=== PATIENT | male | born 1950 | race Caucasian/White ===

== ENCOUNTER 2019-01-09 18:26 | Inpatient (IN) | payer MEDICARE ==
[2019-01-09] MEDS ORDERED: VANCOMYCIN IV PER PHARMACY 1 EACH MISC MISCELLANE PRN (19:39)
--- NOTE | 2019-01-09 19:39 | ED ---
Extremity Problem HPI - General Chief complaint: Extremity Problem,Nontraumatic Stated complaint: bilat feet swelling Time Seen by Provider: 01/09/19 18:31 Source: patient, EMS, RN notes reviewed, old records reviewed Mode of arrival: EMS Limitations: no limitations - History of Present Illness Initial comments: This is a 68-year-old male is accepted in transfer for evaluation of lower extremity issues, bilateral lower Shorty pain infection versus cellulitis and ulcers. Patient also has significant secondary changes of scan set patient sent here for evaluation of wound care. Patient himself is having mild pain lower extremity is but no significant pain he states symptoms increasing for the last 5 years pain is episodic symptoms worsened he walks sometimes worse when he is just sitting still. MD Complaint: extremity pain, extremity swelling, other (Bilateral lower extremity) -: year(s) Location: bilateral lower extremity History of Same: Yes Radiation: none Severity scale (1-10): 7 Quality: stabbing Consistency: intermittent Improves with: nothing Worsens with: weight bearing, walking Associated Symptoms: denies other symptoms - Related Data Allergies Allergy/AdvReac Type Severity Reaction Status Date / Time No Known Allergies Allergy Verified 01/09/19 19:04 Review of Systems ROS Statement: Those systems with pertinent positive or pertinent negative responses have been documented in the HPI. ROS Other: All systems not noted in ROS Statement are negative. Past Medical History Past Medical History: Atrial Fibrillation, Heart Failure, Hypertension Additional Past Medical History / Comment(s): pulmonary edmea History of Any Multi-Drug Resistant Organisms: None Reported Past Surgical History: No Surgical Hx Reported Past Psychological History: No Psychological Hx Reported Smoking Status: Former smoker Past Alcohol Use History: None Reported Past Drug Use History: None Reported General Exam - General Exam Comments Initial Comments: Patient does have positive capillary refill lower extremity less than 2 seconds Limitations: no limitations General appearance: alert, in no apparent distress Head exam: Present: atraumatic, normocephalic, normal inspection Eye exam: Present: normal appearance, PERRL, EOMI. Absent: scleral icterus, conjunctival injection, periorbital swelling ENT exam: Present: normal exam, mucous membranes moist Neck exam: Present: normal inspection. Absent: tenderness, meningismus, lymphadenopathy Respiratory exam: Present: normal lung sounds bilaterally. Absent: respiratory distress, wheezes, rales, rhonchi, stridor Cardiovascular Exam: Present: regular rate, normal rhythm, normal heart sounds. Absent: systolic murmur, diastolic murmur, rubs, gallop, clicks GI/Abdominal exam: Present: soft, normal bowel sounds. Absent: distended, tenderness, guarding, rebound, rigid Extremities exam: Present: normal inspection, full ROM, normal capillary refill, other (Bilateral lower extremity edema significant with secondary changes of infection ulceration does have Doppler pulses no palpable pulse and swelling). Absent: tenderness, pedal edema, joint swelling, calf tenderness Back exam: Present: normal inspection Neurological exam: Present: alert, oriented X3, CN II-XII intact Psychiatric exam: Present: normal affect, normal mood Skin exam: Present: warm, dry, intact, normal color. Absent: rash Course Vital Signs 01/09/19 18:35 Temperature 97.7 F Pulse Rate 95 Respiratory 18 Rate Blood Pressure 125/90 O2 Sat by Pulse 98 Oximetry - Reevaluation(s) Reevaluation #1: 01/09/19 19:37 Medical record transfer paperwork are reviewed Reevaluation #2: 01/09/19 19:37 Patient is in no significant pain currently Medical Decision Making - Medical Decision Making 7 male the ER for evaluation patient resents today for evaluation regarding significant lower extremity edema slightly changes of venous insufficiency. Patient does have secondary changes of infection and ulcer. Patient will be admitted for IV antibiotics diuresis and wound care Disposition Clinical Impression: Bilateral lower leg cellulitis, Chronic venous insufficiency Disposition: ADMITTED IP TO THIS HOSP Condition: Fair Is patient prescribed a controlled substance at d/c from ED?: No Referrals: Nonstaff,Physician [Primary Care Provider] - 1-2 days
[2019-01-09] MEDS ORDERED: VANCOMYCIN 2,500 MG in SODIUM CHLORIDE 0.9% 500 ML 500 ML IVPB ONE (21:00)
[2019-01-09] MEDS ORDERED: ALBUTEROL NEBULIZED 2.5 MG/3 ML INHALATION PRN (22:01)
[2019-01-09] MEDS: FUROSEMIDE 10 MG/ML 4 ML VIAL IV SCH (22:41)
[2019-01-09] MEDS: APIXABAN 5 MG TAB PO SCH (22:42)
[2019-01-09] MEDS: METOPROLOL TARTRATE 50 MG TAB PO SCH (23:46)
[2019-01-09] MEDS: NICOTINE POLACRILEX 2 MG GUM BUCCAL PRN (23:47)
[2019-01-10] MEDS: APIXABAN 5 MG TAB PO SCH ×2 (05:28→16:25)
[2019-01-10] MEDS: VANCOMYCIN 2,250 MG in SODIUM CHLORIDE 0.9% 500 ML 500 ML IVPB SCH ×3 (05:28→22:10)
[2019-01-10] MEDS: IPRATROPIUM 0.5 MG/2.5 ML NEBU INHALATION SCH ×4 (07:45→19:48)
[2019-01-10] MEDS: CHOLECALCIFEROL 1,000 UNIT TAB PO SCH (07:54)
[2019-01-10] MEDS: PANTOPRAZOLE 40 MG TABLET PO SCH (07:54)
[2019-01-10] MEDS: MULTIVITAMINS, THERA 1 EACH TAB PO SCH (07:55)
[2019-01-10] MEDS: FUROSEMIDE 10 MG/ML 4 ML VIAL IV SCH (07:55)
[2019-01-10] MEDS: ATORVASTATIN 10 MG TAB PO SCH (07:55)
[2019-01-10 09:00] LABS: African American GFR (CKD) >90 (>60 ml/min/1.73 sqM)
[2019-01-10] MEDS ORDERED: ENOXAPARIN 40 MG/0.4 ML SYRINGE SQ SCH (09:00)
[2019-01-10] MEDS: METOPROLOL TARTRATE 50 MG TAB PO SCH ×2 (09:33→16:25)
[2019-01-10] MEDS: NICOTINE POLACRILEX 2 MG GUM BUCCAL PRN ×2 (10:35→16:31)
[2019-01-10] MEDS: FUROSEMIDE 20 MG TAB PO SCH (16:25)
--- NOTE | 2019-01-10 16:33 | P.HPIM ---
History of Present Illness 68-year-old male with the history of bilateral lower extremity venous stasis and lymphedema chronic came in with increased redness and increased swelling and some pain. Patient denied any fever chills patient doesn't have any leuko cytosis patient has some breast tenderness in the right foot does have chronic stasis dermatosis changes extremely swollen both legs. Patient will limit any local wound care patient was started on Rocephin and vancomycin which I'll continue for now there is an obvious no obvious draining ulcers from which I can get cultures. Review of Systems REVIEW OF SYSTEMS: CONSTITUTIONAL: No fever, no malaise, no fatigue. HEENT: No recent visual problems or hearing problems. Denied any sore throat. CARDIOVASCULAR: No chest pain, orthopnea, PND, no palpitations, no syncope. PULMONARY: No shortness of breath, no cough, no hemoptysis. GASTROINTESTINAL: No diarrhea, no nausea, no vomiting, no abdominal pain. NEUROLOGICAL: No headaches, no weakness, no numbness. HEMATOLOGICAL: Denies any bleeding or petechiae. GENITOURINARY: Denies any burning micturition, frequency, or urgency. MUSCULOSKELETAL/RHEUMATOLOGICAL: Denies any joint pain, swelling, or any muscle pain. ENDOCRINE: Denies any polyuria or polydipsia. The rest of the 14-point review of systems is negative. Past Medical History Past Medical History: Atrial Fibrillation, Heart Failure, Hypertension Additional Past Medical History / Comment(s): pulmonary edmea History of Any Multi-Drug Resistant Organisms: None Reported Past Surgical History: No Surgical Hx Reported Past Psychological History: No Psychological Hx Reported Smoking Status: Former smoker Past Alcohol Use History: None Reported Past Drug Use History: None Reported Additional Drug Use History / Comment(s): Past ETOH 18 years ago Medications and Allergies Home Medications Medication Instructions Recorded Confirmed Type Albuterol Inhaler [Ventolin Hfa 1 - 2 puff INHALATION RT-Q6H PRN 01/09/19 01/09/19 History Inhaler] Apixaban [Eliquis] 5 mg PO BID@0500,1700 01/09/19 01/09/19 History Cholecalciferol [Vitamin D3 (25 1,000 unit PO DAILY 01/09/19 01/09/19 History Mcg = 1000 Iu)] Lipitor Unkown Dose 0.5 tab PO DAILY 01/09/19 01/09/19 History Metoprolol Tartrate [Lopressor] 100 mg PO BID@0500,1700 01/09/19 01/09/19 His tory Multivitamins, Thera [Multivitamin 1 tab PO DAILY 01/09/19 01/09/19 History (formulary)] Omeprazole 80 mg PO DAILY 01/09/19 01/09/19 History Tiotropium 18 Mcg/Puff [Spiriva] 1 puff INHALATION RT-DAILY 01/09/19 01/09/19 History Allergies Allergy/AdvReac Type Severity Reaction Status Date / Time No Known Allergies Allergy Verified 01/09/19 19:04 Physical Exam Vitals: Vital Signs Temp Pulse Pulse Pulse Resp BP BP 01/10/19 16:24 99 01/10/19 16:19 80 01/10/19 16:06 78 01/10/19 12:19 97.3 F L 90 17 01/10/19 11:46 76 01/10/19 11:33 74 01/10/19 08:01 84 01/10/19 08:00 18 01/10/19 07:47 80 01/10/19 06:13 77 01/10/19 05:38 98.8 F 91 18 92/60 01/09/19 23:33 121/80 01/09/19 21:42 97.4 F L 105 H 18 126/79 01/09/19 20:09 97.9 F 100 20 102/86 01/09/19 18:35 97.7 F 95 18 125/90 BP Pulse Ox 01/10/19 16:24 128/61 01/10/19 16:19 01/10/19 16:06 01/10/19 12:19 110/57 96 01/10/19 11:46 01/10/19 11:33 01/10/19 08:01 01/10/19 08:00 01/10/19 07:47 01/10/19 06:13 108/59 01/10/19 05:38 94 L 01/09/19 23:33 01/09/19 21:42 95 01/09/19 20:09 96 01/09/19 18:35 98 Intake and Output 01/10/19 01/10/19 01/10/19 06:59 14:59 22:59 Intake Total 600 Output Total 1770 Balance -1770 600 Intake: Oral 600 Output: Urine 1770 Other: Voiding Method Urinal Urinal Urinal PHYSICAL EXAMINATION: GENERAL: The patient is alert and oriented x3, not in any acute distress. Well developed, well nourished. HEENT: Pupils are round and equally reacting to light. EOMI. No scleral icterus. No conjunctival pallor. Normocephalic, atraumatic. No pharyngeal erythema. No thyromegaly. CARDIOVASCULAR: S1 and S2 present. No murmurs, rubs, or gallops. PULMONARY: Chest is clear to auscultation, no wheezing or crackles. ABDOMEN: Soft, nontender, nondistended, normoactive bowel sounds. No palpable organomegaly. MUSCULOSKELETAL: No joint swelling or deformity. EXTREMITIES: No cyanosis, clubbing, venous stasis and edema NEUROLOGICAL: Gross neurological examination did not reveal any focal deficits. SKIN: bilateral lower extremity edema, venous stasis dermatosis with some skin breakdown scaling of both legs extending up to the midshin area circumferential some redness in the right foot Results CBC & Chem 7: 01/10/19 08:12 Thrombosis Risk Factor Assmnt - Choose All That Apply Any of the Below Risk Factors Present?: Yes Each Factor Represents 1 point: Obesity (BMI >25), Swollen legs (current) Other Risk Factors: Yes Each Risk Factor Represents 2 Points: Age 61-74 years Thrombosis Risk Factor Assessment Total Risk Factor Score: 4 Thrombosis Risk Factor Assessment Level: Moderate Risk Assessment and Plan Plan: -bilateral lower edema and venous stasis lymphedema and possible cellulitis the right leg: Patient will need local wound care will continue with Lasix was switched to oral Lasix. As patient is hypotensive at this time. We'll continue the antibiotics and the left patient is evaluated by infectious disease. Patient may benefit from Keflex and discontinue rest of the medications. But this shouldn't decision will be left infectious disease. -Atrial fibrillation presently rate controlled patient is on Eliquis which will be continued metoprolol will be continued -nicotine abuse until recently -Hypertension -Obesity Patient will not need any additional DVT prophylaxis as patient is is on Eliquis
[2019-01-11] MEDS ORDERED: VANCOMYCIN TROUGH DUE 1 EACH MISC MISCELLANE ONE (05:00)
[2019-01-11 06:09] LABS: HCT 33.5 % (39.0-53.0); HGB 10.7 gm/dL (13.0-17.5); Hypochromasia Slight; MCH 29.5 pg (25.0-35.0); MCV 92.2 fL (80.0-100.0); Mean Platelet Volume 6.9; Platelet Count 186 k/uL (150-450); RBC 3.63 m/uL (4.30-5.90); RDW 14.5 % (11.5-15.5); WBC 7.7 k/uL (3.8-10.6)
[2019-01-11] MEDS: APIXABAN 5 MG TAB PO SCH ×2 (06:11→16:04)
[2019-01-11] MEDS: METOPROLOL TARTRATE 50 MG TAB PO SCH ×2 (06:11→16:04)
[2019-01-11] MEDS: VANCOMYCIN 2,250 MG in SODIUM CHLORIDE 0.9% 500 ML 500 ML IVPB SCH (06:11)
[2019-01-11 06:17] LABS: African American GFR (CKD) >90 (>60 ml/min/1.73 sqM); Anion Gap 5 mmol/L; Blood Urea Nitrogen 16 mg/dL (9-20); Calcium 8.4 mg/dL (8.4-10.2); Carbon Dioxide 32 mmol/L (22-30); Chloride 103 mmol/L (98-107); Glucose 97 mg/dL (74-99); Potassium 3.5 mmol/L (3.5-5.1); Sodium 140 mmol/L (137-145)
[2019-01-11] MEDS: IPRATROPIUM 0.5 MG/2.5 ML NEBU INHALATION SCH ×4 (07:15→18:58)
[2019-01-11] MEDS: PANTOPRAZOLE 40 MG TABLET PO SCH (08:25)
[2019-01-11] MEDS: FUROSEMIDE 20 MG TAB PO SCH ×2 (08:25→16:04)
[2019-01-11] MEDS: MULTIVITAMINS, THERA 1 EACH TAB PO SCH (08:25)
[2019-01-11] MEDS: CHOLECALCIFEROL 1,000 UNIT TAB PO SCH (08:25)
[2019-01-11] MEDS: ATORVASTATIN 10 MG TAB PO SCH (08:25)
--- NOTE | 2019-01-11 10:19 | P.CONS ---
History of Present Illness - Reason for Consult Consult date: 01/10/19 Bilateral lower extremity cellulitis Requesting physician: Samina Lewis - Chief Complaint Bilateral leg pain swelling and redness x few days - History of Present Illness Patient is a 68-year-old male with a past medical history significant for bilateral lower extremity chronic swelling and dry scaly skin which has been going on for years patient presented to outside facility with more pain swelling and redness to the leg especially to the right foot patient denies any history of any trauma patient describing the pain to be more of a dull aching pain in tensity about 5 out of 10 and worse when he walks on them patient currently did not have any open wound or any sinus drainage patient was evaluated outside facility and subsequently has been transferred to [facility] for further management of his lower extremity cellulitis, the patient denies any fever or any chills and his white count has been normal currently being treated with a combination of Rocephin and vancomycin, patient denies any specific local care to his lower extremity for the last year or so Review of Systems Positive point has been mentioned in the HPI rest of the systems are negative Past Medical History Past Medical History: Atrial Fibrillation, Heart Failure, Hypertension Additional Past Medical History / Comment(s): pulmonary edmea History of Any Multi-Drug Resistant Organisms: None Reported Past Surgical History: No Surgical Hx Reported Past Psychological History: No Psychological Hx Reported Smoking Status: Former smoker Past Alcohol Use History: None Reported Past Drug Use History: None Reported Additional Drug Use History / Comment(s): Past ETOH 18 years ago Medications and Allergies Home Medications Medication Instructions Recorded Confirmed Type Albuterol Inhaler [Ventolin Hfa 1 - 2 puff INHALATION RT-Q6H PRN 01/09/19 01/09/19 History Inhaler] Apixaban [Eliquis] 5 mg PO BID@0500,1700 01/09/19 01/09/19 History Cholecalciferol [Vitamin D3 (25 1,000 unit PO DAILY 01/09/19 01/09/19 History Mcg = 1000 Iu)] Lipitor Unkown Dose 0.5 tab PO DAILY 01/09/19 01/09/19 History Metoprolol Tartrate [Lopressor] 100 mg PO BID@0500,1700 01/09/19 01/09/19 History Multivitamins, Thera [Multivitamin 1 tab PO DAILY 01/09/19 01/09/19 History (formulary)] Omeprazole 80 mg PO DAILY 01/09/19 01/09/19 History Tiotropium 18 Mcg/Puff [Spiriva] 1 puff INHALATION RT-DAILY 01/09/19 01/09/19 History Allergies Allergy/AdvReac Type Severity Reaction Status Date / Time No Known Allergies Allergy Verified 01/09/19 19:04 Physical Exam Vitals: Vital Signs Temp Pulse Pulse Pulse Resp BP BP 01/10/19 12:19 97.3 F L 90 17 01/10/19 11:46 76 01/10/19 11:33 74 01/10/19 08:01 84 01/10/19 08:00 18 01/10/19 07:47 80 01/10/19 06:13 77 01/10/19 05:38 98.8 F 91 18 92/60 01/09/19 23:33 121/80 01/09/19 21:42 97.4 F L 105 H 18 126/79 01/09/19 20:09 97.9 F 100 20 102/86 01/09/19 18:35 97.7 F 95 18 125/90 BP Pulse Ox 01/10/19 12:19 110/57 96 01/10/19 11:46 01/10/19 11:33 01/10/19 08:01 01/10/19 08:00 01/10/19 07:47 01/10/19 06:13 108/59 01/10/19 05:38 94 L 01/09/19 23:33 01/09/19 21:42 95 01/09/19 20:09 96 01/09/19 18:35 98 Intake and Output 01/10/19 01/10/19 01/10/19 06:59 14:59 22:59 Output Total 1770 Balance -1770 Output: Urine 1770 Other: Voiding Method Urinal Urinal GENERAL DESCRIPTION: An elderly male lying in bed, no distress. No tachypnea or accessory muscle of respiration use. HEENT: Shows Pallor , no scleral icterus. Oral mucous membrane is dry. No pharyngeal erythema or thrush NECK: Trachea central, no thyromegaly. LUNGS: Unlabored breathing. Clear to auscultation anteriorly. No wheeze or crackle. HEART: S1, S2, regular rate and rhythm. No loud murmur ABDOMEN: Soft, no tenderness , guarding or rigidity, no organomegaly EXTREMITIES: Bilateral lower extremity with significant swelling and dry scaly skin no open wound or any drainage minimal redness overall poor hygiene SKIN: No rash, no masses palpable. NEUROLOGICAL: The patient is awake, alert, oriented x3, mood and affect normal. Results CBC & Chem 7: 01/11/19 05:34 01/11/19 05:34 Assessment and Plan Assessment: 1-patient with bilateral lower extremity swelling and pain in this patient who did have a chronic dry scaly skin and possible underlying venous stasis however currently do not have any open ulcers with diffuse swelling redness in the component of cellulitis is not entirely excluded likely streptococcal disease in this patient currently with no fever or elevated white count (1) Bilateral lower leg cellulitis Current Visit: Yes Status: Acute Code(s): L03.116 - CELLULITIS OF LEFT LOWER LIMB; L03.115 - CELLULITIS OF RIGHT LOWER LIMB SNOMED Code(s): 634942376 Plan: 1-discontinue the vancomycin and Rocephin 2-cefazolin 2 g every 8 hours 3-moisturizing cream to the dry scaly skin lower extremity to be applied daily this was explained to the RN We will follow on clinical condition and cultures to further adjust medication if needed Thank you for this consultation will follow this patient with you Time with Patient: Greater than 30
[2019-01-11] MEDS ORDERED: KETOROLAC 30 MG/ML 1 ML VIAL IVP PRN (15:08)
[2019-01-11] MEDS: NICOTINE POLACRILEX 2 MG GUM BUCCAL PRN (15:49)
--- NOTE | 2019-01-11 15:53 | P.PN ---
Subjective 68-year-old male with the history of bilateral lower extremity venous stasis and lymphedema chronic came in with increased redness and increased swelling and some pain. Patient denied any fever chills patient doesn't have any leukocytosis patient has some breast tenderness in the right foot does have chronic stasis dermatosis changes extremely swollen both legs. Patient will limit any local wound care patient was started on Rocephin and vancomycin. 01/11/2019 Patient is presently on ceftezolin and vancomycin and Rocephin were discontinued Constitutional: Denied any fatigue denied any fever. Cardio vascular: denied any chest pain, palpitations Gastrointestinal denied any nausea vomiting Pulmonary: Denied any shortness of breath cough Neurologic denied any new focal deficits All inpatient medications were reviewed and appropriate changes in these medications as dictated in the interval history and assessment and plan. Objective - Vital Signs Vital signs: Vital Signs Temp 98.2 F 01/11/19 12:05 Pulse 78 01/11/19 15:41 Resp 18 01/11/19 12:05 BP 106/64 01/11/19 12:05 Pulse Ox 93 L 01/11/19 12:05 Intake & Output 01/10/19 01/11/19 01/11/19 18:59 06:59 18:59 Intake Total 600 790 Balance 600 790 Intake: Intake, IV Titration 500 Amount Vancomycin 2,250 mg In 500 Sodium Chloride 0.9% 500 ml 500 ml @ 167 mls/hr IVPB Q8H [facility] Rx#: [id number] Oral 600 290 Other: Voiding Method Urinal Urinal Urinal # Voids 2 # Bowel Movements 1 - Exam PHYSICAL EXAMINATION: GENERAL: The patient is alert and oriented x3, not in any acute distress. Well developed, well nourished. HEENT: Pupils are round and equally reacting to light. EOMI. No scleral icterus. No conjunctival pallor. Normocephalic, atraumatic. No pharyngeal erythema. No thyromegaly. CARDIOVASCULAR: S1 and S2 present. No murmurs, rubs, or gallops. PULMONARY: Chest is clear to auscultation, no wheezing or crackles. ABDOMEN: Soft, nontender, nondistended, normoactive bowel sounds. No palpable organomegaly. MUSCULOSKELETAL: No joint swelling or deformity. EXTREMITIES: No cyanosis, clubbing, venous stasis and edema NEUROLOGICAL: Gross neurological examination did not reveal any focal deficits. SKIN: bilateral lower extremity edema, venous stasis dermatosis with some skin breakdown scaling of both legs extending up to the midshin area circumferential some redness in the right foot - Labs CBC & Chem 7: 01/11/19 05:34 01/11/19 05:34 Labs: Abnormal Lab Results - Last 24 Hours (Table) 01/11/19 01/11/19 Range/Units 05:34 05:34 RBC 3.63 L (4.30-5.90) m/uL Hgb 10.7 L (13.0-17.5) gm/dL Hct 33.5 L (39.0-53.0) % Carbon Dioxide 32 H (22-30) mmol/L Assessment and Plan Plan: -bilateral lower edema and venous stasis lymphedema and possible cellulitis the right leg: Patient will need local wound care will continue with Lasix. Patient is on ceftezolin and and infectious disease following the patient -Atrial fibrillation presently rate controlled patient is on Eliquis which will be continued metoprolol will be continued -nicotine abuse until recently -Hypertension -Obesity Patient will not need any additional DVT prophylaxis as patient is is on Eliquis
--- NOTE | 2019-01-11 16:14 | PN ---
PROGRESS NOTE DATE OF SERVICE: 01/11/2019. REASON FOR FOLLOW UP: Bilateral extremity cellulitis, Athlete's foot. INTERVAL HISTORY: The patient is currently afebrile. Patient is breathing comfortably. Denies any chest pain. No cough. No nausea, vomiting. Overall pain and swelling to the leg has decreased. Currently no open wounds or any drainage. PHYSICAL EXAMINATION: Blood pressure 106/54 with a pulse of 87, temperature 98.2. He is 93% on room air. General description is an elderly male lying in bed in no distress. Respiratory system: Unlabored breathing. Clear to auscultation anteriorly. Heart S1, S2. Regular rate and rhythm. Abdomen soft, no tenderness. Bilateral leg did have some chronic swelling, minimal redness, dry scaly skin with evidence of athlete's foot. LABS: White count 7.7. DIAGNOSTIC IMPRESSION AND PLAN: 1. Patient with bilateral lower extremity venous stasis, but no evidence of any ulcers. Did have a component of cellulitis. The patient to continue Cefazolin with the plan is to finish therapy with oral Keflex. Local care with moisturizing cream and minimal compression dressing. 2. Athlete's foot, nystatin cream between the toes twice a day. MMODL / IJN: [id number] /
[2019-01-11] MEDS ORDERED: VANCOMYCIN 2,250 MG in SODIUM CHLORIDE 0.9% 500 ML 500 ML IVPB SCH (21:00)
[2019-01-11] MEDS: NYSTATIN 100,000UNIT/GM CREAM 30 GM TUBE TOPICAL SCH (21:55)
[2019-01-12] MEDS: APIXABAN 5 MG TAB PO SCH ×2 (05:40→16:05)
[2019-01-12] MEDS: METOPROLOL TARTRATE 50 MG TAB PO SCH ×2 (05:40→16:04)
[2019-01-12] MEDS: NICOTINE POLACRILEX 2 MG GUM BUCCAL PRN ×3 (05:42→19:41)
[2019-01-12] MEDS: IPRATROPIUM 0.5 MG/2.5 ML NEBU INHALATION SCH ×4 (07:20→20:02)
[2019-01-12 07:40] LABS: African American GFR (CKD) >90 (>60 ml/min/1.73 sqM)
[2019-01-12] MEDS: FUROSEMIDE 20 MG TAB PO SCH ×2 (08:08→16:04)
[2019-01-12] MEDS: PANTOPRAZOLE 40 MG TABLET PO SCH (08:08)
[2019-01-12] MEDS: MULTIVITAMINS, THERA 1 EACH TAB PO SCH (08:08)
[2019-01-12] MEDS: ATORVASTATIN 10 MG TAB PO SCH (08:08)
[2019-01-12] MEDS: CHOLECALCIFEROL 1,000 UNIT TAB PO SCH (08:08)
[2019-01-12] MEDS: NYSTATIN 100,000UNIT/GM CREAM 30 GM TUBE TOPICAL SCH ×2 (08:09→21:05)
--- NOTE | 2019-01-12 11:47 | CDI ---
Documentation Clarification Form Date: 01/12/2019 11:28:49 AM From: Denise Jacobs RN CCDS Admit Date: 01/11/2019 10:41:00 AM Patient Name: Nikko Russo Visit Number: [id number] Discharge Date: ATTENTION: The Clinical Documentation Specialists (CDI) and [facility] Coding Staff appreciate your assistance in clarifying documentation. Please respond to the clarification below the line at the bottom and electronically sign. The CDI & [facility] Coding staff will review the response and follow-up if needed. Please note: Queries are made part of the Legal Health Record. If you have any questions, please contact the author of this message via ITS. Dr. Samina Lewis Heart Failure is documented in H & P, Medical History 01/10/2019 History/Risk Factors: 68-year-old male presents to the ED Via EMS as a Transfer for bilateral feet swelling and cellulitis. Medical History Atrial Fibrillation; HTN; Heart Failure . Clinical Indicators: Per the H & P Chronic stasis dermatosis changes extremely swollen both legs VS/Pulse OX: 125/90 95 97.7 18 98% ra Treatment: Lopressor bid; Lasix bid; In your professional opinion, can you please clarify the acuity and type of CHF if known? * Chronic Systolic Heart Failure * Chronic Diastolic Heart Failure * Chronic Systolic & Diastolic Heart Failure * Heart Failure Ruled Out * Unable to Determine * Other, please specify (Last Revision: June 2017) No heart failure MTDD
--- NOTE | 2019-01-12 14:04 | PN ---
PROGRESS NOTE DATE OF SERVICE: 01/12/2019 REASON FOR FOLLOWUP: Bilateral extremity cellulitis, Althlete's foot. INTERVAL HISTORY: The patient is currently afebrile. Patient has been breathing comfortably. Denies having any chest pain, no cough. No nausea, no vomiting. No abdominal pain. No pain to the leg area. PHYSICAL EXAMINATION: Blood pressure 132/79 with a pulse of 80, temperature 97.4. He is 94% on room air. General description is elderly male, up in the chair in no distress. RESPIRATORY SYSTEM: Unlabored breathing, clear to auscultation anteriorly. HEART: S1, S2. Regular rate and rhythm. ABDOMEN: Soft, no tenderness. EXTREMITIES: Bilateral leg swelling has slightly decreased. LABS: Hemoglobin is 10.7, white count 7.7, creatinine 0.77. DIAGNOSTIC IMPRESSION AND PLAN: 1. Patient with bilateral extremity cellulitis. Patient is currently covered with cefazolin 2 g. Therapy to be switched over to Keflex 500 mg p.o. q.6 hours for another 10 days. 2. Athlete's foot, nystatin cream between the toes twice a day for about a week. Continue supportive care. MMODL / IJN: [id number] /
--- NOTE | 2019-01-12 16:15 | P.PN ---
Subjective Progress Note Date: 01/12/19 Principal diagnosis: 68-year-old male with the history of bilateral lower extremity venous stasis and lymphedema chronic came in with increased redness and increased swelling and so me pain. Patient denied any fever chills patient doesn't have any leukocytosis patient has some breast tenderness in the right foot does have chronic stasis dermatosis changes extremely swollen both legs. Patient will limit any local wound care patient was started on Rocephin and vancomycin. 01/11/2019 Patient is presently on ceftezolin and vancomycin and Rocephin were discontinued Constitutional: Denied any fatigue denied any fever. Cardio vascular: denied any chest pain, palpitations Gastrointestinal denied any nausea vomiting Pulmonary: Denied any shortness of breath cough Neurologic denied any new focal deficits All inpatient medications were reviewed and appropriate changes in these medications as dictated in the interval history and assessment and plan. 01/12/2019 Patient is sitting up in chair in no acute distress. No acute overnight issues. Bilateral legs are elevated and continue to have swelling with dry, scaling of the skin noted. Discussed with the patient at length about possible discharge plans and patient states that he would like to go home. After discussing with the nurse as well as case management patient may benefit from rehab for continued strength and mobility. Patient did work with PT/OT today and also recommending subacute rehab upon discharge. Currently patient denies any chest pain, shortness of breath, or palpitations at this time. Patient is afebrile. Patient denies any nausea or vomiting and is tolerating diet. Guarded prognosis. Objective - Vital Signs Vital signs: Vital Signs Temp 97.4 F L 01/12/19 11:26 Pulse 105 H 01/12/19 15:54 Resp 16 01/12/19 15:54 BP 132/79 01/12/19 11:26 Pulse Ox 94 L 01/12/19 11:26 Intake & Output 01/11/19 01/12/19 01/12/19 18:59 06:59 18:59 Intake Total 9695 582 1755 Output Total 300 800 Balance 1000 340 230 Intake: Intake, IV Titration 500 50 50 Amount Vancomycin 2,250 mg In 500 Sodium Chloride 0.9% 500 ml 500 ml @ 167 mls/hr IVPB Q12HR [facility] Rx#: [id number] ceFAZolin 2 gm In Sodium 50 50 Chloride 0.9% 50 ml @ 100 mls/hr IVPB Q8HR [facility] Rx# :[id number] Oral 500 590 980 Output: Urine 300 800 Other: Voiding Method Urinal Urinal Urinal # Voids 2 2 # Bowel Movements 1 - Exam GENERAL: The patient is alert and oriented x3, not in any acute distress. Well developed, well nourished. Vital signs are stable. HEENT: Pupils are round and equally reacting to light. EOMI. No scleral icterus. No conjunctival pallor. Normocephalic, atraumatic. No pharyngeal erythema. No thyromegaly. CARDIOVASCULAR: S1 and S2 present. No murmurs, rubs, or gallops. PULMONARY: Chest is clear to auscultation, no wheezing or crackles. ABDOMEN: Soft, nontender, nondistended, normoactive bowel sounds. No palpable organomegaly. MUSCULOSKELETAL: No joint swelling or deformity. EXTREMITIES: No cyanosis, clubbing, venous stasis and edema noted to bilateral lower extremity NEUROLOGICAL: Gross neurological examination did not reveal any focal deficits. SKIN: bilateral lower extremity edema, venous stasis dermatosis with some skin breakdown, scaling of both legs extending up to the midshin area circumferential with some redness in the right foot, redness has improved - Labs CBC & Chem 7: 01/11/19 05:34 01/12/19 06:49 Assessment and Plan Assessment: -bilateral lower edema and venous stasis lymphedema and possible cellulitis the right leg: Patient will need local wound care will continue with Lasix. Patient is on cefazolin and infectious disease is following the patient -Atrial fibrillation presently rate controlled patient is on Eliquis which will be continued metoprolol will be continued -nicotine abuse until recently -Hypertension -Obesity -Patient will not need any additional DVT prophylaxis as patient is is on Eliquis Recommendations and discussion: Recommend to continue current medications, management, and symptomatic treatment. Infectious disease is following. Case management and social work are following and working on possible placement to rehab for continued PT/OT therapy. After speaking with the nurse today she feels she is unable to care for himself properly and would benefit from an ECF facility. Patient lives in the [facility] area and are currently awaiting authorization for [facility]. Will continue to monitor closely. Further recommendations to follow. Guarded prognosis. Possible discharge in 48 hours after authorization has been obtained.
[2019-01-13] MEDS: METOPROLOL TARTRATE 50 MG TAB PO SCH ×2 (05:30→16:51)
[2019-01-13] MEDS: APIXABAN 5 MG TAB PO SCH ×2 (05:31→16:51)
[2019-01-13 07:59] LABS: African American GFR (CKD) >90 (>60 ml/min/1.73 sqM)
[2019-01-13] MEDS: IPRATROPIUM 0.5 MG/2.5 ML NEBU INHALATION SCH ×4 (08:34→20:31)
[2019-01-13 09:19] LABS: Basophils % (A) 1 %; Eosinophils # (A) 0.5 k/uL (0-0.7); Eosinophils % (A) 5 %; HCT 40.4 % (39.0-53.0); HGB 12.8 gm/dL (13.0-17.5); Hypochromasia Slight; Lymphocytes # (A) 1.8 k/uL (1.0-4.8); Lymphocytes % (A) 20 %; MCH 29.5 pg (25.0-35.0); MCHC 31.6 g/dL (31.0-37.0); MCV 93.3 fL (80.0-100.0); Mean Platelet Volume 7.7; Monocytes # (A) 0.6 k/uL (0-1.0); Monocytes % (A) 6 %; Neutrophils # (A) 5.8 k/uL (1.3-7.7); Neutrophils % (A) 66 %; Platelet Count 225 k/uL (150-450); RBC 4.33 m/uL (4.30-5.90); RDW 14.4 % (11.5-15.5); WBC 8.9 k/uL (3.8-10.6)
[2019-01-13 09:33] LABS: Anion Gap 8 mmol/L; Blood Urea Nitrogen 15 mg/dL (9-20); Calcium 8.9 mg/dL (8.4-10.2); Carbon Dioxide 31 mmol/L (22-30); Chloride 103 mmol/L (98-107); Glucose 97 mg/dL (74-99); Potassium 3.8 mmol/L (3.5-5.1); Sodium 142 mmol/L (137-145)
[2019-01-13] MEDS: MULTIVITAMINS, THERA 1 EACH TAB PO SCH (09:33)
[2019-01-13] MEDS: FUROSEMIDE 20 MG TAB PO SCH ×2 (09:33→15:17)
[2019-01-13] MEDS: CHOLECALCIFEROL 1,000 UNIT TAB PO SCH (09:33)
[2019-01-13] MEDS: PANTOPRAZOLE 40 MG TABLET PO SCH (09:33)
[2019-01-13] MEDS: ATORVASTATIN 10 MG TAB PO SCH (09:33)
[2019-01-13] MEDS: NYSTATIN 100,000UNIT/GM CREAM 30 GM TUBE TOPICAL SCH ×2 (09:34→20:15)
--- NOTE | 2019-01-13 14:13 | PN ---
PROGRESS NOTE DATE OF SERVICE: 01/13/2019 REASON FOR FOLLOWUP: 1. Bilateral lower extremity cellulitis. 2. Athlete's foot. INTERVAL HISTORY: The patient is currently afebrile. The patient is breathing comfortably. Denies having any chest pain or cough, leg swelling persists, the redness has improved. No nausea, vomiting. No abdominal pain. No diarrhea with antibiotic therapy. PHYSICAL EXAMINATION: Blood pressure is 97/65 with a pulse of 90, temperature is 97.3. General description is an elderly male up in the chair in no distress. RESPIRATORY SYSTEM: Unlabored breathing, clear to auscultation anteriorly. HEART: S1, S2. Regular rate and rhythm. ABDOMEN: Soft. LEGS. Swelling persists. Redness has improved. No open wound or any drainage. LABS: Hemoglobin is 12.8, white count 8.9, BUN of 15, creatinine 0.67. DIAGNOSTIC IMPRESSION AND PLAN: 1. Patient has bilateral lower extremity cellulitis. This patient did have evidence of fluid overload with diffuse cellulitis, likely streptococcal disease and is covered with cefazolin that will be switched to oral Keflex q.6 hours for another 7-10 days to finish a course of therapy. 2. Athlete's foot. Recommend nystatin cream between the toes twice a day for about a week. MMODL / IJN: [id number] /
[2019-01-13] MEDS: NICOTINE POLACRILEX 2 MG GUM BUCCAL PRN (15:17)
--- NOTE | 2019-01-13 15:48 | P.PN ---
Subjective Progress Note Date: 01/13/19 Principal diagnosis: 68-year-old male with the history of bilateral lower extremity venous stasis and lymphedema chronic came in with increased redness and increased swelling and so me pain. Patient denied any fever chills patient doesn't have any leukocytosis patient has some breast tenderness in the right foot does have chronic stasis dermatosis changes extremely swollen both legs. Patient will limit any local wound care patient was started on Rocephin and vancomycin. 01/11/2019 Patient is presently on ceftezolin and vancomycin and Rocephin were discontinued Constitutional: Denied any fatigue denied any fever. Cardio vascular: denied any chest pain, palpitations Gastrointestinal denied any nausea vomiting Pulmonary: Denied any shortness of breath cough Neurologic denied any new focal deficits All inpatient medications were reviewed and appropriate changes in these medications as dictated in the interval history and assessment and plan. 01/12/2019 Patient is sitting up in chair in no acute distress. No acute overnight issues. Bilateral legs are elevated and continue to have swelling with dry, scaling of the skin noted. Discussed with the patient at length about possible discharge plans and patient states that he would like to go home. After discussing with the nurse as well as case management patient may benefit from rehab for continued strength and mobility. Patient did work with PT/OT today and also recommending subacute rehab upon discharge. Currently patient denies any chest pain, shortness of breath, or palpitations at this time. Patient is afebrile. Patient denies any nausea or vomiting and is tolerating diet. Guarded prognosis. 01/13/2019 Patient is sitting up in the chair in no acute distress with no acute overnight issues. Some of the swelling has gone down to the bilateral lower extremities and some of the erythema of the left leg has improved. Infectious disease is following. Patient is requesting a podiatry consult for a bone spur that he has. Patient will follow-up in the outpatient setting at the [facility] with podiatry as social work confirmed that podiatry does visit the F facility that he may be going to in [facility]. Patient is awaiting a 3 day stay for ECF placement. The plan is to go to [facility] for continued PT/OT therapy for strength and mobility. Patient denies any chest pain, shortness of breath, or palpitations at this time. Patient is afebrile. Patient denies any nausea or vomiting and is tolerating diet. Will continue to monitor closely. Objective - Vital Signs Vital signs: Vital Signs Temp 97.3 F L 01/13/19 11:59 Pulse 92 01/13/19 12:25 Resp 12 01/13/19 11:59 BP 97/65 01/13/19 11:59 Pulse Ox 96 01/13/19 04:46 Intake & Output 01/12/19 01/13/19 01/13/19 18:59 06:59 18:59 Intake Total 1030 590 650 Output Total 800 1200 Balance 230 -610 650 Intake: Intake, IV Titration 50 50 Amount ceFAZolin 2 gm In Sodium 50 50 Chloride 0.9% 50 ml @ 100 mls/hr IVPB Q8HR [facility] Rx# :[id number] Oral 980 590 600 Output: Urine 800 1200 Other: Voiding Method Urinal Urinal Urinal # Voids 2 2 # Bowel Movements 1 - Exam GENERAL: The patient is alert and oriented x3, not in any acute distress. Well developed, well nourished. Vital signs are stable. HEENT: Pupils are round and equally reacting to light. EOMI. No scleral icterus. No conjunctival pallor. Normocephalic, atraumatic. No pharyngeal erythema. No thyromegaly. CARDIOVASCULAR: S1 and S2 present. No murmurs, rubs, or gallops. PULMONARY: Chest is clear to auscultation, no wheezing or crackles. ABDOMEN: Soft, nontender, nondistended, normoactive bowel sounds. No palpable organomegaly. MUSCULOSKELETAL: No joint swelling or deformity. EXTREMITIES: No cyanosis, clubbing, venous stasis and edema noted to bilateral lower extremity NEUROLOGICAL: Gross neurological examination did not reveal any focal deficits. SKIN: bilateral lower extremity edema, venous stasis dermatosis with some skin breakdown, scaling of both legs extending up to the midshin area circumferential with some redness in the right foot, redness has improved - Labs CBC & Chem 7: 01/13/19 07:30 01/13/19 07:30 Labs: Abnormal Lab Results - Last 24 Hours (Table) 01/13/19 01/13/19 Range/Units 07:30 07:30 Hgb 12.8 L (13.0-17.5) gm/dL Carbon Dioxide 31 H (22-30) mmol/L Assessment and Plan Assessment: -bilateral lower edema and venous stasis lymphedema and possible cellulitis the right leg: Patient will need local wound care will continue with Lasix. Patient is on cefazolin and infectious disease is following the patient -Atrial fibrillation presently rate controlled patient is on Eliquis which will be continued metoprolol will be continued -nicotine abuse until recently -Hypertension -Obesity -Patient will not need any additional DVT prophylaxis as patient is is on Eliquis Recommendations and discussion: Recommend to continue current medications, management, and symptomatic treatment. Infectious disease is following. Case management and social work are following and working on possible placement to rehab for continued PT/OT therapy. Patient lives in the [facility] area and are currently awaiting authorization for [facility]. Patient will follow-up with podiatry at the [facility]. Will continue to monitor closely. Further recommendations to follow. Guarded prognosis. Possible discharge in 24 hours after authorization has been obtained.
[2019-01-13 19:44] VITALS: RESP 16
[2019-01-14] MEDS: APIXABAN 5 MG TAB PO SCH (04:47)
[2019-01-14] MEDS: METOPROLOL TARTRATE 50 MG TAB PO SCH (04:47)
[2019-01-14 05:05] VITALS: BP 115/72; TEMP 97.9
[2019-01-14] MEDS: CHOLECALCIFEROL 1,000 UNIT TAB PO SCH (08:27)
[2019-01-14] MEDS: MULTIVITAMINS, THERA 1 EACH TAB PO SCH (08:27)
[2019-01-14] MEDS: PANTOPRAZOLE 40 MG TABLET PO SCH (08:27)
[2019-01-14] MEDS: FUROSEMIDE 20 MG TAB PO SCH (08:27)
[2019-01-14] MEDS: ATORVASTATIN 10 MG TAB PO SCH (08:27)
[2019-01-14] MEDS: NYSTATIN 100,000UNIT/GM CREAM 30 GM TUBE TOPICAL SCH (08:31)
[2019-01-14] MEDS: NICOTINE POLACRILEX 2 MG GUM BUCCAL PRN (09:03)
[2019-01-14] MEDS: IPRATROPIUM 0.5 MG/2.5 ML NEBU INHALATION SCH ×2 (09:28→12:50)
--- NOTE | 2019-01-14 11:48 | PN ---
PROGRESS NOTE DATE OF SERVICE: 01/14/2019 REASON FOR FOLLOWUP: 1. Bilateral lower extremity cellulitis. 2. Athlete's foot. INTERVAL HISTORY: The patient is currently afebrile. The patient is a breathing comfortably, denies any chest pain or cough. Leg swelling persists, redness has improved. Denies pain to the leg area. No nausea, no vomiting. No diarrhea. PHYSICAL EXAMINATION: Blood pressure is 115/72 with a pulse of 89, temperature 97.9, he is 99% on room air. General description is an elderly male, up in the chair in no distress. RESPIRATORY SYSTEM: Unlabored breathing, clear to auscultation anteriorly. HEART: S1, S2. Regular rate and rhythm. ABDOMEN: Soft, no tenderness. LEGS: Swelling persists. Redness has improved. LABS: White count of 8.9 with a creatinine 0.67. DIAGNOSTIC IMPRESSION AND PLAN: 1. Patient with bilateral extremity cellulitis. The patient did have diffuse swelling and redness, likely streptococcal disease from clinical improvement on cefazolin. Plan to finish therapy with oral Keflex 500 mg 4 times a day for 7 to 10 days. 2. Athlete's foot. Nystatin cream between the toes twice a day. MMODL / IJN: [id number] /
--- NOTE | 2019-01-14 12:45 | P.DS ---
Providers Date of admission: 01/11/19 10:41 Expected date of discharge: 01/14/19 Attending physician: Cady Stephens Consults: 01/10/19 15:13 Consult Physician Routine Consulting Provider: Geraldine Meehan Consult Reason/Comments: bilateral lower leg cellulitis Do you want consulting provider notified?: Yes Primary care physician: Physician Nonstaff Hospital Course: Final diagnosis -bilateral lower edema and venous stasis with lymphedema and possible cellulitis the right leg -Atrial fibrillation -nicotine abuse until recently -Hypertension -Obesity Discharge disposition Patient is being discharged in a stable condition with guarded prognosis to [facility] for continued PT/OT therapy. Per infectious disease recommendations patient will continue with nystatin twice daily applied between the toes for the next 7-10 days along with oral Keflex 4 times daily for 10 days. Patient will follow-up with primary care provider and wound care upon discharge. Total time taken is 35 minutes. History of present illness This is a 68-year-old male was recently admitted with some tenderness of the right foot along with swelling and redness and some chronic stasis dermatosis changes to bilateral lower extremities and was being closely monitored. Infectious disease was consulted and patient was on IV antibiotics during hospitalization. Patient will continue on oral antibiotics in the form of Keflex 4 times daily for the next 10 days. Patient also has some athlete's foot bilateral feet and will continue with nystatin cream twice daily in between the toes for the next 7-10 days. Patient was requesting a podiatry at the facility for chronic bone spur and is also an extreme need for foot care as he is unable to do this himself. Patient will be going to [facility] for continued PT/OT therapy as he currently only used a cane at home but due to the swelling of his bilateral lower extremities patient is requiring more assistance and the use a walker. Currently patient denies any chest pain, shortness of breath, or palpitations at this time. Patient is afebrile. Patient denies any nausea or vomiting and is tolerating diet. Currently patient's condition is stable with improvement and is ready for discharge today. Guarded prognosis. On exam vital signs are stable. Temp is 97.9F, pulse is 89, respirations are 16, blood pressure is 115/72, oxygen saturation is 99% on room air. Cardio S1 and S2 are present. Respiratory system shows diminished breath sounds at the bases otherwise clear to auscultation. Abdomen is soft, obese, nontender. Nervous system shows no focal deficits with mild diffuse weakness. Please refer to medication reconciliation sheet for a list of medications. Patient Condition at Discharge: Fair Plan - Discharge Summary Discharge Rx Participant: Yes New Discharge Prescriptions: New Cephalexin [Keflex] 500 mg PO Q6HR 10 Days #40 cap Furosemide [Lasix] 20 mg PO BID@0900,1600 tab Atorvastatin [Lipitor] 10 mg PO DAILY tab Nystatin 100,000Unit/gm Cream [Mycostatin Cream] 1 applic TOPICAL BID applic Nicotine Polacrilex [Nicorette] 2 mg BUCCAL Q4HR PRN gum PRN Reason: Nicotine Cravings Pantoprazole [Protonix] 40 mg PO DAILY@0730 tablet.dr Corbett Multivitamins, Thera [Multivitamin (formulary)] 1 tab PO DAILY Cholecalciferol [Vitamin D3 (25 Mcg = 1000 Iu)] 1,000 unit PO DAILY Tiotropium 18 Mcg/Puff [Spiriva] 1 puff INHALATION RT-DAILY Metoprolol Tartrate [Lopressor] 100 mg PO BID@0500,1700 Albuterol Inhaler [Ventolin Hfa Inhaler] 2 puff INHALATION RT-Q6H PRN PRN Reason: Shortness Of Breath Apixaban [Eliquis] 5 mg PO BID@0500,1700 Atorvastatin [Lipitor] 10 mg PO DAILY Discontinued Omeprazole 40 mg PO BID Discharge Medication List Albuterol Inhaler [Ventolin Hfa Inhaler] 2 puff INHALATION RT-Q6H PRN 01/09/19 [History] Apixaban [Eliquis] 5 mg PO BID@0500,1700 01/09/19 [History] Cholecalciferol [Vitamin D3 (25 Mcg = 1000 Iu)] 1,000 unit PO DAILY 01/09/19 [History] Metoprolol Tartrate [Lopressor] 100 mg PO BID@0500,1700 01/09/19 [History] Multivitamins, Thera [Multivitamin (formulary)] 1 tab PO DAILY 01/09/19 [History] Tiotropium 18 Mcg/Puff [Spiriva] 1 puff INHALATION RT-DAILY 01/09/19 [History] Atorvastatin [Lipitor] 10 mg PO DAILY 01/12/19 [History] Atorvastatin [Lipitor] 10 mg PO DAILY tab 01/14/19 [Rx] Cephalexin [Keflex] 500 mg PO Q6HR 10 Days #40 cap 01/14/19 [Rx] Furosemide [Lasix] 20 mg PO BID@0900,1600 tab 01/14/19 [Rx] Nicotine Polacrilex [Nicorette] 2 mg BUCCAL Q4HR PRN gum 01/14/19 [Rx] Nystatin 100,000Unit/gm Cream [Mycostatin Cream] 1 applic TOPICAL BID applic 01/14/19 [Rx] Pantoprazole [Protonix] 40 mg PO DAILY@0730 tablet. 01/14/19 [Rx] Follow up Appointment(s)/Referral(s): Geraldine Meehan MD [STAFF PHYSICIAN] - 2 Weeks [facility] Visiting Nurse, [NON-STAFF] - 1 Week Activity/Diet/Wound Care/Special Instructions: Activity as tolerated Continue working with PT/OT Complete a full course of antibiotics until finished 10 days Follow-up with primary care provider upon discharge Consult for podiatry at [facility] Continue with nystatin cream twice daily in between toes for the next week Continue current diet Discharge Disposition: TRANSFER TO SNF/ECF
[2019-01-14 13:01] VITALS: PULSE 88
--- NOTE | 2019-01-22 07:13 | CDI ---
Documentation Clarification Form Date: 01/22/19 From: Lu Yanez Phone: If you have a question about this query, please contact Dalila Lee Leasing Coordinator at [phone] between 8am and 5pm. Admit Date: 01/11/19 Discharge Date:01/14/19 Patient Name: Nikko Russo Visit Number: [id number] ATTENTION: The Clinical Documentation Specialists (CDI) and [facility] Coding Staff appreciate your assistance in clarifying documentation. Please respond to the clarification below the line at the bottom and electronically sign. The CDI & [facility] Coding staff will review the response and follow-up if needed. Please note: Queries are made part of the Legal Health Record. If you have any questions, please contact the author of this message via ITS. Dear Dr. Samina Lewis Atrial Fibrillation is documented throughout the chart. History/Risk Factors: Hypertension Clinical Indicators: Presently rate controlled. EKG/telemetry: Not done Treatment: Patient is on Eliquis 5 mg In your professional opinion, can you please clarify the type of Atrial Fibrillation, if known? Chronic Chronic Persistent Paroxysmal Persistent Other, please specify Unable to determine Unable to determine MTDD
== END 2019-01-14 14:30 | DRG 603 ==
LOC: EC 18:26 → 3NMEDONC 19:40 → OBSVTOIN 01-11 10:41
PROVIDERS: ADMIT Hospitalist; ATTEND Hospitalist
DX: L03.115 Cellulitis of right lower limb (principal); L03.116 Cellulitis of left lower limb; I95.9 Hypotension, unspecified; I48.91 Unspecified atrial fibrillation; B35.3 Tinea pedis; E66.9 Obesity, unspecified; I10 Essential (primary) hypertension; I87.8 Other specified disorders of veins; L98.8 Other specified disorders of the skin and subcutaneous tissue; I89.0 Lymphedema, not elsewhere classified; M77.9 Enthesopathy, unspecified; Z79.899 Other long term (current) drug therapy; Z79.01 Long term (current) use of anticoagulants; Z87.891 Personal history of nicotine dependence
CPT/HCPCS: 80048; 80202; 82565; 85025; 85027; 94640; 99284

== ENCOUNTER 2019-10-24 06:27 | Inpatient (IN) | payer OTHER, MEDICARE ==
--- NOTE | 2019-10-24 07:06 | ED ---
Chest Pain HPI - General Source: patient, EMS, RN notes reviewed Mode of arrival: EMS Limitations: no limitations <Jake Vazquez - Last Filed: 10/24/19 07:40> <Fritz Modi - Last Filed: 10/24/19 08:30> - General Chief Complaint: Chest Pain Stated Complaint: Chest Pain Time Seen by Provider: 10/24/19 06:31 - History of Present Illness Initial Comments: This a 69-year-old male presents emergency Department with chief complaint of chest pain. Patient states that it started a few hours ago. Patient states he was substernal chest pain, severe pain. Patient states that the pain has subsided he was brought in by EMS and was given aspirin. Patient states that he has had a cardiac cath several years ago. He does have a history of hypertension hyperlipidemia and A. fib on Eliquis. Patient has ongoing shortness breath this time. No headache no dizziness. Patient also noted to have extremely edematous legs with crusting. He states he has not worn shoes or cleaned his legs and a long period of time. Patient states he has no known fever. He states he has extensive drainage from his extremities he does not have home health care nursing at this time. (Jake Vazquez) - Related Data Home Medications Medication Instructions Recorded Confirmed Albuterol Inhaler (Mhu) [Ventolin 2 puff INHALATION RT-Q6H PRN 01/09/19 04/29/19 Hfa Inhaler (Mhu)] Apixaban [Eliquis] 5 mg PO BID@0600,1800 01/09/19 04/29/19 Cholecalciferol [Vitamin D3 (25 1,000 unit PO DAILY@0601/09/19 04/29/19 Mcg = 1000 Iu)] Metoprolol Tartrate [Lopressor] 100 mg PO BID@0600,1800 01/09/19 04/29/19 Tiotropium 18 Mcg/Puff [Spiriva] 1 puff INHALATION RT-DAILY@0601/09/19 04/29/19 Acetaminophen Tab [Tylenol] 650 mg PO Q4H PRN 04/29/19 04/29/19 Atorvastatin [Lipitor] 10 mg PO DAILY@222904/29/19 04/29/19 Pantoprazole [Protonix] 40 mg PO DAILY@222904/29/19 04/29/19 Previous Rx's Medication Instructions Recorded Nicotine Polacrilex [Nicorette] 2 mg BUCCAL Q4HR PRN gum 01/14/19 Cephalexin [Keflex] 500 mg PO Q8HR #21 cap 05/04/19 Furosemide [Lasix] 40 mg PO DAILY #90 tab 05/04/19 Allergies Allergy/AdvReac Type Severity Reaction Status Date / Time No Known Allergies Allergy Verified 04/29/19 17:03 Review of Systems ROS Other: All systems not noted in ROS Statement are negative. <Jake Vazquez - Last Filed: 10/24/19 07:40> ROS Other: All systems not noted in ROS Statement are negative. <Fritz Modi - Last Filed: 10/24/19 08:30> ROS Statement: Those systems with pertinent positive or pertinent negative responses have been documented in the HPI. EKG Findings - EKG Comments: EKG Findings:: EKG performed at 6:43 A. fib rate of 87 QRS 92 QT / QTC 394/474 <Jake Vazquez - Last Filed: 10/24/19 07:40> Past Medical History Past Medical History: Atrial Fibrillation, COPD, Hypertension Additional Past Medical History / Comment(s): pulmonary edmea, lymph edema , obstructive sleep apnea without home CPAP use History of Any Multi-Drug Resistant Organisms: None Reported Past Surgical History: No Surgical Hx Reported Past Psychological History: No Psychological Hx Reported Smoking Status: Former smoker Past Alcohol Use History: None Reported Past Drug Use History: None Reported - Past Family History Father Family Medical History: CVA/TIA Additional Family Medical History / Comment(s): Father from CVA Mother Additional Family Medical History / Comment(s): Mother from a "broken heart" shortly after father <Jake Vazquez - Last Filed: 10/24/19 07:40> General Exam Limitations: no limitations General appearance: alert, in no apparent distress, obese, other (Patient is upkept) Head exam: Present: atraumatic, normocephalic, normal inspection Eye exam: Present: normal appearance, PERRL, EOMI. Absent: scleral icterus, conjunctival injection, periorbital swelling ENT exam: Present: normal exam, normal oropharynx, mucous membranes moist Neck exam: Present: normal inspection, full ROM. Absent: tenderness, meningismus, lymphadenopathy Respiratory exam: Present: normal lung sounds bilaterally. Absent: respiratory distress, wheezes, rales, rhonchi, stridor Cardiovascular Exam: Present: irregular rhythm, normal heart sounds. Absent: regular rate, normal rhythm, systolic murmur, diastolic murmur, rubs, gallop, clicks GI/Abdominal exam: Present: soft, normal bowel sounds. Absent: distended, tenderness, guarding, rebound, rigid Extremities exam: Present: pedal edema (Extensive swelling, erythema, drainage and crusting noted of the lower extremities) Neurological exam: Present: alert, oriented X3 <Jake Vazquez - Last Filed: 10/24/19 07:40> Course <Fritz Modi - Last Filed: 10/24/19 08:30> Vital Signs 10/24/19 10/24/19 06:32 08:28 Temperature 97.5 F L 97.5 F L Pulse Rate 77 86 Respiratory 17 18 Rate Blood Pressure 121/86 107/75 O2 Sat by Pulse 96 100 Oximetry - Reevaluation(s) Reevaluation #1: 10/24/19 08:06 Patient reevaluated and reexamined by myself, Dr. Modi. I agree with. Findings. This includes diagnostic interpretation treatment plan. Patient is symptom-free at this time. Patient updated on results including chest x-ray results. Patient also has chronic leg edema and drainage. Patient states he has previously seen Dr. Rose for this. 10/24/19 08:30 Case was discussed with practitioner Ashleigh, who will admit covering for Dr. Stephens, who will [facility]. (Fritz Modi) Chest Pain MDM <Jake Vazquez - Last Filed: 10/24/19 07:40> - MDM 6-year-old presents for chest pain. Patient's troponin is 0.034. Patient has known history of A. fib anticoagulated. On Eliquis. Chest x-ray reviewed shows evidence of right lung mass concerning for lung cancer. Patient will be admitted for cardiology evaluation, pulmonology evaluation (Jake Vazquez) Disposition Time of Disposition: 07:42 <Jake Vazquez - Last Filed: 10/24/19 07:40> <Fritz Modi - Last Filed: 10/24/19 08:30> Clinical Impression: Lymphedema of both lower extremities, Chronic venous insufficiency, Lung mass, Chest pain Disposition: ADMITTED IP TO THIS HOSP Condition: Serious
[2019-10-24 07:10] LABS: Basophils % (A) 0 %; Eosinophils # (A) 0.3 k/uL (0-0.7); Eosinophils % (A) 3 %; HCT 35.4 % (39.0-53.0); Hypochromasia Moderate; Lymphocytes # (A) 1.5 k/uL (1.0-4.8); Lymphocytes % (A) 15 %; MCH 27.4 pg (25.0-35.0); MCHC 30.9 g/dL (31.0-37.0); MCV 88.7 fL (80.0-100.0); Mean Platelet Volume 7.8; Monocytes # (A) 0.6 k/uL (0-1.0); Monocytes % (A) 5 %; Neutrophils # (A) 7.6 k/uL (1.3-7.7); Neutrophils % (A) 75 %; Platelet Count 253 k/uL (150-450); RBC 3.99 m/uL (4.30-5.90); RDW 15.3 % (11.5-15.5); WBC 10.2 k/uL (3.8-10.6)
[2019-10-24 07:19] LABS: INR 1.1 (<1.2); Partial Thromboplastin Time 29.5 sec (22.0-30.0)
--- NOTE | 2019-10-24 07:23 | XR ---
EXAMINATION TYPE: XR chest 2V DATE OF EXAM: 10/24/2019 COMPARISON: NONE TECHNIQUE: PA and lateral views submitted. HISTORY: Chest pain FINDINGS: There is a large mass in the right upper lobe measuring 2.7 cm. Heart is enlarged. Hypertrophic and d egenerative change of the spine. No overt failure. No pneumothorax. No sizable pleural effusion. Tech nique limits assessment left lung base but no obvious area of infiltrate suspected. IMPRESSION: 1. Large 2.7 cm right upper lobe lung mass suspicious for malignancy. 2. Cardiomegaly.
[2019-10-24 07:24] LABS: ALT 14 U/L (4-49); AST 27 U/L (17-59); African American GFR (CKD) >90 (>60 ml/min/1.73 sqM); Albumin 3.4 g/dL (3.5-5.0); Alkaline Phosphatase 110 U/L (38-126); Anion Gap 7 mmol/L; Blood Urea Nitrogen 22 mg/dL (9-20); Calcium 8.8 mg/dL (8.4-10.2); Carbon Dioxide 29 mmol/L (22-30); Chloride 103 mmol/L (98-107); Glucose 170 mg/dL (74-99); Magnesium 1.8 mg/dL (1.6-2.3); Non-African American GFR(CKD) >90 (>60 ml/min/1.73 sqM); Potassium 4.1 mmol/L (3.5-5.1); Sodium 139 mmol/L (137-145); Total Protein 7.7 g/dL (6.3-8.2)
[2019-10-24] MEDS ORDERED: NALOXONE 0.4 MG/ML 1 ML VIAL IV PRN (07:42)
[2019-10-24] MEDS ORDERED: HYDROcodone/APAP 5-325MG 1 EACH TAB PO PRN (07:42)
[2019-10-24] MEDS ORDERED: ONDANSETRON 4 MG/2 ML VIAL IVP PRN (07:42)
[2019-10-24] MEDS ORDERED: RX INFO: IV CONTRAST WAS GIVEN 1 EACH MISC MISCELLANE PRN (10:42)
--- NOTE | 2019-10-24 11:27 | P.CRDCN ---
History of Present Illness Consult date: 10/24/19 Chief complaint: Chest pain History of present illness: This is a pleasant 69-year-old female patient with a past medical history significant for obesity, long-standing persistent atrial fibrillation, as well as hypertension and dyslipidemia and chronic lower extremities edema presented to the emergency room complaining of chest discomfort. He was in his usual state of focal early this morning when he woke up from sleep and started eating his breakfast and started experiencing discomfort in the chest. He described the discomfort as a tightness in the mid of the chest without any radiation to the arms or neck or shoulders and without any associated symptoms of shortness of breath, sweating, dizziness, heart racing, or syncope. The EKG showed atrial fibrillation with nonspecific ST and T wave abnormalities. The first set of enzymes came in to be unremarkable did a chest x-ray showed no acute abnormalities. The rest of his blood work came in to be unremarkable. He stated that he underwent a heart catheterization about 5 years ago in [place] and that showed normal coronaries according to him. On examination he does have severe bilateral lower extremities edema and chronic skin changes. He stated that in the past he is to follow at the wound clinic. Past Medical History Past Medical History: Atrial Fibrillation, COPD, Hypertension Additional Past Medical History / Comment(s): obesity, chronic Le wounds chronic lymphedema of the lower extremity , obstructive sleep apnea, does not use CPAP at home History of Any Multi-Drug Resistant Organisms: None Reported Past Surgical History: No Surgical Hx Reported Past Anesthesia/Blood Transfusion Reactions: No Reported Reaction Past Psychological History: No Psychological Hx Reported Smoking Status: Former smoker (quit smoking 11/2018 and he has >40py smoking) Past Alcohol Use History: None Reported Past Drug Use History: None Reported Additional Drug Use History / Comment(s): Past ETOH 18 years ago - Past Family History Father Family Medical History: CVA/TIA Additional Family Medical History / Comment(s): Father from CVA Mother Additional Family Medical History / Comment(s): Mother from a "broken heart" shortly after father Medications and Allergies Home Medications Medication Instructions Recorded Confirmed Type Apixaban [Eliquis] 5 mg PO Q12H 01/09/19 10/24/19 History Cholecalciferol [Vitamin D3 (25 1,000 unit PO DAILY 01/09/19 10/24/19 History Mcg = 1000 Iu)] Metoprolol Tartrate [Lopressor] 100 mg PO BID 01/09/19 10/24/19 History Tiotropium 18 Mcg/Puff [Spiriva] 1 puff INHALATION RT-DAILY 01/09/19 10/24/19 History Pantoprazole [Protonix] 40 mg PO DAILY 04/29/19 10/24/19 History Albuterol Inhaler [Ventolin Hfa 2 puff INHALATION RT-QID PRN 10/24/19 10/24/19 History Inhaler] Atorvastatin [Lipitor] 10 mg PO DAILY 10/24/19 10/24/19 History Furosemide [Lasix] 20 mg PO BID 10/24/19 10/24/19 History Multivit-Min/FA/Lycopen/Lutein 1 tab PO DAILY 10/24/19 10/24/19 History [Centrum Silver Tablet] Allergies Allergy/AdvReac Type Severity Reaction Status Date / Time No Known Allergies Allergy Verified 10/24/19 08:40 Physical Exam Vitals: Vital Signs Temp Pulse Pulse Resp BP BP Pulse Ox 10/24/19 09:00 98 F 89 22 96/51 100 10/24/19 08:28 97.5 F L 86 18 107/75 100 10/24/19 06:32 97.5 F L 77 17 121/86 96 Intake and Output 10/23/19 10/24/19 10/24/19 22:59 06:59 14:59 Other: Weight 138.346 kg 155.5 kg - Constitutional General appearance: no acute distress - Respiratory Respiratory: bilateral: diminished - Cardiovascular Rhythm: irregularly irregular Heart sounds: normal: S1, S2 Results 10/24/19 07:02 10/24/19 07:02 Cardiac Enzymes 10/24/19 10/24/19 Range/Units 07:02 07:02 AST 27 (17-59) U/L Troponin I 0.034 (0.000-0.034) ng/mL Coagulation 10/24/19 Range/Units 07:02 PT 11.0 (9.0-12.0) sec APTT 29.5 (22.0-30.0) sec CBC 10/24/19 Range/Units 07:02 WBC 10.2 (3.8-10.6) k/uL RBC 3.99 L (4.30-5.90) m/uL Hgb 11.0 L (13.0-17.5) gm/dL Hct 35.4 L (39.0-53.0) % Plt Count 253 (150-450) k/uL Comprehensive Metabolic Panel 10/24/19 Range/Units 07:02 Sodium 139 (137-145) mmol/L Potassium 4.1 (3.5-5.1) mmol/L Chloride 103 (98-107) mmol/L Carbon Dioxide 29 (22-30) mmol/L BUN 22 H (9-20) mg/dL Creatinine 0.71 (0.66-1.25) mg/dL Glucose 170 H (74-99) mg/dL Calcium 8.8 (8.4-10.2) mg/dL AST 27 (17-59) U/L ALT 14 (4-49) U/L Alkaline Phosphatase 110 (38-126) U/L Total Protein 7.7 (6.3-8.2) g/dL Albumin 3.4 L (3.5-5.0) g/dL Current Medications Generic Name Dose Route Start Last Admin Trade Name Freq PRN Reason Stop Dose Admin Acetaminophen 650 mg 10/24/19 07:42 Tylenol Tab PO Q6HR PRN Mild Pain or Fever > 100.5 Hydrocodone Bitart/Acetaminophen 1 each 10/24/19 07:42 [place] 5-325 PO Q4HR PRN Moderate Pain Miscellaneous Information 1 each 10/24/19 10:42 Rx Info: Iv Contrast Was Given MISCELLANE 10/26/19 10:42 DAILY PRN Per Protocol Naloxone HCl 0.2 mg 10/24/19 07:42 Narcan IV Q2M PRN Opioid Reversal Ondansetron HCl 4 mg 10/24/19 07:42 Zofran IVP Q8HR PRN Nausea And Vomiting Intake and Output 10/23/19 10/24/19 10/24/19 22:59 06:59 14:59 Other: Weight 138.346 kg 155.5 kg Patient Weight 10/25/19 06:59 Weight 155.5 kg 10/24/19 07:02 10/24/19 07:02 Assessment and Plan Assessment: Assessment #1 atypical chest discomfort #2 history of smoking #3 chronic bilateral lower extremities edema #4 possible cellulitis of the lower extremities #5 long-standing persistent atrial fibrillation Plan #1 acute coronary event to be ruled out #2 obtain an echocardiogram was Doppler #3 follow-up with the patient
[2019-10-24] MEDS ORDERED: VANCOMYCIN IV PER PHARMACY 1 EACH MISC MISCELLANE PRN (12:32)
[2019-10-24] MEDS ORDERED: IPRATROPIUM-ALBUTEROL 3 ML NEB INHALATION PRN (12:33)
[2019-10-24] MEDS ORDERED: METOPROLOL TARTRATE 50 MG TAB PO SCH (12:45)
[2019-10-24] MEDS ORDERED: APIXABAN 5 MG TAB PO SCH (12:45)
[2019-10-24] MEDS ORDERED: VANCOMYCIN 2,250 MG in SODIUM CHLORIDE 0.9% 500 ML 500 ML IVPB ONE (13:00)
--- NOTE | 2019-10-24 13:32 | P.GSCN ---
History of Present Illness Consult date: 10/24/19 Reason for Consult: Lower extremity cellulitis Requesting physician: Fritz Modi History of present illness: This is a 69-year-old inactive, obese gentleman who follows on an outpatient basis at the [place] clinic in [facility]. He is appears medical history of chronic atrial fibrillation on Eliquis for anticoagulation, hypertension, neuropathy, obstructive sleep apnea without home CPAP use, previous tobacco dependence with smoking cessation November 2018, and family history of stroke. He was seen here to [facility] in December 2017 for bilateral lower extremity lymphedema and cellulitis and was discharged to [facility] with continued antibiotics. He reported seeing a wound care nurse at that time. He he was discharged to home after about 5 weeks with home care set up. He did not stay compliant with his home care treatments. He presented back to [facility] in April of this year, again with increasing lower extremity edema and discomfort in his lower extremities. Again he received appropriate treatment for his lower extremities including silver dressings with Corby wraps from his toes to his knees, and continued encouragement to keep legs elevated at all times. He was discharged at that point in time to [facility] in [place]. He was therefore a short amount time and then was discharged home. He did have home care for approximate 3 weeks. He states he was told to wear compression stockings, however they did not fit. He has had no one come into his home to be able to wrap his legs and he has not followed in the wound care center as recommended. He presented this morning to [facility] emergency room again, this time with complaints of chest pain which resolved without any treatment. EKG demonstrated atrial fibrillation with no acute ischemic changes. White blood cell count 10.2, hemoglobin 11, creatinine 0.71, BNP 188, troponin negative. He remains afebrile with stable vital signs. He was admitted for evaluation and treatment with consultation placed to cardiology. Due to continued lower extremity venous stasis ulcers and possibility of cellulitis consultation was placed to Dr. Rose as well as Dr. Meehan from infectious disease. Review of Systems Review of systems was completed and was negative except as noted - Constitutional Reports fatigue - Cardiovascular Reports as per HPI, Reports chest pain, Reports leg edema - Musculoskeletal Reports muscle weakness - Integumentary Reports dryness, Reports foot/leg ulcers, Reports wounds - Neurological Neurologic Comment(s): Neuropathy to lower extremities Past Medical History Past Medical History: Atrial Fibrillation, COPD, Hypertension Additional Past Medical History / Comment(s): obesity, chronic Le wounds chronic lymphedema of the lower extremity , obstructive sleep apnea, does not use CPAP at home History of Any Multi-Drug Resistant Organisms: None Reported Past Surgical History: No Surgical Hx Reported Past Anesthesia/Blood Transfusion Reactions: No Reported Reaction Past Psychological History: No Psychological Hx Reported Smoking Status: Former smoker (quit smoking 11/2018 and he has >40py smoking) Past Alcohol Use History: None Reported Past Drug Use History: None Reported Additional Drug Use History / Comment(s): Past ETOH 18 years ago - Past Family History Father Family Medical History: CVA/TIA Additional Family Medical History / Comment(s): Father from CVA Mother Additional Family Medical History / Comment(s): Mother from a "broken heart" shortly after father Medications and Allergies Home Medications Medication Instructions Recorded Confirmed Type Apixaban [Eliquis] 5 mg PO Q12H 01/09/19 10/24/19 History Cholecalciferol [Vitamin D3 (25 1,000 unit PO DAILY 01/09/19 10/24/19 History Mcg = 1000 Iu)] Metoprolol Tartrate [Lopressor] 100 mg PO BID 01/09/19 10/24/19 History Tiotropium 18 Mcg/Puff [Spiriva] 1 puff INHALATION RT-DAILY 01/09/19 10/24/19 History Pantoprazole [Protonix] 40 mg PO DAILY 04/29/19 10/24/19 History Albuterol Inhaler [Ventolin Hfa 2 puff INHALATION RT-QID PRN 10/24/19 10/24/19 History Inhaler] Atorvastatin [Lipitor] 10 mg PO DAILY 10/24/19 10/24/19 History Furosemide [Lasix] 20 mg PO BID 10/24/19 10/24/19 History Multivit-Min/FA/Lycopen/Lutein 1 tab PO DAILY 10/24/19 10/24/19 History [Centrum Silver Tablet] Allergies Allergy/AdvReac Type Severity Reaction Status Date / Time No Known Allergies Allergy Verified 10/24/19 08:40 Surgical - Exam Vital Signs Temp Pulse Resp BP Pulse Ox 97.5 F L 77 17 121/86 96 10/24/19 06:32 10/24/19 06:32 10/24/19 06:32 10/24/19 06:32 10/24/19 06:32 - General well nourished, no distress, no pain, chronically ill, obese - Eyes PERRL, normal ocular movement - ENT no hearing loss - Neck no masses, no bruits, trachea midline - Respiratory Lungs sounds diminished bilaterally. Respirations even, nonlabored. Currently on 2 L nasal cannula with oxygen saturation 96%. No chest wall deformities. No clubbing or cyanosis present. - Cardiovascular S1, S2 present. Irregular rate and rhythm, atrial fibrillation on telemetry. Significant bilateral lower extremity lymphedema present - Abdomen Abdomen: soft, non tender, bowel sounds - Genitourinary Deferred - Rectum Deferred - Integumentary Skin is warm and dry. Bilateral lower extremities with areas of dry flaky skin combined with reddened areas, circumferential to the left lower extremity, mostly posterior on the right lower extremity. Patient reports significant drainage at home, however wounds currently appear clean and mostly dry. - Neurologic normal coordination - Musculoskeletal normal posture - Psychiatric oriented to time, oriented to person, oriented to place, speech is normal Results - Labs 10/24/19 07:02 10/24/19 07:02 Abnormal Lab Results - Last 24 Hours (Table) 10/24/19 10/24/19 Range/Units 07:02 07:02 RBC 3.99 L (4.30-5.90) m/uL Hgb 11.0 L (13.0-17.5) gm/dL Hct 35.4 L (39.0-53.0) % MCHC 30.9 L (31.0-37.0) g/dL BUN 22 H (9-20) mg/dL Glucose 170 H (74-99) mg/dL Albumin 3.4 L (3.5-5.0) g/dL Diabetes panel 10/24/19 Range/Units 07:02 Sodium 139 (137-145) mmol/L Potassium 4.1 (3.5-5.1) mmol/L Chloride 103 (98-107) mmol/L Carbon Dioxide 29 (22-30) mmol/L BUN 22 H (9-20) mg/dL Creatinine 0.71 (0.66-1.25) mg/dL Glucose 170 H (74-99) mg/dL Calcium 8.8 (8.4-10.2) mg/dL AST 27 (17-59) U/L ALT 14 (4-49) U/L Alkaline Phosphatase 110 (38-126) U/L Total Protein 7.7 (6.3-8.2) g/dL Albumin 3.4 L (3.5-5.0) g/dL Calcium panel 10/24/19 Range/Units 07:02 Calcium 8.8 (8.4-10.2) mg/dL Albumin 3.4 L (3.5-5.0) g/dL Pituitary panel 10/24/19 Range/Units 07:02 Sodium 139 (137-145) mmol/L Potassium 4.1 (3.5-5.1) mmol/L Chloride 103 (98-107) mmol/L Carbon Dioxide 29 (22-30) mmol/L BUN 22 H (9-20) mg/dL Creatinine 0.71 (0.66-1.25) mg/dL Glucose 170 H (74-99) mg/dL Calcium 8.8 (8.4-10.2) mg/dL Adrenal panel 10/24/19 Range/Units 07:02 Sodium 139 (137-145) mmol/L Potassium 4.1 (3.5-5.1) mmol/L Chloride 103 (98-107) mmol/L Carbon Dioxide 29 (22-30) mmol/L BUN 22 H (9-20) mg/dL Creatinine 0.71 (0.66-1.25) mg/dL Glucose 170 H (74-99) mg/dL Calcium 8.8 (8.4-10.2) mg/dL Total Bilirubin 1.0 (0.2-1.3) mg/dL AST 27 (17-59) U/L ALT 14 (4-49) U/L Alkaline Phosphatase 110 (38-126) U/L Total Protein 7.7 (6.3-8.2) g/dL Albumin 3.4 L (3.5-5.0) g/dL - Imaging Chest x-ray: report reviewed, image reviewed EKG: image reviewed Assessment and Plan Assessment: 1. Bilateral lower extremity venous stasis ulcers, chronic 2. Chronic atrial fibrillation on Eliquis for anticoagulation 3. History of hypertension 4. History of neuropathy 5. History of obstructive sleep apnea without home CPAP use 6. Previous tobacco dependence 7. Physical debility 8. Obesity 9. Medical noncompliance Plan: The patient was seen and examined at the bedside. Chart/diagnostics were reviewed. Will discuss with Dr. Rose. Our recommendation is for absorptive silver to his lower extremity wounds, gentle Corby wraps from the toes to the knees. Dressings can be changed daily. The patient should have his lower extremities elevated above the level of his heart at all times except when ambulating to the bathroom or eating. We would recommend dietary consult for weight loss. At discharge the patient can continue with absorptive silver along with 2 layer wraps to be changed weekly, may be seen in the wound care center weekly. The patient continues to present as unable to properly care for himself, may need extended-care facility at discharge if he truly wants to improve. This was discussed in detail with the patient. Thank you for this consult. Please call us with any further questions Time with Patient: Greater than 30
--- NOTE | 2019-10-24 13:47 | P.HPIM ---
History of Present Illness 69-year-old pleasant male but noncompliant came in with complaints of chest pain which started early this morning woke up from sleep started while he was eating breakfast chest pain was tightness in the midsternal area radiating to the neck and shoulders denied any diaphoresis lightheadedness palpitations, chest pain is nonpleuritic. Patient denied any fever chills. Patient does have history of atrial fibrillation for which patient is on anticoagulation patient had a cardiac catheterization 5 years ago in [place] which did not show any significant atherosclerotic occlusive disease. Patient has bilateral venous stasis and chronic and chronic venous stasis dermatosis. Patient follows up with the wound clinic but doesn't follow. The recommendations patient doesn't elevate his legs of not wearing any compression socks is issues with the fitting of his compression socks. Patient uses 20 g twice a day of Lasix patient will be switched to IV patient blood pressure is borderline because of which we are using low-dose of Lasix at this time. Review of Systems REVIEW OF SYSTEMS: CONSTITUTIONAL: No fever, no malaise, no fatigue. HEENT: No recent visual problems or hearing problems. Denied any sore throat. CARDIOVASCULAR: No orthopnea, PND, no palpitations, no syncope. PULMONARY: No shortness of breath, no cough, no hemoptysis. GASTROINTESTINAL: No diarrhea, no nausea, no vomiting, no abdominal pain. NEUROLOGICAL: No headaches, no weakness, no numbness. HEMATOLOGICAL: Denies any bleeding or petechiae. GENITOURINARY: Denies any burning micturition, frequency, or urgency. MUSCULOSKELETAL/RHEUMATOLOGICAL: Denies any joint pain, swelling, or any muscle pain. ENDOCRINE: Denies any polyuria or polydipsia. The rest of the 14-point review of systems is negative. Past Medical History Past Medical History: Atrial Fibrillation, COPD, Hypertension Additional Past Medical History / Comment(s): obesity, chronic Le wounds chronic lymphedema of the lower extremity , obstructive sleep apnea, does not use CPAP at home History of Any Multi-Drug Resistant Organisms: None Reported Past Surgical History: No Surgical Hx Reported Past Anesthesia/Blood Transfusion Reactions: No Reported Reaction Past Psychological History: No Psychological Hx Reported Smoking Status: Former smoker (quit smoking 11/2018 and he has >40py smoking) Past Alcohol Use History: None Reported Past Drug Use History: None Reported Additional Drug Use History / Comment(s): Past ETOH 18 years ago - Past Family History Father Family Medical History: CVA/TIA Additional Family Medical History / Comment(s): Father from CVA Mother Additional Family Medical History / Comment(s): Mother from a "broken heart" shortly after father Medications and Allergies Home Medications Medication Instructions Recorded Confirmed Type Apixaban [Eliquis] 5 mg PO Q12H 01/09/19 10/24/19 History Cholecalciferol [Vitamin D3 (25 1,000 unit PO DAILY 01/09/19 10/24/19 History Mcg = 1000 Iu)] Metoprolol Tartrate [Lopressor] 100 mg PO BID 01/09/19 10/24/19 History Tiotropium 18 Mcg/Puff [Spiriva] 1 puff INHALATION RT-DAILY 01/09/19 10/24/19 History Pantoprazole [Protonix] 40 mg PO DAILY 04/29/19 10/24/19 History Albuterol Inhaler [Ventolin Hfa 2 puff INHALATION RT-QID PRN 10/24/19 10/24/19 History Inhaler] Atorvastatin [Lipitor] 10 mg PO DAILY 10/24/19 10/24/19 History Furosemide [Lasix] 20 mg PO BID 10/24/19 10/24/19 History Multivit-Min/FA/Lycopen/Lutein 1 tab PO DAILY 10/24/19 10/24/19 History [Centrum Silver Tablet] Allergies Allergy/AdvReac Type Severity Reaction Status Date / Time No Known Allergies Allergy Verified 10/24/19 08:40 Physical Exam Vitals: Vital Signs Temp Pulse Pulse Resp BP BP Pulse Ox 10/24/19 11:39 98.4 F 98 20 104/57 96 10/24/19 09:00 98 F 89 22 96/51 100 10/24/19 08:28 97.5 F L 86 18 107/75 100 10/24/19 06:32 97.5 F L 77 17 121/86 96 Intake and Output 10/23/19 10/24/19 10/24/19 22:59 06:59 14:59 Other: Weight 138.346 kg 155.5 kg PHYSICAL EXAMINATION: GENERAL: The patient is alert and oriented x3, not in any acute distress. Obese HEENT: Pupils are round and equally reacting to light. EOMI. No scleral icterus. No conjunctival pallor. Normocephalic, atraumatic. No pharyngeal erythema. No thyromegaly. CARDIOVASCULAR: S1 and S2 present. No murmurs, rubs, or gallops. PULMONARY: Chest is clear to auscultation, no wheezing or crackles. ABDOMEN: Soft, nontender, nondistended, normoactive bowel sounds. No palpable organomegaly. MUSCULOSKELETAL: No joint swelling or deformity. EXTREMITIES: No cyanosis, clubbing, 4+ pedal edema extending to both knees left leg has significant redness with skin breakdown and weeping. Patient does have local is of and temperature in the left leg circumferential redness. NEUROLOGICAL: Gross neurological examination did not reveal any focal deficits. SKIN: No rashes. Results CBC & Chem 7: 10/24/19 07:02 10/24/19 07:02 Labs: Abnormal Lab Results - Last 24 Hours (Table) 10/24/19 10/24/19 Range/Units 07:02 07:02 RBC 3.99 L (4.30-5.90) m/uL Hgb 11.0 L (13.0-17.5) gm/dL Hct 35.4 L (39.0-53.0) % MCHC 30.9 L (31.0-37.0) g/dL BUN 22 H (9-20) mg/dL Glucose 170 H (74-99) mg/dL Albumin 3.4 L (3.5-5.0) g/dL Thrombosis Risk Factor Assmnt - Choose All That Apply Each Factor Represents 1 point: Swollen legs (current) Each Risk Factor Represents 2 Points: Age 61-74 years Thrombosis Risk Factor Assessment Total Risk Factor Score: 3 Thrombosis Risk Factor Assessment Level: Moderate Risk Assessment and Plan Plan: -Atypical chest pain: Ruled out acute coronary syndromes echocardiac is being obtained etiology evaluated the patient. Possibility of peptic ulcer disease for which patient was started on Protonix -Bilateral extensive venous stasis dermatosis and possible colitis of the left leg along with an ulcer continue with wound care and infectious disease will be consulted patient was started on vancomycin -Chronic A. fib presently rate controlled on Eliquis which will be continued -Hypertension -Bilateral chronic venous stasis there is no evidence of CHF echocardiogram be is being obtained Lasix for symptomatic treatment as patient blood pressure is low normal, only giving him 20 IV twice a day of Lasix patient may need more Lasix -Generalized deconditioning -COPD patient quit smoking patient has some wheezing on exam patient will be started on inhalational treatments -Peripheral neuropathy.
--- NOTE | 2019-10-24 13:55 | P.CNPUL ---
History of Present Illness Consult date: 10/24/19 Reason for consult: lung mass History of present illness: Debilitated 69-year-old male patient who lives in [place], noncompliant, comes in to the hospital because of chest pain and upon further investigation was found to have a right upper lobe mass. The patient is currently free of any chest pain. No fever or chills. He apparently does not have any history of coronary artery disease. He has [place] cardiac [place] 5 [place] ago and he was not found to have significant atherosclerotic heart disease. He has chronic venous stasis, chronic ulceration lower extremities bilaterally without any active infection. He has chronic atrial fibrillation. He is obese with a BMI of 41.7. The patient is an ex- smoker. He is known to have COPD. His maternal Spiriva on outpatient basis. He has also hyperlipidemia as comorbid conditions. He has had difficulties mobility and gait and he seems to be more so of a bedbound person, relatively inactive and he walks around only with the help of a walker. His white cell count is at 10.2 with hemoglobin of 11.0. Rest of the blood work and electrolytes are all within normal limits. 2 sets of troponins are 0.03 and 0.021 respectively and the patient has a nonelevated proBNP level at 188 EKG showing a controlled rate atrial fibrillation with a nonspecific ST segment abnormalities The chest x-ray shows a 2.7 cm right upper lobe mass suspicious for malignancy along with some cardiomegaly. Review of Systems Constitutional: Reports daytime sleepiness, Reports fatigue, Reports weakness, Reports weight gain Eyes: denies as per HPI, denies blurred vision, denies bulging eye, denies decreased vision, denies diplopia, denies discharge, denies dry eye, denies irritation, denies itching, denies pain, denies photophobia, denies loss of peripheral vision, denies loss of vision, denies tunnel vision/blind spots Ears: deny: decreased hearing, ear discharge, earache, tinnitus Ears, nose, mouth and throat: Denies headache, Denies sore throat Cardiovascular: Reports decreased exercise tolerance Respiratory: Reports as per HPI Gastrointestinal: Reports as per HPI Genitourinary: Reports as per HPI Musculoskeletal: Reports as per HPI, Reports gait dysfunction, Reports muscle weakness Musculoskeletal: bilateral: ankle pain, ankle stiffness, ankle swelling Integumentary: Reports as per HPI, Reports wounds Neurological: Reports as per HPI, Reports weakness Psychiatric: Reports as per HPI Endocrine: Reports as per HPI, Reports fatigue Hematologic/Lymphatic: Reports as per HPI Allergic/Immunologic: Reports as per HPI Past Medical History Past Medical History: Atrial Fibrillation, COPD, Hypertension Additional Past Medical History / Comment(s): obesity, chronic Le wounds chronic lymphedema of the lower extremity , obstructive sleep apnea, does not use CPAP at home History of Any Multi-Drug Resistant Organisms: None Reported Past Surgical History: No Surgical Hx Reported Past Anesthesia/Blood Transfusion Reactions: No Reported Reaction Past Psychological History: No Psychological Hx Reported Smoking Status: Former smoker (quit smoking 11/2018 and he has >40py smoking) Past Alcohol Use History: None Reported Past Drug Use History: None Reported Additional Drug Use History / Comment(s): Past ETOH 18 years ago - Past Family History Father Family Medical History: CVA/TIA Additional Family Medical History / Comment(s): Father from CVA Mother Additional Family Medical History / Comment(s): Mother from a "broken heart" shortly after father Medications and Allergies Home Medications Medication Instructions Recorded Confirmed Type Apixaban [Eliquis] 5 mg PO Q12H 01/09/19 10/24/19 History Cholecalciferol [Vitamin D3 (25 1,000 unit PO DAILY 01/09/19 10/24/19 History Mcg = 1000 Iu)] Metoprolol Tartrate [Lopressor] 100 mg PO BID 01/09/19 10/24/19 History Tiotropium 18 Mcg/Puff [Spiriva] 1 puff INHALATION RT-DAILY 01/09/19 10/24/19 History Pantoprazole [Protonix] 40 mg PO DAILY 04/29/19 10/24/19 History Albuterol Inhaler [Ventolin Hfa 2 puff INHALATION RT-QID PRN 10/24/19 10/24/19 History Inhaler] Atorvastatin [Lipitor] 10 mg PO DAILY 10/24/19 10/24/19 History Furosemide [Lasix] 20 mg PO BID 10/24/19 10/24/19 History Multivit-Min/FA/Lycopen/Lutein 1 tab PO DAILY 10/24/19 10/24/19 History [Centrum Silver Tablet] Allergies Allergy/AdvReac Type Severity Reaction Status Date / Time No Known Allergies Allergy Verified 10/24/19 08:40 Physical Exam Vitals: Vital Signs Temp Pulse Pulse Resp BP BP Pulse Ox 10/24/19 11:39 98.4 F 98 20 104/57 96 10/24/19 09:00 98 F 89 22 96/51 100 10/24/19 08:28 97.5 F L 86 18 107/75 100 10/24/19 06:32 97.5 F L 77 17 121/86 96 Intake and Output 10/23/19 10/24/19 10/24/19 22:59 06:59 14:59 Other: Weight 138.346 kg 155.5 kg GENERAL: The patient is alert and oriented x3, not in any acute distress. Obese, nonacute distress Head exam was generally normal. There was no scleral icterus or corneal arcus. Mucous membranes were moist. HEENT: Pupils are round and equally reacting to light. EOMI. No scleral icterus. No conjunctival pallor. Normocephalic, atraumatic. No pharyngeal erythema. No thyromegaly. CARDIOVASCULAR: S1 and S2 present. No murmurs, rubs, or gallops. PULMONARY: Chest is clear to auscultation, no wheezing or crackles. ABDOMEN: Soft, nontender, nondistended, normoactive bowel sounds. No palpable organomegaly. MUSCULOSKELETAL: No joint swelling or deformity. EXTREMITIES: No cyanosis, clubbing, 4+ pedal edema extending to both knees left leg has significant redness with skin breakdown and weeping. Patient does have local is of and temperature in the left leg circumferential redness. NEUROLOGICAL: Gross neurological examination did not reveal any focal deficits. SKIN: No rashes. Open wounds lower extremity is bilaterally. There is also significant erythema. Results - Laboratory Findings CBC and BMP: 10/24/19 07:02 10/24/19 07:02 PT/INR, D-dimer PT 11.0 sec (9.0-12.0) 10/24/19 07:02 INR 1.1 (<1.2) 10/24/19 07:02 Abnormal lab findings: Abnormal Labs 10/24/19 10/24/19 07:02 07:02 RBC 3.99 L Hgb 11.0 L Hct 35.4 L MCHC 30.9 L BUN 22 H Glucose 170 H Albumin 3.4 L - Diagnostic Findings Chest x-ray: image reviewed Assessment and Plan Plan: 1 atypical chest pain 2 right upper lobe mass measuring 2.7 cm in size, suspicious for malignancy 3 COPD, inactive in stable maternal Spiriva on outpatient basis 4 chronic atrial fibrillation 5 morbid obesity with a BMI of 41.7 6 obstructive sleep apnea 7 chronic venous stasis along with chronic lymphedema and ulceration of lower extremity is bilaterally 8 hyperlipidemia 9 extreme debility with difficulty with mobility and gait and poor performance and functional status Plan Discussed the findings the patient Proceed with a CAT scan of the chest with contrast Echocardiogram Wound care to the lower extremities bilaterally and the patient will be started on diuretics continue long-term and to coagulation with Eliquis We'll continue to follow.
[2019-10-24] MEDS: FUROSEMIDE 10 MG/ML 2 ML VIAL IV SCH ×2 (14:57→20:46)
[2019-10-24] MEDS ORDERED: APIXABAN 5 MG PO SCH (15:00)
[2019-10-24] MEDS ORDERED: PANTOPRAZOLE 40 MG PO SCH (15:00)
[2019-10-24] MEDS ORDERED: ATORVASTATIN 10 MG PO SCH (15:00)
[2019-10-24] MEDS ORDERED: METOPROLOL 100 MG PO SCH (15:00)
[2019-10-24] MEDS ORDERED: ATORVASTATIN 20 MG TABLET PO SCH (15:00)
[2019-10-24] MEDS: METOPROLOL 100 MG PO SCH (17:48)
[2019-10-24] MEDS: APIXABAN 5 MG PO SCH (17:48)
[2019-10-24] MEDS: ATORVASTATIN 20 MG TABLET PO SCH (20:16)
[2019-10-24] MEDS: PANTOPRAZOLE 40 MG PO SCH (20:16)
[2019-10-24] MEDS: VANCOMYCIN 2,250 MG in SODIUM CHLORIDE 0.9% 500 ML 500 ML IVPB SCH (22:57)
[2019-10-25] MEDS: APIXABAN 5 MG PO SCH ×2 (05:28→16:25)
[2019-10-25] MEDS ORDERED: PANTOPRAZOLE 40 MG TABLET PO SCH (07:30)
--- NOTE | 2019-10-25 08:22 | P.PN ---
Subjective Progress Note Date: 10/25/19 Principal diagnosis: Long-standing persistent atrial fibrillation This is a pleasant 69-year-old female patient with a past medical history significant for obesity, long-standing persistent atrial fibrillation, as well as hypertension and dyslipidemia and chronic lower extremities edema presented to the emergency room complaining of chest discomfort. He was in his usual state of focal early this morning when he woke up from sleep and started eating his breakfast and started experiencing discomfort in the chest. He described the discomfort as a tightness in the mid of the chest without any radiation to the arms or neck or shoulders and without any associated symptoms of shortness of breath, sweating, dizziness, heart racing, or syncope. The EKG showed atrial fibrillation with nonspecific ST and T wave abnormalities. The troponin came in to be unremarkable. The chest x-ray showed large left upper lobe mass. Subsequently the patient was seen by the pulmonary service and a CTA of the chest was ordered. Also an echocardiogram was ordered. The patient was seen today October [id number]. He denies any symptoms of chest pain or chest discomfort at this point. He continues to have bilateral lower extremities edema and chronic skin changes which seems to be related to venous stasis. He does follow at the wound the clinic on regular basis. The echocardiogram still pending. I would not pursue any further cardiac workup like a stress test at this point to wean oh with the prognosis from the lung masses standpoint of view. The lung mass seems to be suspicious for malignancy according to the pulmonary team. We'll follow-up after the CTA. Objective - Vital Signs Vital signs: Vital Signs Temp 98.6 F 10/25/19 03:59 Pulse 93 10/25/19 04:00 Resp 22 10/25/19 04:00 BP 84/56 10/25/19 03:59 Pulse Ox 97 10/25/19 03:59 Intake & Output 10/24/19 10/25/19 10/25/19 18:59 06:59 18:59 Output Total 550 350 Balance -550 -350 Weight 155.5 kg 161.5 kg Output: Urine 550 350 Other: Voiding Method Urinal # Voids 1 - Constitutional General appearance: Present: no acute distress - Respiratory Respiratory: bilateral: CTA - Cardiovascular Rhythm: regular Heart sounds: normal: S1, S2 - Labs CBC & Chem 7: 10/24/19 07:02 10/24/19 07:02 Labs: Microbiology - Last 24 Hours (Table) 10/24/19 19:00 Wound Culture - Preliminary Leg - Right 10/24/19 19:00 Anaerobic Culture - Preliminary Leg - Right Assessment and Plan Assessment: Assessment #1 atypical chest discomfort #2 history of smoking #3 chronic bilateral lower extremities edema #4 bilateral lower extremities venous stasis/cellulitis #5 possible cancer involving the left upper lobe of the lung #6 morbid obesity Plan #1 acute coronary event was ruled out #2 we'll follow-up on the echocardiogram #3 hold on any workup into her stress test to wean the prognosis from the lung standpoint of view #4 follow-up after the CTA of the chest as well as echocardiogram
[2019-10-25] MEDS: FUROSEMIDE 10 MG/ML 2 ML VIAL IV SCH ×2 (08:30→20:11)
[2019-10-25] MEDS: METOPROLOL 100 MG PO SCH (08:52)
[2019-10-25] MEDS: METOPROLOL TARTRATE 25 MG TAB PO SCH ×2 (08:52→16:24)
[2019-10-25] MEDS ORDERED: ATORVASTATIN 10 MG TAB PO SCH (09:00)
[2019-10-25] MEDS ORDERED: LORazepam 2 MG/ML INJ IV STA (10:50)
[2019-10-25] MEDS ORDERED: RX INFO: IV CONTRAST WAS GIVEN 1 EACH MISC MISCELLANE PRN (10:52)
[2019-10-25] MEDS: VANCOMYCIN 2,250 MG in SODIUM CHLORIDE 0.9% 500 ML 500 ML IVPB SCH (11:43)
--- NOTE | 2019-10-25 12:28 | P.PN ---
Subjective 69-year-old male came in with chest tightness cardio will evaluate the patient, patient just pain is a atypical noncardiac had a recent cardiac catheterization. Patient is also being treated for bilateral lower limb ulcers patient has a mass in the right lung for which patient will undergo CAT scan pulmonology evaluate the patient as well. Patient is on vancomycin but won't cultures are showing gram-positive as well as gram-negative bacilli patient may need a gram- negative coverage all I will leave the addition to infectious disease. Constitutional: Denied any fatigue denied any fever. Cardio vascular: denied any chest pain, palpitations Gastrointestinal denied any nausea vomiting Pulmonary: Denied any shortness of breath cough Neurologic denied any new focal deficits All inpatient medications were reviewed and appropriate changes in these medications as dictated in the interval history and assessment and plan. Objective - Vital Signs Vital signs: Vital Signs Temp 98.8 F 10/25/19 11:16 Pulse 107 H 10/25/19 11:16 Resp 20 10/25/19 11:16 BP 108/56 10/25/19 11:16 Pulse Ox 99 10/25/19 11:16 Intake & Output 10/24/19 10/25/19 10/25/19 18:59 06:59 18:59 Intake Total 960 Output Total 550 350 350 Balance -550 -350 610 Weight 155.5 kg 161.5 kg Intake: Oral 960 Output: Urine 550 350 350 Other: Voiding Method Urinal Urinal # Voids 1 - Exam PHYSICAL EXAMINATION: GENERAL: The patient is alert and oriented x3, not in any acute distress. Obese HEENT: Pupils are round and equally reacting to light. EOMI. No scleral icterus. No conjunctival pallor. Normocephalic, atraumatic. No pharyngeal erythema. No thyromegaly. CARDIOVASCULAR: S1 and S2 present. No murmurs, rubs, or gallops. PULMONARY: Chest is clear to auscultation, no wheezing or crackles. ABDOMEN: Soft, nontender, nondistended, normoactive bowel sounds. No palpable organomegaly. MUSCULOSKELETAL: No joint swelling or deformity. EXTREMITIES: No cyanosis, clubbing, 4+ pedal edema extending to both knees left leg has significant redness with skin breakdown and weeping. Patient does have local is of and temperature in the left leg circumferential redness. NEUROLOGICAL: Gross neurological examination did not reveal any focal deficits. SKIN: No rashes. - Labs CBC & Chem 7: 10/24/19 07:02 10/24/19 07:02 Labs: Microbiology - Last 24 Hours (Table) 10/24/19 19:00 Gram Stain - Preliminary Leg - Right Wound Culture - Preliminary 10/24/19 19:00 Anaerobic Culture - Preliminary Leg - Right Assessment and Plan Plan: -Atypical chest pain: Ruled out acute coronary syndromes echocardiac is being obtained etiology evaluated the patient. Possibility of peptic ulcer disease for which patient is on Protonix -Bilateral extensive venous stasis dermatosis and possible cellulitis of the left leg along with an ulcer continue with wound care and infectious disease will be consulted patient was started on vancomycin will need will be given Tamiflu coverage as well as wound cultures showing gram-positive cocci as well as gram-negative bacilli -Chest x-ray showing well right upper lobe 2. 7 cm mass for which patient is getting a CAT scan, pulmonology evaluated the patient -Chronic A. fib presently on Eliquis which will be continued, patient's metoprolol dose was decreased and patient was bit tachycardic because of that patient metoprolol dose was decreased because of hypotension -Hypertension -Bilateral chronic venous stasis there is no evidence of CHF echocardiogram be is being obtained Lasix for symptomatic treatment as patient blood pressure is low normal, patient will need compression socks patient is not able to tolerate IV Lasix at this time. -Generalized deconditioning -COPD patient quit smoking patient has some wheezing on exam patient will be s tarted on inhalational treatments -Peripheral neuropathy.
--- NOTE | 2019-10-25 12:29 | P.PN ---
Subjective Progress Note Date: 10/25/19 Principal diagnosis: Atypical chest pain Debilitated 69-year-old male patient who lives in [place], noncompliant, comes in to the hospital because of chest pain and upon further investigation was found to have a right upper lobe mass. The patient is currently free of any chest pain. No fever or chills. He apparently does not have any history of coronary artery disease. He [place] cardiac [place] 5 [place] and he was not found to have significant atherosclerotic heart disease. He has chronic venous stasis, chronic ulceration lower extremities bilaterally without any active infection. He has chronic atrial fibrillation. He is obese with a BMI of 41.7. The patient is an ex- smoker. He is known to have COPD. His maternal Spiriva on outpatient basis. He has also hyperlipidemia as comorbid conditions. He has had difficulties mobility and gait and he seems to be more so of a bedbound person, relatively inactive and he walks around only with the help of a walker. The patient is seen today 11/04/2019 in follow-up on the selective care unit. He is currently resting comfortably in bed. Awake and alert in no acute distress. No worsening chest pain. No worsening shortness of breath cough or congestion. He was unable to do the computed tomography scan of the chest yesterday due to claustrophobia. Wound cultures of the right leg are pending. He is currently on vancomycin. He remains on IV diuretics, bronchodilators. Objective - Vital Signs Vital signs: Vital Signs Temp 98.8 F 10/25/19 11:16 Pulse 107 H 10/25/19 11:16 Resp 20 10/25/19 11:16 BP 108/56 10/25/19 11:16 Pulse Ox 99 10/25/19 11:16 Intake & Output 10/24/19 10/25/19 10/25/19 18:59 06:59 18:59 Intake Total 960 Output Total 550 350 350 Balance -550 -350 610 Weight 155.5 kg 161.5 kg Intake: Oral 960 Output: Urine 550 350 350 Other: Voiding Method Urinal Urinal # Voids 1 - Exam GENERAL: The patient is a 69-year-old male patient, obese, alert and oriented x3, not in any acute distress. O2 saturation 99% on 2 L/m per nasal cannula Head exam was generally normal. There was no scleral icterus or corneal arcus. Mucous membranes were moist. HEENT: Pupils are round and equally reacting to light. EOMI. No scleral icterus. No conjunctival pallor. Normocephalic, atraumatic. No pharyngeal erythema. No thyromegaly. CARDIOVASCULAR: S1 and S2 present. No murmurs, rubs, or gallops. PULMONARY: Chest is clear to auscultation, no wheezing or crackles. ABDOMEN: Soft, nontender, nondistended, normoactive bowel sounds. No palpable organomegaly. MUSCULOSKELETAL: No joint swelling or deformity. EXTREMITIES: No cyanosis, clubbing, 4+ pedal edema extending to both knees left leg has significant redness with skin breakdown and weeping. Patient does have local is of and temperature in the left leg circumferential redness. NEUROLOGICAL: Gross neurological examination did not reveal any focal deficits. SKIN: No rashes. Open wounds lower extremity is bilaterally. There is also significant erythema. - Labs CBC & Chem 7: 10/24/19 07:02 10/24/19 07:02 Labs: Microbiology - Last 24 Hours (Table) 10/24/19 19:00 Gram Stain - Preliminary Leg - Right Wound Culture - Preliminary 10/24/19 19:00 Anaerobic Culture - Preliminary Leg - Right Assessment and Plan Assessment: 1 atypical chest pain 2 right upper lobe mass measuring 2.7 cm in size, suspicious for malignancy 3 COPD, inactive in stable maternal Spiriva on outpatient basis 4 chronic atrial fibrillation 5 morbid obesity with a BMI of 41.7 6 obstructive sleep apnea 7 chronic venous stasis along with chronic lymphedema and ulceration of lower extremity is bilaterally 8 hyperlipidemia 9 extreme debility with difficulty with mobility and gait and poor performance and functional status Plan The patient was seen and evaluated by Dr. Santoyo The patient is willing to try a computed tomography scan again with IV Ativan prior Echocardiogram pending Remains on vancomycin for wound to the lower extremity We'll continue to follow make further recommendations based on his clinical status I, the cosigning physician, performed a history & physical examination of the patient. Lungs sounds are clear, diminished. Maintaining good O2 saturations in the 90s on 2 L/m per nasal cannula. I discussed the assessment and plan of care with my nurse practitioner, Krystin Velázquez. I attest to the above note as dictated by her.
--- NOTE | 2019-10-25 14:21 | CT ---
EXAMINATION TYPE: CT chest w con DATE OF EXAM: 10/25/2019 COMPARISON: None HISTORY: Possible lung mass CT DLP: 1030.6 mGycm Automated exposure control for dose reduction was used. CONTRAST: Performed with IV Contrast, patient injected with 100 mL of Isovue 300. Images obtained from the thoracic inlet to the diaphragm with IV contrast. There is a rounded 3.2 cm irregular masslike infiltrate lateral aspect of the right upper lobe adjace nt to the major fissure. There is mild linear density at the lung bases consistent with patchy atelec tasis. There is no pleural effusion. Heart appears enlarged. There is no pericardial effusion. There are no hilar masses. There is no mediastinal adenopathy. Thoracic aorta shows no sign of aneurysm or dissection. There is some spurring in the thoracic spine. Sternum is intact. The ribs appear intact. There are numerous calcified gallstones. IMPRESSION: Irregular masslike infiltrate lateral aspect right upper lobe. Follow-up recommended. Appearance is n onspecific. Cardiomegaly. Mild atelectasis at the posterior lung bases. Cholelithiasis.
--- NOTE | 2019-10-25 15:32 | ECHOF ---
Referral Reason:CHF MEASUREMENTS -------- HEIGHT: 193.0 cm WEIGHT: 155.1 kg BP: 96/51 RVIDd: 4.3 cm (< 3.3) IVSd: 1.5 cm (0.6 - 1.1) LVIDd: 3.7 cm (3.9 - 5.3) LVPWd: 1.8 cm (0.6 - 1.1) IVSs: 2.0 cm LVIDs: 2.3 cm LVPWs: 2.3 cm Ao Diam: 2.6 cm (2.0 - 3.7) AV Cusp: 1.6 cm (1.5 - 2.6) RAP: 5.00 mmHg RVSP: 35.92 mmHg FINDINGS -------- This was a technically difficult study with suboptimal views. The left ventricular size is normal. There is moderate concentric left ventricular hypertrophy. O verall left ventricular systolic function is normal with, an EF between 55 - 60 %. The RV was not well visualized. The left atrium was not well visualized. The right atrium was not well visualized. 5.0mg of Lumason was utilized for enhancement of images The aortic valve was not well visualized. The mitral valve was not well visualized. Mild tricuspid regurgitation present. There is mild pulmonary hypertension. The right ventricular systolic pressure, as measured by Doppler, is 35.92mmHg. The pulmonic valve was not well visualized. The aortic root size is normal. There is no pericardial effusion. CONCLUSIONS -------- 1. The left ventricular size is normal. 2. There is moderate concentric left ventricular hypertrophy. 3. Overall left ventricular systolic function is normal with, an EF between 55 - 60 %. 4. Mild tricuspid regurgitation present. 5. There is mild pulmonary hypertension. 6. The right ventricular systolic pressure, as measured by Doppler, is 35.92mmHg. HOSPITALITY DIRECTOR: Hallie Cooper RDCS
[2019-10-25] MEDS: ACETAMINOPHEN TAB 325 MG TAB PO PRN (16:31)
[2019-10-25] MEDS: ATORVASTATIN 20 MG TABLET PO SCH (20:10)
[2019-10-25] MEDS: PANTOPRAZOLE 40 MG PO SCH (20:10)
--- NOTE | 2019-10-25 22:56 | PN ---
PROGRESS NOTE DATE OF SERVICE: 10/25/2019 REASON FOR FOLLOWUP: Bilateral lower extremity cellulitis. INTERVAL HISTORY: The patient is currently afebrile, has been breathing comfortably. Patient denies having any chest pain or shortness of breath or cough. No abdominal pain or diarrhea or any worsening pain to the lower extremity. PHYSICAL EXAMINATION: Blood pressure is 102/58 with a pulse of 97, temperature 98.3. He is 95% on 2 L nasal cannula. General description is an elderly male lying in bed in no distress. RESPIRATORY SYSTEM: Unlabored breathing, clear to auscultation anteriorly. HEART: S1, S2. Regular rate and rhythm. ABDOMEN: Soft, no tenderness. Legs are currently wrapped up. No obvious drainage on the dressing. LABS: Hemoglobin is 11, white count 10.2, BUN of 22, creatinine 0.71. DIAGNOSTIC IMPRESSION AND PLAN: Patient with bilateral lower extremity cellulitis with some venous stasis ulcer. Culture with presumptive Staph aureus likely MSSA. Antibiotic adjusted to cefazolin 2 grams q.8 hours to continue along with Corby wrap and monitor his clinical course closely. MMODL / IJN: [id number] /
--- NOTE | 2019-10-25 23:56 | P.CONS ---
History of Present Illness - Reason for Consult Consult date: 10/24/19 Lower extremity cellulitis Requesting physician: Samina Lewis - Chief Complaint Chest pain shortness of breath lower extremity pitting edema x days - History of Present Illness Patient is 71-year-old male with a past medical history significant for hypertension hyperlipidemia atrial fibrillation and coronary disease presenting to the ER with chief complaints of chest pain that started that he presented to the hospital patient also complaining of increasing shortness of breath and significant swelling to bilateral lower extremity along with weeping edema patient also noticed to have a superficial ulceration to the left leg along with the redness patient be complaining of some dull aching pain into legs mostly to the left leg with a density 5-6 out of 10 and no radiation of the symptoms the patient was evaluated by the ER physician on arrival to the ER the patient has been afebrile. The patient did have normal white count patient has been admitted to the hospital he was started on vancomycin for his lower extremity cellulitis and infectious disease was consulted for further management of antibiotic therapy Review of Systems Positive point has been mentioned in the HPI rest of the systems are negative Past Medical History Past Medical History: Atrial Fibrillation, COPD, Hypertension Additional Past Medical History / Comment(s): obesity, chronic Le wounds chronic lymphedema of the lower extremity , obstructive sleep apnea, does not use CPAP at home History of Any Multi-Drug Resistant Organisms: None Reported Past Surgical History: No Surgical Hx Reported Past Anesthesia/Blood Transfusion Reactions: No Reported Reaction Past Psychological History: No Psychological Hx Reported Smoking Status: Former smoker (quit smoking 11/2018 and he has >40py smoking) Past Alcohol Use History: None Reported Past Drug Use History: None Reported Additional Drug Use History / Comment(s): Past ETOH 18 years ago - Past Family History Father Family Medical History: CVA/TIA Additional Family Medical History / Comment(s): Father from CVA Mother Additional Family Medical History / Comment(s): Mother from a "broken heart" shortly after father Medications and Allergies Home Medications Medication Instructions Recorded Confirmed Type Apixaban [Eliquis] 5 mg PO Q12H 01/09/19 10/24/19 History Cholecalciferol [Vitamin D3 (25 1,000 unit PO DAILY 01/09/19 10/24/19 History Mcg = 1000 Iu)] Metoprolol Tartrate [Lopressor] 100 mg PO BID 01/09/19 10/24/19 History Tiotropium 18 Mcg/Puff [Spiriva] 1 puff INHALATION RT-DAILY 01/09/19 10/24/19 History Pantoprazole [Protonix] 40 mg PO DAILY 04/29/19 10/24/19 History Albuterol Inhaler [Ventolin Hfa 2 puff INHALATION RT-QID PRN 10/24/19 10/24/19 History Inhaler] Atorvastatin [Lipitor] 10 mg PO DAILY 10/24/19 10/24/19 History Furosemide [Lasix] 20 mg PO BID 10/24/19 10/24/19 History Multivit-Min/FA/Lycopen/Lutein 1 tab PO DAILY 10/24/19 10/24/19 History [Centrum Silver Tablet] Allergies Allergy/AdvReac Type Severity Reaction Status Date / Time No Known Allergies Allergy Verified 10/24/19 08:40 Physical Exam Vitals: Vital Signs Temp Pulse Pulse Resp BP BP Pulse Ox 10/24/19 11:39 98.4 F 98 20 104/57 96 10/24/19 09:00 98 F 89 22 96/51 100 10/24/19 08:28 97.5 F L 86 18 107/75 100 10/24/19 06:32 97.5 F L 77 17 121/86 96 Intake and Output 10/24/19 10/24/19 10/24/19 06:59 14:59 22:59 Other: Weight 138.346 kg 155.5 kg GENERAL DESCRIPTION: An elderly male lying in bed, no distress. No tachypnea or accessory muscle of respiration use. HEENT: Shows Pallor , no scleral icterus. Oral mucous membrane is dry. No pharyngeal erythema or thrush NECK: Trachea central, no thyromegaly. LUNGS: Unlabored breathing. Decreased breath sound at the base. No wheeze or crackle. HEART: S1, S2, regular rate and rhythm. No loud murmur ABDOMEN: Soft, no tenderness , guarding or rigidity, no organomegaly EXTREMITIES: Diffuse swelling of bilateral lower extremity with some weeping edema and erythema slightly warm to touch SKIN: No rash, no masses palpable. NEUROLOGICAL: The patient is awake, alert, oriented x3, mood and affect normal. Results CBC & Chem 7: 10/24/19 07:02 10/24/19 07:02 Labs: Abnormal Lab Results - Last 24 Hours (Table) 10/24/19 10/24/19 Range/Units 07:02 07:02 RBC 3.99 L (4.30-5.90) m/uL Hgb 11.0 L (13.0-17.5) gm/dL Hct 35.4 L (39.0-53.0) % MCHC 30.9 L (31.0-37.0) g/dL BUN 22 H (9-20) mg/dL Glucose 170 H (74-99) mg/dL Albumin 3.4 L (3.5-5.0) g/dL Assessment and Plan Assessment: 1- patient with bilateral lower extremity cellulitis in this patient did have diffuse swelling and redness and some superficial ulceration this patient likely with fluid overload and underlying CHF will need to cover for the gram-positive skin katelin such as strep and staph aureus (1) Bilateral lower leg cellulitis Current Visit: No Status: Acute Code(s): L03.116 - CELLULITIS OF LEFT LOWER LIMB; L03.115 - CELLULITIS OF RIGHT LOWER LIMB SNOMED Code(s): 150907744 Plan: 1- Vancomycin pharmacy to dose target trough of 15 while watching his kidney function and Vanco trough closely 2- dry Aquacel silver dressing to the open wound followed by Corby wrap from just above the toe to below the knee We will follow on clinical condition and cultures to further adjust medication if needed Thank you for this consultation will follow this patient with you Time with Patient: Greater than 30
[2019-10-26] MEDS: METOPROLOL TARTRATE 25 MG TAB PO SCH ×2 (05:00→16:04)
[2019-10-26] MEDS: APIXABAN 5 MG PO SCH ×2 (05:00→16:05)
[2019-10-26 06:53] LABS: African American GFR (CKD) >90 (>60 ml/min/1.73 sqM); Anion Gap 7 mmol/L; Blood Urea Nitrogen 14 mg/dL (9-20); Calcium 7.9 mg/dL (8.4-10.2); Carbon Dioxide 29 mmol/L (22-30); Chloride 104 mmol/L (98-107); Glucose 144 mg/dL (74-99); Non-African American GFR(CKD) >90 (>60 ml/min/1.73 sqM); Potassium 3.7 mmol/L (3.5-5.1); Sodium 140 mmol/L (137-145)
[2019-10-26] MEDS: FUROSEMIDE 10 MG/ML 2 ML VIAL IV SCH ×2 (08:55→21:58)
--- NOTE | 2019-10-26 11:39 | P.PN ---
Subjective Progress Note Date: 10/26/19 This is a pleasant 69-year-old gentleman with a past history significant for obesity, long-standing persistent atrial fibrillation, hypertension, hyperlipidemia, chronic lower extremity edema. Presented to the emergency department complaining of chest discomfort. EKG showed atrial fibrillation with nonspecific ST-T wave abnormalities, troponin came back to be unremarkable and echocardiogram showed normal LV systolic function with no segmental wall motion abnormalities, mild TR and mild pulmonary hypertension. Chest x-ray showed a large right upper lobe mass and a computed tomography scan was done which revealed irregular mass-like infiltrate lateral aspect right upper lobe and follow-up is recommended, appearance is nonspecific, cardiomegaly, mild atelectasis at the posterior lung bases and cholelithiasis. He is being followed by pulmonary for further evaluation. He said no further complaints of chest discomfort since the . Objective - Vital Signs Vital signs: Vital Signs Temp 98.4 F 10/26/19 07:40 Pulse 92 10/26/19 07:40 Resp 18 10/26/19 08:50 BP 129/67 10/26/19 07:40 Pulse Ox 94 L 10/26/19 07:40 Intake & Output 10/25/19 10/26/19 10/26/19 18:59 06:59 18:59 Intake Total 1680 350 310 Output Total 550 280 Balance 1130 70 310 Weight 162.5 kg Intake: IV 10 Invasive Line 3 10 Intake, IV Titration 50 Amount ceFAZolin 2 gm In Sodium 50 Chloride 0.9% 50 ml @ 100 mls/hr IVPB Q8HR [facility] Rx# :[id number] Oral 1680 300 300 Output: Urine 550 280 Other: Voiding Method Urinal Urinal Urinal # Voids 1 - Exam PHYSICAL EXAMINATION: HEENT: Head is atraumatic, normocephalic. Pupils equal, round. Neck is supple. There is no elevated jugular venous pressure. HEART EXAMINATION: Heart sounds irregularly irregular, S1 and S2 normal. No murmur or gallop heard. CHEST EXAMINATION: Lungs are clear to auscultation and precussion. No chest wall tenderness is noted on palpation or with deep breathing. ABDOMEN: Soft, obese, nontender. Bowel sounds are heard. No organomegaly noted. EXTREMITIES: 1+ peripheral pulses with evidence of moderate to severe peripheral edema and no calf tenderness noted. NEUROLOGIC patient is awake, alert and oriented x3. . - Labs CBC & Chem 7: 10/24/19 07:02 10/26/19 05:56 Labs: Abnormal Lab Results - Last 24 Hours (Table) 10/26/19 Range/Units 05:56 Glucose 144 H (74-99) mg/dL Calcium 7.9 L (8.4-10.2) mg/dL Microbiology - Last 24 Hours (Table) 10/24/19 17:11 Blood Culture - Preliminary Blood No Growth after 24 hours 10/24/19 19:00 Gram Stain - Preliminary Leg - Right Wound Culture - Preliminary Presumptive Staph aureus Assessment and Plan Assessment: #1 atypical chest discomfort #2 history of smoking #3 chronic bilateral lower extremity edema #4 bilaterally lower extremity venous stasis and cellulitis #5 right upper lobe mass, suspicious for malignancy, being followed by pulmonary #6 morbid obesity Plan: From cardiology's perspective, medications were reviewed and will continue the same. At this time no further cardiac workup is warranted as an inpatient. He will follow-up as an outpatient with Dr. Brown. BRAKE RELINER note has been reviewed, I agree with a documented findings and plan of care. Patient was seen and examined.
--- NOTE | 2019-10-26 14:02 | P.PN ---
Subjective Progress Note Date: 10/26/19 Principal diagnosis: 69-year-old male came in with chest tightness cardio will evaluate the patient, patient just pain is a atypical noncardiac had a recent cardiac catheterization. Patient is also being treated for bilateral lower limb ulcers patient has a mass in the right lung for which patient will undergo CAT scan pulmonology evaluate the patient as well. Patient is on vancomycin but won't cultures are showing gram-positive as well as gram-negative bacilli patient may need a gram- negative coverage all I will leave the addition to infectious disease. Constitutional: Denied any fatigue denied any fever. Cardio vascular: denied any chest pain, palpitations Gastrointestinal denied any nausea vomiting Pulmonary: Denied any shortness of breath cough Neurologic denied any new focal deficits All inpatient medications were reviewed and appropriate changes in these med ications as dictated in the interval history and assessment and plan. 10/26/2019 Patient is seen and evaluated and follow-up currently working with physical therapy and continues to be unsteady and weak. Patient's right lower extremity swelling slightly improved and Corby wraps applied have been helping. Patient to continue with Corby wraps from just above the toes up to the knees and also instructed to elevate lower extremities while at rest. Patient is currently maintained on IV antibiotics in the form of cefazolin and will continue at this time. Infectious disease is following. Pulmonary also following as there is a lung mass noted in the right upper lobe. Currently patient denies any chest pain, shortness of breath, or palpitations. Patient is afebrile. No reports of nausea or vomiting and patient is tolerating diet. Objective - Vital Signs Vital signs: Vital Signs Temp 98.3 F 10/26/19 11:30 Pulse 93 10/26/19 11:30 Resp 18 10/26/19 11:31 BP 97/63 10/26/19 11:30 Pulse Ox 93 L 10/26/19 11:30 Intake & Output 10/25/19 10/26/19 10/26/19 18:59 06:59 18:59 Intake Total 1680 350 620 Output Total 550 280 600 Balance 1130 70 20 Weight 162.5 kg Intake: IV 20 Invasive Line 3 20 Intake, IV Titration 50 Amount ceFAZolin 2 gm In Sodium 50 Chloride 0.9% 50 ml @ 100 mls/hr IVPB Q8HR [facility] Rx# :[id number] Oral 1680 300 600 Output: Urine 550 280 600 Other: Voiding Method Urinal Urinal Urinal # Voids 1 - Exam GENERAL: The patient is alert and oriented x3, not in any acute distress. Obese HEENT: Pupils are round and equally reacting to light. EOMI. No scleral icterus. No conjunctival pallor. Normocephalic, atraumatic. No pharyngeal erythema. No thyromegaly. CARDIOVASCULAR: S1 and S2 present. No murmurs, rubs, or gallops. PULMONARY: Chest is clear to auscultation, no wheezing or crackles. ABDOMEN: Soft, nontender, nondistended, normoactive bowel sounds. No palpable organomegaly. MUSCULOSKELETAL: No joint swelling or deformity. EXTREMITIES: No cyanosis, clubbing, 3+ pedal edema extending to both knees left leg has significant redness with skin breakdown and weeping. Erythema and swelling have improved and Corby wraps to bilateral lower extremities noted. NEUROLOGICAL: Gross neurological examination did not reveal any focal deficits. SKIN: No rashes. - Labs CBC & Chem 7: 10/24/19 07:02 10/26/19 05:56 Labs: Abnormal Lab Results - Last 24 Hours (Table) 10/26/19 Range/Units 05:56 Glucose 144 H (74-99) mg/dL Calcium 7.9 L (8.4-10.2) mg/dL Microbiology - Last 24 Hours (Table) 10/24/19 17:11 Blood Culture - Preliminary Blood No Growth after 24 hours 10/24/19 19:00 Gram Stain - Preliminary Leg - Right Wound Culture - Preliminary Presumptive Staph aureus Assessment and Plan Assessment: -Atypical chest pain: Ruled out acute coronary syndromes, with Possibility of peptic ulcer disease for which patient is on Protonix. Echo was done showing some left ventricular hypertrophy with overall LV systolic function is normal with an EF between 55 and 60% with mild tricuspid regurgitation and mild pulmonary hypertension noted -Bilateral extensive venous stasis dermatosis and possible cellulitis of the left leg along with an ulcer continue with wound care. Infectious disease following. Patient is currently maintained on IV antibiotics in the form of cefazolin. Wound culture preliminary showing presumptive staph aureus will await finalization. -Chest x-ray showing right upper lobe 2.[address] shows an irregular masslike infiltrate in the lateral aspect of the right upper lobe with nonspecific appearance and some mild atelectasis in the posterior lung bases. Pulmonary following. -Chronic A. fib presently on Eliquis which will be continued, patient's metoprolol dose was decreased and patient was bit tachycardic because of that patient metoprolol dose was decreased because of hypotension. Cardiology is following as needed. -Hypertension -Bilateral chronic venous stasis there is no evidence of CHF -Generalized deconditioning -COPD patient quit smoking patient has some wheezing on exam patient will be started on inhalational treatments -Peripheral neuropathy. Plan: Continue current medications, management, and symptomatic treatment. Patient is maintained on IV cefazolin and will continue at this time. Pulmonary and infec tious disease following. ET/OT following recommending subacute rehab. Case management is following and social work consult was placed for possible ECF placement for continued PT/OT therapy. Will await culture finalization. Will repeat a.m. labs. Further recommendations to follow.
--- NOTE | 2019-10-26 14:47 | P.PN ---
Subjective Progress Note Date: 10/26/19 Principal diagnosis: atypical chest pain Debilitated 69-year-old male patient who lives in [place], noncompliant, comes in to the hospital because of chest pain and upon further investigation was found to have a right upper lobe mass. The patient is currently free of any chest pain. No fever or chills. He apparently does not have any history of coronary artery disease. He has [place] cardiac [place] 5 [place] ago and he was not found to have significant atherosclerotic heart disease. He has chronic venous stasis, chronic ulceration lower extremities bilaterally without any active infection. He has chronic atrial fibrillation. He is obese with a BMI of 41.7. The patient is an ex- smoker. He is known to have COPD. His maternal Spiriva on outpatient basis. He has also hyperlipidemia as comorbid conditions. He has had difficulties mobility and gait and he seems to be more so of a bedbound person, relatively inactive and he walks around only with the help of a walker. The patient is seen today 11/04/2019 in follow-up on the selective care unit. He is currently resting comfortably in bed. Awake and alert in no acute distress. No worsening chest pain. No worsening shortness of breath cough or congestion. He was unable to do the computed tomography scan of the chest yesterday due to claustrophobia. Wound cultures of the right leg are pending. He is currently on vancomycin. He remains on IV diuretics, bronchodilators. On 10/26/2019 patient is seen in follow-up on selective care unit, he is awake and alert, in no acute distress, resting in bed. He is currently on room air, with a pulse ox of 93%, his CT chest was completed yesterday showing a rounded 3.2 cm irregular masslike infiltrate in the lateral aspect of the right upper lobe adjacent to the major fissure, nonspecific appearance. There was no pleural effusion, no hilar masses, no mediastinal adenopathy. patient has been afebrile. Denies any cough or congestion, denies any hemoptysis, no chest discomfort.he is currently on antibiotics in the form of cefazolin, he does have a wound in his right leg, and blood culture showed presumptive staph aureus, final culture is pending. Blood culture has shown no growth thus far. Objective - Vital Signs Vital signs: Vital Signs Temp 98.3 F 10/26/19 11:30 Pulse 93 10/26/19 11:30 Resp 18 10/26/19 11:31 BP 97/63 10/26/19 11:30 Pulse Ox 93 L 10/26/19 11:30 Intake & Output 10/25/19 10/26/19 10/26/19 18:59 06:59 18:59 Intake Total 1680 350 620 Output Total 550 280 950 Balance 1130 70 -330 Weight 162.5 kg Intake: IV 20 Invasive Line 3 20 Intake, IV Titration 50 Amount ceFAZolin 2 gm In Sodium 50 Chloride 0.9% 50 ml @ 100 mls/hr IVPB Q8HR [facility] Rx# :[id number] Oral 1680 300 600 Output: Urine 550 280 950 Other: Voiding Method Urinal Urinal Urinal # Voids 1 1 - Exam GENERAL EXAM: Alert, very pleasant, 69-year-old white male, on room air with a pulse ox of 93% comfortable in no apparent distress. HEAD: Normocephalic/atraumatic. EYES: Normal reaction of pupils, equal size. Conjunctiva pink, sclera white. NOSE: Clear with pink turbinates. THROAT: No erythema or exudates. NECK: No masses, no JVD, no thyroid enlargement, no adenopathy. CHEST: No chest wall deformity. Symmetrical expansion. LUNGS: Equal air entry with no crackles, wheeze, rhonchi or dullness. CVS: Irregular rate and rhythm, normal S1 and S2, no gallops, no murmurs, no rubs ABDOMEN: Soft, nontender. No hepatosplenomegaly, normal bowel sounds, no guarding or rigidity. EXTREMITIES: No clubbing, no edema, no cyanosis, 2+ pulses and upper and lower extremities. MUSCULOSKELETAL: Muscle strength and tone normal. SPINE: No scoliosis or deformity SKIN: No rashes, right leg is covered with the dressing CENTRAL NERVOUS SYSTEM: Alert and oriented -3. No focal deficits, tone is normal in all 4 extremities. PSYCHIATRIC: Alert and oriented -3. Appropriate affect. Intact judgment and insight. - Labs CBC & Chem 7: 10/24/19 07:02 10/26/19 05:56 Labs: Abnormal Lab Results - Last 24 Hours (Table) 10/26/19 Range/Units 05:56 Glucose 144 H (74-99) mg/dL Calcium 7.9 L (8.4-10.2) mg/dL Microbiology - Last 24 Hours (Table) 10/24/19 17:11 Blood Culture - Preliminary Blood No Growth after 24 hours 10/24/19 19:00 Gram Stain - Preliminary Leg - Right Wound Culture - Preliminary Presumptive Staph aureus Assessment and Plan Plan: Assessment: #1. Atypical chest pain #2. Right upper lobe mass measuring 2.7 cm in size, we will need outpatient follow-up with a PET scan #3. COPD, inactive and stable, maintained on Spiriva on outpatient basis #4. Chronic atrial fibrillation #5. Morbid obesity #6. Obstructive sleep apnea #7. Chronic venous stasis along with chronic lymphedema and ulceration of lower extremity bilaterally, with presumptive staph aureus in the right leg wound cultures #8. Hyperlipidemia #9. Extreme medical debility with difficulty with mobility and gait and poor performance and functional status Plan: Continue current medical treatment, CT chest has been reviewed, patient was evaluated with Dr. Mcgovern, patient will need outpatient follow-up with a PET scan. Otherwise can be considered for discharge home from pulmonary perspective, with antibiotics of ID service recommendations. his COPD is currently stable, no acute events overnight I performed a history & physical examination of the patient and discussed their management with my nurse practitioner, Veronique Roberson. I reviewed the nurse practitioner's note and agree with the documented findings and plan of care. Lung sounds are positive for diminished breath sounds. The findings and the impression was discussed with the patient. I attest to the documentation by the nurse practitioner. Time with Patient: Less than 30
[2019-10-26] MEDS: MULTIVITAMINS, THERA 1 EACH TAB PO SCH (16:05)
--- NOTE | 2019-10-26 17:12 | PN ---
PROGRESS NOTE DATE OF SERVICE: 10/26/2019 REASON FOR FOLLOWUP: Bilateral lower extremity cellulitis. INTERVAL HISTORY: Patient is currently afebrile. The patient is breathing comfortably. Denies having any chest pain or shortness of breath or cough. No nausea, no vomiting, no abdominal pain, or any worsening pain to the lower extremity. PHYSICAL EXAMINATION: Blood pressure 100/59 with a pulse of 103, temperature is 97.6. He is 93% on room air. General description is an elderly male, lying in bed in no distress. RESPIRATORY SYSTEM: Unlabored breathing, clear to auscultation anteriorly. HEART: S1, S2. Regular rate and rhythm. ABDOMEN: Soft, no tenderness. LEGS: Currently wrapped up, no obvious drainage on the dressing. LABS: Creatinine 0.68. Wound culture with presumptive Staph aureus. DIAGNOSTIC IMPRESSION AND PLAN: Patient with bilateral lower extremity venostasis ulcer with secondary cellulitis, culture with Staph aureus, possible MSSA. Clinically responded to Cefazolin to continue while waiting for the sensitivity to finalize. Local care to continue with dry Aquacel Silver dressing and Corby wrap. Continue supportive care. MMODL / IJN: [id number] /
[2019-10-26] MEDS: ATORVASTATIN 20 MG TABLET PO SCH (21:58)
[2019-10-26] MEDS: PANTOPRAZOLE 40 MG PO SCH (21:58)
[2019-10-27] MEDS: METOPROLOL TARTRATE 25 MG TAB PO SCH ×2 (04:40→16:33)
[2019-10-27] MEDS: APIXABAN 5 MG PO SCH ×2 (04:40→16:33)
[2019-10-27 07:52] LABS: Basophils % (A) 0 %; Eosinophils # (A) 0.4 k/uL (0-0.7); Eosinophils % (A) 5 %; HCT 31.2 % (39.0-53.0); HGB 9.9 gm/dL (13.0-17.5); Hypochromasia Marked; Lymphocytes # (A) 1.4 k/uL (1.0-4.8); Lymphocytes % (A) 18 %; MCH 28.5 pg (25.0-35.0); MCHC 31.6 g/dL (31.0-37.0); MCV 90.1 fL (80.0-100.0); Mean Platelet Volume 8.5; Monocytes % (A) 13 %; Neutrophils # (A) 4.6 k/uL (1.3-7.7); Neutrophils % (A) 61 %; Platelet Count 193 k/uL (150-450); RBC 3.46 m/uL (4.30-5.90); RDW 15.4 % (11.5-15.5); WBC 7.5 k/uL (3.8-10.6)
[2019-10-27 08:04] LABS: African American GFR (CKD) >90 (>60 ml/min/1.73 sqM); Anion Gap 6 mmol/L; Blood Urea Nitrogen 11 mg/dL (9-20); Calcium 7.6 mg/dL (8.4-10.2); Carbon Dioxide 32 mmol/L (22-30); Chloride 102 mmol/L (98-107); Glucose 138 mg/dL (74-99); Non-African American GFR(CKD) >90 (>60 ml/min/1.73 sqM); Potassium 3.9 mmol/L (3.5-5.1); Sodium 140 mmol/L (137-145)
[2019-10-27] MEDS: FUROSEMIDE 10 MG/ML 2 ML VIAL IV SCH ×2 (08:39→20:44)
[2019-10-27] MEDS: CHOLECALCIFEROL 1,000 UNIT TAB PO SCH (08:39)
[2019-10-27] MEDS: MULTIVITAMINS, THERA 1 EACH TAB PO SCH (08:39)
--- NOTE | 2019-10-27 14:26 | P.PN ---
Subjective Progress Note Date: 10/27/19 Principal diagnosis: 69-year-old male came in with chest tightness cardio will evaluate the patient, patient just pain is a atypical noncardiac had a recent cardiac catheterization. Patient is also being treated for bilateral lower limb ulcers patient has a mass in the right lung for which patient will undergo CAT scan pulmonology evaluate the patient as well. Patient is on vancomycin but won't cultures are showing gram-positive as well as gram-negative bacilli patient may need a gram- negative coverage all I will leave the addition to infectious disease. Constitutional: Denied any fatigue denied any fever. Cardio vascular: denied any chest pain, palpitations Gastrointestinal denied any nausea vomiting Pulmonary: Denied any shortness of breath cough Neurologic denied any new focal deficits All inpatient medications were reviewed and appropriate changes in these med ications as dictated in the interval history and assessment and plan. 10/26/2019 Patient is seen and evaluated and follow-up currently working with physical therapy and continues to be unsteady and weak. Patient's right lower extremity swelling slightly improved and Corby wraps applied have been helping. Patient to continue with Corby wraps from just above the toes up to the knees and also instructed to elevate lower extremities while at rest. Patient is currently maintained on IV antibiotics in the form of cefazolin and will continue at this time. Infectious disease is following. Pulmonary also following as there is a lung mass noted in the right upper lobe. Currently patient denies any chest pain, shortness of breath, or palpitations. Patient is afebrile. No reports of nausea or vomiting and patient is tolerating diet. 10/27/2019 Patient is seen and evaluated and follow-up with no acute overnight issues. Patient's bilateral lower extremity swelling has improved and patient is maintained on Corby wraps with elevation of the lower extremities while at rest. Cultures preliminary showing presumptive staph aureus and will continue to await for finalization. Infectious disease is following. Patient is maintained on IV cefazolin and will continue at this time. Case management and social work following as patient will be going to subacute rehab upon discharge for continued PT/OT therapy. Patient denies any chest pain, shortness of breath, or palpitations. Patient is afebrile. No reports of nausea or vomiting and patient is tolerating diet. Patient is also maintained on IV Lasix at 20 mg twice daily and will continue at this time. Objective - Vital Signs Vital signs: Vital Signs Temp 97.6 F 10/27/19 12:05 Pulse 91 10/27/19 12:05 Resp 16 10/27/19 12:07 BP 109/72 10/27/19 12:05 Pulse Ox 94 L 10/27/19 12:05 Intake & Output 10/26/19 10/27/19 10/27/19 18:59 06:59 18:59 Intake Total 630 860 Output Total 1175 2200 940 Balance -545 -2200 -80 Weight 150 kg Intake: IV 30 20 Invasive Line 3 30 20 Oral 600 840 Output: Urine 1175 2200 940 Other: Voiding Method Urinal Urinal Urinal # Voids 1 1 - Exam GENERAL: The patient is alert and oriented x3, not in any acute distress. Obese HEENT: Pupils are round and equally reacting to light. EOMI. No scleral icterus. No conjunctival pallor. Normocephalic, atraumatic. No pharyngeal erythema. No thyromegaly. CARDIOVASCULAR: S1 and S2 present. No murmurs, rubs, or gallops. PULMONARY: Diminished breath sounds bilaterally, no wheezing or crackles. ABDOMEN: Soft, obese, nontender, nondistended, normoactive bowel sounds. No palpable organomegaly. MUSCULOSKELETAL: No joint swelling or deformity. EXTREMITIES: No cyanosis, clubbing, 3+ pedal edema extending to both knees left leg has significant redness with skin breakdown and weeping. Erythema and swelling have improved and Corby wraps to bilateral lower extremities noted. NEUROLOGICAL: Gross neurological examination did not reveal any focal deficits. SKIN: No rashes. - Labs CBC & Chem 7: 10/27/19 07:26 10/27/19 07:26 Labs: Abnormal Lab Results - Last 24 Hours (Table) 10/27/19 10/27/19 Range/Units 07:26 07:26 RBC 3.46 L (4.30-5.90) m/uL Hgb 9.9 L (13.0-17.5) gm/dL Hct 31.2 L (39.0-53.0) % Carbon Dioxide 32 H (22-30) mmol/L Creatinine 0.63 L (0.66-1.25) mg/dL Glucose 138 H (74-99) mg/dL Calcium 7.6 L (8.4-10.2) mg/dL Microbiology - Last 24 Hours (Table) 10/24/19 19:00 Anaerobic Culture - Preliminary Leg - Right 10/24/19 17:11 Blood Culture - Preliminary Blood No Growth after 48 hours Assessment and Plan Assessment: -Atypical chest pain: Ruled out acute coronary syndromes, with Possibility of peptic ulcer disease for which patient is on Protonix. Echo was done showing some left ventricular hypertrophy with overall LV systolic function is normal with an EF between 55 and 60% with mild tricuspid regurgitation and mild pulmonary hypertension noted -Bilateral extensive venous stasis dermatosis and possible cellulitis of the left leg along with an ulcer continue with wound care. Infectious disease following. Patient is currently maintained on IV antibiotics in the form of cefazolin. Wound culture preliminary showing presumptive staph aureus will a wait finalization. -Chest x-ray showing right upper lobe 2.[address] shows an irregular masslike infiltrate in the lateral aspect of the right upper lobe with nonspecific appearance and some mild atelectasis in the posterior lung bases. Pulmonary following. -Chronic A. fib presently on Eliquis which will be continued, patient's metoprolol dose was decreased and patient was bit tachycardic because of that patient metoprolol dose was decreased because of hypotension. Cardiology is f ollowing as needed. -Hypertension -Bilateral chronic venous stasis there is no evidence of CHF -Generalized deconditioning -COPD patient quit smoking patient has some wheezing on exam patient will be started on inhalational treatments -Peripheral neuropathy. Plan: Continue current medications, management, and symptomatic treatment. Patient is maintained on IV cefazolin and will continue at this time. Pulmonary and infectious disease following. Case management is following and social work consult was placed for possible ECF placement for continued PT/OT therapy. Will await culture finalization. Will repeat a.m. labs. Further recommendations to follow.
--- NOTE | 2019-10-27 15:23 | P.PN ---
Subjective Progress Note Date: 10/27/19 Principal diagnosis: atypical chest pain Debilitated 69-year-old male patient who lives in [place], noncompliant, comes in to the hospital because of chest pain and upon further investigation was found to have a right upper lobe mass. The patient is currently free of any chest pain. No fever or chills. He apparently does not have any history of coronary artery disease. He has [place] cardiac [place] 5 [place] ago and he was not found to have significant atherosclerotic heart disease. He has chronic venous stasis, chronic ulceration lower extremities bilaterally without any active infection. He has chronic atrial fibrillation. He is obese with a BMI of 41.7. The patient is an ex- smoker. He is known to have COPD. His maternal Spiriva on outpatient basis. He has also hyperlipidemia as comorbid conditions. He has had difficulties mobility and gait and he seems to be more so of a bedbound person, relatively inactive and he walks around only with the help of a walker. The patient is seen today 11/04/2019 in follow-up on the selective care unit. He is currently resting comfortably in bed. Awake and alert in no acute distress. No worsening chest pain. No worsening shortness of breath cough or congestion. He was unable to do the computed tomography scan of the chest yesterday due to claustrophobia. Wound cultures of the right leg are pending. He is currently on vancomycin. He remains on IV diuretics, bronchodilators. On 10/26/2019 patient is seen in follow-up on selective care unit, he is awake and alert, in no acute distress, resting in bed. He is currently on room air, with a pulse ox of 93%, his CT chest was completed yesterday showing a rounded 3.2 cm irregular masslike infiltrate in the lateral aspect of the right upper lobe adjacent to the major fissure, nonspecific appearance. There was no pleural effusion, no hilar masses, no mediastinal adenopathy. patient has been afebrile. Denies any cough or congestion, denies any hemoptysis, no chest discomfort.he is currently on antibiotics in the form of cefazolin, he does have a wound in his right leg, and blood culture showed presumptive staph aureus, final culture is pending. Blood culture has shown no growth thus far. On 10/27/2019 patient seen in follow-up on selective care unit. He is resting comfortably in bed, awake and alert, denies any acute distress, he is on 2 L of oxygen with pulse ox of 97%. Has been afebrile, respirations are nonlabored. No rhonchi or wheezing. No new chest x-ray, it is labs have been reviewed, showing white blood cell count of 7.5, hemoglobin is 9.9, sodium is 140, potassium is 3.9, chloride is 102, CO2 32, BUN is 11, creatinine 0.63. Blood culture has shown no growth, his right leg wound culture is positive for presumptive staph aureus, patient is on Kefzol per ID service recommendations, he isn't breathing treatments and he remains on IV Lasix, and he is maintaining negative fluid balance, -2.7 L over the last 24 hours. Objective - Vital Signs Vital signs: Vital Signs Temp 97.6 F 10/27/19 12:05 Pulse 91 10/27/19 12:05 Resp 16 10/27/19 12:07 BP 109/72 10/27/19 12:05 Pulse Ox 94 L 10/27/19 12:05 Intake & Output 10/26/19 10/27/19 10/27/19 18:59 06:59 18:59 Intake Total 630 860 Output Total 1175 2200 940 Balance -545 -2200 -80 Weight 150 kg Intake: IV 30 20 Invasive Line 3 30 20 Oral 600 840 Output: Urine 1175 2200 940 Other: Voiding Method Urinal Urinal Urinal # Voids 1 1 - Exam GENERAL EXAM: Alert, very pleasant, 69-year-old white male, on room air with a pulse ox of 93% comfortable in no apparent distress. HEAD: Normocephalic/atraumatic. EYES: Normal reaction of pupils, equal size. Conjunctiva pink, sclera white. NOSE: Clear with pink turbinates. THROAT: No erythema or exudates. NECK: No masses, no JVD, no thyroid enlargement, no adenopathy. CHEST: No chest wall deformity. Symmetrical expansion. LUNGS: Equal air entry with no crackles, wheeze, rhonchi or dullness. CVS: Irregular rate and rhythm, normal S1 and S2, no gallops, no murmurs, no rubs ABDOMEN: Soft, nontender. No hepatosplenomegaly, normal bowel sounds, no guarding or rigidity. EXTREMITIES: No clubbing, no edema, no cyanosis, 2+ pulses and upper and lower extremities. MUSCULOSKELETAL: Muscle strength and tone normal. SPINE: No scoliosis or deformity SKIN: No rashes, right leg is covered with the dressing CENTRAL NERVOUS SYSTEM: Alert and oriented -3. No focal deficits, tone is normal in all 4 extremities. PSYCHIATRIC: Alert and oriented -3. Appropriate affect. Intact judgment and insight. - Labs CBC & Chem 7: 10/27/19 07:26 10/27/19 07:26 Labs: Abnormal Lab Results - Last 24 Hours (Table) 10/27/19 10/27/19 Range/Units 07: 07:26 RBC 3.46 L (4.30-5.90) m/uL Hgb 9.9 L (13.0-17.5) gm/dL Hct 31.2 L (39.0-53.0) % Carbon Dioxide 32 H (22-30) mmol/L Creatinine 0.63 L (0.66-1.25) mg/dL Glucose 138 H (74-99) mg/dL Calcium 7.6 L (8.4-10.2) mg/dL Microbiology - Last 24 Hours (Table) 10/24/19 19:00 Anaerobic Culture - Preliminary Leg - Right 10/24/19 17:11 Blood Culture - Preliminary Blood No Growth after 48 hours Assessment and Plan Plan: Assessment: #1. Atypical chest pain #2. Right upper lobe mass measuring 2.7 cm in size, we will need outpatient follow-up with a PET scan #3. COPD, inactive and stable, maintained on Spiriva on outpatient basis #4. Chronic atrial fibrillation #5. Morbid obesity #6. Obstructive sleep apnea #7. Chronic venous stasis along with chronic lymphedema and ulceration of lower extremity bilaterally, with presumptive staph aureus in the right leg wound cultures #8. Hyperlipidemia #9. Extreme medical debility with difficulty with mobility and gait and poor performance and functional status Plan: Patient denies any worsening dyspnea, remains on diuretics and antibiotics, monocytes have been stable, no chest pain, no cough or congestion, no fever or chills, patient ischemic considered for discharge home, and she will need o utpatient PET scan to follow-up on the right upper lobe mass. Follow up with Dr. Kenny in 7-10 days after discharge I performed a history & physical examination of the patient and discussed their management with my nurse practitioner, Veronique Roberson. I reviewed the nurse practitioner's note and agree with the documented findings and plan of care. Lung sounds are positive for diminished breath sounds. The findings and the impression was discussed with the patient. I attest to the documentation by the nurse practitioner. Time with Patient: Less than 30
--- NOTE | 2019-10-27 15:39 | PN ---
PROGRESS NOTE DATE OF VISIT: 10/27/2019 REASON FOR FOLLOWUP: Bilateral lower extremity wound and cellulitis. INTERVAL HISTORY: The patient is currently afebrile, has been breathing comfortably. The patient denies having any chest pain, shortness of breath or cough. No abdominal pain or pain to the lower extremity. PHYSICAL EXAMINATION: Blood pressure 109/72 with a pulse of 91, temperature 97.6. He is 94% on 2 L nasal cannula. General description is an elderly male lying in bed in no distress. RESPIRATORY SYSTEM: Unlabored breathing. Clear to auscultation anteriorly. HEART: S1, S2. Regular rate and rhythm. ABDOMEN: Soft. No tenderness. Bilateral lower extremities are currently wrapped up. No obvious drainage on the dressing. LABS: Hemoglobin is 9.9, white count 7.5. BUN of 11, creatinine 0.63. Wound culture with presumptive Staph aureus. Sensitivities are pending. DIAGNOSTIC IMPRESSION AND PLAN: Patient with bilateral lower extremity ulcers with cellulitis, culture with Staphylococcus aureus, sensitivities pending. Keep the patient on cefazolin 2 gram q.8. Local wound care with dry Aquacel Silver dressing and Corby wrap. Continue with supportive care. MMODL / IJN: [id number] /
[2019-10-27] MEDS: PANTOPRAZOLE 40 MG PO SCH (20:52)
[2019-10-27] MEDS: ATORVASTATIN 20 MG TABLET PO SCH (23:15)
[2019-10-28] MEDS: METOPROLOL TARTRATE 25 MG TAB PO SCH ×2 (05:46→16:30)
[2019-10-28] MEDS: APIXABAN 5 MG PO SCH ×2 (05:54→16:30)
[2019-10-28] MEDS: FUROSEMIDE 10 MG/ML 2 ML VIAL IV SCH ×2 (07:58→22:27)
[2019-10-28] MEDS: MULTIVITAMINS, THERA 1 EACH TAB PO SCH (07:59)
[2019-10-28] MEDS: CHOLECALCIFEROL 1,000 UNIT TAB PO SCH (07:59)
--- NOTE | 2019-10-28 11:16 | XR ---
EXAMINATION TYPE: XR chest 1V portable DATE OF EXAM: 10/28/2019 COMPARISON: Prior chest x-ray 10/24/2019 HISTORY: Abnormal chest x-ray, shortness of breath TECHNIQUE: Single frontal view of the chest is obtained. FINDINGS: Exam shows a similar appearance, right upper lobe mass density shows a stable appearance. There is no evident pneumothorax or pleural effusion. Heart remains enlarged. Prominence of the pulmo nary artery may be indicative of pulmonary artery hypertension. Aorta is dense. IMPRESSION: Right upper lobe lung mass. Cardiomegaly.
--- NOTE | 2019-10-28 13:46 | P.PN ---
Subjective Progress Note Date: 10/28/19 Principal diagnosis: atypical chest pain Debilitated 69-year-old male patient who lives in [place], noncompliant, comes in to the hospital because of chest pain and upon further investigation was found to have a right upper lobe mass. The patient is currently free of any chest pain. No fever or chills. He apparently does not have any history of coronary artery disease. He has [place] cardiac [place] 5 [place] ago and he was not found to have significant atherosclerotic heart disease. He has chronic venous stasis, chronic ulceration lower extremities bilaterally without any active infection. He has chronic atrial fibrillation. He is obese with a BMI of 41.7. The patient is an ex- smoker. He is known to have COPD. His maternal Spiriva on outpatient basis. He has also hyperlipidemia as comorbid conditions. He has had difficulties mobility and gait and he seems to be more so of a bedbound person, relatively inactive and he walks around only with the help of a walker. The patient is seen today 11/04/2019 in follow-up on the selective care unit. He is currently resting comfortably in bed. Awake and alert in no acute distress. No worsening chest pain. No worsening shortness of breath cough or congestion. He was unable to do the computed tomography scan of the chest yesterday due to claustrophobia. Wound cultures of the right leg are pending. He is currently on vancomycin. He remains on IV diuretics, bronchodilators. On 10/26/2019 patient is seen in follow-up on selective care unit, he is awake and alert, in no acute distress, resting in bed. He is currently on room air, with a pulse ox of 93%, his CT chest was completed yesterday showing a rounded 3.2 cm irregular masslike infiltrate in the lateral aspect of the right upper lobe adjacent to the major fissure, nonspecific appearance. There was no pleural effusion, no hilar masses, no mediastinal adenopathy. patient has been afebrile. Denies any cough or congestion, denies any hemoptysis, no chest discomfort.he is currently on antibiotics in the form of cefazolin, he does have a wound in his right leg, and blood culture showed presumptive staph aureus, final culture is pending. Blood culture has shown no growth thus far. On 10/27/2019 patient seen in follow-up on selective care unit. He is resting comfortably in bed, awake and alert, denies any acute distress, he is on 2 L of oxygen with pulse ox of 97%. Has been afebrile, respirations are nonlabored. No rhonchi or wheezing. No new chest x-ray, it is labs have been reviewed, showing white blood cell count of 7.5, hemoglobin is 9.9, sodium is 140, potassium is 3.9, chloride is 102, CO2 32, BUN is 11, creatinine 0.63. Blood culture has shown no growth, his right leg wound culture is positive for presumptive staph aureus, patient is on Kefzol per ID service recommendations, he isn't breathing treatments and he remains on IV Lasix, and he is maintaining negative fluid balance, -2.7 L over the last 24 hours. On 10/28/2019 patient seen in follow-up on selective care unit, he is awake and alert, he is resting in bed, in no acute distress, his lungs are clear to ausc ultation, he remains on Lasix at 20 mg every 12 hours, he is on cefazolin for antibiotic coverage, his wound culture was positive for presumptive staph, final culture is still pending, vital signs have been stable, no acute events overnight, no cough, no phlegm production, no complaints of chest pain, we'll obtain a repeat chest x-ray today, otherwise no acute issues overnight Objective - Vital Signs Vital signs: Vital Signs Temp 97.9 F 10/28/19 07:00 Pulse 99 10/28/19 07:00 Resp 16 10/28/19 07:00 BP 103/69 10/28/19 07:00 Pulse Ox 96 10/28/19 07:00 Intake & Output 10/27/19 10/28/19 10/28/19 18:59 06:59 18:59 Intake Total 1110 100 650 Output Total 940 Balance 170 100 650 Intake: IV 30 Invasive Line 3 30 Intake, IV Titration 100 50 Amount ceFAZolin 2 gm In Sodium 100 50 Chloride 0.9% 50 ml @ 100 mls/hr IVPB Q8HR [facility] Rx# :[id number] Oral 1080 600 Output: Urine 940 Other: Voiding Method Urinal Urinal Urinal # Voids 2 - Exam GENERAL EXAM: Alert, very pleasant, 69-year-old white male, on room air with a pulse ox of 93% comfortable in no apparent distress. HEAD: Normocephalic/atraumatic. EYES: Normal reaction of pupils, equal size. Conjunctiva pink, sclera white. NOSE: Clear with pink turbinates. THROAT: No erythema or exudates. NECK: No masses, no JVD, no thyroid enlargement, no adenopathy. CHEST: No chest wall deformity. Symmetrical expansion. LUNGS: Equal air entry with no crackles, wheeze, rhonchi or dullness. CVS: Irregular rate and rhythm, normal S1 and S2, no gallops, no murmurs, no rubs ABDOMEN: Soft, nontender. No hepatosplenomegaly, normal bowel sounds, no guarding or rigidity. EXTREMITIES: No clubbing, no edema, no cyanosis, 2+ pulses and upper and lower extremities. MUSCULOSKELETAL: Muscle strength and tone normal. SPINE: No scoliosis or deformity SKIN: No rashes, right leg is covered with the dressing CENTRAL NERVOUS SYSTEM: Alert and oriented -3. No focal deficits, tone is normal in all 4 extremities. PSYCHIATRIC: Alert and oriented -3. Appropriate affect. Intact judgment and insight. - Labs CBC & Chem 7: 10/27/19 07:26 10/27/19 07:26 Labs: Microbiology - Last 24 Hours (Table) 10/24/19 17:11 Blood Culture - Preliminary Blood No Growth after 72 hours Assessment and Plan Plan: Assessment: #1. Atypical chest pain #2. Right upper lobe mass measuring 2.7 cm in size, we will need outpatient follow-up with a PET scan #3. COPD, inactive and stable, maintained on Spiriva on outpatient basis #4. Chronic atrial fibrillation #5. Morbid obesity #6. Obstructive sleep apnea #7. Chronic venous stasis along with chronic lymphedema and ulceration of lower extremity bilaterally, with presumptive staph aureus in the right leg wound cultures #8. Hyperlipidemia #9. Extreme medical debility with difficulty with mobility and gait and poor performance and functional status Plan: Cntinue diuretics, and antibiotics, vital signs have been stable, no complaints of dyspnea, no fever or chills, no chest pain or hemoptysis. Today's chest x- ray has been reviewed showing right upper lobe lung mass and cardiomegaly. Patient will need outpatient PET scan, otherwise from pulmonary perspective he could be considered for discharge home. He will need outpatient follow-up with Dr. Santoyo in the office in 7-10 days I performed a history & physical examination of the patient and discussed their management with my nurse practitioner, Veronique Roberson. I reviewed the nurse practitioner's note and agree with the documented findings and plan of care. Lung sounds are positive for diminished breath sounds. The findings and the impression was discussed with the patient. I attest to the documentation by the nurse practitioner. Time with Patient: Less than 30
[2019-10-28] MEDS: ACETAMINOPHEN TAB 325 MG TAB PO PRN (15:04)
--- NOTE | 2019-10-28 15:24 | P.PN ---
Subjective Progress Note Date: 10/28/19 Principal diagnosis: 69-year-old male came in with chest tightness cardio will evaluate the patient, patient just pain is a atypical noncardiac had a recent cardiac catheterization. Patient is also being treated for bilateral lower limb ulcers patient has a mass in the right lung for which patient will undergo CAT scan pulmonology evaluate the patient as well. Patient is on vancomycin but won't cultures are showing gram-positive as well as gram-negative bacilli patient may need a gram- negative coverage all I will leave the addition to infectious disease. Constitutional: Denied any fatigue denied any fever. Cardio vascular: denied any chest pain, palpitations Gastrointestinal denied any nausea vomiting Pulmonary: Denied any shortness of breath cough Neurologic denied any new focal deficits All inpatient medications were reviewed and appropriate changes in these med ications as dictated in the interval history and assessment and plan. 10/26/2019 Patient is seen and evaluated and follow-up currently working with physical therapy and continues to be unsteady and weak. Patient's right lower extremity swelling slightly improved and Corby wraps applied have been helping. Patient to continue with Corby wraps from just above the toes up to the knees and also instructed to elevate lower extremities while at rest. Patient is currently maintained on IV antibiotics in the form of cefazolin and will continue at this time. Infectious disease is following. Pulmonary also following as there is a lung mass noted in the right upper lobe. Currently patient denies any chest pain, shortness of breath, or palpitations. Patient is afebrile. No reports of nausea or vomiting and patient is tolerating diet. 10/27/2019 Patient is seen and evaluated and follow-up with no acute overnight issues. Patient's bilateral lower extremity swelling has improved and patient is maintained on Corby wraps with elevation of the lower extremities while at rest. Cultures preliminary showing presumptive staph aureus and will continue to await for finalization. Infectious disease is following. Patient is maintained on IV cefazolin and will continue at this time. Case management and social work following as patient will be going to subacute rehab upon discharge for continued PT/OT therapy. Patient denies any chest pain, shortness of breath, or palpitations. Patient is afebrile. No reports of nausea or vomiting and patient is tolerating diet. Patient is also maintained on IV Lasix at 20 mg twice daily and will continue at this time. 10/28/2019 Patient is seen in follow-up with no acute overnight issues. Patient is currently maintained on IV Lasix 20 mg twice daily and will continue at this time. Corby wraps to bilateral lower extremities are helping with the swelling and showing improvements. Cultures continue to show presumptive staph aureus and patient is maintained on IV cefazolin. Infectious disease is following. Patient continues to work with physical therapy during hospitalization in case management and social work are following and arranging for subacute rehab upon discharge. Patient was requiring a 3 night stay in inpatient hospitalization. Chest x-ray today shows cardiomegaly with no changes to the continued right upper lobe lung mass. Patient will need a PET scan in the outpatient setting along with pulmonary follow-up with Dr. Santoyo. Patient currently denies any chest pain, worsening shortness of breath, or palpitations. Patient is afebrile. No reports of nausea or vomiting and patient has been tolerating his diet. Objective - Vital Signs Vital signs: Vital Signs Temp 97.9 F 10/28/19 07:00 Pulse 99 10/28/19 07:00 Resp 16 10/28/19 07:00 BP 103/69 10/28/19 07:00 Pulse Ox 96 10/28/19 07:00 Intake & Output 10/27/19 10/28/19 10/28/19 18:59 06:59 18:59 Intake Total 1110 100 650 Output Total 940 Balance 170 100 650 Intake: IV 30 Invasive Line 3 30 Intake, IV Titration 100 50 Amount ceFAZolin 2 gm In Sodium 100 50 Chloride 0.9% 50 ml @ 100 mls/hr IVPB Q8HR [facility] Rx# :[id number] Oral 1080 600 Output: Urine 940 Other: Voiding Method Urinal Urinal Urinal # Voids 2 - Exam GENERAL: The patient is alert and oriented x3, not in any acute distress. Obese HEENT: Pupils are round and equally reacting to light. EOMI. No scleral icterus. No conjunctival pallor. Normocephalic, atraumatic. No pharyngeal erythema. No thyromegaly. CARDIOVASCULAR: S1 and S2 present. No murmurs, rubs, or gallops. PULMONARY: Diminished breath sounds bilaterally, no wheezing or crackles. ABDOMEN: Soft, obese, nontender, nondistended, normoactive bowel sounds. No palpable organomegaly. MUSCULOSKELETAL: No joint swelling or deformity. EXTREMITIES: No cyanosis, clubbing, 3+ pedal edema extending to both knees left leg has significant redness with skin breakdown and weeping. Erythema and swelling have improved and Corby wraps to bilateral lower extremities noted. NEUROLOGICAL: Gross neurological examination did not reveal any focal deficits. SKIN: No rashes. - Labs CBC & Chem 7: 10/27/19 07:26 10/27/19 07:26 Labs: Microbiology - Last 24 Hours (Table) 10/24/19 17:11 Blood Culture - Preliminary Blood No Growth after 72 hours Assessment and Plan Assessment: -Atypical chest pain: Ruled out acute coronary syndromes, with Possibility of peptic ulcer disease for which patient is on Protonix. Echo was done showing some left ventricular hypertrophy with overall LV systolic function is normal with an EF between 55 and 60% with mild tricuspid regurgitation and mild pulmonary hypertension noted -Bilateral extensive venous stasis dermatosis and possible cellulitis of the left leg along with an ulcer continue with wound care. Infectious disease following. Patient is currently maintained on IV antibiotics in the form of cefazolin. Wound culture preliminary showing presumptive staph aureus will await finalization. -Chest x-ray showing right upper lobe 2.[address] shows an irregular masslike infiltrate in the lateral aspect of the right upper lobe with nonspecific appearance and some mild atelectasis in the posterior lung bases. Pulmonary following. Patient will likely need an outpatient PET scan and follow-up with pulmonary in the outpatient setting -Chronic A. fib presently on Eliquis which will be continued, patient's metoprolol dose was decreased and patient was bit tachycardic because of that patient metoprolol dose was decreased because of hypotension. Cardiology is following as needed. -Hypertension -Bilateral chronic venous stasis there is no evidence of CHF -Generalized deconditioning -COPD patient quit smoking patient has some wheezing on exam patient will be started on inhalational treatments -Peripheral neuropathy. Plan: Continue current medications, management, and symptomatic treatment. Patient is maintained on IV cefazolin and will continue at this time. Pulmonary and infectious disease following. Case management is following and social work consult was placed for possible ECF placement for continued PT/OT therapy. Will await culture finalization. Further recommendations to follow. Possible discharge in 24 hours.
[2019-10-28] MEDS: IPRATROPIUM 0.5 MG/2.5 ML NEBU INHALATION SCH ×2 (16:09→19:44)
--- NOTE | 2019-10-28 20:44 | PN ---
PROGRESS NOTE DATE OF SERVICE: 10/28/2019 REASON FOR FOLLOWUP: Bilateral lower extremity cellulitis. INTERVAL HISTORY: Patient is currently afebrile. Patient is breathing comfortably. The patient denies having any chest pain or shortness of breath or cough. No abdominal pain or pain to the lower extremity. On examination, blood pressure 100/69, pulse of 99, temperature 97.9. He is 96% on 2 L nasal cannula. General description is an elderly male lying in bed in no distress. Respiratory system: Unlabored breathing. Clear to auscultation anteriorly. Heart S1, S2. Regular rate and rhythm. ABDOMEN: Soft. No tenderness. Legs are currently wrapped up. No obvious drainage on the dressing. LABS: Hemoglobin 9.1, white count 7.5. BUN of 11, creatinine 0.63. Wound culture, Staph aureus, sensitivity still pending. DIAGNOSTIC IMPRESSION AND PLAN: Patient with bilateral lower extremity cellulitis. The patient did have a superficial ulceration with diffuse swelling. The patient is currently covered with cefazolin. Local wound care with Aquacel dressing and Corby wrap. We are waiting for the sensitivity to finalize to determine discharge antibiotics. Continue supportive care. MMODL / IJN: [id number] /
[2019-10-28] MEDS: ATORVASTATIN 20 MG TABLET PO SCH (22:27)
[2019-10-28] MEDS: PANTOPRAZOLE 40 MG PO SCH (22:27)
[2019-10-29] MEDS: APIXABAN 5 MG PO SCH (05:14)
[2019-10-29] MEDS: METOPROLOL TARTRATE 25 MG TAB PO SCH (05:14)
[2019-10-29] MEDS: ACETAMINOPHEN TAB 325 MG TAB PO PRN (05:19)
[2019-10-29] MEDS: FUROSEMIDE 10 MG/ML 2 ML VIAL IV SCH (08:11)
[2019-10-29] MEDS: MULTIVITAMINS, THERA 1 EACH TAB PO SCH (08:19)
[2019-10-29] MEDS: CHOLECALCIFEROL 1,000 UNIT TAB PO SCH (08:19)
[2019-10-29] MEDS: IPRATROPIUM 0.5 MG/2.5 ML NEBU INHALATION SCH ×3 (08:28→15:25)
--- NOTE | 2019-10-29 12:07 | P.PN ---
Subjective Progress Note Date: 10/29/19 Principal diagnosis: atypical chest pain Debilitated 69-year-old male patient who lives in [place], noncompliant, comes in to the hospital because of chest pain and upon further investigation was found to have a right upper lobe mass. The patient is currently free of any chest pain. No fever or chills. He apparently does not have any history of coronary artery disease. He has [place] cardiac [place] 5 [place] ago and he was not found to have significant atherosclerotic heart disease. He has chronic venous stasis, chronic ulceration lower extremities bilaterally without any active infection. He has chronic atrial fibrillation. He is obese with a BMI of 41.7. The patient is an ex- smoker. He is known to have COPD. His maternal Spiriva on outpatient basis. He has also hyperlipidemia as comorbid conditions. He has had difficulties mobility and gait and he seems to be more so of a bedbound person, relatively inactive and he walks around only with the help of a walker. The patient is seen today 11/04/2019 in follow-up on the selective care unit. He is currently resting comfortably in bed. Awake and alert in no acute distress. No worsening chest pain. No worsening shortness of breath cough or congestion. He was unable to do the computed tomography scan of the chest yesterday due to claustrophobia. Wound cultures of the right leg are pending. He is currently on vancomycin. He remains on IV diuretics, bronchodilators. On 10/26/2019 patient is seen in follow-up on selective care unit, he is awake and alert, in no acute distress, resting in bed. He is currently on room air, with a pulse ox of 93%, his CT chest was completed yesterday showing a rounded 3.2 cm irregular masslike infiltrate in the lateral aspect of the right upper lobe adjacent to the major fissure, nonspecific appearance. There was no pleural effusion, no hilar masses, no mediastinal adenopathy. patient has been afebrile. Denies any cough or congestion, denies any hemoptysis, no chest discomfort.he is currently on antibiotics in the form of cefazolin, he does have a wound in his right leg, and blood culture showed presumptive staph aureus, final culture is pending. Blood culture has shown no growth thus far. On 10/27/2019 patient seen in follow-up on selective care unit. He is resting comfortably in bed, awake and alert, denies any acute distress, he is on 2 L of oxygen with pulse ox of 97%. Has been afebrile, respirations are nonlabored. No rhonchi or wheezing. No new chest x-ray, it is labs have been reviewed, showing white blood cell count of 7.5, hemoglobin is 9.9, sodium is 140, potassium is 3.9, chloride is 102, CO2 32, BUN is 11, creatinine 0.63. Blood culture has shown no growth, his right leg wound culture is positive for presumptive staph aureus, patient is on Kefzol per ID service recommendations, he isn't breathing treatments and he remains on IV Lasix, and he is maintaining negative fluid balance, -2.7 L over the last 24 hours. On 10/28/2019 patient seen in follow-up on selective care unit, he is awake and alert, he is resting in bed, in no acute distress, his lungs are clear to ausc ultation, he remains on Lasix at 20 mg every 12 hours, he is on cefazolin for antibiotic coverage, his wound culture was positive for presumptive staph, final culture is still pending, vital signs have been stable, no acute events overnight, no cough, no phlegm production, no complaints of chest pain, we'll obtain a repeat chest x-ray today, otherwise no acute issues overnight. On 10/29/2019 patient seen in follow-up, on general medical surgical floor. Patient is sitting up in the chair today, he appears to be in no acute distress, denies any shortness of breath, he is currently on 2 L of oxygen and the pulse ox of 98%, his breathing seems to be comfortable, lung sounds are clear, no coug h or congestion, ages has 0.9 infusing at a rate of 10 ML per hour. His right leg wound culture showed MSSA and Alcaligen. faecalis, and patient is currently on Kefzol, his had no fever or chills. No complaints of chest discomfort, or hemoptysis, his last chest x-ray was yesterday showing right upper lobe lung mass Objective - Vital Signs Vital signs: Vital Signs Temp 97.6 F 10/29/19 07:00 Pulse 81 10/29/19 07:00 Resp 16 10/29/19 07:55 BP 110/73 10/29/19 07:00 Pulse Ox 98 10/29/19 07:00 Intake & Output 10/28/19 10/29/19 10/29/19 18:59 06:59 18:59 Intake Total 650 Output Total 350 Balance 650 -350 Intake: Intake, IV Titration 50 Amount ceFAZolin 2 gm In Sodium 50 Chloride 0.9% 50 ml @ 100 mls/hr IVPB Q8HR [facility] Rx# :[id number] Oral 600 Output: Urine 350 Other: Voiding Method Urinal Urinal Urinal # Voids 4 # Bowel Movements 3 - Exam GENERAL EXAM: Alert, very pleasant, 69-year-old white male, on room air with a pulse ox of 93% comfortable in no apparent distress. HEAD: Normocephalic/atraumatic. EYES: Normal reaction of pupils, equal size. Conjunctiva pink, sclera white. NOSE: Clear with pink turbinates. THROAT: No erythema or exudates. NECK: No masses, no JVD, no thyroid enlargement, no adenopathy. CHEST: No chest wall deformity. Symmetrical expansion. LUNGS: Equal air entry with no crackles, wheeze, rhonchi or dullness. CVS: Irregular rate and rhythm, normal S1 and S2, no gallops, no murmurs, no rubs ABDOMEN: Soft, nontender. No hepatosplenomegaly, normal bowel sounds, no guarding or rigidity. EXTREMITIES: No clubbing, no edema, no cyanosis, 2+ pulses and upper and lower extremities. MUSCULOSKELETAL: Muscle strength and tone normal. SPINE: No scoliosis or deformity SKIN: No rashes, right leg is covered with the dressing CENTRAL NERVOUS SYSTEM: Alert and oriented -3. No focal deficits, tone is normal in all 4 extremities. PSYCHIATRIC: Alert and oriented -3. Appropriate affect. Intact judgment and insight. - Labs CBC & Chem 7: 10/27/19 07:26 10/27/19 07:26 Labs: Microbiology - Last 24 Hours (Table) 10/24/19 19:00 Anaerobic Culture - Final Leg - Right 10/24/19 19:00 Gram Stain - Final Leg - Right Wound Culture - Final Staphylococcus aureus Alcaligen. faecalis 10/24/19 17:11 Blood Culture - Preliminary Blood No Growth after 96 hours Assessment and Plan Plan: Assessment: #1. Atypical chest pain #2. Right upper lobe mass measuring 2.7 cm in size, we will need outpatient fol low-up with a PET scan #3. COPD, inactive and stable, maintained on Spiriva on outpatient basis #4. Chronic atrial fibrillation #5. Morbid obesity #6. Obstructive sleep apnea #7. Chronic venous stasis along with chronic lymphedema and ulceration of lower extremity bilaterally, with presumptive staph aureus in the right leg wound cultures #8. Hyperlipidemia #9. Extreme medical debility with difficulty with mobility and gait and poor performance and functional status Plan: Patient is stable for discharge to the [facility] today from pulmonary perspective, on antibiotics recommended by Dr. Meehan. He will need outpatient PET scan, and follow-up appointment with Dr. Santoyo in the office in 7-10 days for follow-up in regards to the right upper lobe mass I performed a history & physical examination of the patient and discussed their management with my nurse practitioner, Veronique Roberson. I reviewed the nurse practitioner's note and agree with the documented findings and plan of care. Lung sounds are positive for diminished breath sounds. The findings and the impression was discussed with the patient. I attest to the documentation by the nurse practitioner. Time with Patient: Less than 30
--- NOTE | 2019-10-29 12:13 | P.DS ---
Providers Date of admission: 10/26/19 10:07 Expected date of discharge: 10/29/19 Attending physician: Cady Stephens Consults: 10/24/19 07:43 Consult Physician Urgent Consulting Provider: Dago Santoyo Consult Reason/Comments: left lung mass Do you want consulting provider notified?: Yes Consult Physician Urgent Consulting Provider: Mark Bueno Consult Reason/Comments: chest pain Do you want consulting provider notified?: Yes 10/24/19 08:06 Consult Physician Urgent Consulting Provider: Raad Rose Consult Reason/Comments: leg wounds Do you want consulting provider notified?: Yes 10/24/19 12:32 Consult Physician Routine Consulting Provider: Geraldine Meehan Consult Reason/Comments: Cellulitis Do you want consulting provider notified?: Yes Primary care physician: [facility] Course: Final diagnosis -Covid 19 Ruled out, testing was negative -Atypical chest pain: Ruled out acute coronary syndromes, with Possibility of peptic ulcer disease -Bilateral extensive venous stasis dermatosis and possible cellulitis of the left leg along with an ulcer -right upper lobe 2.7 cm mass As noted on chest x-ray and chest CT shows an irregular masslike infiltrate in the lateral aspect of the right upper lobe with nonspecific appearance. Patient will need outpatient PET scan and close pulmonary follow-up -Chronic A. fib presently on Eliquis -Hypertension -Bilateral chronic venous stasis there is no evidence of CHF -Generalized deconditioning -Gait dysfunction -COPD -Obesity with a body mass index of 40.3 -Peripheral neuropathy -No code Discharge disposition Patient is being discharged in a stable condition with guarded prognosis to [facility] To continue with PT/OT therapy. Patient will follow-up with Dr. Pierce upon discharge. Patient will continue with a short course of Oral antibiotics in the form of Augmentin twice daily for the next 10 days and then may discontinue. Patient will continue with local wound care to bilateral lower extremities. Patient instructed to follow-up with pulmonary for possible PET scan in the outpatient setting. Total time taken is 35 minutes. History of present illness This is an 69-year-old male who was recently admitted with Chest tightness along with bilateral lower limb ulcers with possible cellulitis and was being closely monitored. Patient was seen and evaluated by cardiology and maintained on IV Lasix and will continue with oral Lasix in the outpatient setting. Patient was also evaluated by pulmonary as the CAT scan and chest x-ray showed a lung mass in the right upper lobe. Patient will follow up with pulmonary in the outpatient setting for a possible PET scan upon discharge. Wound cultures finalized showing Staphylococcus aureus along with alcaligen faecalis And patient was maintained on cefazolin during hospitalization. Patient will transition to oral Augmentin twice daily for the next 10 days. Patient is continue with local wound care with Aquacel to bilateral lower extremities along with Corby wraps from the toes up to the knees. Patient also instructed to elevate bilateral lower extremities while at rest. Patient was also tested for Covid 19 Which was negative. Patient was seen and evaluated by physical therapy and continued to be weak and recommended subacute rehab upon discharge. Patient will be going to [facility] for continued PT/OT therapy. Currently no reports of chest pain, shortness of breath, or palpitations. Patient is afebrile. No reports of nausea or vomiting and patient is tolerating diet. Patient will be going to [facility] today. On exam vital signs are stable. Temp is 97.6F, pulse is 81, respirations are 16, blood pressure is 110/73, oxygen saturation is 98% on 2 L via nasal cannula. Cardio S1, S2 are muffled. Respiratory shows diminished breath sounds at the bases with No wheezing or rhonchi noted. Abdomen is soft, Obese, and nontender. Nervous system shows mild diffuse weakness. Please refer to medication reconciliation sheet for a list of medications. Patient Condition at Discharge: Stable Plan - Discharge Summary Discharge Rx Participant: No New Discharge Prescriptions: New Amoxic-Pot Clav 875-125Mg [Augmentin 875-125] 1 tab PO Q12HR #20 tab Metoprolol Tartrate [Lopressor] 25 mg PO BID@0500,1700 tab HYDROcodone/APAP 5-325MG [Lander 5-325] 1 each PO Q4HR PRN #10 tab PRN Reason: Moderate Pain Acetaminophen Tab [Tylenol] 650 mg PO Q6HR PRN tab PRN Reason: Mild Pain Or Fever > 100.5 Ondansetron Odt [Zofran Odt] 4 mg PO Q8HR PRN #6 tab PRN Reason: Nausea Continue Cholecalciferol [Vitamin D3 (25 Mcg = 1000 Iu)] 1,000 unit PO DAILY Tiotropium 18 Mcg/Puff [Spiriva] 1 puff INHALATION RT-DAILY Apixaban [Eliquis] 5 mg PO Q12H Pantoprazole [Protonix] 40 mg PO DAILY Albuterol Inhaler [Ventolin Hfa Inhaler] 2 puff INHALATION RT-QID PRN PRN Reason: Shortness Of Breath Atorvastatin [Lipitor] 10 mg PO DAILY Furosemide [Lasix] 20 mg PO BID Multivit-Min/FA/Lycopen/Lutein [Centrum Silver Tablet] 1 tab PO DAILY Discontinued Metoprolol Tartrate [Lopressor] 100 mg PO BID Discharge Medication List Apixaban [Eliquis] 5 mg PO Q12H 01/09/19 [History] Cholecalciferol [Vitamin D3 (25 Mcg = 1000 Iu)] 1,000 unit PO DAILY 01/09/19 [History] Tiotropium 18 Mcg/Puff [Spiriva] 1 puff INHALATION RT-DAILY 01/09/19 [History] Pantoprazole [Protonix] 40 mg PO DAILY 04/29/19 [History] Albuterol Inhaler [Ventolin Hfa Inhaler] 2 puff INHALATION RT-QID PRN 10/24/19 [History] Atorvastatin [Lipitor] 10 mg PO DAILY 10/24/19 [History] Furosemide [Lasix] 20 mg PO BID 10/24/19 [History] Multivit-Min/FA/Lycopen/Lutein [Centrum Silver Tablet] 1 tab PO DAILY 10/24/19 [History] Acetaminophen Tab [Tylenol] 650 mg PO Q6HR PRN tab 10/29/19 [Rx] Amoxic-Pot Clav 875-125Mg [Augmentin 875-125] 1 tab PO Q12HR #20 tab 10/29/19 [Rx] HYDROcodone/APAP 5-325MG [Lander 5-325] 1 each PO Q4HR PRN #10 tab 10/29/19 [Rx] Metoprolol Tartrate [Lopressor] 25 mg PO BID@0500,1700 tab 10/29/19 [Rx] Ondansetron Odt [Zofran Odt] 4 mg PO Q8HR PRN #6 tab 10/29/19 [Rx] Follow up Appointment(s)/Referral(s): [facility],Center [NON-STAFF] - 1 Week [facility] [NON-STAFF] - 1-2 Days Dago Santoyo MD [STAFF PHYSICIAN] - 11/13/19 3:00 pm (With Krystin Velázquez) [facility]Clinic [Primary Care Provider] - 1-2 days Activity/Diet/Wound Care/Special Instructions: Patient is going to [facility] Continue current Heart healthy diet Continue with antibiotics For the next 10 days and then may discontinue Continue with local wound care with Aquacel dressings daily and Corby wraps from the toes up to the knees Patient to follow-up with primary care provider upon discharge Patient to continue with PT/OT Patient to follow-up with pulmonary in the outpatient setting to discuss possible PET scan Discharge Disposition: TRANSFER TO SNF/ECF
[2019-10-29 14:57] VITALS: BP 113/76; PULSE 86; RESP 20; TEMP 97.9
--- NOTE | 2019-10-29 15:31 | PN ---
PROGRESS NOTE DATE OF SERVICE: 10/29/2019 REASON FOR FOLLOWUP: Bilateral lower extremity wound with cellulitis. INTERVAL HISTORY: Patient is currently afebrile. Patient is breathing more comfortably. Patient denies having any chest pain. Occasional cough. No abdominal pain. No pain to the lower extremity. PHYSICAL EXAMINATION: Blood pressure 110/73 with a pulse of 81, temperature is 97.6. He is 98% on 2 L nasal cannula. General description is an elderly male, lying in bed in no distress. RESPIRATORY SYSTEM: Unlabored breathing, clear to auscultation anteriorly. HEART: S1, S2. Regular rate and rhythm. LABS: Hemoglobin 9.8, white count 7.5. BUN of 11, creatinine 0.63. DIAGNOSTIC IMPRESSION AND PLAN: Patient with bilateral lower extremity wound with secondary cellulitis. Culture with suspicious and MSSA to finish therapy with oral Augmentin 875 b.i.d. for about a week. Local wound care with dry Aquacel Silver dressing and continue supportive care. MMODL / IJN: [id number] /
== END 2019-10-29 16:12 | DRG 603 ==
LOC: EC 06:27 → 3SCARD 08:00 → OBSVTOIN 10-26 10:07 → 4SSUR 10-27 21:09
PROVIDERS: ADMIT Hospitalist; ATTEND Hospitalist
DX: L03.116 Cellulitis of left lower limb (principal); I48.11 Longstanding persistent atrial fibrillation; L97.911 Non-pressure chronic ulcer of unspecified part of right lower leg limited to breakdown of skin; L97.921 Non-pressure chronic ulcer of unspecified part of left lower leg limited to breakdown of skin; C34.11 Malignant neoplasm of upper lobe, right bronchus or lung; Z68.41 Body mass index [BMI] 40.0-44.9, adult; I83.209 Varicose veins of unspecified lower extremity with both ulcer of unspecified site and inflammation; Z20.828 Contact with and (suspected) exposure to other viral communicable diseases; I27.20 Pulmonary hypertension, unspecified; I95.9 Hypotension, unspecified; I11.9 Hypertensive heart disease without heart failure; E66.01 Morbid (severe) obesity due to excess calories; J44.9 Chronic obstructive pulmonary disease, unspecified; R07.89 Other chest pain; L03.115 Cellulitis of right lower limb; E78.5 Hyperlipidemia, unspecified; I89.0 Lymphedema, not elsewhere classified; G47.33 Obstructive sleep apnea (adult) (pediatric); G62.9 Polyneuropathy, unspecified; R26.9 Unspecified abnormalities of gait and mobility; F40.240 Claustrophobia; I07.1 Rheumatic tricuspid insufficiency; K27.9 Peptic ulcer, site unspecified, unspecified as acute or chronic, without hemorrhage or perforation; B95.61 Methicillin susceptible Staphylococcus aureus infection as the cause of diseases classified elsewhere; Z79.01 Long term (current) use of anticoagulants; Z79.899 Other long term (current) drug therapy; Z87.891 Personal history of nicotine dependence; Z91.19 Patient's noncompliance with other medical treatment and regimen; Z74.01 Bed confinement status; Z82.3 Family history of stroke
CPT/HCPCS: 36415; 71045; 71046; 71260; 80048; 80053; 83605; 83735; 83880; 84484; 85025; 85610; 85730; 87040; 87070; 87075; 87077; 87186; 87205; 87635; 93005; 93306; 99285

== ENCOUNTER 2020-02-12 10:31 | Inpatient (IN) | payer OTHER, MEDICARE ==
--- NOTE | 2020-02-12 10:46 | ED ---
Dizziness HPI - General Chief Complaint: Dizziness Stated Complaint: Dizziness Time Seen by Provider: 02/12/20 10:31 Source: patient, EMS, RN notes reviewed, old records reviewed Mode of arrival: EMS Limitations: no limitations - History of Present Illness Initial Comments: This is a 69-year-old male with a history of multiple medical issues including c hronic Lexus encinas COPD CHF obesity and hypertension also a recent diagnosis of a right upper lobe lung mass who presents by EMS today with complaints of dizziness going on for the past week getting worse this morning he states he was unable walk. He denies any overt fevers chills nausea vomiting sweats no palpitations no chest pain cough fevers chills or sweats. He does have increased edema he states his lower extremities. Per paramedics patient's heart rate was noted to be 04/07/1930 with Lexus encinas. Additionally on initial contact he had a room air pulse ox of 87%. This did improve after oxygen was applied MD Complaint: dizziness, lightheadedness, difficulty walking - Related Data Home Medications Medication Instructions Recorded Confirmed Apixaban [Eliquis] 5 mg PO Q12H 01/09/19 02/12/20 Cholecalciferol [Vitamin D3 (25 1,000 unit PO DAILY 01/09/19 02/12/20 Mcg = 1000 Iu)] Pantoprazole [Protonix] 40 mg PO DAILY 04/29/19 02/12/20 Atorvastatin [Lipitor] 10 mg PO DAILY 10/24/19 02/12/20 Furosemide [Lasix] 20 mg PO BID 10/24/19 02/12/20 Multivit-Min/FA/Lycopen/Lutein 1 tab PO DAILY 10/24/19 02/12/20 [Centrum Silver Tablet] Albuterol Sulfate [Proair Hfa] 1 - 2 puff INHALATION RT-QID PRN 02/12/20 02/12/20 Metoprolol Tartrate [Lopressor] 50 mg PO BID 02/12/20 02/12/20 Nicotine Polacrilex [Nicorette] 2 mg BC Q3-4H PRN 02/12/20 02/12/20 Tiotropium [place] [Spiriva 1 puff INHALATION RT-DAILY 02/12/20 02/12/20 Respimat] Allergies Allergy/AdvReac Type Severity Reaction Status Date / Time No Known Allergies Allergy Verified 02/12/20 11:53 Review of Systems ROS Statement: Those systems with pertinent positive or pertinent negative responses have been documented in the HPI. ROS Other: All systems not noted in ROS Statement are negative. Past Medical History Past Medical History: Atrial Fibrillation, Heart Failure, COPD, Hypertension Additional Past Medical History / Comment(s): obesity, chronic Le wounds chronic lymphedema of the lower extremity , obstructive sleep apnea, does not use CPAP at home History of Any Multi-Drug Resistant Organisms: None Reported Past Surgical History: No Surgical Hx Reported Past Anesthesia/Blood Transfusion Reactions: No Reported Reaction Past Psychological History: No Psychological Hx Reported Smoking Status: Former smoker Past Alcohol Use History: None Reported Past Drug Use History: None Reported - Past Family History Father Family Medical History: CVA/TIA Additional Family Medical History / Comment(s): Father from CVA Mother Additional Family Medical History / Comment(s): Mother from a "broken heart" shortly after father General Exam - General Exam Comments Initial Comments: This a well-developed obese male who is awake alert oriented 3 Limitations: no limitations General appearance: alert, anxious Head exam: Present: atraumatic, normocephalic, normal inspection Eye exam: Present: normal appearance, PERRL, EOMI. Absent: scleral icterus, conjunctival injection, periorbital swelling ENT exam: Present: normal exam, mucous membranes moist Neck exam: Present: normal inspection, full ROM, other. Absent: tenderness, meningismus, lymphadenopathy Respiratory exam: Present: decreased breath sounds. Absent: respiratory distress, wheezes, rales, rhonchi, stridor Cardiovascular Exam: Present: tachycardia, irregular rhythm, normal heart sounds. Absent: systolic murmur, diastolic murmur, rubs, gallop, clicks GI/Abdominal exam: Present: soft, normal bowel sounds. Absent: distended, tenderness, guarding, rebound, rigid Extremities exam: Present: full ROM, normal capillary refill, pedal edema. Absent: tenderness, joint swelling, calf tenderness Back exam: Present: normal inspection Neurological exam: Present: alert, oriented X3, CN II-XII intact Psychiatric exam: Present: normal affect, normal mood Skin exam: Present: warm, dry, other (Chronic changes to the lower extremities). Absent: rash Course Vital Signs 02/12/20 02/12/20 10:32 12:00 Temperature 98.3 F Pulse Rate 101 H 90 Respiratory 18 221 H Rate Blood Pressure 138/85 120/72 O2 Sat by Pulse 90 L 98 Oximetry EKG Findings - EKG Results: EKG: interpreted by ERMD, sinus rhythm (A. fib with rapid response rate of 101 QRS 88 QT since QTC 380/[address] T-wave configuration) Medical Decision Making - Medical Decision Making I did discuss findings with the patient also with Dr. patten patient will be admitted he does have atrial fibrillation with runs of tachycardia has elevated troponin he has low potassium. Increased peripheral edema elevated BNP - Lab Data Result diagrams: 02/12/20 10:44 02/12/20 10:44 Lab Results 02/12/20 02/12/20 02/12/20 Range/Units 10:44 10:44 10:44 WBC 6.5 (3.8-10.6) k/uL RBC 4.13 L (4.30-5.90) m/uL Hgb 11.8 L (13.0-17.5) gm/dL Hct 36.2 L (39.0-53.0) % MCV 87.7 (80.0-100.0) fL MCH 28.5 (25.0-35.0) pg MCHC 32.5 (31.0-37.0) g/dL RDW 16.8 H (11.5-15.5) % Plt Count 220 (150-450) k/uL MPV 9.2 Neutrophils % 70 % Lymphocytes % 17 % Monocytes % 6 % Eosinophils % 4 % Basophils % 1 % Neutrophils # 4.6 (1.3-7.7) k/uL Lymphocytes # 1.1 (1.0-4.8) k/uL Monocytes # 0.4 (0-1.0) k/uL Eosinophils # 0.3 (0-0.7) k/uL Basophils # 0.1 (0-0.2) k/uL Hypochromasia Moderate Anisocytosis Slight Sodium 141 (137-145) mmol/L Potassium 3.0 L (3.5-5.1) mmol/L Chloride 98 (98-107) mmol/L Carbon Dioxide 37 H (22-30) mmol/L Anion Gap 6 mmol/L BUN 9 (9-20) mg/dL Creatinine 0.67 (0.66-1.25) mg/dL Est GFR (CKD-EPI)AfAm >90 (>60 ml/min/1.73 sqM) Est GFR (CKD-EPI)NonAf >90 (>60 ml/min/1.73 sqM) Glucose 192 H (74-99) mg/dL Calcium 8.2 L (8.4-10.2) mg/dL Magnesium 1.9 (1.6-2.3) mg/dL Total Bilirubin 1.0 (0.2-1.3) mg/dL AST 22 (17-59) U/L ALT 15 (4-49) U/L Alkaline Phosphatase 87 (38-126) U/L Creatine Kinase 27 L (55-170) U/L Troponin I 0.059 H* (0.000-0.034) ng/mL NT-Pro-B Natriuret Pep pg/mL Total Protein 7.4 (6.3-8.2) g/dL Albumin 3.3 L (3.5-5.0) g/dL 02/12/20 Range/Units 11:18 WBC (3.8-10.6) k/uL RBC (4.30-5.90) m/uL Hgb (13.0-17.5) gm/dL Hct (39.0-53.0) % MCV (80.0-100.0) fL MCH (25.0-35.0) pg MCHC (31.0-37.0) g/dL RDW (11.5-15.5) % Plt Count (150-450) k/uL MPV Neutrophils % % Lymphocytes % % Monocytes % % Eosinophils % % Basophils % % Neutrophils # (1.3-7.7) k/uL Lymphocytes # (1.0-4.8) k/uL Monocytes # (0-1.0) k/uL Eosinophils # (0-0.7) k/uL Basophils # (0-0.2) k/uL Hypochromasia Anisocytosis Sodium (137-145) mmol/L Potassium (3.5-5.1) mmol/L Chloride (98-107) mmol/L Carbon Dioxide (22-30) mmol/L Anion Gap mmol/L BUN (9-20) mg/dL Creatinine (0.66-1.25) mg/dL Est GFR (CKD-EPI)AfAm (>60 ml/min/1.73 sqM) Est GFR (CKD-EPI)NonAf (>60 ml/min/1.73 sqM) Glucose (74-99) mg/dL Calcium (8.4-10.2) mg/dL Magnesium (1.6-2.3) mg/dL Total Bilirubin (0.2-1.3) mg/dL AST (17-59) U/L ALT (4-49) U/L Alkaline Phosphatase (38-126) U/L Creatine Kinase (55-170) U/L Troponin I (0.000-0.034) ng/mL NT-Pro-B Natriuret Pep 1100 pg/mL Total Protein (6.3-8.2) g/dL Albumin (3.5-5.0) g/dL - Radiology Data Radiology results: report reviewed, image reviewed (Imaging reviewed right upper lobe ) Disposition Clinical Impression: Rapid atrial fibrillation, CHF (congestive heart failure), Hypokalemia, Chronic venous stasis dermatitis of both lower extremities, Dizziness Disposition: ADMITTED IP TO THIS HOSP Condition: Fair Referrals: Devonte Pierce MD [Primary Care Provider] - 1-2 days
[2020-02-12] MEDS ORDERED: LORazepam 2 MG/ML INJ IV STA (10:50)
[2020-02-12 11:02] LABS: Anisocytosis Slight; Basophils # (A) 0.1 k/uL (0-0.2); Basophils % (A) 1 %; Eosinophils # (A) 0.3 k/uL (0-0.7); Eosinophils % (A) 4 %; HCT 36.2 % (39.0-53.0); HGB 11.8 gm/dL (13.0-17.5); Hypochromasia Moderate; Lymphocytes # (A) 1.1 k/uL (1.0-4.8); Lymphocytes % (A) 17 %; MCH 28.5 pg (25.0-35.0); MCHC 32.5 g/dL (31.0-37.0); MCV 87.7 fL (80.0-100.0); Mean Platelet Volume 9.2; Monocytes # (A) 0.4 k/uL (0-1.0); Monocytes % (A) 6 %; Neutrophils # (A) 4.6 k/uL (1.3-7.7); Neutrophils % (A) 70 %; Platelet Count 220 k/uL (150-450); RBC 4.13 m/uL (4.30-5.90); RDW 16.8 % (11.5-15.5); WBC 6.5 k/uL (3.8-10.6)
[2020-02-12 11:06] LABS: AST 22 U/L (17-59); African American GFR (CKD) >90 (>60 ml/min/1.73 sqM); Albumin 3.3 g/dL (3.5-5.0); Alkaline Phosphatase 87 U/L (38-126); Anion Gap 6 mmol/L; Blood Urea Nitrogen 9 mg/dL (9-20); Calcium 8.2 mg/dL (8.4-10.2); Carbon Dioxide 37 mmol/L (22-30); Chloride 98 mmol/L (98-107); Creatine Kinase 27 U/L (55-170); Glucose 192 mg/dL (74-99); Non-African American GFR(CKD) >90 (>60 ml/min/1.73 sqM); Sodium 141 mmol/L (137-145); Total Protein 7.4 g/dL (6.3-8.2)
[2020-02-12 11:08] LABS: ALT 15 U/L (4-49); Magnesium 1.9 mg/dL (1.6-2.3)
--- NOTE | 2020-02-12 11:21 | CT ---
EXAMINATION TYPE: CT brain wo con DATE OF EXAM: 02/12/2020 COMPARISON: None HISTORY: Weakness and dizziness. CT DLP: 1290.[address] of the brain was performed. The ventricles, basal cisterns and sulci overlying the cerebral convexities demonstrate mild enlargem ent. There is no evidence for intracranial hemorrhage or sulcal effacement. There is decreased attenuation about the periventricular white matter and deep white matter of both c erebral hemispheres, compatible with chronic small vessel ischemia. Differential diagnosis does inclu de demyelination. No mass effects are seen.No midline shift. Osseous calvarium is intact. If symptoms persist consider MRI. IMPRESSION: 1. Age related atrophic and chronic small vessel ischemic change without acute intracranial process s een at this time.
--- NOTE | 2020-02-12 11:49 | XR ---
EXAMINATION TYPE: XR chest 2V DATE OF EXAM: 02/12/2020 COMPARISON: October 28, 2019 HISTORY: Shortness of breath TECHNIQUE: Frontal and lateral views of the chest are obtained. FINDINGS: Scattered senescent parenchymal changes noted. Hyperinflation compatible with COPD. No evidence for infiltrate. No evidence for atelectasis. 4 cm right upper lobe mass is redemonstrated . Suspect malignancy. Heart size is stable. Mediastinal structures are stable and grossly unremarkable. No evidence for hilar prominence. Degenerative changes dorsal spine. IMPRESSION: 1. No evidence for acute pulmonary disease.4 cm right upper lobe mass is redemonstrated. Suspect jia gnancy.
[2020-02-12] MEDS ORDERED: NALOXONE 0.4 MG/ML 1 ML VIAL IV PRN (12:46)
[2020-02-12] MEDS ORDERED: ALBUTEROL HFA INHALER INHALATION PRN (12:48)
[2020-02-12] MEDS ORDERED: NICOTINE POLACRILEX 2 MG GUM BUCCAL PRN (12:48)
[2020-02-12] MEDS ORDERED: POTASSIUM CHLORIDE ER 20 MEQ TAB.ER PO STA (12:52)
[2020-02-12] MEDS ORDERED: POTASSIUM CHLORIDE 10 MEQ in WATER FOR INJECTION 1 100ML.BAG IVPB STA (12:52)
[2020-02-12] MEDS ORDERED: FUROSEMIDE 10 MG/ML 4 ML VIAL IV STA (12:53)
[2020-02-12] MEDS ORDERED: ALBUTEROL NEBULIZED 2.5 MG/3 ML INHALATION PRN (13:08)
[2020-02-12] MEDS: SODIUM CHLORIDE 0.9% 1,000 ML IV SCH (13:31)
[2020-02-12] MEDS ORDERED: HYDROmorphone 0.5 MG/0.5 ML SYRINGE IVP PRN (19:12)
[2020-02-12] MEDS ORDERED: HYDROcodone/APAP 5-325MG 1 EACH TAB PO PRN (19:12)
--- NOTE | 2020-02-12 19:58 | HP ---
HISTORY AND PHYSICAL DATE OF SERVICE: 02/12/2020 CHIEF COMPLAINTS: Dizziness and weakness. HISTORY OF PRESENT ILLNESS: This 69-year-old gentleman with a past medical history of multiple medical problems, including atrial fibrillation, history of CHF, COPD, hypertension, being followed by Dr. Devonte Pierce in the outpatient setting, was admitted with complaints of dizziness. The patient was taken to [facility]. The patient was found to be in atrial fibrillation with a fast ventricular rate. Patient was admitted for further evaluation and treatment. The patient also had a right upper lobe mass lesion. The patient has a history of chronic lymphedema on both legs. The patient was recently admitted to [facility] and discharged with features of atypical chest pain and extensive venous dermatitis and a right upper lobe cm mass also. Chest x-ray showed irregular mass lesion at this time, being followed by Pulmonary in the outpatient setting. Patient also had chronic atrial fibrillation. There is no history of any fever, rigor or chills. No history of headache, loss of consciousness, seizures at this time. PAST MEDICAL HISTORY: History of atrial fibrillation, CHF, COPD, hypertension, right upper lobe lung mass lesion. MEDICATIONS: Spiriva, Protonix, Nicorette, multivitamins, Lopressor, Lasix, vitamin D3, Lipitor, Eliquis, ProAir. ALLERGIES: NONE. FAMILY HISTORY: History of CVA, TIA. SOCIAL HISTORY: Previous history of smoking. REVIEW OF SYSTEMS: ENT: Diminished hearing. Diminished vision. CARDIOVASCULAR SYSTEM: No angina, palpitations. Otherwise as mentioned earlier. RESPIRATORY SYSTEM: As mentioned earlier. GI: No nausea, vomiting. : No dysuria or retention. NERVOUS SYSTEM: No numbness, weakness. ALLERGY/IMMUNOLOGY: No asthma, hayfever. MUSCULOSKELETAL: As mentioned earlier. HEMATOLOGY/ONCOLOGY: As mentioned earlier. ENDOCRINE: As mentioned earlier. CONSTITUTIONAL: As mentioned earlier. DERMATOLOGY: As mentioned earlier. RHEUMATOLOGY: Negative. PSYCHIATRY: As mentioned earlier. PHYSICAL EXAMINATION: Patient alert and oriented x3. Pulse is 93, blood pressure 117/80, respiration 22, temperature normal, pulse ox 94% on 2 L. HEENT: Conjunctivae normal. Oral mucosa moist. NECK: No jugular venous distention. No carotid bruit. No lymph node enlargement. CARDIOVASCULAR SYSTEM: S1, S2 muffled. RESPIRATORY SYSTEM: Breath sounds diminished at the bases. A few scattered rhonchi and crackles. ABDOMEN: Soft, obese, non-tender. LEGS: Bilateral leg stasis dermatitis and dry skin present. LABS: Labs at this time show WBC 6.2, hemoglobin 11.2. Sodium 141, potassium 3 and troponin 0.059 and 0.057. ASSESSMENT: 1. Dizziness for evaluation; possible atrial fibrillation with a fast ventricular rate. 2. Troponin elevated at 0.05; possible acute dxq-NG-[id number]-elevation myocardial infarction. 3. Hypokalemia. 4. Anemia, normocytic. 5. Bilateral stasis dermatitis. 6. Right upper lobe mass lesion and possible lung malignancy. 7. Obesity with a body mass index of 70. 8. Atrial fibrillation, chronic. 9. History of congestive heart failure. 10.Chronic obstructive pulmonary disease. 11.Hypertension. 12.History of chronic lymphedema. 13.Obstructive sleep apnea. 14.Remote history of nicotine dependence. 15.FULL CODE. RECOMMENDATIONS AND DISCUSSION: In this 69-year-old gentleman who presented with multiple complex medical issues, we will monitor the patient closely, continue the current medications, continue symptomatic treatment. We will consult Cardiology and Pulmonology. I will also order COVID testing and continue to monitor. CT scan of the chest also will be ordered. Prognosis is guarded because of multiple complex medical issues. Further recommendations to follow. A copy of this dictation is being forwarded to Dr. Devonte Pierce, who is the primary physician. MMLEONARDL / KESHAVN: [id number] / [id number]
[2020-02-12] MEDS: METOPROLOL TARTRATE 50 MG TAB PO SCH (20:51)
[2020-02-12] MEDS: APIXABAN 5 MG TAB PO SCH (20:51)
[2020-02-12] MEDS: FUROSEMIDE 10 MG/ML 4 ML VIAL IV SCH (20:53)
[2020-02-12] MEDS ORDERED: FUROSEMIDE 20 MG TAB PO SCH (21:00)
[2020-02-12] MEDS: MINERAL OIL-WHITE PETROLATUM 120 GM JAR TOPICAL PRN (22:36)
[2020-02-13] MEDS: PANTOPRAZOLE 40 MG TABLET PO SCH (05:32)
[2020-02-13] MEDS: IPRATROPIUM 0.5 MG/2.5 ML NEBU INHALATION SCH ×4 (07:40→19:27)
[2020-02-13 09:14] LABS: Anisocytosis Slight; Basophils % (A) 0 %; Eosinophils # (A) 0.2 k/uL (0-0.7); Eosinophils % (A) 2 %; HCT 37.7 % (39.0-53.0); HGB 11.4 gm/dL (13.0-17.5); Hypochromasia Marked; Lymphocytes # (A) 1.3 k/uL (1.0-4.8); Lymphocytes % (A) 16 %; MCH 27.4 pg (25.0-35.0); MCHC 30.2 g/dL (31.0-37.0); MCV 90.8 fL (80.0-100.0); Mean Platelet Volume 7.5; Monocytes # (A) 0.4 k/uL (0-1.0); Monocytes % (A) 5 %; Neutrophils # (A) 6.2 k/uL (1.3-7.7); Neutrophils % (A) 75 %; Platelet Count 245 k/uL (150-450); RBC 4.16 m/uL (4.30-5.90); RDW 16.5 % (11.5-15.5); WBC 8.3 k/uL (3.8-10.6)
[2020-02-13 09:43] LABS: African American GFR (CKD) >90 (>60 ml/min/1.73 sqM); Blood Urea Nitrogen 12 mg/dL (9-20); Calcium 8.2 mg/dL (8.4-10.2); Chloride 93 mmol/L (98-107); Glucose 150 mg/dL (74-99); Non-African American GFR(CKD) >90 (>60 ml/min/1.73 sqM); Potassium 3.1 mmol/L (3.5-5.1); Sodium 142 mmol/L (137-145)
[2020-02-13 09:51] LABS: Anion Gap 3 mmol/L
[2020-02-13 10:06] LABS: Carbon Dioxide 46 mmol/L (22-30)
[2020-02-13] MEDS: METOPROLOL TARTRATE 50 MG TAB PO SCH (10:23)
[2020-02-13] MEDS: ATORVASTATIN 10 MG TAB PO SCH (10:23)
[2020-02-13] MEDS: FUROSEMIDE 10 MG/ML 4 ML VIAL IV SCH ×2 (10:23→17:03)
[2020-02-13] MEDS: CHOLECALCIFEROL 1,000 UNIT TAB PO SCH (10:23)
[2020-02-13] MEDS: APIXABAN 5 MG TAB PO SCH ×2 (10:23→20:17)
[2020-02-13] MEDS: MULTIVITAMINS, THERA 1 EACH TAB PO SCH (10:23)
[2020-02-13] MEDS ORDERED: Potassium Replacement Protocol 1 EACH MISC MISCELLANE PRN (10:25)
[2020-02-13] MEDS: POTASSIUM CHLORIDE ER 20 MEQ TAB.ER PO SCH ×6 (11:10→22:41)
[2020-02-13] MEDS: SODIUM CHLORIDE 0.9% 1,000 ML IV SCH (11:42)
--- NOTE | 2020-02-13 13:57 | P.CRDCN ---
History of Present Illness Consult date: 02/13/20 History of present illness: CHIEF COMPLAINT: AReji encinas with RVR, elevated troponin HISTORY OF PRESENT ILLNESS: This is a 69-year old male with a past medical history significant for atrial fibrillation, COPD, and hypertension. Patient states he does not follow with a spa consultant. We have been asked to see the patient in consultation for A. ce with RVR and elevated troponin. Patient was also recently diagnosed with a right upper lobe lung mass. Patient states he was supposed to follow-up with a outside dealer sales representative but was unable to get a ride and missed his appointment. Patient examined this morning the bedside. Patient de nies chest pain or pressure. He reports mild shortness of breath. Patient states he quit smoking proximally one year ago. Patient reports chronic edema to his lower extremities but states they are actually less swollen than they usually are. According to previous cardiology consult note, the patient underwent a heart catheterization approximately 5 years ago in [place]. He did not require any stents. DIAGNOSTICS: EKG reveals atrial fibrillation. Heart rate 101. Chest xray no evidence for acute pulmonary disease. 4 cm right upper lobe mass is redemonstrated. Suspect malignancy. Laboratory data: WBC 8.3. Hemoglobin 11.4. Platelet count 245. Sodium 142. Potassium 3.1. BUN 12. Creatinine 0.69. Magnesium 1.9. BNP 1100. Troponin 0.059. 0.057. 0.061. Current home cardiac medications include metoprolol 50 mg twice a day, Lasix 20 mg twice a day, Eliquis 5 mg twice a day, and Lipitor 10mg daily Echocardiogram completed in October 2019 reveals ejection fraction 55-60%, mild mitral regurgitation, mild pulmonary retention. REVIEW OF SYSTEMS: At the time of my exam: CONSTITUTIONAL: Denies fever or chills. HEENT: Denies blurred vision, vision changes, or eye pain. Denies hemoptysis CARDIOVASCULAR: Denies chest pain, orthopnea, PND or palpitations RESPIRATORY: Reports shortness of breath. GASTROINTESTINAL: Denies abdominal pain. Denies nausea or vomiting. HEMATOLOGIC: Denies bleeding disorders. GENITOURINARY: Denies any blood in urine. SKIN: Denies pruitis. Denies rash. PHYSICAL EXAM: VITAL SIGNS: Reviewed. GENERAL: Well-developed in no acute distress. HEENT: Head is normocephalic. Pupils are equal, round. Sclerae anicteric. Mucous membranes of the mouth are moist. Neck supple. No JVD or thyromegaly LUNGS: Respirations even and unlabored. Lungs with expiratory wheezing noted HEART: Irregular rate and rhythm. S1 and S2 heard. ABDOMEN: Soft. Nondistended. Nontender. EXTREMITIES: Normal range of motion. No clubbing or cyanosis. Peripheral pulses intact. Bilateral lower extremity edema. Lower extremities wrapped with Corby bandages. NEUROLOGIC: Awake and alert. Oriented x 3. ASSESSMENT: Chronic persistent atrial fibrillation with RVR Abnormal troponins, not suggestive of acute coronary syndrome Acute exacerbation of chronic diastolic heart failure, EF 55-60% Right upper lobe lung mass COPD Hypertension Hyperlipidemia History of nicotine dependence, patient quit smoking 1 year ago Hypokalemia PLAN: Pulmonary consulted for lung mass. Await evaluation No need to repeat echocardiogram as this was recently performed in October 2019 Resume home cardiac medications Increase metoprolol to 75 mg twice a day Continue Eliquis for anticoagulation Continue IV Lasix 40 mg every 12 hours Daily weights Accurate I&O Further recommendations pending patient's course Nurse practitioner note has been reviewed by physician. Signing provider agrees with the documented findings, assessment, and plan of care. Past Medical History Past Medical History: Atrial Fibrillation, Heart Failure, COPD, Hypertension Additional Past Medical History / Comment(s): obesity, chronic Le wounds chronic lymphedema of the lower extremity , obstructive sleep apnea, does not use CPAP at home History of Any Multi-Drug Resistant Organisms: None Reported Past Surgical History: No Surgical Hx Reported Past Anesthesia/Blood Transfusion Reactions: No Reported Reaction Past Psychological History: No Psychological Hx Reported Additional Psychological History / Comment(s): Quit smoking in November 2018 Smoking Status: Former smoker Past Alcohol Use History: None Reported Past Drug Use History: None Reported Additional Drug Use History / Comment(s): Past ETOH 18 years ago - Past Family History Father Family Medical History: CVA/TIA Additional Family Medical History / Comment(s): Father from CVA Mother Additional Family Medical History / Comment(s): Mother from a "broken heart" shortly after father Medications and Allergies Home Medications Medication Instructions Recorded Confirmed Type Apixaban [Eliquis] 5 mg PO Q12H 01/09/19 02/12/20 History Cholecalciferol [Vitamin D3 (25 1,000 unit PO DAILY 01/09/19 02/12/20 History Mcg = 1000 Iu)] Pantoprazole [Protonix] 40 mg PO DAILY 04/29/19 02/12/20 History Atorvastatin [Lipitor] 10 mg PO DAILY 10/24/19 02/12/20 History Furosemide [Lasix] 20 mg PO BID 10/24/19 02/12/20 History Multivit-Min/FA/Lycopen/Lutein 1 tab PO DAILY 10/24/19 02/12/20 History [Centrum Silver Tablet] Albuterol Sulfate [Proair Hfa] 1 - 2 puff INHALATION RT-QID PRN 02/12/20 02/12/20 History Metoprolol Tartrate [Lopressor] 50 mg PO BID 02/12/20 02/12/20 History Nicotine Polacrilex [Nicorette] 2 mg BC Q3-4H PRN 02/12/20 02/12/20 History Tiotropium [place] [Spiriva 1 puff INHALATION RT-DAILY 02/12/20 02/12/20 History Respimat] Allergies Allergy/AdvReac Type Severity Reaction Status Date / Time No Known Allergies Allergy Verified 02/12/20 11:53 Physical Exam Vitals: Vital Signs Temp Pulse Pulse Resp BP BP Pulse Ox 02/13/20 07:54 92 02/13/20 07:50 98.2 F 92 18 133/81 94 L 02/13/20 07:41 92 02/13/20 03:54 98 17 117/79 95 02/12/20 23:31 98.2 F 96 17 144/90 95 02/12/20 21:29 98.6 F 98 20 131/83 94 L 02/12/20 20:33 98 18 152/63 96 02/12/20 20:00 98.3 F 82 20 162/68 95 02/12/20 18:00 92 20 138/82 95 02/12/20 17:00 103 H 20 120/88 96 02/12/20 16:00 93 22 117/80 95 02/12/20 14:49 88 20 130/88 98 02/12/20 14:00 87 20 127/73 95 Intake and Output 02/12/20 02/13/20 02/13/20 22:59 06:59 14:59 Intake Total 240 Output Total 1400 777 700 Balance -1400 -775 -460 Intake: Oral 240 Output: Urine 1400 775 700 Other: Voiding Method Urinal Urinal # Voids 1 1 Weight 162.84 kg 156.8 kg Results 02/13/20 08:13 02/13/20 08:13 Cardiac Enzymes 02/12/20 02/12/20 Range/Units 14:45 16:53 Troponin I 0.057 H* 0.061 H* (0.000-0.034) ng/mL CBC 02/13/20 Range/Units 08:13 WBC 8.3 (3.8-10.6) k/uL RBC 4.16 L (4.30-5.90) m/uL Hgb 11.4 L (13.0-17.5) gm/dL Hct 37.7 L (39.0-53.0) % Plt Count 245 (150-450) k/uL Comprehensive Metabolic Panel 02/13/20 Range/Units 08:13 Sodium 142 (137-145) mmol/L Potassium 3.1 L (3.5-5.1) mmol/L Chloride 93 L (98-107) mmol/L Carbon Dioxide 46 H* (22-30) mmol/L BUN 12 (9-20) mg/dL Creatinine 0.69 (0.66-1.25) mg/dL Glucose 150 H (74-99) mg/dL Calcium 8.2 L (8.4-10.2) mg/dL Current Medications Generic Name Dose Route Start Last Admin Trade Name Freq PRN Reason Stop Dose Admin Hydrocodone Bitart/Acetaminophen 1 each 02/12/20 19:12 Hydrocodone/Apap 5-325mg 1 Each Tab PO Q6HR PRN Pain Albuterol Sulfate 2.5 mg 02/12/20 13:08 Albuterol Nebulized 2.5 Mg/3 Ml INHALATION RT-QID PRN Shortness Of Breath Alprazolam 0.25 mg 02/12/20 19:12 Alprazolam 0.25 Mg Tab PO TID PRN Anxiety Apixaban 5 mg 02/12/20 21:00 02/13/20 10:23 Apixaban 5 Mg Tab PO 5 mg Q12H AKHIL Administration Atorvastatin Calcium 10 mg 02/13/20 09:00 02/13/20 10:23 Atorvastatin 10 Mg Tab PO 10 mg DAILY AKHIL Administration Cholecalciferol 1,000 unit 02/13/20 09:00 02/13/20 10:23 Cholecalciferol 1,000 Unit Tab PO 1,000 unit DAILY AKHIL Administration Furosemide 40 mg 02/12/20 21:00 02/13/20 10:23 Furosemide 10 Mg/Ml 4 Ml Vial IV 40 mg Q12HR AKHIL Administration Hydromorphone HCl 0.5 mg 02/12/20 19:12 Hydromorphone 0.5 Mg/0.5 Ml Syringe IVP Q6HR PRN Severe Pain Sodium Chloride 1,000 mls @ 20 mls/hr 02/12/20 13:00 02/13/20 11:42 Saline 0.9% IV Not Given .Q24H AKHIL Ipratropium [place] 0.5 mg 02/13/20 08:00 02/13/20 13:07 Ipratropium 0.5 Mg/2.5 Ml Nebu INHALATION Not Given RT-QID AKHIL Metoprolol Tartrate 75 mg 02/13/20 21:00 Metoprolol Tartrate 25 Mg Tab PO BID AKHIL Miscellaneous Information 1 each 02/13/20 10:25 Potassium Replacement Protocol 1 Each Misc MISCELLANE DAILY PRN Per Protocol Protocol Multi-Ingred Cream/Lotion/Oil/Oint 1 applic 02/12/20 22:00 02/12/20 22:36 Mineral Oil-White Petrolatum 120 Gm Jar TOPICAL 1 applic BID PRN Administration Dry Skin Multivitamins 1 each 02/13/20 09:00 02/13/20 10:23 Multivitamins, Thera 1 Each Tab PO 1 each DAILY AKHIL Administration Naloxone HCl 0.2 mg 02/12/20 12:46 Naloxone 0.4 Mg/Ml 1 Ml Vial IV Q2M PRN Opioid Reversal Nicotine Polacrilex 2 mg 02/12/20 12:48 Nicotine Polacrilex 2 Mg Gum BUCCAL Q3H PRN CRAVINGS Pantoprazole Sodium 40 mg 02/13/20 07:30 02/13/20 05:32 Pantoprazole 40 Mg Tablet PO Not Given 0730 AKHIL Potassium Chloride 20 meq 02/13/20 13:00 Potassium Chloride Er 20 Meq Tab.Er PO 02/13/20 14:01 Q1HR AKHIL Intake and Output 02/12/20 02/13/20 02/13/20 22:59 06:59 14:59 Intake Total 240 Output Total 1400 775 700 Balance -9791 -730 -520 Intake: Oral 240 Output: Urine 1400 597 700 Other: Voiding Method Urinal Urinal # Voids 1 1 Weight 162.84 kg 156.8 kg 02/13/20 08:13 02/13/20 08:13
[2020-02-13 16:56] LABS: Glucose,Whole Blood 159 mg/dL (75-99)
[2020-02-13] MEDS ORDERED: RX INFO: IV CONTRAST WAS GIVEN 1 EACH MISC MISCELLANE PRN (17:00)
--- NOTE | 2020-02-13 17:00 | P.CNPUL ---
History of Present Illness Consult date: 02/13/20 Requesting physician: Juan Ramon Ndiaye Chief complaint: Dizziness, lightheaded, shortness of breath History of present illness: This is a 69-year-old gentleman with a history of chronic obstructive pulmonary disease, chronic atrial fibrillation, obesity, obstructive sleep apnea, chronic venous stasis with chronic lymphedema and ulceration of the lower extremities bilaterally, hyperlipidemia, known history of a right upper lobe mass measuring 2.7 cm in size suspicious for malignancy back in October 2019. The patient did not follow up with us stating he couldn't obtain a ride for further evaluation of his COPD and probable PET scan and biopsies. He does have history of noncompliance to his social inabilities. No family support. He presented to the hospital yesterday with complaints of dizziness, lightheadedness, shortness of breath. CAT scan of the brain revealed age-related atrophic and chronic small vessel ischemic changes without acute intracranial processes at this time. He is seen today in consultation on the selective care unit. He is currently resting in bed. Awake and alert in no acute distress. Maintaining O2 saturations in the 90s on 2 L/m per nasal cannula. He is afebrile. Hemodynamic ally stable. White count 8.3. Hemoglobin 11.4. Sodium 142. Potassium 3.1. Bicarb 46. Creatinine 0.69. Troponin 0.057. 0.061. ProBNP 1100. Chest x-ray reveals no evidence of acute pulmonary disease. There is a 4 cm right upper lobe mass redemonstrated. Suspect malignancy. Review of Systems REVIEW OF SYSTEMS: CONSTITUTIONAL: Positive for dizziness, weakness. Denies any recent significant weight loss or weight gain. EYES: Denies change in vision. EARS, NOSE, MOUTH, THROAT: Denies headaches, denies sore throat. CARDIOVASCULAR: Denies chest pain, palpitations or syncopal episodes. RESPIRATORY: Denies shortness of breath, cough, congestion or hemoptysis. GASTROINTESTINAL: Denies change in appetite, denies abdominal pain GENITOURINARY: Denies hematuria, denies infections. MUSKULOSKELETAL: Denies pain, denies swelling. INTEGUMENTARY: Chronic changes of lower extremities NEUROLOGICAL: Denies recent memory loss, no recent seizure activity. PSYCHIATRIC: Denies anxiety, denies depression. HEMATOLOGIC/LYMPHATIC: Denies anemia, denies enlarged lymph nodes. Past Medical History Past Medical History: Atrial Fibrillation, Heart Failure, COPD, Hypertension Additional Past Medical History / Comment(s): obesity, chronic Le wounds chronic lymphedema of the lower extremity , obstructive sleep apnea, does not use CPAP at home History of Any Multi-Drug Resistant Organisms: None Reported Past Surgical History: No Surgical Hx Reported Past Anesthesia/Blood Transfusion Reactions: No Reported Reaction Past Psychological History: No Psychological Hx Reported Additional Psychological History / Comment(s): Quit smoking in November 2018 Smoking Status: Former smoker Past Alcohol Use History: None Reported Past Drug Use History: None Reported Additional Drug Use History / Comment(s): Past ETOH 18 years ago - Past Family History Father Family Medical History: CVA/TIA Additional Family Medical History / Comment(s): Father from CVA Mother Additional Family Medical History / Comment(s): Mother from a "broken heart" shortly after father Medications and Allergies Home Medications Medication Instructions Recorded Confirmed Type Apixaban [Eliquis] 5 mg PO Q12H 01/09/19 02/12/20 History Cholecalciferol [Vitamin D3 (25 1,000 unit PO DAILY 01/09/19 02/12/20 History Mcg = 1000 Iu)] Pantoprazole [Protonix] 40 mg PO DAILY 04/29/19 02/12/20 History Atorvastatin [Lipitor] 10 mg PO DAILY 10/24/19 02/12/20 History Furosemide [Lasix] 20 mg PO BID 10/24/19 02/12/20 History Multivit-Min/FA/Lycopen/Lutein 1 tab PO DAILY 10/24/19 02/12/20 History [Centrum Silver Tablet] Albuterol Sulfate [Proair Hfa] 1 - 2 puff INHALATION RT-QID PRN 02/12/20 02/12/20 History Metoprolol Tartrate [Lopressor] 50 mg PO BID 02/12/20 02/12/20 History Nicotine Polacrilex [Nicorette] 2 mg BC Q3-4H PRN 02/12/20 02/12/20 History Tiotropium [place] [Spiriva 1 puff INHALATION RT-DAILY 02/12/20 02/12/20 History Respimat] Allergies Allergy/AdvReac Type Severity Reaction Status Date / Time No Known Allergies Allergy Verified 02/12/20 11:53 Physical Exam Vitals: Vital Signs Temp Pulse Pulse Resp BP BP Pulse Ox 02/13/20 16:00 98.1 F 91 18 112/68 93 L 02/13/20 13:52 83 18 02/13/20 12:00 98.3 F 83 18 119/63 92 L 02/13/20 07:54 92 02/13/20 07:50 98.2 F 92 18 133/81 94 L 02/13/20 07:41 92 02/13/20 03:54 98 17 117/79 95 02/12/20 23:31 98.2 F 96 17 144/90 95 02/12/20 21:29 98.6 F 98 20 131/83 94 L 02/12/20 20:33 98 18 152/63 96 02/12/20 20:00 98.3 F 82 20 162/68 95 02/12/20 18:00 92 20 138/82 95 02/12/20 17:00 103 H 20 120/88 96 Intake and Output 02/13/20 02/13/20 02/13/20 06:59 14:59 22:59 Intake Total 240 Output Total 775 1750 Balance -775 -1510 Intake: Oral 240 Output: Urine 775 1750 Other: Voiding Method Urinal Urinal # Voids 1 2 Weight 156.8 kg GENERAL: 69-year-old gentleman, alert and oriented x3, not in any acute distress. Unkept. Disheveled. Obese Head exam was generally normal. There was no scleral icterus or corneal arcus. Mucous membranes were moist. HEENT: Pupils are round and equally reacting to light. EOMI. No scleral icterus. No conjunctival pallor. Normocephalic, atraumatic. No pharyngeal erythema. No thyromegaly. CARDIOVASCULAR: S1 and S2 present. No murmurs, rubs, or gallops. PULMONARY: Chest is clear to auscultation, no wheezing or crackles. ABDOMEN: Soft, nontender, nondistended, normoactive bowel sounds. No palpable organomegaly. MUSCULOSKELETAL: No joint swelling or deformity. EXTREMITIES: No cyanosis, clubbing, 4+ pedal edema extending to both knees left leg has significant redness with skin breakdown and weeping. Patient does have local is of and temperature in the left leg circumferential redness. NEUROLOGICAL: Gross neurological examination did not reveal any focal deficits. SKIN: Changes of chronic venous stasis. Open and healing wounds. Open wounds lower extremity is bilaterally. There is also significant erythema. Results - Laboratory Findings CBC and BMP: 02/13/20 08:13 02/13/20 14:09 Abnormal lab findings: Abnormal Labs 02/12/20 02/12/20 02/12/20 10:44 10:44 10:44 RBC 4.13 L Hgb 11.8 L Hct 36.2 L MCHC RDW 16.8 H Potassium 3.0 L Chloride Carbon Dioxide 37 H Glucose 192 H Calcium 8.2 L Creatine Kinase 27 L Troponin I 0.059 H* Albumin 3.3 L 02/12/20 02/12/20 02/13/20 14:45 16:53 08:13 RBC 4.16 L Hgb 11.4 L Hct 37.7 L MCHC 30.2 L RDW 16.5 H Potassium Chloride Carbon Dioxide Glucose Calcium Creatine Kinase Troponin I 0.057 H* 0.061 H* Albumin 02/13/20 02/13/20 08:13 14:09 RBC Hgb Hct MCHC RDW Potassium 3.1 L 2.7 L* Chloride 93 L Carbon Dioxide 46 H* Glucose 150 H Calcium 8.2 L Creatine Kinase Troponin I Albumin - Diagnostic Findings Chest x-ray: image reviewed Assessment and Plan Assessment: 1 dizziness, lightheadedness of unclear etiology 2 right upper lobe mass measuring 2.7 cm in size, suspicious for malignancy documented back in October 2019 3 COPD, inactive in stable maintained on Spiriva on outpatient basis 4 chronic atrial fibrillation, anticoagulated with Eliquis 5 morbid obesity 6 obstructive sleep apnea 7 chronic venous stasis along with chronic lymphedema and ulceration of lower extremity is bilaterally 8 hyperlipidemia 9 extreme debility with difficulty with mobility and gait and poor performance and functional status Plan: The patient was seen and evaluated by Dr. Mcdonald Chest x-ray and labs reviewed He has a known right upper lobe mass that had not been followed up on in the outpatient setting He has poor social support and significant medical debility We will repeat a CAT scan of the chest to evaluate the mass compared to October 2019 We will continue to follow I, the cosigning physician, performed a history & physical examination of the patient. Lungs sounds are clear. Maintaining good O2 saturations in the 90s on 2 L/m per nasal cannula. I discussed the assessment and plan of care with my nurse practitioner, Krystin Velázquez. I attest to the above note as dictated by her. Time with Patient: Greater than 30
[2020-02-13] MEDS ORDERED: POTASSIUM CHLORIDE IV ONE (19:00)
[2020-02-13] MEDS ORDERED: SODIUM CHLORIDE 0.9% IV ONE (19:00)
[2020-02-13] MEDS ORDERED: Magnesium Replacement Protocol 1 EACH MISC MISCELLANE PRN (19:57)
[2020-02-13] MEDS: METOPROLOL TARTRATE 25 MG TAB PO SCH (20:17)
--- NOTE | 2020-02-13 23:27 | PN ---
PROGRESS NOTE DATE OF SERVICE: 02/13/2020 This 69-year-old gentleman who was admitted with dizziness and weakness had atrial fibrillation with fast ventricular rate, also had elevated troponin. The patient closely monitored at this time. Cardiology has seen the patient. Recommended pulmonary consultation for possible lung mass in the right upper lobe. Dr. Mcdonald has seen the patient. The repeat CT scan has been recommended. The patient has poor social support and outpatient followup has not been documented. Past medical history reviewed. REVIEW OF SYSTEMS: CARDIOVASCULAR: No angina. RESPIRATORY: As mentioned earlier. GI: As mentioned earlier. no dysuria. Nervous system: No numbness. Generalized weakness. CURRENT MEDICATIONS: Reviewed and include: [place]. Ventolin. Xanax. Eliquis. Lipitor, vitamin D3, Lasix, Dilaudid, Atrovent, doses reviewed. PHYSICAL EXAMINATION: Alert and oriented times three. Pulse 91, blood pressure 112/60, respiration 18, temperature 98.2, pulse ox 93% on 2 L. HEENT: Conjunctivae normal. NECK: No JVD. CARDIOVASCULAR: S1, S2 muffled. RESPIRATORY SYSTEM: Breath sounds diminished at the bases. A few scattered rhonchi and crackles. ABDOMEN: Soft, nontender. NERVOUS SYSTEM: No focal deficits. LABS: Hemoglobin 11.4, potassium 3.1 and 2.7. Troponin 0.57 and 0.61. ASSESSMENT: 1. Dizziness for evaluation possibly atrial fibrillation with fast ventricular rate. 2. Troponin elevated up to 0.05, possible acute [id number]-elevation myocardial infarction. 3. Severe hypokalemia. 4. Right upper lobe lung mass lesion with noncompliance followup. 6. Anemia, normocytic. 7. Bilateral stasis dermatitis in the legs. 8. Right upper lobe mass lesion with possible lung malignancy. 9. Obesity with body mass index of about 67.5. 10.Atrial fibrillation, chronic. 11.History of congestive heart failure. 12.Chronic obstructive pulmonary disease. 13.Hypertension. 14.History of chronic lymphedema. 15.Obstructive sleep apnea. 16.Remote history of nicotine dependence. 17.FULL CODE. RECOMMENDATIONS AND DISCUSSION: Continue current medications, management and symptomatic treatment. Otherwise, closely follow with Pulmonary and Cardiology. CT scan of the chest. Guarded prognosis. Further recommendations to follow. Replace potassium. MMODL / IJN: [id number] / MTDD
[2020-02-14] MEDS ORDERED: FUROSEMIDE 10 MG/ML 4 ML VIAL IV SCH ×2 (06:00)
[2020-02-14] MEDS: PANTOPRAZOLE 40 MG TABLET PO SCH (06:36)
[2020-02-14 07:55] LABS: Anisocytosis Slight; Basophils % (A) 1 %; Eosinophils # (A) 0.3 k/uL (0-0.7); Eosinophils % (A) 4 %; HCT 35.3 % (39.0-53.0); Hypochromasia Marked; Lymphocytes # (A) 1.7 k/uL (1.0-4.8); Lymphocytes % (A) 23 %; MCH 27.9 pg (25.0-35.0); MCHC 31.1 g/dL (31.0-37.0); MCV 89.7 fL (80.0-100.0); Mean Platelet Volume 7.6; Monocytes # (A) 0.5 k/uL (0-1.0); Monocytes % (A) 7 %; Neutrophils # (A) 4.6 k/uL (1.3-7.7); Neutrophils % (A) 63 %; Platelet Count 231 k/uL (150-450); RBC 3.94 m/uL (4.30-5.90); RDW 16.5 % (11.5-15.5); WBC 7.3 k/uL (3.8-10.6)
[2020-02-14 08:14] LABS: African American GFR (CKD) >90 (>60 ml/min/1.73 sqM); Blood Urea Nitrogen 13 mg/dL (9-20); Calcium 8.1 mg/dL (8.4-10.2); Chloride 96 mmol/L (98-107); Glucose 135 mg/dL (74-99); Magnesium 1.7 mg/dL (1.6-2.3); Non-African American GFR(CKD) >90 (>60 ml/min/1.73 sqM); Potassium 4.3 mmol/L (3.5-5.1); Sodium 142 mmol/L (137-145)
[2020-02-14 08:20] LABS: Anion Gap 3 mmol/L
[2020-02-14 08:25] LABS: Carbon Dioxide 43 mmol/L (22-30)
[2020-02-14] MEDS: POTASSIUM CHLORIDE ER 20 MEQ TAB.ER PO SCH ×2 (09:15→20:01)
[2020-02-14] MEDS: MULTIVITAMINS, THERA 1 EACH TAB PO SCH (09:16)
[2020-02-14] MEDS: ATORVASTATIN 10 MG TAB PO SCH (09:16)
[2020-02-14] MEDS: METOPROLOL TARTRATE 25 MG TAB PO SCH ×2 (09:16→20:01)
[2020-02-14] MEDS: APIXABAN 5 MG TAB PO SCH ×2 (09:16→20:01)
[2020-02-14] MEDS: CHOLECALCIFEROL 1,000 UNIT TAB PO SCH (09:16)
[2020-02-14] MEDS: IPRATROPIUM 0.5 MG/2.5 ML NEBU INHALATION SCH ×4 (12:48→18:59)
--- NOTE | 2020-02-14 15:23 | P.PN ---
Subjective Progress Note Date: 02/14/20 CHIEF COMPLAINT: A. fib with RVR, elevated troponin HISTORY OF PRESENT ILLNESS: Patient examined this morning at the bedside. He denies chest pain or pressure. He continues to report mild shortness of breath. Vital signs are stable. PHYSICAL EXAM: VITAL SIGNS: Reviewed. GENERAL: Well-developed in no acute distress. HEENT: Head is normocephalic. Pupils are equal, round. Sclerae anicteric. Mucous membranes of the mouth are moist. Neck supple. No JVD or thyromegaly LUNGS: Respirations even and unlabored. Lungs with expiratory wheezing noted HEART: Irregular rate and rhythm. S1 and S2 heard. EXTREMITIES: Normal range of motion. No clubbing or cyanosis. Peripheral pulses intact. Bilateral lower extremity edema. Lower extremities wrapped with Corby bandages. NEUROLOGIC: Awake and alert. Oriented x 3. ASSESSMENT: Chronic persistent atrial fibrillation with RVR Abnormal troponins, not suggestive of acute coronary syndrome Acute exacerbation of chronic diastolic heart failure, EF 55-60% Right upper lobe lung mass COPD Hypertension Hyperlipidemia History of nicotine dependence, patient quit smoking 1 year ago Hypokalemia PLAN: Pulmonary following for lung mass Continue current cardiac medications Continue Eliquis for anticoagulation Discontinue IV Lasix. Begin oral Lasix 40 mg twice a day Daily weights Accurate I&O Further recommendations pending patient's course Nurse practitioner note has been reviewed by physician. Signing provider agrees with the documented findings, assessment, and plan of care. Objective - Vital Signs Vital signs: Vital Signs Temp 98.3 F 02/14/20 12:00 Pulse 84 02/14/20 14:00 Resp 18 02/14/20 14:00 BP 111/68 02/14/20 12:00 Pulse Ox 95 02/14/20 12:00 Intake & Output 02/13/20 02/14/20 02/14/20 18:59 06:59 18:59 Intake Total 462 960 Output Total 2505 299 2107 Balance -1288 -540 -190 Weight 150.5 kg Intake: Oral 462 960 Output: Urine 5652 923 1539 Other: Voiding Method Urinal Urinal # Voids 2 1 - Labs CBC & Chem 7: 02/14/20 07:00 02/14/20 07:00 Labs: Abnormal Lab Results - Last 24 Hours (Table) 02/13/20 02/13/20 02/14/20 Range/Units 14:09 16:48 07:00 RBC 3.94 L (4.30-5.90) m/uL Hgb 11.0 L (13.0-17.5) gm/dL Hct 35.3 L (39.0-53.0) % RDW 16.5 H (11.5-15.5) % Potassium 2.7 L* (3.5-5.1) mmol/L Chloride (98-107) mmol/L Carbon Dioxide (22-30) mmol/L Glucose (74-99) mg/dL POC Glucose (mg/dL) 159 H (75-99) mg/dL Calcium (8.4-10.2) mg/dL 02/14/20 Range/Units 07:00 RBC (4.30-5.90) m/uL Hgb (13.0-17.5) gm/dL Hct (39.0-53.0) % RDW (11.5-15.5) % Potassium (3.5-5.1) mmol/L Chloride 96 L (98-107) mmol/L Carbon Dioxide 43 H* (22-30) mmol/L Glucose 135 H (74-99) mg/dL POC Glucose (mg/dL) (75-99) mg/dL Calcium 8.1 L (8.4-10.2) mg/dL
--- NOTE | 2020-02-14 15:31 | P.PN ---
Subjective Progress Note Date: 02/14/20 Principal diagnosis: Dizziness secondary to atrial fibrillation with rapid ventricular response, hypokalemia This is a 69-year-old gentleman with a history of chronic obstructive pulmonary disease, chronic atrial fibrillation, obesity, obstructive sleep apnea, chronic venous stasis with chronic lymphedema and ulceration of the lower extremities bilaterally, hyperlipidemia, known history of a right upper lobe mass measuring 2.7 cm in size suspicious for malignancy back in October 2019. The patient did not follow up with us stating he couldn't obtain a ride for further evaluation of his COPD and probable PET scan and biopsies. He does have history of noncompliance to his social inabilities. No family support. He presented to the hospital yesterday with complaints of dizziness, lightheadedness, shortness of breath. CAT scan of the brain revealed age-related atrophic and chronic small vessel ischemic changes without acute intracranial processes at this time. He is seen today in consultation on the selective care unit. He is currently resting in bed. Awake and alert in no acute distress. Maintaining O2 saturations in the 90s on 2 L/m per nasal cannula. He is afebrile. Hemodynamically stable. White count 8.3. Hemoglobin 11.4. Sodium 142. Potassium 3.1. Bicarb 46. Creatinine 0.69. Troponin 0.057. 0.061. ProBNP 1100. Chest x-ray reveals no evidence of acute pulmonary disease. There is a 4 cm right upper lobe mass redemonstrated. Suspect malignancy. The patient is seen today 02/14/2020 in follow-up on the selective care unit. He is currently sitting up in a chair at the bedside. Awake and alert in no acute distress. Denies any worsening dizziness lightheadedness. No chest pain or palpitations. No worsening shortness of breath, cough or congestion. He is maintaining O2 saturation in the 90s on 2 L/m per nasal cannula. He's been afebrile. Hemodynamically stable. White count 7.3. Hemoglobin 11.0. Sodium 142. Potassium 4.3. A 43. Creatinine 0.66. Objective - Vital Signs Vital signs: Vital Signs Temp 98.3 F 02/14/20 12:00 Pulse 84 02/14/20 14:00 Resp 18 02/14/20 14:00 BP 111/68 02/14/20 12:00 Pulse Ox 95 02/14/20 12:00 Intake & Output 02/13/20 02/14/20 02/14/20 18:59 06:59 18:59 Intake Total 462 960 Output Total 0327 931 9412 Balance -1288 -540 -190 Weight 150.5 kg Intake: Oral 462 960 Output: Urine 8418 593 7369 Other: Voiding Method Urinal Urinal # Voids 2 1 - Exam GENERAL: 69-year-old gentleman, alert and oriented x3, not in any acute distress. Unkept. Disheveled. Obese Head exam was generally normal. There was no scleral icterus or corneal arcus. Mucous membranes were moist. HEENT: Pupils are round and equally reacting to light. EOMI. No scleral icterus. No conjunctival pallor. Normocephalic, atraumatic. No pharyngeal erythema. No thyromegaly. CARDIOVASCULAR: S1 and S2 present. No murmurs, rubs, or gallops. PULMONARY: Chest is clear to auscultation, no wheezing or crackles. ABDOMEN: Soft, nontender, nondistended, normoactive bowel sounds. No palpable organomegaly. MUSCULOSKELETAL: No joint swelling or deformity. EXTREMITIES: No cyanosis, clubbing, 4+ pedal edema extending to both knees left leg has significant redness with skin breakdown and weeping. Patient does have local is of and temperature in the left leg circumferential redness. NEUROLOGICAL: Gross neurological examination did not reveal any focal deficits. SKIN: Changes of chronic venous stasis. Open and healing wounds. Open wounds lower extremity is bilaterally. There is also significant erythema. - Labs CBC & Chem 7: 02/14/20 07:00 02/14/20 07:00 Labs: Abnormal Lab Results - Last 24 Hours (Table) 02/13/20 02/13/20 02/14/20 Range/Units 14:09 16:48 07:00 RBC 3.94 L (4.30-5.90) m/uL Hgb 11.0 L (13.0-17.5) gm/dL Hct 35.3 L (39.0-53.0) % RDW 16.5 H (11.5-15.5) % Potassium 2.7 L* (3.5-5.1) mmol/L Chloride (98-107) mmol/L Carbon Dioxide (22-30) mmol/L Glucose (74-99) mg/dL POC Glucose (mg/dL) 159 H (75-99) mg/dL Calcium (8.4-10.2) mg/dL 02/14/20 Range/Units 07:00 RBC (4.30-5.90) m/uL Hgb (13.0-17.5) gm/dL Hct (39.0-53.0) % RDW (11.5-15.5) % Potassium (3.5-5.1) mmol/L Chloride 96 L (98-107) mmol/L Carbon Dioxide 43 H* (22-30) mmol/L Glucose 135 H (74-99) mg/dL POC Glucose (mg/dL) (75-99) mg/dL Calcium 8.1 L (8.4-10.2) mg/dL Assessment and Plan Assessment: 1 dizziness, lightheadedness of unclear etiology suspect A. fib with RVR, hypokalemia 2 right upper lobe mass measuring 2.7 cm in size, suspicious for malignancy documented back in October 2019 3 COPD, inactive in stable maintained on Spiriva on outpatient basis 4 chronic atrial fibrillation, anticoagulated with Eliquis 5 morbid obesity 6 obstructive sleep apnea 7 chronic venous stasis along with chronic lymphedema and ulceration of lower extremity is bilaterally 8 hyperlipidemia 9 extreme debility with difficulty with mobility and gait and poor performance and functional status Plan: The patient was seen and evaluated by Dr. Mcdonald He has a known right upper lobe mass that had not been followed up on in the outpatient setting He has poor social support and significant medical debility We will repeat a CAT scan of the chest on 02/15/2000 to evaluate the mass compared to October 2019 We will continue to follow I, the cosigning physician, performed a history & physical examination of the patient. Lungs sounds are clear. Maintaining good O2 saturations in the 90s on 2 L/m per nasal cannula. I discussed the assessment and plan of care with my nurse practitioner, Krystin Velázquez. I attest to the above note as dictated by her.
[2020-02-14] MEDS: SODIUM CHLORIDE 0.9% 1,000 ML IV SCH (15:42)
[2020-02-14] MEDS: SYMBICORT 160-4.5 MCG INHALER INHALATION SCH ×2 (16:09→19:00)
[2020-02-14] MEDS: FUROSEMIDE 40 MG TAB PO SCH (16:35)
--- NOTE | 2020-02-14 17:26 | PN ---
PROGRESS NOTE DATE OF SERVICE: 02/14/2020 This 69-year-old gentleman who was admitted with dizziness and possibly atrial fibrilla, fast ventricular rate, also had elevated troponin. The patient also had apparently a very poor social support also. The patient is living by himself. CT of the chest was recommended by Pulmonary. No chest pain. No palpitations. No fever. PHYSICAL EXAMINATION: Alert and oriented x2. Pulse 84. Blood pressure 111/60, respiration 18, temperature 98.2, pulse ox 94% on 2 L. HEENT: Conjunctivae normal. NECK: No JVD. CARDIOVASCULAR: S1, S2 muffled. RESPIRATION: Breath sounds diminished in the bases. A few scattered rhonchi. ABDOMEN: Soft. No focal deficits. NERVOUS SYSTEM: No focal deficits. LABS: WBC 7.2, hemoglobin 11, sodium 142, potassium 4.3. ASSESSMENT: 1. Dizziness for evaluation, possibly secondary to atrial fibrillation with fast ventricular rate. 2. Troponin elevated up to 0.05, of undetermined etiology, acute myocardial infarction unlikely per Cardiology. 3. Chronic obstructive pulmonary disease acute exacerbation. 4. Severe hypokalemia. 5. Right upper lobe lung mass lesion with noncompliance follow up. 6. Anemia, normocytic. 7. Bilateral stasis dermatitis of the legs. 8. Right upper lobe mass lesion with possible malignancy. 9. Obesity with body mass index of 67.5. 10.Atrial fibrillation chronic. 11.History of congestive heart failure. 12.Chronic obstructive pulmonary disease. 13.Hypertension. 14.History of chronic lymphedema. 15.Obstructive sleep apnea. 16.Remote history of nicotine dependence. 17.FULL CODE. RECOMMENDATIONS AND DISCUSSION: I recommend to continue current medications, management and symptomatic treatment. Continue with continue with apixaban. Continue with metoprolol 75 mg p.o. b.i.d. Also recommend bronchodilators. Continue to monitor. Further recommendations to follow. Will add Symbicort to the current regimen. MMODL / IJN: [id number] /
[2020-02-14] MEDS: MINERAL OIL-WHITE PETROLATUM 120 GM JAR TOPICAL PRN (20:03)
[2020-02-15] MEDS: PANTOPRAZOLE 40 MG TABLET PO SCH (06:44)
[2020-02-15] MEDS: ATORVASTATIN 10 MG TAB PO SCH (08:48)
[2020-02-15] MEDS: ALPRAZolam 0.25 MG TAB PO PRN ×2 (08:48→20:55)
[2020-02-15] MEDS: CHOLECALCIFEROL 1,000 UNIT TAB PO SCH (08:48)
[2020-02-15] MEDS: METOPROLOL TARTRATE 25 MG TAB PO SCH ×2 (08:48→20:55)
[2020-02-15] MEDS: POTASSIUM CHLORIDE ER 20 MEQ TAB.ER PO SCH ×2 (08:48→20:55)
[2020-02-15] MEDS: APIXABAN 5 MG TAB PO SCH (08:48)
[2020-02-15] MEDS: FUROSEMIDE 40 MG TAB PO SCH ×2 (08:48→15:09)
[2020-02-15 08:49] LABS: Anisocytosis Slight; Basophils % (A) 1 %; Eosinophils # (A) 0.4 k/uL (0-0.7); Eosinophils % (A) 6 %; HCT 36.3 % (39.0-53.0); HGB 11.4 gm/dL (13.0-17.5); Hypochromasia Marked; Lymphocytes # (A) 1.8 k/uL (1.0-4.8); Lymphocytes % (A) 27 %; MCH 28.3 pg (25.0-35.0); MCHC 31.5 g/dL (31.0-37.0); Mean Platelet Volume 7.4; Monocytes # (A) 0.4 k/uL (0-1.0); Monocytes % (A) 6 %; Neutrophils % (A) 59 %; Platelet Count 241 k/uL (150-450); RBC 4.03 m/uL (4.30-5.90); RDW 16.5 % (11.5-15.5); WBC 6.7 k/uL (3.8-10.6)
[2020-02-15] MEDS: MULTIVITAMINS, THERA 1 EACH TAB PO SCH (08:51)
[2020-02-15 08:56] LABS: African American GFR (CKD) >90 (>60 ml/min/1.73 sqM); Blood Urea Nitrogen 12 mg/dL (9-20); Calcium 8.6 mg/dL (8.4-10.2); Chloride 95 mmol/L (98-107); Glucose 167 mg/dL (74-99); Non-African American GFR(CKD) >90 (>60 ml/min/1.73 sqM); Potassium 3.9 mmol/L (3.5-5.1); Sodium 139 mmol/L (137-145)
[2020-02-15 09:03] LABS: Anion Gap 3 mmol/L
[2020-02-15 09:04] LABS: Carbon Dioxide 41 mmol/L (22-30)
[2020-02-15] MEDS: IPRATROPIUM 0.5 MG/2.5 ML NEBU INHALATION SCH ×4 (09:27→19:01)
[2020-02-15] MEDS: SYMBICORT 160-4.5 MCG INHALER INHALATION SCH ×2 (09:27→19:01)
--- NOTE | 2020-02-15 13:02 | P.PN ---
Subjective Progress Note Date: 02/15/20 This is a 69-year-old gentleman with a history of chronic obstructive pulmonary disease, chronic atrial fibrillation, obesity, obstructive sleep apnea, chronic venous stasis with chronic lymphedema and ulceration of the lower extremities bilaterally, hyperlipidemia, known history of a right upper lobe mass measuring 2.7 cm in size suspicious for malignancy back in October 2019. Patient presented to the hospital with symptoms of dizziness, lightheadedness, and shortness of breath. Cardiology consultation was requested because of atrial fibrillation as well as abnormality in troponin. Troponins came back to be 0.05, 0.05, 0.06. Not indicative of acute coronary syndrome. was seen and examined this morning, sitting up in his chair, he was ordered to have a CAT scan of the chest performed by pulmonary. They tried to take the patient down a couple different times, however he became quite anxious and was not able to undergo the test. Hemodynamically he is stable, blood pressure 128/60 with a heart rate in the 80s, 90% on room air. White blood cell count 6.7, hemoglobin 11.4, platelet count 241. Sodium 139, potassium 3.9, BUN 12, creatinine 0.6. Objective - Vital Signs Vital signs: Vital Signs Temp 98.4 F 02/15/20 12:00 Pulse 88 02/15/20 12:00 Resp 18 02/15/20 12:00 BP 128/65 02/15/20 12:00 Pulse Ox 89 L 02/15/20 12:00 Intake & Output 02/14/20 02/15/20 02/15/20 18:59 06:59 18:59 Intake Total 1200 Output Total 1500 550 200 Balance -300 -550 -200 Weight 157.2 kg Intake: Oral 1200 Output: Urine 1500 550 200 Other: Voiding Method Urinal - Exam GENERAL: 69-year-old gentleman, alert and oriented x3, not in any acute distress. Unkept. Disheveled. Obese Head exam was generally normal. There was no scleral icterus or corneal arcus. Mucous membranes were moist. HEENT: Pupils are round and equally reacting to light. EOMI. No scleral icterus. No conjunctival pallor. Normocephalic, atraumatic. No pharyngeal erythema. No thyromegaly. CARDIOVASCULAR: S1 and S2 irregularly irregular . No murmurs, rubs, or gallops. PULMONARY: Chest is clear to auscultation, no wheezing or crackles. ABDOMEN: Soft, nontender, nondistended, normoactive bowel sounds. No palpable organomegaly. MUSCULOSKELETAL: No joint swelling or deformity. EXTREMITIES: No cyanosis, clubbing, 4+ pedal edema extending to both knees left leg has significant redness with skin breakdown and weeping. Patient does have local is of and temperature in the left leg circumferential redness. NEUROLOGICAL: Gross neurological examination did not reveal any focal deficits. SKIN: Changes of chronic venous stasis. Open and healing wounds. Open wounds lower extremity is bilaterally. There is also significant erythema. - Labs CBC & Chem 7: 02/15/20 07:51 02/15/20 07:51 Labs: Abnormal Lab Results - Last 24 Hours (Table) 02/15/20 02/15/20 Range/Units 07:51 07:51 RBC 4.03 L (4.30-5.90) m/uL Hgb 11.4 L (13.0-17.5) gm/dL Hct 36.3 L (39.0-53.0) % RDW 16.5 H (11.5-15.5) % Chloride 95 L (98-107) mmol/L Carbon Dioxide 41 H* (22-30) mmol/L Glucose 167 H (74-99) mg/dL Assessment and Plan Plan: Assessment and plan 1 dizziness, lightheadedness of unclear etiology 2 right upper lobe mass measuring 2.7 cm in size, suspicious for malignancy documented back in October 2019 3 COPD 4 chronic atrial fibrillation, anticoagulated with Eliquis 5 morbid obesity 6 obstructive sleep apnea 7 chronic venous stasis along with chronic lymphedema and ulceration of lower extremity is bilaterally 8 hyperlipidemia 9 extreme debility with difficulty with mobility and gait and poor performance and functional status 10 abnormality in troponin, not consistent with acute coronary syndrome, no significant rise and fall pattern Plan: From cardiology's perspective, we'll recommend to continue the patient on his current medications. He continues to be in A. fib his heart rate is stable. DNP note has been reviewed, I agree with a documented findings and plan of care. Patient was seen and examined.
[2020-02-15] MEDS: SODIUM CHLORIDE 0.9% 1,000 ML IV SCH (14:58)
--- NOTE | 2020-02-15 15:21 | PN ---
PROGRESS NOTE DATE OF SERVICE: 02/15/2020 This is a 69-year-old gentleman who was admitted with dizziness and weakness, also atrial fibrillation with a fast ventricular rate. Troponins is also indeterminate. Cardiology saw the patient, recommended continue the current medications, and the heart rate is stable. The patient also had possible right upper lobe mass lesion. Patient recommended a CT scan of chest which the patient refused. The patient also had very poor social support. Patient had extensive dry skin on admission and PT, OT and social science professor is evaluating the patient for possible discharge planning at this time. PHYSICAL EXAMINATION: Alert and oriented x2. Pulse is 88, blood pressure 120/60, respiration 18, temperature 98.2, pulse ox 89% on room air. HEENT: Conjunctivae normal. S1, S2 muffled. RESPIRATORY SYSTEM: Breath sounds diminished at the bases, a few scattered rhonchi, no crackles. ABDOMEN: Soft, nontender. LEGS: No edema. No swelling. NERVOUS SYSTEM: No focal deficits. LABS: WBC 6.2, hemoglobin 11.2, sodium 139, potassium 3.9, glucose 167. Potassium is 2.7, which is improved. ASSESSMENT: 1. Dizziness for evaluation possibly secondary to atrial fibrillation with fast ventricular rate. 2. Troponin elevated up to 0.054, undetermined etiology, acute myocardial infarction unlikely per Cardiology. 3. Chronic obstructive pulmonary disease acute exacerbation. 4. Severe hypokalemia. 5. Acute hypoxic hypercarbic respiratory failure, right upper lobe lung mass lesion with noncompliance of followup and patient refused CT scan during the present admission. 6. Anemia, normocytic. 7. Bilateral stasis dermatitis of the lungs. 8. Poor social support. 9. Right upper lobe mass lesion with possible malignancy. 10.Obesity with body mass index of 67.5. 11.Atrial fibrillation, chronic. 12.History of CHF, ejection fraction unknown. 13.History of COPD. 14.Hypertension. 15.History of chronic lymphedema. 16.History of sleep apnea. 17.Remote history of nicotine dependence. 18.FULL CODE. RECOMMENDATION: Recommend to continue current management, symptomatic treatment, continue with metoprolol 75 mg b.i.d. Otherwise, I would also recommend PT, OT evaluation for ECF rehab and as well as Case Management for ECF rehab and also evaluate the home support. Overall prognosis guarded because of multiple complex medical issues. Further recommendations to follow. MMODL / IJN: [id number] /
--- NOTE | 2020-02-15 19:51 | PN ---
PROGRESS NOTE PULMONARY/CRITICAL CARE PROGRESS NOTE: DATE OF SERVICE: February 15, 2020. INTERVAL HISTORY: This is a 69-year-old gentleman who was seen by my partner 2 days ago in consultation. He came in with lightheadedness and dizziness, thought to be related to underlying atrial fibrillation with RVR. He has a right upper lobe mass measuring 2.7 cm in size. Apparently it was seen last on CT scan back in October. He also has a history of underlying COPD, chronic atrial fibrillation, morbid obesity, sleep apnea syndrome, chronic venous stasis with chronic lymphedema, hyperlipidemia, and impaired mobility. We talked today about bronchoscopy. He did agree. He knows he will need a planning CT scan prior to his navigational bronchoscopy on Saturday. We have notified the [facility] people. Currently, he appears to be relatively stable. PHYSICAL EXAMINATION: VITAL SIGNS: Current vital signs are reviewed. Temperature 97.7, heart rate 89, respiratory rate 18, blood pressure 119/69 with 85 room air saturation 90%. GENERAL: Appears in no acute distress. HEENT: Examination is grossly unremarkable. NECK: Supple. Full range of motion. No adenopathy. Neck veins are flat. CARDIOVASCULAR: Examination reveals regular rhythm and rate. Heart rate 80 beats per minute. S1, S2 normal. No S3, S4, murmur. LUNGS: Reveal mostly clear breath sounds. No wheezes or rhonchi. ABDOMEN: Obese. Bowel sounds are heard. EXTREMITIES: Reveal some edema. SKIN: Without rash. NEUROLOGIC: Examination is nonfocal. LABS: Reviewed. White count 6.7, hemoglobin 11.4, hematocrit 36.3, platelet count 341,000. Sodium 139, potassium 3.9, chloride 95. CO2 41. Anion gap is 3, BUN and creatinine were 12 and 0.67. Microbiology is negative. No recent chest x-ray. Chest CT dated October 25, 2019 reveals a 3.2 cm irregular masslike infiltrate, right upper lobe. Adjacent to the major fissure. Medications are reviewed. His blood thinner was discontinued. ASSESSMENT: 1. 3.2 cm mass, right upper lobe, suspicious for malignancy. 2. Dizziness and lightheadedness, likely related to underlying atrial fibrillation with RVR. 3. Chronic obstructive pulmonary disease, inactive. 4. Chronic atrial fibrillation. 5. Morbid obesity. 6. Sleep apnea syndrome. 7. Chronic venous stasis and lymphedema of the lower extremities. 8. Hyperlipidemia. 9. General medical debility and impaired mobility. PLAN: The patient agreed to a planning CT scan on Saturday. We will follow up with the electromagnetic navigational bronchoscopy afterwards. Additional recommendations and suggestions are forthcoming. Prognosis is guarded. He understands that the lesion could in fact be a lung cancer. MMODL / IJN: [id number] /
[2020-02-16] MEDS: PANTOPRAZOLE 40 MG TABLET PO SCH (06:35)
[2020-02-16] MEDS: FUROSEMIDE 40 MG TAB PO SCH ×2 (06:35→13:01)
[2020-02-16] MEDS: IPRATROPIUM 0.5 MG/2.5 ML NEBU INHALATION SCH ×4 (08:02→19:51)
[2020-02-16] MEDS: SYMBICORT 160-4.5 MCG INHALER INHALATION SCH ×2 (08:02→19:51)
[2020-02-16] MEDS: CHOLECALCIFEROL 1,000 UNIT TAB PO SCH (08:47)
[2020-02-16] MEDS: ATORVASTATIN 10 MG TAB PO SCH (08:47)
[2020-02-16] MEDS: METOPROLOL TARTRATE 25 MG TAB PO SCH ×2 (08:47→20:35)
[2020-02-16] MEDS: POTASSIUM CHLORIDE ER 20 MEQ TAB.ER PO SCH ×2 (08:47→20:35)
[2020-02-16] MEDS: MULTIVITAMINS, THERA 1 EACH TAB PO SCH (08:47)
[2020-02-16] MEDS: SODIUM CHLORIDE 0.9% 1,000 ML IV SCH (13:01)
--- NOTE | 2020-02-16 13:44 | P.PN ---
Subjective This is a pleasant 69-year-old male past medical history significant for COPD, chronic atrial fibrillation, chronic venous stasis, lymphedema, obstructive sleep apnea and dyslipidemia. He is seen and examined sitting up in the chair in no acute distress. He has no symptoms of chest pain, shortness of breath, dizziness or palpitations. Anticoagulation is currently on hold as he is scheduled to undergo a biopsy of the lung nodule tomorrow. Blood pressure 142/86 heart rate 88 afebrile maintaining oxygen saturation on room air. Lab oratory data reviewed, WBC 6.7, hemoglobin 11.4, platelets 241, sodium 139, potassium 3.9 and creatinine 0.67. Currently maintained on atorvastatin 10 mg daily, Lasix 40 mg by mouth twice a day, metoprolol 75 mg twice a day and daily potassium supplementation. GENERAL: Well-appearing, well-nourished and in no acute distress. NECK: Supple without JVD or thyromegaly. LUNGS: Breath sounds clear to auscultation bilaterally. Respiration equal and unlabored. No wheezes, rales or rhonchi. Diminished bilaterally. HEART: Irregular rate and rhythm without murmurs, rubs or gallops. S1 and S2 heard. EXTREMITIES: Normal range of motion, bilateral edema with JESSA wraps in place. No clubbing or cyanosis. Peripheral pulses intact. ASSESSMENT Troponin abnormality, not consistent with an acute coronary syndrome. Unknown etiology. Chronic persistent atrial fibrillation with controlled ventricular rates Right upper lobe mass, suspicious for malignancy Acute on chronic diastolic heart failure, improved Hypertension Dyslipidemia Chronic venous stasis and lymphedema COPD Former nicotine dependence PLAN Continue beta blockers for rate control. Maintained on oral diuretics. Zhaneyamile currently on hold for lung biopsy tomorrow. Nurse Practitioner note has been reviewed, I agree with a documented findings and plan of care. Patient was seen and examined. Objective - Vital Signs Vital signs: Vital Signs Temp 97.6 F 02/16/20 08:00 Pulse 85 02/16/20 11:52 Resp 18 02/16/20 11:52 BP 142/86 02/16/20 08:00 Pulse Ox 90 L 02/16/20 08:00 Intake & Output 02/15/20 02/16/20 02/16/20 18:59 06:59 18:59 Intake Total 232 480 Output Total 900 1500 1000 Balance -668 -1500 -520 Weight 155.7 kg Intake: IV 10 0.9 10 Oral 222 480 Output: Urine 900 1500 1000 Other: Voiding Method Urinal Urinal Urinal # Voids 5 2 # Bowel Movements 1 1 - Labs CBC & Chem 7: 02/15/20 07:51 02/15/20 07:51
--- NOTE | 2020-02-16 18:37 | PN ---
PROGRESS NOTE DATE OF SERVICE: 02/16/2020 This 69-year-old gentleman was admitted with dizziness, possibly secondary to atrial fibrillation also had fast ventricular rate. Patient also had elevated troponin. Cardiology following the patient closely. Patient also had significant issues with home support. PT/OT evaluated the patient also. Multiple consultants are following the patient closely. The patient is not willing apparently going for biopsy and further evaluations at this time Past medical history reviewed. REVIEW OF SYSTEMS: CARDIOVASCULAR: No angina or palpitations. RESPIRATORY: As mentioned earlier. GI: As mentioned earlier. no dysuria. NERVOUS SYSTEM: As mentioned earlier. CURRENT MEDICATIONS: Reviewed and include: 1. [place]. 2. Ventolin. 3. Xanax. 4. Lipitor. 5. Dilaudid. 6. Lasix. 7. Lopressor. 8. Multivitamins. 9. Protonix. 10.K-Dur. PHYSICAL EXAMINATION: Patient is alert, oriented times three. Pulse is 85. The blood pressure is 142/83, respirations 18. Temperature 97.2, pulse ox 98% on room air. HEENT: Conjunctivae normal. NECK: No JVD. CARDIOVASCULAR: S1, S2 muffled. RESPIRATORY: Breath sounds diminished in the bases. Bilateral scattered rhonchi and crackles. ABDOMEN: Soft. Nontender. LEGS are no edema, no swelling. NERVOUS SYSTEM: No focal deficits. LABS: WBC 6.3, hemoglobin 11.4, sodium 139, potassium 3.4, CO2 is 41. ASSESSMENT: 1. Dizziness for evaluation possibly secondary to atrial fibrillation with fast ventricular rate. 2. Troponin elevated up to 0.05 indeterminate etiology with myocardial infarction unlikely per Cardiology. 3. Chronic obstructive pulmonary disease, acute exacerbation. 4. Severe hypokalemia. 5. Acute hypoxic respiratory failure, right upper lobe lung mass lesion with noncompliance with followup and the patient refused CT scan during the present admission. 6. Anemia, normocytic. 7. Bilateral stasis dermatitis of the lungs. 8. Poor social support. 9. Right upper lobe mass lesion with possible malignancy. 10.Obesity with body mass index of 67.5. 11.Atrial fibrillation chronic. 12.History of congestive heart failure, ejection fraction unknown. 13.History of chronic obstructive pulmonary disease. 14.Hypertension. 15.History of chronic lymphedema. 16.History of sleep apnea. 17.Remote history of nicotine dependence. 18.FULL CODE. RECOMMENDATIONS AND DISCUSSION: I recommend to continue current medications, management and symptomatic treatment. Recommend CT scan and biopsy if the patient is willing. Otherwise repeat labs. PT/OT evaluation, possible ECF rehab. Continue the rest of medications. Follow up with Pulmonary and cardiology. Guarded prognosis. Further recommendations to follow. MMODL / IJN: [id number] /
--- NOTE | 2020-02-16 18:46 | PN ---
PROGRESS NOTE PULMONARY/CRITICAL CARE PROGRESS NOTE: DATE OF SERVICE: 02/16/2020 This is a 69-year-old gentleman who was seen by my partner a couple of days ago in consultation. He came in with lightheadedness and dizziness and was found to have underlying atrial fibrillation with RVR. In addition, he had a lesion in the right upper lobe measuring about 3 cm in size. He apparently had the lesion back in October, but he never had any followup. He now agrees to have a planning CT scan and undergo electromagnetic navigational bronchoscopy with me tomorrow. The procedure will be done right around noontime. In addition, he has a history of COPD, chronic atrial fibrillation, morbid obesity, sleep apnea syndrome, chronic venous stasis with chronic lymphedema of the lower extremities, hyperlipidemia, and impaired mobility. Clinically, he looks much better today than he did yesterday. He is not receiving any supplemental oxygen. PHYSICAL EXAMINATION: VITAL SIGNS: Current vital signs include a temperature 98.4, heart rate 88, respiratory rate 18, blood pressure 116/81, mean 92, room air saturation 93%-95%. Appears in no acute distress. HEENT: Examination is grossly unremarkable. NECK: Supple. Full range of motion. No adenopathy. Neck veins are flat. CARDIOVASCULAR: Examination reveals a regular rhythm and rate. S1, S2 normal. No S3, S4, or murmur. Heart rate about 84 beats per minute. LUNGS: Reveal mostly clear breath sounds. A few scattered rhonchi. No wheezes or crackles. ABDOMEN: Obese. Bowel sounds are heard. EXTREMITIES are intact. Some edema noted. No cyanosis or clubbing. SKIN: Without rash. NEUROLOGIC: Examination is brief but nonfocal. LABS: Labs are reviewed and there are no labs from February 15. Microbiology is negative. No recent scans to review. MEDICATIONS: Reviewed. Currently, the patient is on albuterol, updrafts, Xanax, Lipitor, Symbicort, vitamin D3, Lasix, Cecil, Dilaudid, Atrovent, magnesium replacement therapy, metoprolol, mineral oil, white petroleum cream, multivitamins, Narcan, nicotine patch, Protonix, potassium chloride, and saline. ASSESSMENT: 1. 3.2 cm mass, right upper lobe, suspicious for malignancy. 2. Dizziness and lightheadedness, likely related to underlying atrial fibrillation with RVR, resolved. 3. Chronic obstructive pulmonary disease, inactive and stable. 4. Chronic atrial fibrillation. 5. Morbid obesity. 6. Sleep apnea syndrome. 7. Chronic venous stasis and lymphedema of the lower extremities. 8. Hyperlipidemia. 9. General medical debility and impaired mobility. PLAN: The patient will have a planning CT scan on Saturday. I will go ahead and proceed with electromagnetic navigational bronchoscopy. We explained the procedure to the patient. Afterwards, the patient could be likely discharged from the hospital. Additional recommendations and suggestions are forthcoming. Prognosis is guarded. MMODL / IJN: [id number] /
[2020-02-16] MEDS: ALPRAZolam 0.25 MG TAB PO PRN (22:55)
[2020-02-17] MEDS: ATORVASTATIN 10 MG TAB PO SCH (08:18)
[2020-02-17] MEDS: CHOLECALCIFEROL 1,000 UNIT TAB PO SCH (08:18)
[2020-02-17] MEDS: POTASSIUM CHLORIDE ER 20 MEQ TAB.ER PO SCH ×2 (08:18→20:50)
[2020-02-17] MEDS: MULTIVITAMINS, THERA 1 EACH TAB PO SCH (08:18)
[2020-02-17] MEDS: PANTOPRAZOLE 40 MG TABLET PO SCH (08:18)
[2020-02-17] MEDS: FUROSEMIDE 40 MG TAB PO SCH ×2 (08:18→15:49)
[2020-02-17] MEDS: METOPROLOL TARTRATE 25 MG TAB PO SCH ×2 (08:20→20:50)
[2020-02-17] MEDS: SYMBICORT 160-4.5 MCG INHALER INHALATION SCH ×2 (09:27→21:57)
[2020-02-17] MEDS: IPRATROPIUM 0.5 MG/2.5 ML NEBU INHALATION SCH ×4 (09:27→21:57)
[2020-02-17] MEDS: ALPRAZolam 0.25 MG TAB PO PRN (09:56)
[2020-02-17] MEDS ORDERED: LORazepam 2 MG/ML INJ IV STA (10:47)
[2020-02-17] MEDS ORDERED: LACTATED RINGERS 1,000 ML IV ONE (12:01)
[2020-02-17] MEDS ORDERED: ONDANSETRON 4 MG/2 ML VIAL ONE (12:15)
--- NOTE | 2020-02-17 12:15 | CT ---
EXAMINATION TYPE: CT Chest herbie Ibarra Protocol DATE OF EXAM: 02/17/2020 COMPARISON: 10/25/2019 HISTORY: Prenavigational bronchoscopy CT DLP: 658 mGycm Automated exposure control for dose reduction was used. FINDINGS: Limited exam is performed as part of prenavigational bronchoscopy. Lack of contrast limits the exam. There is a suspicious appearing mass in the right upper lobe measuring 3.7 cm. Subsegmental areas of consolidation are seen bilaterally. The heart is enlarged. Coronary artery calcifications are noted. Artifact limits the exam and particularly the upper abdomen with no gross abnormality identified. Aor ta demonstrates mild atherosclerotic changes. Numerous gallstones are seen. IMPRESSION: PRENAVIGATIONAL BRONCHOSCOPY FOR LARGE RIGHT UPPER LOBE LUNG MASS MEASURING 3.7 CM.
[2020-02-17] MEDS ORDERED: ROCURONIUM 10 MG/ML (10 ML VIAL) IV ONE (12:19)
[2020-02-17] MEDS ORDERED: LIDOCAINE 1% INJ 10MG/ML (20 ML MDV) ONE (12:19)
[2020-02-17] MEDS ORDERED: PROPOFOL 10 MG/ML 20 ML VIAL IV ONE (12:19)
[2020-02-17] MEDS ORDERED: SUCCINYLCHOLINE CHLORIDE 100 MG/5 ML SYR IV ONE (12:19)
[2020-02-17] MEDS: SODIUM CHLORIDE 0.9% 1,000 ML IV SCH (13:45)
--- NOTE | 2020-02-17 13:51 | P.PN ---
Subjective This is a pleasant 69-year-old male past medical history significant for COPD, chronic atrial fibrillation, chronic venous stasis, lymphedema, obstructive sleep apnea and dyslipidemia. He is seen and examined sitting up in the chair in no acute distress. He has no symptoms of chest pain, shortness of breath, dizziness or palpitations. Anticoagulation is currently on hold as he is scheduled to undergo a biopsy of the lung nodule tomorrow. Blood pressure 142/86 heart rate 88 afebrile maintaining oxygen saturation on room air. Lab oratory data reviewed, WBC 6.7, hemoglobin 11.4, platelets 241, sodium 139, potassium 3.9 and creatinine 0.67. Currently maintained on atorvastatin 10 mg daily, Lasix 40 mg by mouth twice a day, metoprolol 75 mg twice a day and daily potassium supplementation. 02/17/2020 Pt is seen and examined sitting up in bed in no acute distress. He is nervous about his biopsy scheduled for later today. He denies chest pain, shortness of breath, dizziness or palpitations. He continues to be in a-fib with controlled rate. Blood pressure 130/80 heart rate 84 afebrile maintaining oxygen saturation on nasal cannula. GENERAL: Well-appearing, well-nourished and in no acute distress. NECK: Supple without JVD or thyromegaly. LUNGS: Breath sounds clear to auscultation bilaterally. Respiration equal and unlabored. No wheezes, rales or rhonchi. Diminished bilaterally. HEART: Irregular rate and rhythm without murmurs, rubs or gallops. S1 and S2 heard. EXTREMITIES: Normal range of motion, bilateral edema with JESSA wraps in place. No clubbing or cyanosis. Peripheral pulses intact. ASSESSMENT Troponin abnormality, not consistent with an acute coronary syndrome. Unknown etiology. Chronic persistent atrial fibrillation with controlled ventricular rates Right upper lobe mass, suspicious for malignancy Acute on chronic diastolic heart failure, improved Hypertension Dyslipidemia Chronic venous stasis and lymphedema COPD Former nicotine dependence PLAN Continue beta blockers for rate control. Maintained on oral diuretics. Antoinette currently on hold for lung biopsy. Nurse Practitioner note has been reviewed, I agree with a documented findings and plan of care. Patient was seen and examined. Objective - Vital Signs Vital signs: Vital Signs Temp 97.3 F L 02/17/20 13:20 Pulse 86 02/17/20 13:35 Resp 15 12/02/20 13:35 BP 129/74 02/17/20 13:35 Pulse Ox 96 02/17/20 13:35 Intake & Output 02/16/20 02/17/20 02/17/20 18:59 06:59 18:59 Intake Total 840 500 Output Total 1400 225 100 Balance -560 -225 400 Weight 154.9 kg Intake: IV 500 Oral 840 Output: Urine 1400 225 100 Other: Voiding Method Urinal Urinal # Voids 2 # Bowel Movements 1 - Labs CBC & Chem 7: 02/15/20 07:51 02/15/20 07:51
--- NOTE | 2020-02-17 14:41 | XR ---
EXAMINATION TYPE: XR chest 1V portable DATE OF EXAM: 02/17/2020 Comparison: 02/12/2020 Clinical History: 69-year-old male post bronch Findings: Exam is motion degraded and further limited due to large patient body habitus and portable technique. Heart appears mildly enlarged. Diffuse interstitial density. Patchy airspace opacity in the right up per lobe and at the peripheral left base. The right apex is obscured by the patient's chin. Impression: 1. Mild cardiomegaly. Limited, motion degraded exam. 2. Increasing right upper lobe opacity could reflect some post biopsy hemorrhage or other infiltrate. 3. Some new patchy left basilar atelectasis versus developing infiltrate. Follow-up recommended. 4. The right apex is obscured by the patient's chin and is not adequately assessed. The patient is al so rotated. Repeat exam would be needed if concern for underlying pneumothorax.
--- NOTE | 2020-02-17 15:27 | P.PN ---
Subjective Progress Note Date: 02/17/20 Principal diagnosis: Dizziness, secondary to A. fib and rapid ventricular response, hypokalemia This is a 69-year-old gentleman with a history of chronic obstructive pulmonary disease, chronic atrial fibrillation, obesity, obstructive sleep apnea, chronic venous stasis with chronic lymphedema and ulceration of the lower extremities bilaterally, hyperlipidemia, known history of a right upper lobe mass measuring 2.7 cm in size suspicious for malignancy back in October 2019. The patient did not follow up with us stating he couldn't obtain a ride for further evaluation of his COPD and probable PET scan and biopsies. He does have history of noncompliance to his social inabilities. No family support. He presented to the hospital yesterday with complaints of dizziness, lightheadedness, shortness of breath. CAT scan of the brain revealed age-related atrophic and chronic small vessel ischemic changes without acute intracranial processes at this time. He is seen today in consultation on the selective care unit. He is currently resting in bed. Awake and alert in no acute distress. Maintaining O2 saturations in the 90s on 2 L/m per nasal cannula. He is afebrile. Hemodynamically stable. White count 8.3. Hemoglobin 11.4. Sodium 142. Potassium 3.1. Bicarb 46. Creatinine 0.69. Troponin 0.057. 0.061. ProBNP 1100. Chest x-ray reveals no evidence of acute pulmonary disease. There is a 4 cm right upper lobe mass redemonstrated. Suspect malignancy. The patient is seen today 02/14/2020 in follow-up on the selective care unit. He is currently sitting up in a chair at the bedside. Awake and alert in no acute distress. Denies any worsening dizziness lightheadedness. No chest pain or palpitations. No worsening shortness of breath, cough or congestion. He is maintaining O2 saturation in the 90s on 2 L/m per nasal cannula. He's been afebrile. Hemodynamically stable. White count 7.3. Hemoglobin 11.0. Sodium 142. Potassium 4.3. A 43. Creatinine 0.66. On 2019 patient seen in follow-up she sits up in the chair, in no acute distress, no worsening shortness of breath, he is on room air, his been nothing by mouth after midnight for a navigational bronchoscopy for biopsy of the right upper lobe lung mass. Vital signs have been stable overnight, has had no fever or chills, blood pressure stable, his labs have been reviewed, white blood cell count is 6.7, hemoglobin is 11.4, sodium is 139, potassium is 3.9, chloride is 95, CO2 is 41, B1 is 12, creatinine 0.67. No hemoptysis, no chest pain. Objective - Vital Signs Vital signs: Vital Signs Temp 97.7 F 02/17/20 14:35 Pulse 82 02/17/20 14:35 Resp 18 02/17/20 14:35 BP 121/64 02/17/20 14:35 Pulse Ox 100 02/17/20 14:35 Intake & Output 02/16/20 02/17/20 02/17/20 18:59 06:59 18:59 Intake Total 840 500 Output Total 1400 225 100 Balance -560 -225 400 Weight 154.9 kg Intake: IV 500 Oral 840 Output: Urine 1400 225 100 Other: Voiding Method Urinal Urinal # Voids 2 # Bowel Movements 1 - Exam GENERAL EXAM: Alert, pleasant, 69-year-old obese white male, sitting up in the recliner, on 2 L of oxygen and a pulse ox of 100%, comfortable in no apparent distress. HEAD: Normocephalic/atraumatic. EYES: Normal reaction of pupils, equal size. Conjunctiva pink, sclera white. NOSE: Clear with pink turbinates. THROAT: No erythema or exudates. NECK: No masses, no JVD, no thyroid enlargement, no adenopathy. CHEST: No chest wall deformity. Symmetrical expansion. LUNGS: Equal air entry with no crackles, wheeze, rhonchi or dullness. CVS: Regular rate and rhythm, normal S1 and S2, no gallops, no murmurs, no rubs ABDOMEN: Soft, nontender. No hepatosplenomegaly, normal bowel sounds, no guard ing or rigidity. EXTREMITIES: No clubbing, no edema, no cyanosis, 2+ pulses and upper and lower extremities. MUSCULOSKELETAL: Muscle strength and tone normal. SPINE: No scoliosis or deformity SKIN: No rashes CENTRAL NERVOUS SYSTEM: Alert and oriented -3. No focal deficits, tone is normal in all 4 extremities. PSYCHIATRIC: Alert and oriented -3. Appropriate affect. Intact judgment and insight. - Labs CBC & Chem 7: 02/15/20 07:51 11/30/20 07:51 Assessment and Plan Plan: Assessment: #1. Dizziness, lightheadedness of unclear etiology, possibly related to A. fib with RVR, hypokalemia, dehydration #2. Right upper lobe mass, suspicious for malignancy, status post navigational bronchoscopy with endobronchial biopsies today on O2 2019 #3. COPD #4. Chronic A. fib, on Eliquis for anticoagulation #5. Morbid obesity #6. Obstructive sleep apnea #7. Chronic venous stasis with chronic lymphedema and ulceration of lower extremity bilaterally #8. Hyperlipidemia #9. Extreme debility with difficulty with mobility and gait and poor performance and functional status Plan: he is status post navigational bronchoscopy and biopsy of the right upper lobe, tolerated procedure well, he can restart on Eliquis tonight. Will await results of the biopsy, chest x-ray was obtained following procedure showing right upper lobe opacity the possibility of postbiopsy hemorrhage, and some new patchy left basilar atelectasis with a possibility of developing infiltrate, vital signs have been stable. We'll continue to follow I performed a history & physical examination of the patient and discussed their management with my nurse practitioner, Veronique Roberson. I reviewed the nurse practitioner's note and agree with the documented findings and plan of care. Lung sounds are positive for diminished breath sounds. The findings and the impression was discussed with the patient. I attest to the documentation by the nurse practitioner. Time with Patient: Less than 30
[2020-02-17 17:40] LABS: Appearance,BF Cloudy; Color,BF Pink; Nucleated Cells, Body Fluid 75 /uL; RBC, Body Fluid 19025 /uL
[2020-02-17 17:44] LABS: Mononuclear WBC,Body Fluid 30 %; Polynuclear WBC,Body Fluid 70 %; Total Cells Counted,Body Fluid 100
--- NOTE | 2020-02-17 17:49 | PN ---
PROGRESS NOTE DATE OF SERVICE: 02/17/2020 This 69-year-old gentleman who was admitted with dizziness possibly secondary to fibrillation also had lung malignancy. The patient underwent a CT scan of the chest today which showed right upper lobe lung mass lesion and navigational bronchoscopy and Miguel needle biopsy was done by Dr. Joe. The patient being closely monitored at this time. PAST MEDICAL HISTORY: Reviewed. REVIEW OF SYSTEMS: CARDIOVASCULAR SYSTEM: No angina or palpitations. RESPIRATORY: As mentioned earlier. GI: As mentioned earlier. no dysuria. NERVOUS SYSTEM: No numbness or weakness. . CURRENT MEDICATIONS: Reviewed and include: [place]. Ventolin. Xanax. Lipitor, Symbicort, vitamin D3, Lasix, Dilaudid, Atrovent, Lopressor, potassium supplementation, multivitamins, Protonix, K-Dur. PHYSICAL EXAMINATION: Patient is alert, oriented x 3. Pulse 89, blood pressure 104/60, respiration 18, temperature 97.7, pulse ox 99% on 2 L. HEENT: Conjunctivae normal. NECK: No JVD. CARDIOVASCULAR: S1, S2 muffled. RESPIRATIONS: Breath sounds diminished in the bases. A few scattered rhonchi and crackles. ABDOMEN: Soft, nontender. LEGS are no edema. No swelling. NERVOUS SYSTEM: No focal deficits. LABS: Hemoglobin 11 and CO2 is 41. Sodium is 139, glucose 167. ASSESSMENT: 1. Dizziness for evaluation possibly secondary to atrial fibrillation with fast ventricular rate. 2. Troponin elevated up to 0.05, undetermined etiology with myocardial infarction likely per Cardiology. 3. Chronic obstructive pulmonary disease, acute exacerbation, acute hypoxic hypercarbic respiratory failure. 4. Right upper lobe malignancy, possibly status post endoscopy and biopsy. 5. Severe hypokalemia. 6. History of noncompliance. 7. Anemia, normocytic. 8. Bilateral stasis dermatitis of the legs. 9. Poor social support. 10.Right upper lobe mass lesion with possible malignancy. 11.Obesity with body mass index 67.5. 12.Atrial fibrillation chronic. 13.History of congestive heart failure, with chronic diastolic dysfunction, ejection fraction 55 to 60%. 14.History of chronic obstructive pulmonary disease. 15.Hypertension. 16.History of chronic lymphedema. 17.History of sleep apnea. 18.Remote history of nicotine dependence. 19.FULL CODE. RECOMMENDATIONS AND DISCUSSION: This 69-year-old gentleman who presented with multiple complex medical issues, we will monitor the patient closely. Continue the current medications, symptomatic treatment. We will await biopsy report. Otherwise, continue the bronchodilators, steroids and rest of medications, antibiotic. Prognosis guarded. Possible ECF rehab. Guarded prognosis. Further recommendations to follow. ARTEM / YULI: [id number] /
[2020-02-17 18:02] LABS: Anisocytosis Slight; HCT 40.5 % (39.0-53.0); HGB 12.6 gm/dL (13.0-17.5); Hypochromasia Marked; MCH 28.2 pg (25.0-35.0); MCHC 31.1 g/dL (31.0-37.0); MCV 90.9 fL (80.0-100.0); Mean Platelet Volume 8.1; Platelet Count 192 k/uL (150-450); RBC 4.45 m/uL (4.30-5.90); RDW 16.4 % (11.5-15.5); WBC 5.8 k/uL (3.8-10.6)
[2020-02-17 19:37] LABS: Glucose,Whole Blood 113 mg/dL (75-99)
[2020-02-17 20:40] LABS: African American GFR (CKD) >90 (>60 ml/min/1.73 sqM); Anion Gap 1 mmol/L; Blood Urea Nitrogen 15 mg/dL (9-20); Calcium 8.4 mg/dL (8.4-10.2); Carbon Dioxide 37 mmol/L (22-30); Chloride 102 mmol/L (98-107); Glucose 121 mg/dL (74-99); Non-African American GFR(CKD) >90 (>60 ml/min/1.73 sqM); Potassium 5.8 mmol/L (3.5-5.1); Sodium 140 mmol/L (137-145)
--- NOTE | 2020-02-18 01:55 | PCN ---
PROCEDURE NOTE PULMONARY/CRITICAL CARE PROCEDURE NOTE: PROCEDURE: Electromagnetic navigational bronchoscopy. PREOPERATIVE DIAGNOSIS: Right upper lobe lesion, rule out bronchogenic carcinoma. POSTOPERATIVE DIAGNOSIS: Right upper lobe lesion, rule out bronchogenic carcinoma. OPERATORS: Dr. Joe, Dr. Velázquez and Veronique Roberson. DESCRIPTION OF PROCEDURE: The patient's procedure was done in endoscopy room #1 under general anesthesia. The phone circuit operator was Alyssa Kramer and the anesthesiologist was Dr. Brasher. There was informed consent. There was universal timeout. Again the patient was done under general anesthesia. After the patient was anesthetized, and currently intubated, the bronchoscope was inserted through the bronchoscope adapter connected to the endotracheal tube. We localized the lesion using a [employer] electromagnetic navigational bronchoscopy system to the posterior segment of the right upper lobe. Initially, we did multiple transbronchial biopsies right upper lobe. Then we did needle biopsies right upper lobe. We did brushes right upper lobe and then washes right upper lobe. The patient tolerated the procedure well. There was great localization on the lesion. The samples will be sent to the laboratory for analysis. There was minimal bleeding. The blood loss was maybe 5 mL. We made sure there was no bleeding when we were done with the procedure. The bronchoscope was withdrawn. The patient will be recovered. There was no immediate complication. The patient was stable throughout the procedure. MMODL / IJN: [id number] /
[2020-02-18] MEDS: PANTOPRAZOLE 40 MG TABLET PO SCH (06:19)
[2020-02-18] MEDS: FUROSEMIDE 40 MG TAB PO SCH ×2 (06:20→12:54)
[2020-02-18] MEDS: IPRATROPIUM 0.5 MG/2.5 ML NEBU INHALATION SCH ×4 (08:50→21:52)
[2020-02-18] MEDS: SYMBICORT 160-4.5 MCG INHALER INHALATION SCH ×2 (08:58→21:54)
--- NOTE | 2020-02-18 10:25 | CT ---
EXAMINATION TYPE: CT brain wo con DATE OF EXAM: 02/18/2020 HISTORY: Decreased mental status CT DLP: 1231.4 mGycm. Automated Exposure Control for Dose Reduction was Utilized. TECHNIQUE: CT scan of the head is performed without contrast. COMPARISON: CT brain February 12, 2020 FINDINGS: There is no acute intracranial hemorrhage or midline shift identified. There is diffuse v entricular and sulcal prominence consistent with diffuse age-related cerebral atrophy. There is low- attenuation in the periventricular white matter consistent with chronic small vessel ischemic change. Small degree of cerumen right external auditory canal. The globes are intact and the visualized sinu ses are clear. IMPRESSION: No acute intracranial hemorrhage or midline shift. There is mild to moderate diffuse ag e-related cerebral atrophy and mild chronic small vessel ischemic change redemonstrated. No signific ant change from prior.
[2020-02-18 11:41] LABS: African American GFR (CKD) >90 (>60 ml/min/1.73 sqM); Anion Gap 0 mmol/L; Blood Urea Nitrogen 14 mg/dL (9-20); Calcium 8.6 mg/dL (8.4-10.2); Carbon Dioxide 39 mmol/L (22-30); Chloride 102 mmol/L (98-107); Glucose 141 mg/dL (74-99); Non-African American GFR(CKD) >90 (>60 ml/min/1.73 sqM); Potassium 4.8 mmol/L (3.5-5.1); Sodium 141 mmol/L (137-145)
[2020-02-18] MEDS: METOPROLOL TARTRATE 25 MG TAB PO SCH ×2 (12:53→19:49)
[2020-02-18] MEDS: ATORVASTATIN 10 MG TAB PO SCH (12:53)
[2020-02-18] MEDS: CHOLECALCIFEROL 1,000 UNIT TAB PO SCH (12:53)
[2020-02-18] MEDS: MULTIVITAMINS, THERA 1 EACH TAB PO SCH (12:54)
[2020-02-18] MEDS: SODIUM CHLORIDE 0.9% 1,000 ML IV SCH (12:54)
[2020-02-18] MEDS: APIXABAN 5 MG TAB PO SCH ×2 (12:55→19:49)
--- NOTE | 2020-02-18 13:26 | P.PN ---
Subjective This is a pleasant 69-year-old male past medical history significant for COPD, chronic atrial fibrillation, chronic venous stasis, lymphedema, obstructive sleep apnea and dyslipidemia. He is seen and examined sitting up in the chair in no acute distress. He has no symptoms of chest pain, shortness of breath, dizziness or palpitations. Anticoagulation is currently on hold as he is scheduled to undergo a biopsy of the lung nodule tomorrow. Blood pressure 142/86 heart rate 88 afebrile maintaining oxygen saturation on room air. Lab oratory data reviewed, WBC 6.7, hemoglobin 11.4, platelets 241, sodium 139, potassium 3.9 and creatinine 0.67. Currently maintained on atorvastatin 10 mg daily, Lasix 40 mg by mouth twice a day, metoprolol 75 mg twice a day and daily potassium supplementation. 02/17/2020 Pt is seen and examined sitting up in bed in no acute distress. He is nervous about his biopsy scheduled for later today. He denies chest pain, shortness of breath, dizziness or palpitations. He continues to be in a-fib with controlled rate. Blood pressure 130/80 heart rate 84 afebrile maintaining oxygen saturation on nasal cannula. 02/18/2020 He is seen and examined resting in bed in no acute distress. He is lethargic and not communicating as he was yesterday. According to the nursing notes he had been this way since returning from his bronchoscopy and biopsy yesterday. Primary care team is aware. He does wake up and talk but falls right back asleep. He has equal hand and foot strength, oriented x3 and no obvious facial droop. His right lip does look somewhat downturned but equally moves when talking or prompted to smile. He denies chest pain, shortness of breath, dizziness or palpitations. Blood pressure 133/84 heart rate 76 afebrile and maintaining oxygen saturation on nasal cannula. GENERAL: In no acute distress. Lethargic. NECK: Supple without JVD or thyromegaly. LUNGS: Breath sounds clear to auscultation bilaterally. Respiration equal and unlabored. No wheezes, rales or rhonchi. Diminished bilaterally. HEART: Irregular rate and rhythm without murmurs, rubs or gallops. S1 and S2 heard. EXTREMITIES: Normal range of motion, bilateral edema with JESSA wraps in place. No clubbing or cyanosis. Peripheral pulses intact. ASSESSMENT Troponin abnormality, not consistent with an acute coronary syndrome. Unknown etiology. Chronic persistent atrial fibrillation with controlled ventricular rates Altered mental status Right upper lobe mass, suspicious for malignancy Acute on chronic diastolic heart failure, improved Hypertension Dyslipidemia Chronic venous stasis and lymphedema COPD Former nicotine dependence PLAN Continue beta blockers for rate control. Resume eliquis. Defer to primary care team ongoing neurologic evaluation. Stable from a cardiac perspective. Nurse Practitioner note has been reviewed, I agree with a documented findings and plan of care. Patient was seen and examined. Objective - Vital Signs Vital signs: Vital Signs Temp 98.3 F 02/18/20 03:53 Pulse 84 02/18/20 11:47 Resp 16 02/18/20 03:53 BP 133/84 02/18/20 03:53 Pulse Ox 97 02/18/20 03:53 Intake & Output 02/17/20 02/18/20 02/18/20 18:59 06:59 18:59 Intake Total 500 Output Total 110 200 Balance 390 -200 Weight 151.8 kg Intake: IV 500 Output: Urine 110 200 Other: Voiding Method Urinal Urinal # Voids 2 - Labs CBC & Chem 7: 02/17/20 17:27 02/18/20 10:45 Labs: Abnormal Lab Results - Last 24 Hours (Table) 02/17/20 02/17/20 02/17/20 Range/Units 17:27 19:35 19:43 Hgb 12.6 L (13.0-17.5) gm/dL RDW 16.4 H (11.5-15.5) % Potassium 5.8 H (3.5-5.1) mmol/L Carbon Dioxide 37 H (22-30) mmol/L Glucose 121 H (74-99) mg/dL POC Glucose (mg/dL) 113 H (75-99) mg/dL 02/18/20 Range/Units 10:45 Hgb (13.0-17.5) gm/dL RDW (11.5-15.5) % Potassium (3.5-5.1) mmol/L Carbon Dioxide 39 H (22-30) mmol/L Glucose 141 H (74-99) mg/dL POC Glucose (mg/dL) (75-99) mg/dL Microbiology - Last 24 Hours (Table) 02/17/20 12:34 Gram Stain - Preliminary Bronchoalviolar Lavage - Right Bronchial Washings Culture - Preliminary 02/17/20 12:34 Acid Fast Bacilli Culture - Preliminary Bronchoalviolar Lavage - Right 02/17/20 12:34 Fungal Culture - Preliminary Bronchoalviolar Lavage - Right
--- NOTE | 2020-02-18 14:30 | P.PN ---
Subjective Progress Note Date: 02/18/20 Principal diagnosis: Dizziness, secondary to A. fib and rapid ventricular response, hypokalemia This is a 69-year-old gentleman with a history of chronic obstructive pulmonary disease, chronic atrial fibrillation, obesity, obstructive sleep apnea, chronic venous stasis with chronic lymphedema and ulceration of the lower extremities bilaterally, hyperlipidemia, known history of a right upper lobe mass measuring 2.7 cm in size suspicious for malignancy back in October 2019. The patient did not follow up with us stating he couldn't obtain a ride for further evaluation of his COPD and probable PET scan and biopsies. He does have history of noncompliance to his social inabilities. No family support. He presented to the hospital yesterday with complaints of dizziness, lightheadedness, shortness of breath. CAT scan of the brain revealed age-related atrophic and chronic small vessel ischemic changes without acute intracranial processes at this time. He is seen today in consultation on the selective care unit. He is currently resting in bed. Awake and alert in no acute distress. Maintaining O2 saturations in the 90s on 2 L/m per nasal cannula. He is afebrile. Hemodynamically stable. White count 8.3. Hemoglobin 11.4. Sodium 142. Potassium 3.1. Bicarb 46. Creatinine 0.69. Troponin 0.057. 0.061. ProBNP 1100. Chest x-ray reveals no evidence of acute pulmonary disease. There is a 4 cm right upper lobe mass redemonstrated. Suspect malignancy. The patient is seen today 02/14/2020 in follow-up on the selective care unit. He is currently sitting up in a chair at the bedside. Awake and alert in no acute distress. Denies any worsening dizziness lightheadedness. No chest pain or palpitations. No worsening shortness of breath, cough or congestion. He is maintaining O2 saturation in the 90s on 2 L/m per nasal cannula. He's been afebrile. Hemodynamically stable. White count 7.3. Hemoglobin 11.0. Sodium 142. Potassium 4.3. A 43. Creatinine 0.66. On 2019 patient seen in follow-up she sits up in the chair, in no acute distress, no worsening shortness of breath, he is on room air, his been nothing by mouth after midnight for a navigational bronchoscopy for biopsy of the right upper lobe lung mass. Vital signs have been stable overnight, has had no fever or chills, blood pressure stable, his labs have been reviewed, white blood cell count is 6.7, hemoglobin is 11.4, sodium is 139, potassium is 3.9, chloride is 95, CO2 is 41, B1 is 12, creatinine 0.67. No hemoptysis, no chest pain. On 02/18/2020 patient seen in follow-up on selective care unit, he is awake and alert, he was a bit slow to respond, a bit more drowsy today, although opening eyes spontaneously, answering questions seems inattentive, but he knew she was in the hospital, he knew the month, and the year. She is on 3 L of oxygen the pulse ox 97%, no fever or chills, lung sounds are clear, diminished at the bases, his lung biopsy results are still pending at this time, his BAL cultures are pending, Gram stain is showing no organisms. Objective - Vital Signs Vital signs: Vital Signs Temp 98.3 F 02/18/20 03:53 Pulse 84 02/18/20 11:47 Resp 16 02/18/20 03:53 BP 133/84 02/18/20 03:53 Pulse Ox 97 02/18/20 03:53 Intake & Output 02/17/20 02/18/20 02/18/20 18:59 06:59 18:59 Intake Total 500 Output Total 110 200 Balance 390 -200 Weight 151.8 kg Intake: IV 500 Output: Urine 110 200 Other: Voiding Method Urinal Urinal # Voids 2 - Exam GENERAL EXAM: Alert, pleasant, 69-year-old obese white male, sitting up in the recliner, on 3 L of oxygen and a pulse ox of 97%, comfortable in no apparent distress. HEAD: Normocephalic/atraumatic. EYES: Normal reaction of pupils, equal size. Conjunctiva pink, sclera white. NOSE: Clear with pink turbinates. THROAT: No erythema or exudates. NECK: No masses, no JVD, no thyroid enlargement, no adenopathy. CHEST: No chest wall deformity. Symmetrical expansion. LUNGS: Equal air entry with no crackles, wheeze, rhonchi or dullness. CVS: Regular rate and rhythm, normal S1 and S2, no gallops, no murmurs, no rubs ABDOMEN: Soft, nontender. No hepatosplenomegaly, normal bowel sounds, no guarding or rigidity. EXTREMITIES: No clubbing, no edema, no cyanosis, 2+ pulses and upper and lower extremities. MUSCULOSKELETAL: Muscle strength and tone normal. SPINE: No scoliosis or deformity SKIN: No rashes CENTRAL NERVOUS SYSTEM: Alert and oriented -3. No focal deficits, tone is normal in all 4 extremities. PSYCHIATRIC: Alert and oriented -3. Appropriate affect. Intact judgment and insight. - Labs CBC & Chem 7: 02/17/20 17:27 02/18/20 10:45 Labs: Abnormal Lab Results - Last 24 Hours (Table) 02/17/20 02/17/20 02/17/20 Range/Units 17:27 19:35 19:43 Hgb 12.6 L (13.0-17.5) gm/dL RDW 16.4 H (11.5-15.5) % Potassium 5.8 H (3.5-5.1) mmol/L Carbon Dioxide 37 H (22-30) mmol/L Glucose 121 H (74-99) mg/dL POC Glucose (mg/dL) 113 H (75-99) mg/dL 02/18/20 Range/Units 10:45 Hgb (13.0-17.5) gm/dL RDW (11.5-15.5) % Potassium (3.5-5.1) mmol/L Carbon Dioxide 39 H (22-30) mmol/L Glucose 141 H (74-99) mg/dL POC Glucose (mg/dL) (75-99) mg/dL Microbiology - Last 24 Hours (Table) 02/17/20 12:34 Gram Stain - Preliminary Bronchoalviolar Lavage - Right Bronchial Washings Culture - Preliminary 02/17/20 12:34 Acid Fast Bacilli Culture - Preliminary Bronchoalviolar Lavage - Right 02/17/20 12:34 Fungal Culture - Preliminary Bronchoalviolar Lavage - Right Assessment and Plan Plan: Assessment: #1. Dizziness, lightheadedness of unclear etiology, possibly related to A. fib with RVR, hypokalemia, dehydration #2. Right upper lobe mass, suspicious for malignancy, status post navigational bronchoscopy with endobronchial biopsies today on 2019 #3. COPD #4. Chronic A. fib, on Eliquis for anticoagulation #5. Morbid obesity #6. Obstructive sleep apnea #7. Chronic venous stasis with chronic lymphedema and ulceration of lower extremity bilaterally #8. Hyperlipidemia #9. Extreme debility with difficulty with mobility and gait and poor performance and functional status Plan: Continue current medical treatment, biopsy results are still pending at this time, BAL cultures so far have shown no growth, final cultures are pending, and vital signs have been stable, no worsening dyspnea, a bit more confused, possibly delirious possibly to increased sedatives and benzodiazepines that he got yesterday. Avoid benzodiazepines, we'll discontinue Xanax, continue precaut ions, continue to monitor, no worsening dyspnea, no fever or chills. From pulmonary perspective patient could be potentially considered for discharge to [facility] with outpatient follow-up in regards to the results of the biopsy I performed a history & physical examination of the patient and discussed their management with my nurse practitioner, Veronique Roberson. I reviewed the nurse practitioner's note and agree with the documented findings and plan of care. Lung sounds are positive for diminished breath sounds. The findings and the impression was discussed with the patient. I attest to the documentation by the nurse practitioner. Time with Patient: Less than 30
[2020-02-18 14:44] VITALS: BMI 6535.2
--- NOTE | 2020-02-18 18:41 | PN ---
PROGRESS NOTE DATE OF SERVICE: 02/18/2020 This 69-year-old gentleman who was admitted with dizziness possibly secondary to atrial fibrillation also had lung malignancy. The patient had bronchoscopy and biopsy yesterday. The patient is being closely monitored. The patient this morning had a brief episode of dizziness and dysarthria. Possible acute TIA was considered and STROKE CODE was also called. The patient is being closely monitored at this time. Past medical history reviewed. Review of systems could not be taken. The patient is slightly confused at this time. CURRENT MEDICATIONS: Reviewed. They include [place] 5 mg, Eliquis, Lipitor, Dilaudid, Lopressor. PHYSICAL EXAMINATION: Patient is alert, oriented x2. Pulse 98, blood pressure 112/62, respiration 18, temperature 98.4, pulse ox 92% on 3 L. HEENT: Conjunctivae normal. NECK: No jugular venous distention. CARDIOVASCULAR SYSTEM: S1, S2 muffled. RESPIRATORY SYSTEM: Breath sounds diminished at the bases. Bilateral scattered rhonchi and crackles. ABDOMEN: Soft, non-tender. LEGS: No edema. No swelling. NERVOUS SYSTEM: No focal deficit. LABS: Labs at this time show WBC 5.9, hemoglobin 12.6, sodium 141, potassium 3.8. ASSESSMENT: 1. Dizziness, possibly secondary to atrial fibrillation with fast ventricular rate. 2. Troponin elevated up to 0.04, undetermined etiology, with myocardial infarction unlikely per Cardiology. 3. Brief episodes of dysarthria and facial droop; possible acute transient ischemic attack. 4. Chronic obstructive pulmonary disease, acute exacerbation, with acute hypoxic hypercarbic respiratory failure. 5. Right upper lobe malignancy, status post navigational bronchoscopy and biopsy. 6. Severe hypokalemia. 7. History of noncompliance. 8. Anemia, normocytic. 9. Gait dysfunction. 10.Bilateral stasis dermatitis of the legs. 11.Poor social support. 12.Right upper lobe mass lesion with possible malignancy. 13.Obesity with body mass index of 67.5. 14.Atrial fibrillation, chronic. 15.History of congestive heart failure with chronic diastolic dysfunction, ejection fraction 55% to 60%. 16.History of chronic obstructive pulmonary disease. 17.Hypertension. 18.History of chronic lymphedema. 19.History of sleep apnea. 20.Remote history of nicotine dependence. 21.FULL CODE. RECOMMENDATIONS AND DISCUSSION: I recommend to continue current medications, continue with the monitoring, symptomatic treatment. I would also recommend neurology evaluation and complete neurovascular workup. CT scan of the brain noted. Further recommendations to follow. Repeat labs will be ordered. PT/OT evaluation and possible ECF rehab. Lung biopsy was done and final report is awaited at this time. Further recommendations to follow. MMODL / IJN: [id number] /
--- NOTE | 2020-02-18 18:57 | US ---
EXAMINATION TYPE: US carotid duplex BILAT DATE OF EXAM: 02/18/2020 COMPARISON: NONE CLINICAL HISTORY: stroke. Stroke. Previous smoker. Patient poor historian. EXAM MEASUREMENTS: RIGHT: Peak Systolic Velocity (PSV) cm/sec ----- Right CCA: 57.8 ----- Right ICA: 73.6 ----- Right ECA: 73.8 ICA/CCA ratio: 1.3 RIGHT: End Diastole cm/sec ----- Right CCA: 21.2 ----- Right ICA: 29.9 ----- Right ECA: 16.3 LEFT: Peak Systolic Velocity (PSV) cm/sec ----- Left CCA: 60.8 ----- Left ICA: 103.9 ----- Left ECA: 110.3 ICA/CCA ratio: 1.7 LEFT: End Diastole cm/sec ----- Left CCA: 22.3 ----- Left ICA: 36.6 ----- Left ECA: 6.9 VERTEBRALS (direction of flow): Right Vertebral: Antegrade Left Vertebral: Antegrade Rhythm: Arrhythmia Intimal thickening seen bilaterally. Plaque seen right bulb, right ICA, and left bulb. No elevated v elocities at this time. IMPRESSION: There is antegrade flow in the vertebral arteries. The images and measurements suggest 35% stenosis i n both internal carotid arteries. Criteria for Assigning % of Stenosis / Diameter reduction (Estimation based on the indirect measurements of the internal carotid artery velocities (ICA PSV). 1. Normal (no stenosis)=ICA PSV < 125 cm/s: ratio < 2.0: ICA EDV<40 cm/s. 2. Less than 50% stenosis=ICA PSV < 125 cm/s: ratio < 2.0: ICA EDV<40 cm/s. 3. 50 to 69% stenosis=ICA PSV of 125 to 230 cm/s: ration 2.0 ? 4.0: ICA EDV 40-100 cm/s. 4. Greater than 70% stenosis to near occlusion= ICA PSV > 230 cm/s: ratio > 4.0: ICA EDV > 100 cm/s. 5. Near occlusion= ICA PSV velocities may be low or undetectable: variable ratio and ICA EDV. 6. Total occlusion=unable to detect flow.
[2020-02-19] MEDS: PANTOPRAZOLE 40 MG TABLET PO SCH (06:03)
[2020-02-19] MEDS: FUROSEMIDE 40 MG TAB PO SCH ×2 (06:03→12:58)
[2020-02-19] MEDS: IPRATROPIUM 0.5 MG/2.5 ML NEBU INHALATION SCH ×4 (07:34→20:35)
[2020-02-19] MEDS: SYMBICORT 160-4.5 MCG INHALER INHALATION SCH ×2 (07:34→20:35)
[2020-02-19] MEDS: CHOLECALCIFEROL 1,000 UNIT TAB PO SCH (09:05)
[2020-02-19] MEDS: METOPROLOL TARTRATE 25 MG TAB PO SCH ×2 (09:05→20:30)
[2020-02-19] MEDS: APIXABAN 5 MG TAB PO SCH ×2 (09:05→20:31)
[2020-02-19] MEDS: ATORVASTATIN 10 MG TAB PO SCH (09:05)
[2020-02-19] MEDS: MULTIVITAMINS, THERA 1 EACH TAB PO SCH (09:05)
--- NOTE | 2020-02-19 09:43 | P.CNNES ---
History of Present Illness Consult date: 02/19/20 Requesting physician: Cady Stephens Reason for Consult: Questionable transient ischemic attack for delayed speech History of Present Illness: This is a 69-year-old gentleman with history of chronic atrial fibrillation, hypertension, obstructive sleep apnea, chronic venous stasis with chronic lymphedema and ulceration of lower extremities bilaterally, hyperlipidemia, known history of right upper lobe mass measuring 2.7 cm in size suspicious for malignancy and October 2019, , COPD who presented emergency department on with complaint of dizziness going on for the past week. Neurology is consulted because of questionable transient ischemic attack because of the delayed speech, confusion. Per the patient nurse the patient was taken for a brochoscopy for biopsy of the right upper lobe lung mass on 02/17/2020. Per nurse she felt like on after the procedure he has been slow to respond and delayed speech. He received sedation for the procedure. He was also on XAnax 0.25mg PRN and last one received was on 02/17/20 at 9:56am. The Xanax has been discontinued and today the patient is more awake and alert and said he is back to baseline. He denies of any focal deficit, visual disturbances, difficulty getting his words out or any sensory loss. He denies of any further dizziness or feeling light headinesses. He knew he was out of it yesterday. On presentation to the hospital and his pulse ox was 87 detected by EMS. It is documented that he is having dizziness and lightheadedness and was felt that was secondary due to A. fib with RVR as well as hypokalemia and dehydration as a r esult. He has noncompliance to his social inabilities. There is no family support. Patient denies history of stroke or TIA in the past. Also reported that the patient has history of nicotine dependence and he quit smoking 1 year ago. Patient states he smoke 2PPD for 50 years and stopped 1 year ago. He also has history of alcohol use and said there were times it was severe consumption but stopped in 2010. Patient states he walks with walker at home. Workup in the hospital consisted of: Since he's been in the hospital the patient has been afebrile. And his of blood pressure has been in the range of 100 to 130s systolic. Patient does have episodes where his pulse ox is 92-93% and it's recorded on 2-3 L of nasal cannula. Initial CT of the head on 02/12/2020 is reported as age-related atrophic and chronic small vessel ischemic change without acute intracranial process seen at this time. EKG is reported as age are fibrillation with rapid ventricular response with premature ventricular or aberrantly conducted complexes. Nonspecific ST and T- wave abnormality. Abnormal EKG. CT of the head 02/18/20 is reported as no acute intracranial hemorrhage or midline shift. There is mild to moderate diffuse age-related cerebral atrophy and mild chronic small vessel ischemic changes redemonstrated. No significant change from prior. I personally reviewed the CT of the head and I don't see any acute ischemia, no true parenchymal hemorrhage and no encephalomalacia that was appreciated. Carotid duplex: Was reported as there is antegrade flow in the vertebral arteries. The images and measurements suggest 35% stenosis in both internal carotid arteries. Blood cell has been within normal limits ranging from 5.8-8.3. AST 22. ALT of 15. The serum glucose has been in the range of 120s to 160s. Presentation his carbon dioxide serum is 43 and the last one is 39. The proBNP 1100. Cardiology is on board. Patient had the an echocardiogram on 10/24/2019 and was reported as a technically difficult study with suboptimal views at. There is moderate concentric left ventricular hypertrophy. Ejection fraction of 55-60%. Left atrium was not well visualized. Review of Systems 12 point system was reviewed and peritent positive and negative per HPI. Past Medical History Past Medical History: Atrial Fibrillation, Heart Failure, COPD, Hypertension Additional Past Medical History / Comment(s): obesity, chronic Le wounds chronic lymphedema of the lower extremity , obstructive sleep apnea, does not use CPAP at home History of Any Multi-Drug Resistant Organisms: None Reported Past Surgical History: No Surgical Hx Reported Past Anesthesia/Blood Transfusion Reactions: No Reported Reaction Past Psychological History: No Psychological Hx Reported Additional Psychological History / Comment(s): Quit smoking in November 2018 Smoking Status: Former smoker Past Alcohol Use History: None Reported Past Drug Use History: None Reported Additional Drug Use History / Comment(s): Past ETOH 18 years ago - Past Family History Father Family Medical History: CVA/TIA Additional Family Medical History / Comment(s): Father from CVA Mother Additional Family Medical History / Comment(s): Mother from a "broken heart" shortly after father Medications and Allergies Home Medications Medication Instructions Recorded Confirmed Type Apixaban [Eliquis] 5 mg PO Q12H 01/09/19 02/12/20 History Cholecalciferol [Vitamin D3 (25 1,000 unit PO DAILY 01/09/19 02/12/20 History Mcg = 1000 Iu)] Pantoprazole [Protonix] 40 mg PO DAILY 04/29/19 02/12/20 History Atorvastatin [Lipitor] 10 mg PO DAILY 10/24/19 02/12/20 History Furosemide [Lasix] 20 mg PO BID 10/24/19 02/12/20 History Multivit-Min/FA/Lycopen/Lutein 1 tab PO DAILY 10/24/19 02/12/20 History [Centrum Silver Tablet] Albuterol Sulfate [Proair Hfa] 1 - 2 puff INHALATION RT-QID PRN 02/12/20 02/12/20 History Metoprolol Tartrate [Lopressor] 50 mg PO BID 02/12/20 02/12/20 History Nicotine Polacrilex [Nicorette] 2 mg BC Q3-4H PRN 02/12/20 02/12/20 History Tiotropium [place] [Spiriva 1 puff INHALATION RT-DAILY 02/12/20 02/12/20 History Respimat] Allergies Allergy/AdvReac Type Severity Reaction Status Date / Time No Known Allergies Allergy Verified 02/12/20 11:53 Physical Examination - Vital Signs Vital Signs: Vital Signs Temp Pulse Pulse Resp BP Pulse Ox 02/19/20 07:50 80 02/19/20 07:34 82 02/19/20 03:55 97.9 F 95 19 117/65 94 L 02/19/20 01:34 16 02/18/20 23:13 98.7 F 91 16 112/68 95 02/18/20 22:02 79 02/18/20 21:52 79 02/18/20 20:00 98.2 F 88 19 100/66 92 L 02/18/20 16:00 98.5 F 70 16 98/59 97 02/18/20 14:00 98 18 02/18/20 12:00 98.5 F 98 18 112/62 92 L 02/18/20 11:47 84 02/18/20 11:38 76 02/18/20 09:00 84 02/18/20 08:52 88 02/18/20 08:00 96 16 124/74 95 Intake and Output 02/18/20 02/19/20 02/19/20 22:59 06:59 14:59 Intake Total 462 Output Total 650 Balance -188 Intake: Oral 462 Output: Urine 650 Other: Voiding Method Urinal Urinal # Voids 1 1 Weight 159 kg GENERAL: The patient is obese gentleman lying in bed and is not in acute distress. CHEST: The heart rate is regular rate rhythm. No murmurs to auscultation. No carotid bruit bilaterally. LUNG: Clear to auscultation bilaterally no wheezing noted throughout. Not labored breathing. ABDOMEN/GI: Bowel sounds present in all 4 quadrants. No tenderness to palpation throughout. INTEGUMENTARY: Edema of lower extremities. NEUROLOGICAL: Higher mental function: The patient is awake, alert, oriented to self, place and time. Patient is following commands. No aphasia and no neglect. Cranial nerves: The pupils are round, equal and reactive to light and accommodation. Visual escamilla are full to confrontation throughout. Extraocular movement is intact no nystagmus is noted. Facial sensation is normal to touch throughout. The facial strength is normal throughout. Hearing is normal bilaterally to hand rub. Tongue is midline and moved [id number] without any difficulty. No dysarthria is noted. Shoulder shrug is normal bilaterally. Motor:Gait is deferred. The strength is 5 over 5 throughout. Normal tone and bulk. Cerebellum: Normal finger to nose bilaterally. Sensation: Sensation is normal to touch throughout. Reflexes (right/left): 2+ in bilateral upper extremities and 1+ patellar (but is limited because of edema and body habitus). Ankle not assessed since wrapped . Results - Laboratory Findings CBC and BMP: 02/19/20 10:39 02/19/20 10:39 Abnormal Lab Findings: Abnormal Labs 02/12/20 02/12/20 02/12/20 10:44 10:44 10:44 RBC 4.13 L Hgb 11.8 L Hct 36.2 L MCHC RDW 16.8 H Potassium 3.0 L Chloride Carbon Dioxide 37 H Glucose 192 H POC Glucose (mg/dL) Calcium 8.2 L Creatine Kinase 27 L Troponin I 0.059 H* Albumin 3.3 L 02/12/20 02/12/20 02/13/20 14:45 16:53 08:13 RBC 4.16 L Hgb 11.4 L Hct 37.7 L MCHC 30.2 L RDW 16.5 H Potassium Chloride Carbon Dioxide Glucose POC Glucose (mg/dL) Calcium Creatine Kinase Troponin I 0.057 H* 0.061 H* Albumin 02/13/20 02/13/20 02/13/20 08:13 14:09 16:48 RBC Hgb Hct MCHC RDW Potassium 3.1 L 2.7 L* Chloride 93 L Carbon Dioxide 46 H* Glucose 150 H POC Glucose (mg/dL) 159 H Calcium 8.2 L Creatine Kinase Troponin I Albumin 02/14/20 02/14/20 02/15/20 07:00 07:00 07:51 RBC 3.94 L 4.03 L Hgb 11.0 L 11.4 L Hct 35.3 L 36.3 L MCHC RDW 16.5 H 16.5 H Potassium Chloride 96 L Carbon Dioxide 43 H* Glucose 135 H POC Glucose (mg/dL) Calcium 8.1 L Creatine Kinase Troponin I Albumin 02/15/20 02/17/20 02/17/20 07:51 17:27 19:35 RBC Hgb 12.6 L Hct MCHC RDW 16.4 H Potassium Chloride 95 L Carbon Dioxide 41 H* Glucose 167 H POC Glucose (mg/dL) 113 H Calcium Creatine Kinase Troponin I Albumin 02/17/20 02/18/20 19:43 10:45 RBC Hgb Hct MCHC RDW Potassium 5.8 H Chloride Carbon Dioxide 37 H 39 H Glucose 121 H 141 H POC Glucose (mg/dL) Calcium Creatine Kinase Troponin I Albumin Assessment and Plan Assessment: This is a 69-year-old gentleman with multiple medical problems that presented to the emergency department on 02/12/2020 with complaint of dizziness for the past 1 week. Was felt by the medical team that the dizziness was due to his A. fib with RVR , hyperkalemia and dehydration. He underwent brochoscopy for biopsy of the right upper lobe lung mass on 02/17/2020 and it was felt that the patient was normal as responsive or verbalizing as prior to the procedure per patient nurse. Neurology is consulted for questionable transient ischemic attack Ecephalopathy likely due to post-sedation effect from procedure (bronchoscopy and Xanax)---resolved. Unlikely TIA. Dizziness, lightheadedness unknown clear etiology but was felt possibly related to A. fib with RVR hypokalemia and dehydration. Mild Bilateral internal Carotid stenosis 35% (per carotid duplex) History of right upper lung mass status post biopsy on 02/17/2020 Chronic atrial fibrillation on Elqiuis Hypokalemia on presentation was 3.0 then got as low as 2.7--resolved Hypertension Obstructive sleep apnea Chronic venous stasis with chronic lymphedema Ulceration of the lower extremities bilaterally Hyperlipidemia Extreme debility with difficulty with mobility and gait and poor performance in functional status Ex-tobacco use (smoked for 50 years 2PPD) quit about 1 year ago Ex alcohol use and quit 2010 Plan: Since the patient is back to baseline. There is no need for repeat imaging. If patient has further episodes or any focality then recommend MRI Brain if able to fit in the machine and if not then repeat CT head. Please avoid sedation, opiates or narcotics which can impact neurological status. Patient is on Eliquis 5 mg twice a day. I will add Asiprin 81mg and increase Lipitor from 10mg to 40mg because of mild carotid stenosis. Occupation therapy and physical therapy are on board. Will consult speech therapy. Continue neuro checks every 4 hours TSH pending. Ammonia level pending. Hemoglobin A1c is pending Lipid panel is pending Vitamin B12 and folate ordered. Thank you for the consultation. The plan was discussed with the patient and his nurse. Reese Joe M.D. Neuro-hospitalist Time with Patient: Less than 30
[2020-02-19 11:08] LABS: Anisocytosis Slight; Basophils % (A) 1 %; Eosinophils # (A) 0.2 k/uL (0-0.7); Eosinophils % (A) 4 %; HCT 35.3 % (39.0-53.0); HGB 11.1 gm/dL (13.0-17.5); Hypochromasia Marked; Lymphocytes # (A) 1.5 k/uL (1.0-4.8); Lymphocytes % (A) 25 %; MCH 28.4 pg (25.0-35.0); MCHC 31.5 g/dL (31.0-37.0); Mean Platelet Volume 7.7; Monocytes # (A) 0.4 k/uL (0-1.0); Monocytes % (A) 6 %; Neutrophils # (A) 3.7 k/uL (1.3-7.7); Neutrophils % (A) 62 %; Platelet Count 204 k/uL (150-450); RBC 3.92 m/uL (4.30-5.90); RDW 16.5 % (11.5-15.5); WBC 5.9 k/uL (3.8-10.6)
--- NOTE | 2020-02-19 11:11 | ECHOF ---
Referral Reason:stroke MEASUREMENTS -------- HEIGHT: 182.9 cm WEIGHT: 158.8 kg BP: 117/65 RVIDd: 4.1 cm (< 3.3) IVSd: 1.5 cm (0.6 - 1.1) LVIDd: 4.4 cm (3.9 - 5.3) LVPWd: 1.8 cm (0.6 - 1.1) IVSs: 2.4 cm LVIDs: 2.8 cm LVPWs: 2.1 cm LA Diam: 4.8 cm (2.7 - 3.8) Ao Diam: 3.4 cm (2.0 - 3.7) AV Cusp: 1.8 cm (1.5 - 2.6) MV EXCURSION: 21.020 mm (> 18.000) MV EF SLOPE: 129 mm/s (70 - 150) EPSS: 0.5 cm FINDINGS -------- Atrial fibrillation. This was a technically difficult study with suboptimal views. The left ventricular size is normal. There is severe concentric left ventricular hypertrophy. Ove rall left ventricular systolic function is normal with, an EF between 55 - 60 %. The right ventricle is moderately enlarged. The left atrium is moderately dilated. 5 ml of Lumason was utilized for enhancement of images. The aortic valve was not well visualized. The mitral valve was not well visualized. The tricuspid valve was not well visualized. The pulmonic valve was not well visualized. The aortic root size is normal. IVC Not well visulized. There is no pericardial effusion. CONCLUSIONS -------- 1. This was a technically difficult study with suboptimal views. 2. There is severe concentric left ventricular hypertrophy. 3. Overall left ventricular systolic function is normal with, an EF between 55 - 60 %. 4. The right ventricle is moderately enlarged. 5. The left atrium is moderately dilated. 6. 5 ml of Lumason was utilized for enhancement of images. 7. There is no pericardial effusion. DATA CAPTURE SPECIALIST: Jackie Driver RDCS
[2020-02-19 11:39] LABS: African American GFR (CKD) >90 (>60 ml/min/1.73 sqM); Anion Gap 2 mmol/L; Blood Urea Nitrogen 12 mg/dL (9-20); Calcium 8.6 mg/dL (8.4-10.2); Carbon Dioxide 40 mmol/L (22-30); Chloride 97 mmol/L (98-107); Cholesterol 118 mg/dL (<200); Glucose 165 mg/dL (74-99); HDL Cholesterol 30 mg/dL (40-60); LDL Cholesterol,Calculated 70 mg/dL (0-99); Non-African American GFR(CKD) >90 (>60 ml/min/1.73 sqM); Sodium 139 mmol/L (137-145); Triglycerides 91 mg/dL (<150)
[2020-02-19] MEDS: ASPIRIN 81 MG PO SCH (12:58)
--- NOTE | 2020-02-19 14:58 | P.PN ---
Subjective Progress Note Date: 02/19/20 Principal diagnosis: Dizziness, secondary to A. fib and rapid ventricular response, hypokalemia This is a 69-year-old gentleman with a history of chronic obstructive pulmonary disease, chronic atrial fibrillation, obesity, obstructive sleep apnea, chronic venous stasis with chronic lymphedema and ulceration of the lower extremities bilaterally, hyperlipidemia, known history of a right upper lobe mass measuring 2.7 cm in size suspicious for malignancy back in October 2019. The patient did not follow up with us stating he couldn't obtain a ride for further evaluation of his COPD and probable PET scan and biopsies. He does have history of noncompliance to his social inabilities. No family support. He presented to the hospital yesterday with complaints of dizziness, lightheadedness, shortness of breath. CAT scan of the brain revealed age-related atrophic and chronic small vessel ischemic changes without acute intracranial processes at this time. He is seen today in consultation on the selective care unit. He is currently resting in bed. Awake and alert in no acute distress. Maintaining O2 saturations in the 90s on 2 L/m per nasal cannula. He is afebrile. Hemodynamically stable. White count 8.3. Hemoglobin 11.4. Sodium 142. Potassium 3.1. Bicarb 46. Creatinine 0.69. Troponin 0.057. 0.061. ProBNP 1100. Chest x-ray reveals no evidence of acute pulmonary disease. There is a 4 cm right upper lobe mass redemonstrated. Suspect malignancy. The patient is seen today 02/14/2020 in follow-up on the selective care unit. He is currently sitting up in a chair at the bedside. Awake and alert in no acute distress. Denies any worsening dizziness lightheadedness. No chest pain or palpitations. No worsening shortness of breath, cough or congestion. He is maintaining O2 saturation in the 90s on 2 L/m per nasal cannula. He's been afebrile. Hemodynamically stable. White count 7.3. Hemoglobin 11.0. Sodium 142. Potassium 4.3. A 43. Creatinine 0.66. On 2019 patient seen in follow-up she sits up in the chair, in no acute distress, no worsening shortness of breath, he is on room air, his been nothing by mouth after midnight for a navigational bronchoscopy for biopsy of the right upper lobe lung mass. Vital signs have been stable overnight, has had no fever or chills, blood pressure stable, his labs have been reviewed, white blood cell count is 6.7, hemoglobin is 11.4, sodium is 139, potassium is 3.9, chloride is 95, CO2 is 41, B1 is 12, creatinine 0.67. No hemoptysis, no chest pain. On 02/18/2020 patient seen in follow-up on selective care unit, he is awake and alert, he was a bit slow to respond, a bit more drowsy today, although opening eyes spontaneously, answering questions seems inattentive, but he knew she was in the hospital, he knew the month, and the year. She is on 3 L of oxygen the pulse ox 97%, no fever or chills, lung sounds are clear, diminished at the bases, his lung biopsy results are still pending at this time, his BAL cultures are pending, Gram stain is showing no organisms. On 02/19/2020 patient seen in follow-up on selective care unit, he is calm and comfortable, sitting up in the recliner, his confusion has improved, to be back to baseline, room air pulse ox of 95%, no fever or chills, hemodynamically has been stable, his biopsy results are in and were nondiagnostic of mass lesion or malignancy. Patient has had no acute events overnight, denies any worsening shortness of breath, no wheezing, no cough, no chest pain, he remains on oral Lasix, Symbicort, his Eliquis was restarted. Objective - Vital Signs Vital signs: Vital Signs Temp 97.7 F 02/19/20 12:00 Pulse 90 02/19/20 12:00 Resp 16 02/19/20 12:00 BP 111/64 02/19/20 12:00 Pulse Ox 95 02/19/20 12:00 Intake & Output 02/18/20 02/19/20 02/19/20 18:59 06:59 18:59 Intake Total 840 222 360 Output Total 015 845 3725 Balance 490 -10 -858 Weight 151.8 kg 159 kg Intake: Oral 840 222 360 Output: Urine 242 888 9549 Other: Voiding Method Urinal Urinal Urinal # Voids 2 1 - Exam GENERAL EXAM: Alert, pleasant, 69-year-old obese white male, sitting up in the recliner, on room air, with pulse ox of 95%, comfortable in no apparent distress. HEAD: Normocephalic/atraumatic. EYES: Normal reaction of pupils, equal size. Conjunctiva pink, sclera white. NOSE: Clear with pink turbinates. THROAT: No erythema or exudates. NECK: No masses, no JVD, no thyroid enlargement, no adenopathy. CHEST: No chest wall deformity. Symmetrical expansion. LUNGS: Equal air entry with no crackles, wheeze, rhonchi or dullness. CVS: Regular rate and rhythm, normal S1 and S2, no gallops, no murmurs, no rubs ABDOMEN: Soft, nontender. No hepatosplenomegaly, normal bowel sounds, no guarding or rigidity. EXTREMITIES: No clubbing, no edema, no cyanosis, 2+ pulses and upper and lower extremities. MUSCULOSKELETAL: Muscle strength and tone normal. SPINE: No scoliosis or deformity SKIN: No rashes CENTRAL NERVOUS SYSTEM: Alert and oriented -3. No focal deficits, tone is normal in all 4 extremities. PSYCHIATRIC: Alert and oriented -3. Appropriate affect. Intact judgment and insight. - Labs CBC & Chem 7: 02/19/20 10:39 02/19/20 10:39 Labs: Abnormal Lab Results - Last 24 Hours (Table) 02/19/20 02/19/20 Range/Units 10:39 10:39 RBC 3.92 L (4.30-5.90) m/uL Hgb 11.1 L (13.0-17.5) gm/dL Hct 35.3 L (39.0-53.0) % RDW 16.5 H (11.5-15.5) % Chloride 97 L (98-107) mmol/L Carbon Dioxide 40 H (22-30) mmol/L Glucose 165 H (74-99) mg/dL HDL Cholesterol 30 L (40-60) mg/dL Microbiology - Last 24 Hours (Table) 02/17/20 12:34 Gram Stain - Final Bronchoalviolar Lavage - Right Bronchial Washings Culture - Final 02/17/20 12:34 Acid Fast Bacilli Smear - Final Bronchoalviolar Lavage - Right Acid Fast Bacilli Culture - Preliminary Assessment and Plan Plan: Assessment: #1. Dizziness, lightheadedness of unclear etiology, possibly related to A. fib with RVR, hypokalemia, dehydration #2. Right upper lobe mass, suspicious for malignancy, status post navigational bronchoscopy with endobronchial biopsies today on 2019, and the biopsy results were nondiagnostic #3. COPD #4. Chronic A. fib, on Eliquis for anticoagulation #5. Morbid obesity #6. Obstructive sleep apnea #7. Chronic venous stasis with chronic lymphedema and ulceration of lower extre mity bilaterally #8. Hyperlipidemia #9. Extreme debility with difficulty with mobility and gait and poor performance and functional status #10. Delirium, likely related to procedural sedation, Ativan and Xanax, improved Plan: Biopsy results were nondiagnostic, patient will need outpatient PET scan, if the PET scan is negative no further workup is needed, if the PET scan is positive patient may need repeat bronchoscopy with biopsies. Has been stable from pulmonary/critical care perspective, mentation has improved, seems to be back at baseline. No acute events overnight, can be considered for ECF today or tomorrow. Will need outpatient follow-up with Dr. Mcgovern in 7-10 days I performed a history & physical examination of the patient and discussed their management with my nurse practitioner, Veronique Roberson. I reviewed the nurse practitioner's note and agree with the documented findings and plan of care. Lung sounds are positive for diminished breath sounds. The findings and the impression was discussed with the patient. I attest to the documentation by the nurse practitioner. Time with Patient: Less than 30
[2020-02-19] MEDS: SODIUM CHLORIDE 0.9% 1,000 ML IV SCH (15:15)
--- NOTE | 2020-02-19 17:14 | PN ---
PROGRESS NOTE DATE OF SERVICE: 02/19/2020 This 69-year-old gentleman who was admitted with dizziness secondary to atrial fibrillation also had lung malignancy. Patient underwent bronchoscopy and biopsy. Patient has also extreme weakness. The patient also had possible acute TIA. STROKE CODE was called. Multiple consultants are following the patient closely. A carotid Doppler study was done which showed 35% stenosis of both internal carotid arteries; no hemodynamically significant stenosis. A 2D echo with Doppler was also done which showed ejection fraction about 55% to 60%. PT/OT is evaluating the patient for possible ECF rehab. Past medical history reviewed. REVIEW OF SYSTEMS: CARDIOVASCULAR SYSTEM: No angina, palpitations. RESPIRATORY SYSTEM: As mentioned earlier. GI: As mentioned earlier. : No dysuria or retention. NERVOUS SYSTEM: As mentioned earlier. Extremely weak and unstable in gait. CURRENT MEDICATIONS: Noted. They include [place], Eliquis, aspirin, Lipitor, Lasix, Dilaudid, Lopressor. Doses are reviewed. PHYSICAL EXAMINATION: Patient is alert, oriented x2. Pulse 90, blood pressure 111/65, respiration 16, temperature 97.7, pulse ox 94% on room air. HEENT: Conjunctivae normal. NECK: No jugular venous distention. CARDIOVASCULAR SYSTEM: S1, S2 muffled. RESPIRATORY SYSTEM: Breath sounds diminished at the bases. Scattered rhonchi and crackles. ABDOMEN: Soft, non-tender. LEGS: No edema. No swelling. NERVOUS SYSTEM: Diffusely weak. LABS: WBC 5.9, hemoglobin 11.1, sodium 139, potassium 4. The bronchoscopic viral tests are negative. The biopsy reports are pending at this time. ASSESSMENT: 1. Dizziness, possibly secondary to atrial fibrillation with a fast ventricular rate. 2. Troponin elevated up to 0.04, undetermined etiology. Myocardial infarction unlikely per Cardiology. 3. Brief episode of dysarthria and facial droop, possibly acute transient ischemic attack involving the left hemisphere. 4. Chronic obstructive pulmonary disease, acute exacerbation, with acute hypoxic respiratory failure. 5. Right upper lobe malignancy, status post navigational bronchoscopy and biopsy. 6. Severe hypokalemia. 7. History of noncompliance. 8. Anemia, normocytic. 9. Gait dysfunction. 10.Bilateral stasis dermatitis of the legs. 11.Poor social support. 12.Right upper lobe mass lesion with possible malignancy. 13.Obesity with a body mass index of 67.5. 14.Atrial fibrillation, chronic. 15.History of congestive heart failure with chronic diastolic dysfunction, ejection fraction 55% to 60%. 16.History of chronic obstructive pulmonary disease. 17.Hypertension. 18.Chronic lymphedema. 19.History of sleep apnea. 20.Remote history of nicotine dependence. 21.FULL CODE. RECOMMENDATIONS AND DISCUSSION: I recommend to continue current medications, continue with the monitoring, symptomatic treatment. Otherwise at this time I recommend continuing with the bronchodilators. Continue with the PT/OT evaluation. DVT prophylaxis. Patient was started on Eliquis. Will closely follow with multiple consultants, including Pulmonary as well as Cardiology and Neurology. Await reports of further testing. Otherwise, anticipate ECF rehab at this time because of multiple complex medical conditions. Further recommendations to follow. MMLEONARDL / IJN: [id number] /
[2020-02-19] MEDS: ATORVASTATIN 40 MG TAB PO SCH (20:31)
[2020-02-19 21:21] LABS: Hemoglobin A1C 6.6 % (4.0-6.0)
[2020-02-20] MEDS: PANTOPRAZOLE 40 MG TABLET PO SCH (06:08)
[2020-02-20] MEDS: FUROSEMIDE 40 MG TAB PO SCH ×2 (06:08→14:34)
[2020-02-20 08:55] LABS: Anisocytosis Slight; HCT 35.3 % (39.0-53.0); HGB 10.9 gm/dL (13.0-17.5); Hypochromasia Marked; MCV 90.4 fL (80.0-100.0); Platelet Count 191 k/uL (150-450); RDW 16.5 % (11.5-15.5); WBC 4.9 k/uL (3.8-10.6)
[2020-02-20] MEDS: ASPIRIN 81 MG PO SCH (08:57)
[2020-02-20] MEDS: MULTIVITAMINS, THERA 1 EACH TAB PO SCH (08:57)
[2020-02-20] MEDS: METOPROLOL TARTRATE 25 MG TAB PO SCH ×2 (08:58→20:29)
[2020-02-20] MEDS: CHOLECALCIFEROL 1,000 UNIT TAB PO SCH (08:58)
[2020-02-20] MEDS: APIXABAN 5 MG TAB PO SCH ×2 (08:58→20:29)
[2020-02-20 09:16] LABS: African American GFR (CKD) >90 (>60 ml/min/1.73 sqM); Blood Urea Nitrogen 17 mg/dL (9-20); Calcium 8.3 mg/dL (8.4-10.2); Chloride 96 mmol/L (98-107); Glucose 128 mg/dL (74-99); Non-African American GFR(CKD) >90 (>60 ml/min/1.73 sqM); Potassium 3.7 mmol/L (3.5-5.1); Sodium 140 mmol/L (137-145)
[2020-02-20 09:23] LABS: Anion Gap 3 mmol/L
[2020-02-20 09:29] LABS: Carbon Dioxide 41 mmol/L (22-30)
[2020-02-20 09:40] LABS: Eosinophils # (M) 0.15 k/uL (0-0.7); Lymphocytes # (M) 1.62 k/uL (1.0-4.8); Neutrophils # (M) 2.94 k/uL (1.3-7.7); Neutrophils % (M) 60 %; Nucleated Red Blood Cells 0 /100 WBC (0-0); Total Cells Counted 100
[2020-02-20 09:41] LABS: Poikilocytosis (M) Present
[2020-02-20] MEDS: IPRATROPIUM 0.5 MG/2.5 ML NEBU INHALATION SCH ×4 (12:09→20:49)
[2020-02-20] MEDS: SYMBICORT 160-4.5 MCG INHALER INHALATION SCH ×2 (12:09→20:49)
[2020-02-20] MEDS: SODIUM CHLORIDE 0.9% 1,000 ML IV SCH (14:35)
--- NOTE | 2020-02-20 14:35 | PN ---
PROGRESS NOTE PULMONARY/CRITICAL CARE PROGRESS NOTE: February 20, 2020 HISTORY: This is a 69-year-old gentleman who was admitted on February 11. We were asked to see him for right upper lobe mass. We took him to the operating room for electromagnetic navigational bronchoscopy. We had good localization. Samples were negative. This may not even be a cancer. Nonetheless, the patient should have an outpatient PET scan. In addition, I will see him back in the office. He is going to be discharged from the hospital apparently on Saturday to a senior living. The patient has a history of dizziness, related to atrial fibrillation with RVR, COPD, morbid obesity, sleep apnea syndrome, chronic venous stasis and chronic lymphedema of the lower extremities, hyperlipidemia, and general medical debility. Currently, he is awake and alert. PHYSICAL EXAMINATION: Currently temperature 97.9, heart rate 87, respiratory rate 18, blood pressure 107/72 mean 83, 2 L saturation 98%. GENERAL: Appears in no acute distress. HEENT: Examination is grossly unremarkable. Nasal O2 noted. NECK: Supple. Full range of motion. No adenopathy. Neck veins are flat. CARDIOVASCULAR: Examination reveals regular rhythm and rate. S1, S2 normal. No S3, S4, or murmur. LUNGS: Reveal mostly clear breath sounds. No wheezes, rhonchi, or crackles. ABDOMEN: Obese. Bowel sounds are heard. EXTREMITIES: Reveal some lower extremity edema. SKIN: Without rash. NEUROLOGIC: Examination is nonfocal. He is much more awake and alert than he was a couple days ago. LABS: Reviewed. White count 4.9, hemoglobin 10.9, hematocrit 35.3, platelet count 191,000. Sodium 140, potassium 3.7, chloride 96, CO2 41. Anion gap is 3, BUN and creatinine were 17 and 0.66. Microbiology is currently all negative. Bronch washes are thus far negative for micro. No recent chest x-ray. MEDICATIONS: Reviewed. Currently, the patient is on albuterol updrafts, Eliquis, aspirin, Lipitor, Symbicort, vitamin D3, Lasix, [place], Dilaudid, Atrovent updrafts, magnesium per protocol, metoprolol, Eucerin cream, multivitamins, Narcan, nicotine patch, Protonix, potassium replacement, and saline IV. ASSESSMENT: 1. Right upper lobe mass, this is suspicious for malignancy, status post electromagnetic navigational bronchoscopy on February 16, biopsy results were nondiagnostic/negative. The patient will need an outpatient PET scan for further evaluation. 2. Dizziness, resolved, secondary to atrial fibrillation with RVR. 3. Chronic obstructive pulmonary disease, reasonably stable. 4. Chronic atrial fibrillation. 5. Morbid obesity. 6. Sleep apnea syndrome. 7. Chronic venous stasis and chronic lymphedema and ulceration of the lower extremities bilaterally. 8. Hyperlipidemia. 9. General medical debility. 10.Delirium, improved. PLAN: Currently, the patient's biopsies were negative. I explained that to the patient. I told him that they may be truly negative and we may just need to follow him with serial CT scans. I would favor a PET scan in the outpatient setting. He will come back to see me in the office. Additional recommendations and suggestions are forthcoming. He apparently is supposed to be discharged on Saturday to the senior living. MMALEXANDRA / YULI: [id number] /
[2020-02-20] MEDS: ATORVASTATIN 40 MG TAB PO SCH (20:29)
[2020-02-21] MEDS: PANTOPRAZOLE 40 MG TABLET PO SCH (06:27)
[2020-02-21] MEDS: FUROSEMIDE 40 MG TAB PO SCH ×2 (06:27→14:42)
[2020-02-21] MEDS: SYMBICORT 160-4.5 MCG INHALER INHALATION SCH ×2 (09:18→20:52)
[2020-02-21] MEDS: IPRATROPIUM 0.5 MG/2.5 ML NEBU INHALATION SCH ×4 (09:18→20:52)
[2020-02-21 09:23] LABS: African American GFR (CKD) >90 (>60 ml/min/1.73 sqM); Blood Urea Nitrogen 17 mg/dL (9-20); Calcium 8.4 mg/dL (8.4-10.2); Chloride 96 mmol/L (98-107); Glucose 128 mg/dL (74-99); Non-African American GFR(CKD) >90 (>60 ml/min/1.73 sqM); Potassium 3.5 mmol/L (3.5-5.1); Sodium 139 mmol/L (137-145)
[2020-02-21] MEDS: METOPROLOL TARTRATE 25 MG TAB PO SCH ×2 (09:26→20:09)
[2020-02-21] MEDS: CHOLECALCIFEROL 1,000 UNIT TAB PO SCH (09:26)
[2020-02-21] MEDS: MULTIVITAMINS, THERA 1 EACH TAB PO SCH (09:26)
[2020-02-21] MEDS: APIXABAN 5 MG TAB PO SCH ×2 (09:26→20:09)
[2020-02-21] MEDS: ASPIRIN 81 MG PO SCH (09:26)
[2020-02-21 09:27] LABS: Anisocytosis Slight; HCT 35.1 % (39.0-53.0); HGB 11.2 gm/dL (13.0-17.5); Hypochromasia Moderate; MCH 28.4 pg (25.0-35.0); MCHC 31.8 g/dL (31.0-37.0); MCV 89.3 fL (80.0-100.0); Mean Platelet Volume 8.1; Platelet Count 201 k/uL (150-450); RBC 3.93 m/uL (4.30-5.90); RDW 16.5 % (11.5-15.5); WBC 6.2 k/uL (3.8-10.6)
[2020-02-21 09:31] LABS: Anion Gap 2 mmol/L; Carbon Dioxide 41 mmol/L (22-30)
[2020-02-21 10:59] LABS: Eosinophils # (M) 0.12 k/uL (0-0.7); Lymphocytes # (M) 1.74 k/uL (1.0-4.8); Monocytes # (M) 0.43 k/uL (0-1.0); Neutrophils # (M) 3.91 k/uL (1.3-7.7); Neutrophils % (M) 63 %; Nucleated Red Blood Cells 0 /100 WBC (0-0); Total Cells Counted 100
[2020-02-21 14:36] LABS: Appearance,Urine Clear (Clear); Bilirubin,Urine Negative (Negative); Blood,Urine Negative (Negative); Color,Urine Yellow; Glucose,Urine (UA) Negative (Negative); Ketones,Urine Negative (Negative); Leukocyte Esterase,Urine Negative (Negative); Nitrite,Urine Negative (Negative); PH, Urine 6.5 (5.0-8.0); Protein,Urine Negative (Negative); Specific Gravity,Urine 1.008 (1.001-1.035)
[2020-02-21] MEDS: SODIUM CHLORIDE 0.9% 1,000 ML IV SCH (14:42)
--- NOTE | 2020-02-21 17:24 | PN ---
PROGRESS NOTE PULMONARY/CRITICAL CARE PROGRESS NOTE: This is a 69-year-old gentleman who was admitted back on February 11. We were asked to see him for right upper lobe mass. He went to the operating room for electromagnetic navigational bronchoscopy. We had excellent localization. Samples were negative. Anyway, I told the patient that I would like to see him in the outpatient setting. We will do an outpatient PET scan and will proceed from there. Currently, he is doing relatively well. He looks to be discharged possibly tomorrow to a senior living. The only concern I have is whether or not he is going to have transportation back to the office. The patient has a history of dizziness related to atrial fibrillation with RVR, COPD, morbid obesity, sleep apnea syndrome, chronic venous stasis and chronic lymphedema of the lower extremities, hyperlipidemia, and general medical debility. PHYSICAL EXAMINATION: VITAL SIGNS: Current vital signs are reviewed. His temperature is 97.9 heart rate 74, respiratory rate is 16, blood pressure 151/69, mean 96 and 2 L saturation 99%. Appears in no acute distress. HEENT: Examination is grossly unremarkable. NECK: Supple, full range of motion. No adenopathy. Neck veins are flat. CARDIOVASCULAR: Examination reveals regular rhythm and rate. S1, S2 normal. No S3, S4, or murmur. LUNGS: Reveal mostly clear breath sounds. No wheezes or rhonchi. A few scattered crackles. ABDOMEN: Soft but obese. EXTREMITIES are intact. There is chronic edema. SKIN: Without rash. NEUROLOGIC: Examination is nonfocal. LABS: Reviewed. White count 6.2, hemoglobin 11.2, hematocrit 35.1, platelet count normal. Sodium 139, potassium 3.5, chloride 96, CO2 41. Anion gap is 2. BUN and creatinine were 17 and 0.65. Urine was negative. Microbiology is all negative. Bronch wash so far negative for fungus, AFB, and bacteria. No recent x-ray to review. CURRENT MEDICATIONS: Reviewed. The patient is on albuterol and updrafts, Eliquis, aspirin, Lipitor, Symbicort, vitamin D3, Lasix, [place], Dilaudid p.r.n., Atrovent updrafts, magnesium replacement protocol, Lopressor, Eucerin cream, multivitamins, Narcan, Nicorette gum, Protonix, potassium replacement protocol, and saline at 20 mL an hour. ASSESSMENT: 1. Right upper lobe mass, suspicious for malignancy, status post electromagnetic navigational bronchoscopy on February 16. Biopsy results were nondiagnostic/negative despite excellent localization. The patient will be scheduled for an outpatient PET scan and follow up with me. 2. Dizziness, resolved, secondary to atrial fibrillation with rapid ventricular rate. 3. Chronic obstructive pulmonary disease, stable. 4. Chronic atrial fibrillation. 5. Morbid obesity. 6. Sleep apnea syndrome. 7. Chronic venous stasis and chronic lymphedema and ulceration of lower extremities, bilaterally. 8. Hyperlipidemia. 9. General medical debility. 10.Delirium, improved. PLAN: I explained to the patient his biopsies were negative. I told him we should be cautiously optimistic. An outpatient PET scan will shed some light as to whether or not this lesion is potentially malignant or not. Additional recommendations and suggestions are forthcoming. Appointments have been made to follow up in the office. We will make sure that we get him scheduled for an outpatient PET scan. MMODL / IJN: [id number] /
[2020-02-21] MEDS: ATORVASTATIN 40 MG TAB PO SCH (20:09)
--- NOTE | 2020-02-22 00:21 | P.PN ---
Subjective Progress Note Date: 02/20/20 Patient is a 69-year-old male was admitted to hospital due to dizziness secondary to atrial fibrillation and also has suspected lung malignancy. Patient underwent bronchoscopy and biopsy. No evidence of nodules as noted. Patient also had acute TIA and stroke code was called. Patient is being followed by multiple consultations. Carotid duplex showed 35% stenosis of both internal carotid arteries. No hemodynamic significant stenosis. 2D echocardiogram was done which showed ejection fraction 55 to 60%. PT OT is evaluating him for possible ECF transfer. 02/20/2020 Patient is currently sitting in a chair awake alert and oriented. Requiring oxygen at 2 L via nasal cannula. No complaints of chest pain or shortness of breath. Bilateral leg swelling is improving. Continued on Lasix 40 mg twice daily and also on breathing treatments. Anticoagulation the form of Eliquis. Cardiology and pulmonary is on board. Possible transfer to rehab on Saturday. Current medications reviewed. Objective - Vital Signs Vital signs: Vital Signs Temp 97.9 F 02/20/20 08:00 Pulse 77 02/20/20 16:47 Resp 18 02/20/20 04:00 BP 107/72 02/20/20 12:00 Pulse Ox 98 02/20/20 12:00 Intake & Output 02/19/20 02/20/20 02/20/20 18:59 06:59 18:59 Intake Total 960 360 Output Total 2049 1200 625 Balance -1090 -1200 -265 Weight 158.7 kg Intake: Oral 960 360 Output: Urine 2049 1200 625 Other: Voiding Method Urinal Urinal # Voids 3 - Exam PHYSICAL EXAMINATION: Patient is lying in the bed comfortably, no acute distress, awake alert and oriented.. HEENT: Normocephalic. Neck is supple. Pupils reactive. Nostrils clear. Oral cavity is moist. Ears reveal no drainage. Neck reveals no JVD, carotid bruits, or thyromegaly. CHEST EXAMINATION: Trachea is central. Symmetrical expansion. Basilar diminished air entry.. Lung escamilla clear to auscultation and percussion. CARDIAC: Normal S1, S2 with no gallops. No murmurs ABDOMEN: Soft. Bowel sounds normal. No organomegaly. No abdominal bruits. Extremities: 3+ edema. No clubbing or cyanosis Neurologically awake, alert, oriented x3 with well-coordinated movements. No focal deficits noted Skin: No rash or skin lesions. Psychiatric: Coperative. Nonsuicidal Musculoskeletal: No joint swelling or deformity. Normal range of motion. - Labs CBC & Chem 7: 02/21/20 08:18 02/21/20 08:18 Labs: Abnormal Lab Results - Last 24 Hours (Table) 02/19/20 02/20/20 02/20/20 Range/Units 10:39 08:00 08:00 RBC 3.90 L (4.30-5.90) m/uL Hgb 10.9 L (13.0-17.5) gm/dL Hct 35.3 L (39.0-53.0) % RDW 16.5 H (11.5-15.5) % Chloride 96 L (98-107) mmol/L Carbon Dioxide 41 H* (22-30) mmol/L Glucose 128 H (74-99) mg/dL Hemoglobin A1c 6.6 H (4.0-6.0) % Calcium 8.3 L (8.4-10.2) mg/dL Assessment and Plan Assessment: Dizziness possibly secondary to atrial fibrillation with rapid regular rate. Improved now Elevated troponin level unlikely acute NH per cardiology. Likely due to A. fib Brief episode of dysarthria and facial droop possible acute TIA. Seen by neurology. 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 Negative study and outpatient pulmonary follow-up with PET scan was recommended. Severe hypokalemia improved Noncompliance history Gait dysfunction Normocytic anemia Bilateral venous stasis with chronic edema Obesity with a BMI 67.5. Morbid obesity Chronic atrial fibrillation on anticoagulation Chronic CHF with diastolic function Hypertension History of's obstructive sleep apnea Previous history of nicotine addiction Patient is full code currently Plan: Patient will be continued on breathing treatments continue with Lasix continue with current management and anticoagulation with Eliquis. PT OT and follow-up closely. Patient was seen by cardiology pulmonary and neurology. Anticipate discharge to F on Saturday. Time with Patient: Greater than 30
--- NOTE | 2020-02-22 00:22 | P.PN ---
Subjective Progress Note Date: 02/21/20 Principal diagnosis: Dizziness possibly secondary to atrial fibrillation with rapid regular rate. Improved now Patient is a 69-year-old male was admitted to hospital due to dizziness secondary to atrial fibrillation and also has suspected lung malignancy. Patient underwent bronchoscopy and biopsy. No evidence of nodules as noted. Patient also had acute TIA and stroke code was called. Patient is being followed by multiple consultations. Carotid duplex showed 35% stenosis of both internal carotid arteries. No hemodynamic significant stenosis. 2D echocardiogram was done which showed ejection fraction 55 to 60%. PT OT is evaluating him for possible ECF transfer. 02/20/2020 Patient is currently sitting in a chair awake alert and oriented. Requiring oxygen at 2 L via nasal cannula. No complaints of chest pain or shortness of breath. Bilateral leg swelling is improving. Continued on Lasix 40 mg twice daily and also on breathing treatments. Anticoagulation the form of Eliquis. Cardiology and pulmonary is on board. Possible transfer to rehab on Saturday. 02/21/2020 Patient is currently resting in the bed comfortably. No complaints of chest pain or shortness of breath. No nausea vomiting or abdominal pain. Laboratory data showed sodium 139, potassium 3.5, chloride 96, bicarb is 41, BUN 17 and creatinine 0.65 Dizziness possibly secondary to atrial fibrillation with rapid regular rate. Improved now will be discharged to rehab for physical therapy. No other acute overnight issues. Continue current management. Current medications reviewed. Current medications reviewed. Objective - Vital Signs Vital signs: Vital Signs Temp 97.9 F 02/21/20 08:00 Pulse 77 02/21/20 17:02 Resp 16 02/21/20 04:00 BP 151/69 02/21/20 12:00 Pulse Ox 99 02/21/20 12:00 Intake & Output 02/20/20 02/21/20 02/21/20 18:59 06:59 18:59 Intake Total 1320 720 Output Total 1575 980 575 Balance -255 -980 145 Weight 158.2 kg Intake: Oral 1320 720 Output: Urine 1575 980 575 Other: Voiding Method Urinal # Voids 1 - Exam PHYSICAL EXAMINATION: Patient is lying in the bed comfortably, no acute distress, awake alert and oriented.. HEENT: Normocephalic. Neck is supple. Pupils reactive. Nostrils clear. Oral cavity is moist. Ears reveal no drainage. Neck reveals no JVD, carotid bruits, or thyromegaly. CHEST EXAMINATION: Trachea is central. Symmetrical expansion. Basilar diminished air entry.. Lung escamilla clear to auscultation and percussion. CARDIAC: Normal S1, S2 with no gallops. No murmurs ABDOMEN: Soft. Bowel sounds normal. No organomegaly. No abdominal bruits. Extremities: 3+ edema. No clubbing or cyanosis Neurologically awake, alert, oriented x3 with well-coordinated movements. No focal deficits noted Skin: No rash or skin lesions. Psychiatric: Coperative. Nonsuicidal Musculoskeletal: No joint swelling or deformity. Normal range of motion. - Labs CBC & Chem 7: 02/21/20 08:18 02/21/20 08:18 Labs: Abnormal Lab Results - Last 24 Hours (Table) 02/21/20 02/21/20 Range/Units 08:18 08:18 RBC 3.93 L (4.30-5.90) m/uL Hgb 11.2 L (13.0-17.5) gm/dL Hct 35.1 L (39.0-53.0) % RDW 16.5 H (11.5-15.5) % Chloride 96 L (98-107) mmol/L Carbon Dioxide 41 H* (22-30) mmol/L Creatinine 0.65 L (0.66-1.25) mg/dL Glucose 128 H (74-99) mg/dL Assessment and Plan Assessment: Dizziness possibly secondary to atrial fibrillation with rapid regular rate. Improved now Elevated troponin level unlikely acute WA per cardiology. Likely due to A. fib Brief episode of dysarthria and facial droop possible acute TIA. Seen by lisa man. 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 Negative study and outpatient pulmonary follow-up with PET scan was recommended. Severe hypokalemia improved Noncompliance history Gait dysfunction Normocytic anemia Bilateral venous stasis with chronic edema Obesity with a BMI 67.5. Morbid obesity Chronic atrial fibrillation on anticoagulation Chronic CHF with diastolic function Hypertension History of's obstructive sleep apnea Previous history of nicotine addiction Patient is full code currently Plan: Patient will be continued on breathing treatments continue with Lasix continue with current management and anticoagulation with Eliquis. PT OT and follow-up closely. Patient was seen by cardiology pulmonary and neurology. Anticipate discharge to [facility] on Saturday. Time with Patient: Greater than 30
[2020-02-22] MEDS: FUROSEMIDE 40 MG TAB PO SCH ×2 (06:39→17:40)
[2020-02-22] MEDS: PANTOPRAZOLE 40 MG TABLET PO SCH (06:39)
[2020-02-22] MEDS: IPRATROPIUM 0.5 MG/2.5 ML NEBU INHALATION SCH ×4 (08:09→19:32)
[2020-02-22] MEDS: SYMBICORT 160-4.5 MCG INHALER INHALATION SCH ×2 (08:09→19:31)
--- NOTE | 2020-02-22 10:00 | P.PN ---
Subjective Progress Note Date: 02/22/20 69-year-old male patient is being seen in follow-up. The patient has a right upper lobe mass and the biopsy was nondiagnostic. A suspicion for malignancy was quite high. Based on that, the patient will undergo rehabilitation is still be also handled on outpatient basis following a PET scan under the care of . He is doing well. His having generalized weakness. He'll possibly go to [facility] on the waite. He is known to have COPD. Is morbidly obese and has a productive sleep apnea. He also has atrial fibrillation. He has chronic venous stasis and lymphedema lower extremities. He has hyperlipidemia and overall he is quite debilitated currently on 2 L of oxygen by nasal cannula. Objective - Vital Signs Vital signs: Vital Signs Temp 97.8 F 02/22/20 04:00 Pulse 91 02/22/20 04:00 Resp 16 02/22/20 04:00 BP 122/74 02/22/20 04:00 Pulse Ox 93 L 02/22/20 04:00 Intake & Output 02/21/20 02/22/20 02/22/20 18:59 06:59 18:59 Intake Total 960 240 Output Total 575 560 Balance 385 -560 240 Weight 154 kg Intake: Oral 960 240 Output: Urine 575 560 Other: Voiding Method Urinal # Voids 1 - Exam GENERAL EXAM: Alert, pleasant, 69-year-old obese white male, sitting up in the recliner, on room air, with pulse ox of 95%, comfortable in no apparent distress. HEAD: Normocephalic/atraumatic. EYES: Normal reaction of pupils, equal size. Conjunctiva pink, sclera white. NOSE: Clear with pink turbinates. THROAT: No erythema or exudates. NECK: No masses, no JVD, no thyroid enlargement, no adenopathy. CHEST: No chest wall deformity. Symmetrical expansion. LUNGS: Equal air entry with no crackles, wheeze, rhonchi or dullness. CVS: Regular rate and rhythm, normal S1 and S2, no gallops, no murmurs, no rubs ABDOMEN: Soft, nontender. No hepatosplenomegaly, normal bowel sounds, no guarding or rigidity. EXTREMITIES: No clubbing, no edema, no cyanosis, 2+ pulses and upper and lower extremities. MUSCULOSKELETAL: Muscle strength and tone normal. SPINE: No scoliosis or deformity SKIN: No rashes CENTRAL NERVOUS SYSTEM: Alert and oriented -3. No focal deficits, tone is normal in all 4 extremities. PSYCHIATRIC: Alert and oriented -3. Appropriate affect. Intact judgment and insight. - Labs CBC & Chem 7: 02/21/20 08:18 02/21/20 08:18 Assessment and Plan Plan: #1. Dizziness, lightheadedness of unclear etiology, possibly related to A. fib with RVR, hypokalemia, dehydration #2. Right upper lobe mass, suspicious for malignancy, status post navigational bronchoscopy with endobronchial biopsies today on 2019, and the biopsy results were nondiagnostic #3. COPD #4. Chronic A. fib, on Eliquis for anticoagulation #5. Morbid obesity #6. Obstructive sleep apnea #7. Chronic venous stasis with chronic lymphedema and ulceration of lower extremity bilaterally #8. Hyperlipidemia #9. Extreme debility with difficulty with mobility and gait and poor performance and functional status #10. Delirium, likely related to procedural sedation, recovered and the patient is more appropriate on today's evaluation Plan Patient is quite debilitated. The patient would benefit from rehabilitation. He is going to have an outpatient PET scan a follow-up with pulmonary regarding the right upper lobe mass with a high suspicion for malignancy. Continue Eliquis for now. The patient is still in atrial fibrillation. No hemoptysis for now. Clear for discharge from the pulmonary standpoint.
[2020-02-22] MEDS: CHOLECALCIFEROL 1,000 UNIT TAB PO SCH (10:18)
[2020-02-22] MEDS: ASPIRIN 81 MG PO SCH (10:18)
[2020-02-22] MEDS: MULTIVITAMINS, THERA 1 EACH TAB PO SCH (10:18)
[2020-02-22] MEDS: METOPROLOL TARTRATE 25 MG TAB PO SCH ×2 (10:18→20:40)
[2020-02-22] MEDS: POTASSIUM CHLORIDE ER 20 MEQ TAB.ER PO SCH (10:18)
[2020-02-22] MEDS: APIXABAN 5 MG TAB PO SCH ×2 (10:18→20:40)
[2020-02-22] MEDS: SODIUM CHLORIDE 0.9% 1,000 ML IV SCH (13:07)
--- NOTE | 2020-02-22 15:25 | P.PN ---
Subjective Dizziness possibly secondary to atrial fibrillation with rapid regular rate. Improved now Patient is a 69-year-old male was admitted to hospital due to dizziness secondary to atrial fibrillation and also has suspected lung malignancy. Patient underwent bronchoscopy and biopsy. No evidence of nodules as noted. Patient also had acute TIA and stroke code was called. Patient is being followed by multiple consultations. Carotid duplex showed 35% stenosis of both internal carotid arteries. No hemodynamic significant stenosis. 2D echocardiog minda was done which showed ejection fraction 55 to 60%. PT OT is evaluating him for possible ECF transfer. 02/20/2020 Patient is currently sitting in a chair awake alert and oriented. Requiring oxygen at 2 L via nasal cannula. No complaints of chest pain or shortness of breath. Bilateral leg swelling is improving. Continued on Lasix 40 mg twice daily and also on breathing treatments. Anticoagulation the form of Eliquis. Cardiology and pulmonary is on board. Possible transfer to rehab on Saturday. 02/21/2020 Patient is currently resting in the bed comfortably. No complaints of chest pain or shortness of breath. No nausea vomiting or abdominal pain. Laboratory data showed sodium 139, potassium 3.5, chloride 96, bicarb is 41, BUN 17 and creatinine 0.65 Dizziness possibly secondary to atrial fibrillation with rapid regular rate. Improved now will be discharged to rehab for physical therapy. No other acute overnight issues. Continue current management. 02/22/2020 Patient respiratory status improved patient is cleared for discharge with awaiting disposition to subacute rehabilitation patient is rate controlled patient has atrial fibrillation appears to be chronic A. fib. Patient is on anticoagulation. Patient can use to desaturate will require home oxygen patient does have history of COPD. Constitutional: Denied any fatigue denied any fever. Cardio vascular: denied any chest pain, palpitations Gastrointestinal denied any nausea vomiting Pulmonary: Denied any shortness of breath cough Neurologic denied any new focal deficits All inpatient medications were reviewed and appropriate changes in these medications as dictated in the interval history and assessment and plan. Objective - Vital Signs Vital signs: Vital Signs Temp 98.3 F 02/22/20 12:00 Pulse 88 02/22/20 12:00 Resp 20 02/22/20 12:00 BP 103/56 02/22/20 12:00 Pulse Ox 95 02/22/20 12:00 Intake & Output 02/21/20 02/22/20 02/22/20 18:59 06:59 18:59 Intake Total 960 480 Output Total 575 560 Balance 385 -560 480 Weight 154 kg Intake: Oral 960 480 Output: Urine 575 560 Other: Voiding Method Urinal # Voids 1 1 - Exam PHYSICAL EXAMINATION: GENERAL: The patient is alert and oriented x3, not in any acute distress. Well developed, well nourished. HEENT: Pupils are round and equally reacting to light. EOMI. No scleral icterus. No conjunctival pallor. Normocephalic, atraumatic. No pharyngeal erythema. No thyromegaly. CARDIOVASCULAR: S1 and S2 present. No murmurs, rubs, or gallops. PULMONARY: Chest is clear to auscultation, no wheezing or crackles. ABDOMEN: Soft, nontender, nondistended, normoactive bowel sounds. No palpable organomegaly. MUSCULOSKELETAL: No joint swelling or deformity. EXTREMITIES: No cyanosis, clubbing, or pedal edema. NEUROLOGICAL: Gross neurological examination did not reveal any focal deficits. SKIN: No rashes. - Labs CBC & Chem 7: 02/21/20 08:18 02/21/20 08:18 Labs: Abnormal Lab Results - Last 24 Hours (Table) 02/19/20 Range/Units 10:39 RBC Folate 1,093 H (280 - 791) ng/mL Assessment and Plan Plan: Dizziness possibly secondary to atrial fibrillation with rapid regular rate patient patient is presently sinus rhythm. Improved now Elevated troponin due to A. fib Brief episode of dysarthria and facial droop possible acute TIA. Seen by neurology. 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 Negative study and outpatient pulmonary follow-up with PET scan was recommended as an outpatient. Severe hypokalemia improved Noncompliance history Gait dysfunction Normocytic anemia Bilateral venous stasis with chronic edema Obesity with a BMI 67.5. Morbid obesity Chronic atrial fibrillation on anticoagulation Chronic CHF with diastolic function patient is presently on oral Lasix and euvolemic at this time not in heart failure exacerbation at this time Hypertension History of's obstructive sleep apnea Previous history of nicotine addiction Patient is full code. -Generalized deconditioning will need disposition to subacute rehab. Social work is trying to find placement for the patient
[2020-02-22] MEDS: ATORVASTATIN 40 MG TAB PO SCH (20:40)
[2020-02-23] MEDS: PANTOPRAZOLE 40 MG TABLET PO SCH (06:34)
[2020-02-23] MEDS: FUROSEMIDE 40 MG TAB PO SCH ×2 (06:34→12:54)
[2020-02-23] MEDS: APIXABAN 5 MG TAB PO SCH (08:06)
[2020-02-23] MEDS: MULTIVITAMINS, THERA 1 EACH TAB PO SCH (08:06)
[2020-02-23] MEDS: POTASSIUM CHLORIDE ER 20 MEQ TAB.ER PO SCH (08:06)
[2020-02-23] MEDS: CHOLECALCIFEROL 1,000 UNIT TAB PO SCH (08:06)
[2020-02-23] MEDS: ASPIRIN 81 MG PO SCH (08:06)
[2020-02-23] MEDS: METOPROLOL TARTRATE 25 MG TAB PO SCH (08:06)
[2020-02-23 08:11] VITALS: RESP 16; TEMP 96.6
[2020-02-23] MEDS: IPRATROPIUM 0.5 MG/2.5 ML NEBU INHALATION SCH ×3 (08:37→16:11)
[2020-02-23] MEDS: SYMBICORT 160-4.5 MCG INHALER INHALATION SCH (09:29)
--- NOTE | 2020-02-23 12:11 | P.DS ---
Providers Date of admission: 02/13/20 14:33 Attending physician: Juan Ramon Ndiaye MD Consults: 02/12/20 12:47 Consult Physician Routine Consulting Provider: Mason Blonut Consult Reason/Comments: Rapid atrial fibrillation, elevated troponin Do you want consulting provider notified?: Yes 02/12/20 19:11 Consult Physician Routine Consulting Provider: Pamela Mcdonald Consult Reason/Comments: rul mass Do you want consulting provider notified?: Yes 02/18/20 16:59 Consult Physician Routine Consulting Provider: Reese Joe Consult Reason/Comments: tia?? Do you want consulting provider notified?: Yes Primary care physician: Devonte Pierce Hospital Course: Dizziness possibly secondary to atrial fibrillation with rapid regular rate. Improved now Patient is a 69-year-old male was admitted to hospital due to dizziness secondary to atrial fibrillation and also has suspected lung malignancy. Patient underwent bronchoscopy and biopsy. No evidence of nodules as noted. Patient also had acute TIA and stroke code was called. Patient is being followed by multiple consultations. Carotid duplex showed 35% stenosis of both internal carotid arteries. No hemodynamic significant stenosis. 2D echoc ardiogram was done which showed ejection fraction 55 to 60%. PT OT is evaluating him for possible ECF transfer. 02/20/2020 Patient is currently sitting in a chair awake alert and oriented. Requiring oxygen at 2 L via nasal cannula. No complaints of chest pain or shortness of breath. Bilateral leg swelling is improving. Continued on Lasix 40 mg twice daily and also on breathing treatments. Anticoagulation the form of Eliquis. Cardiology and pulmonary is on board. Possible transfer to rehab on Saturday. 02/21/2020 Patient is currently resting in the bed comfortably. No complaints of chest pain or shortness of breath. No nausea vomiting or abdominal pain. Laboratory data showed sodium 139, potassium 3.5, chloride 96, bicarb is 41, BUN 17 and creatinine 0.65 Dizziness possibly secondary to atrial fibrillation with rapid regular rate. Improved now will be discharged to rehab for physical therapy. No other acute overnight issues. Continue current management. 02/22/2020 Patient respiratory status improved patient is cleared for discharge with awaiting disposition to subacute rehabilitation patient is rate controlled patient has atrial fibrillation appears to be chronic A. fib. Patient is on anticoagulation. Patient can use to desaturate will require home oxygen patient does have history of COPD. 02/23/2020 Patient the heart failure prudent presently will begin this time patient is not in COPD exacerbation at this time. Patient is requiring 2 L of oxygen. Patient will be discharged today. PHYSICAL EXAMINATION: GENERAL: The patient is alert and oriented x3, not in any acute distress. Well developed, well nourished. HEENT: Pupils are round and equally reacting to light. EOMI. No scleral icterus. No conjunctival pallor. Normocephalic, atraumatic. No pharyngeal erythema. No thyromegaly. CARDIOVASCULAR: S1 and S2 present. No murmurs, rubs, or gallops. PULMONARY: Chest is clear to auscultation, no wheezing or crackles. ABDOMEN: Soft, nontender, nondistended, normoactive bowel sounds. No palpable organomegaly. MUSCULOSKELETAL: No joint swelling or deformity. EXTREMITIES: No cyanosis, clubbing, improved or pedal edema. NEUROLOGICAL: Gross neurological examination did not reveal any focal deficits. SKIN: No rashes. Assessment and Plan Plan: Dizziness possibly secondary to atrial fibrillation with rapid regular rate patient patient is presently sinus rhythm. \ Elevated troponin due to A. fib Brief episode of dysarthria and facial droop possible acute TIA. 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 Negative study and outpatient pulmonary follow-up with PET scan was recommended as an outpatient. Severe hypokalemia improved Noncompliance history Normocytic anemia Bilateral venous stasis with chronic edema Obesity with a BMI 67.5. Morbid obesity Chronic atrial fibrillation on anticoagulation Chronic CHF with diastolic function patient is presently on oral Lasix and euvolemic at this time not in heart failure exacerbation at this time Hypertension History of obstructive sleep apnea Previous history of nicotine addiction Patient is full code. -Generalized deconditioning will need disposition to subacute rehab. Social work is trying to find placement for the patient Patient Condition at Discharge: Fair Plan - Discharge Summary Discharge Rx Participant: No New Discharge Prescriptions: New Aspirin 81 mg PO DAILY chew Potassium Chloride ER [K-Dur 20] 20 meq PO BID tab.er.prt Furosemide [Lasix] 40 mg PO BID@0600,1400 tab Atorvastatin [Lipitor] 40 mg PO HS tab Metoprolol Tartrate [Lopressor] 75 mg PO BID tab Budesonide-Formot 160-4.5 Mcg [Symbicort 160-4.5 Mcg Inhaler] 2 puff INHALATION RT-BID puff Continue Cholecalciferol [Vitamin D3 (25 Mcg = 1000 Iu)] 1,000 unit PO DAILY Apixaban [Eliquis] 5 mg PO Q12H Pantoprazole [Protonix] 40 mg PO DAILY Multivit-Min/FA/Lycopen/Lutein [Centrum Silver Tablet] 1 tab PO DAILY Albuterol Sulfate [Proair Hfa] 1 - 2 puff INHALATION RT-QID PRN PRN Reason: Shortness Of Breath Tiotropium Acushnet [Spiriva Respimat] 1 puff INHALATION RT-DAILY Nicotine Polacrilex [Nicorette] 2 mg BC Q3-4H PRN PRN Reason: CRAVINGS Discontinued Atorvastatin [Lipitor] 10 mg PO DAILY Furosemide [Lasix] 20 mg PO BID Metoprolol Tartrate [Lopressor] 50 mg PO BID Discharge Medication List Apixaban [Eliquis] 5 mg PO Q12H 01/09/19 [History] Cholecalciferol [Vitamin D3 (25 Mcg = 1000 Iu)] 1,000 unit PO DAILY 01/09/19 [History] Pantoprazole [Protonix] 40 mg PO DAILY 04/29/19 [History] Multivit-Min/FA/Lycopen/Lutein [Centrum Silver Tablet] 1 tab PO DAILY 10/24/19 [History] Albuterol Sulfate [Proair Hfa] 1 - 2 puff INHALATION RT-QID PRN 02/12/20 [History] Nicotine Polacrilex [Nicorette] 2 mg BC Q3-4H PRN 02/12/20 [History] Tiotropium Acushnet [Spiriva Respimat] 1 puff INHALATION RT-DAILY 02/12/20 [History] Aspirin 81 mg PO DAILY chew 02/23/20 [Rx] Atorvastatin [Lipitor] 40 mg PO HS tab 02/23/20 [Rx] Budesonide-Formot 160-4.5 Mcg [Symbicort 160-4.5 Mcg Inhaler] 2 puff INHALATION RT-BID puff 02/23/20 [Rx] Furosemide [Lasix] 40 mg PO BID@0600,1400 tab 02/23/20 [Rx] Metoprolol Tartrate [Lopressor] 75 mg PO BID tab 12/08/20 [Rx] Potassium Chloride ER [K-Dur 20] 20 meq PO BID tab.er.prt 02/23/20 [Rx] Follow up Appointment(s)/Referral(s): Desmond Joe DO [Doctor of Osteopathic Medicine] - 1 Week Devonte Pierce MD [Primary Care Provider] - 1-2 days Mason Blount MD [STAFF PHYSICIAN] - 2 Weeks Activity/Diet/Wound Care/Special Instructions: patient will need to be schedule for PET scan oupt, prior to discharge
[2020-02-23 12:58] VITALS: BP 114/56; PULSE 76
--- NOTE | 2020-02-23 19:04 | P.PN ---
Subjective Progress Note Date: 02/23/20 Patient is a 69-year-old male, initially seen by Dr. Reese Joe in neurology consultation on 02/19/2020 for possible TIA and delayed speech. Please refer to his note for details. This is a follow-up note. Patient has history of chronic atrial fibrillation, currently on Apixaban 5 mg twice a day and aspirin 81 mg, also has hypertension, obstructive sleep apnea, chronic venous stasis with chronic lymphedema and ulceration of lower extremities, hyperlipidemia, known history of right upper lobe mass measuring 2.7 cm, suspicious for malignancy in October 2019 came to the hospital on 02/12/2020 with complaints of dizziness going on for past week. Neurology was seen for questionable TIA because of delayed speech and confusion. His slow speech was noted after patient came from bronchoscopy. He received sedation for the procedure. There were no focal deficits noted. Patient has smoked 2 packs per day for 50 years, stopped a year ago. Also has previous history of alcohol use, quit in 2010. CT head from 02/18/2020 showed no acute process. Carotid Doppler revealed antegrade flow in the vertebral arteries. The images and measurements suggest 35% stenosis in both ICA. 2-D echo showed moderate concentric LVH, EF 55-60%. Left atrium was not well visualized. Neurology recommended adding aspirin 81 mg and increasing report or from 10-40 mg because of mild carotid stenosis. Hemoglobin A1c 6.6, TSH normal at 0.798. B12 is normal 1033, folate normal. Patient at present denies any headache or any focal symptoms. Telemetry monitoring showing atrial fibrillation. Objective - Vital Signs Vital signs: Vital Signs Temp 96.6 F L 02/23/20 08:00 Pulse 89 02/23/20 08:00 Resp 16 02/23/20 08:00 BP 102/58 02/23/20 08:00 Pulse Ox 86 L 02/23/20 08:00 Intake & Output 02/22/20 02/23/20 02/23/20 18:59 06:59 18:59 Intake Total 720 Output Total 700 Balance 720 -700 Weight 153.6 kg Intake: Oral 720 Output: Urine 700 Other: Voiding Method Urinal # Voids 1 2 - Exam On examination patient is an elderly male, very pleasant in no acute distress. Patient is alert and awake fully oriented. Speech and language functions are normal. Cranial nerves are normal. Pupils are round and reacting, visual escamilla are full, extraocular muscles are intact. Face is symmetric. Tongue protrudes to the midline. Muscle strength is normal in the arms and legs. No ataxia. Sensory touch is equal with no neglect. Gait deferred. - Labs CBC & Chem 7: 02/21/20 08:18 12 08:18 Labs: Abnormal Lab Results - Last 24 Hours (Table) 02/19/20 Range/Units 10:39 RBC Folate 1,093 H (280 - 791) ng/mL Assessment and Plan Assessment: * Encephalopathy, likely due to post C patient effect from anesthesia for bronchoscopy. Current examination nonfocal. * Atrial fibrillation, on long-term anticoagulation * Obstructive sleep apnea * Hyperlipidemia Plan: * Patient's current examination is nonfocal. * Patient has mildly elevated A1c 6.6. May need dietary modification and healthy lifestyles. * B12 and folate normal. * Carotid Doppler showed no significant stenosis. * 2-D echo showed no embolic source. * Continue aspirin and Apixaban for stroke prevention related to atrial fibrillation. * Neurologically clear for discharge.
== END 2020-02-23 16:53 | DRG 264 ==
LOC: EC 10:31 → 3SCARD 13:02 → OBSVTOIN 02-13 14:33
PROVIDERS: ADMIT Internal Medicine; ATTEND Internal Medicine
PROC: 8E0WXBG Computer Assisted Procedure of Trunk Region, With Computerized Tomography (ICD-10-PCS; principal; 2020-02-13)
PROC: 0BBC8ZX Excision of Right Upper Lung Lobe, Via Natural or Artificial Opening Endoscopic, Diagnostic (ICD-10-PCS; principal; 2020-02-13)
PROC: 0BDC8ZX Extraction of Right Upper Lung Lobe, Via Natural or Artificial Opening Endoscopic, Diagnostic (ICD-10-PCS; principal; 2020-02-13)
DX: I48.19 Other persistent atrial fibrillation (principal); I50.33 Acute on chronic diastolic (congestive) heart failure; J96.01 Acute respiratory failure with hypoxia; J96.02 Acute respiratory failure with hypercapnia; G92 Toxic encephalopathy; L97.819 Non-pressure chronic ulcer of other part of right lower leg with unspecified severity; L97.829 Non-pressure chronic ulcer of other part of left lower leg with unspecified severity; J44.1 Chronic obstructive pulmonary disease with (acute) exacerbation; Z68.44 Body mass index [BMI] 60.0-69.9, adult; I83.018 Varicose veins of right lower extremity with ulcer other part of lower leg; I83.028 Varicose veins of left lower extremity with ulcer other part of lower leg; I11.0 Hypertensive heart disease with heart failure; E66.01 Morbid (severe) obesity due to excess calories; E87.6 Hypokalemia; E86.0 Dehydration; E78.5 Hyperlipidemia, unspecified; T41.0X5A Adverse effect of inhaled anesthetics, initial encounter; E87.5 Hyperkalemia; R47.1 Dysarthria and anarthria; R29.810 Facial weakness; I89.0 Lymphedema, not elsewhere classified; G47.33 Obstructive sleep apnea (adult) (pediatric); I65.23 Occlusion and stenosis of bilateral carotid arteries; D64.9 Anemia, unspecified; R77.8 Other specified abnormalities of plasma proteins; H91.90 Unspecified hearing loss, unspecified ear; R26.2 Difficulty in walking, not elsewhere classified; F10.11 Alcohol abuse, in remission; R91.1 Solitary pulmonary nodule; Z91.19 Patient's noncompliance with other medical treatment and regimen; Z53.20 Procedure and treatment not carried out because of patient's decision for unspecified reasons; Z79.01 Long term (current) use of anticoagulants; Z79.899 Other long term (current) drug therapy; Z87.891 Personal history of nicotine dependence; Z63.8 Other specified problems related to primary support group; Z71.3 Dietary counseling and surveillance; Z82.3 Family history of stroke; Z82.49 Family history of ischemic heart disease and other diseases of the circulatory system
CPT/HCPCS: 31623; 31624; 31625; 31627; 31629; 36415; 70450; 71045; 71046; 71250; 80048; 80053; 80061; 81003; 82550; 82607; 82747; 83036; 83735; 83880; 84132; 84443; 84484; 85025; 85027; 87070; 87102; 87116; 87205; 87206; 87252; 87496; 87498; 87502; 87529; 87634; 87798; 88104; 88108; 88173; 88305; 89050; 93005; 93306; 93880; 94640; 96365; 96375; 96376; 99285

== ENCOUNTER 2020-09-30 09:15 | Inpatient (IN) | payer OTHER, MEDICARE ==
[2020-09-30 09:55] LABS: Anisocytosis Slight; Basophils % (A) 1 %; Eosinophils # (A) 0.2 k/uL (0-0.7); Eosinophils % (A) 4 %; HCT 37.4 % (39.0-53.0); Hypochromasia Moderate; Lymphocytes % (A) 16 %; MCH 27.9 pg (25.0-35.0); MCHC 32.2 g/dL (31.0-37.0); MCV 86.6 fL (80.0-100.0); Mean Platelet Volume 7.5; Monocytes # (A) 0.5 k/uL (0-1.0); Monocytes % (A) 8 %; Neutrophils # (A) 4.4 k/uL (1.3-7.7); Neutrophils % (A) 71 %; Platelet Count 253 k/uL (150-450); RBC 4.32 m/uL (4.30-5.90); RDW 16.3 % (11.5-15.5); WBC 6.3 k/uL (3.8-10.6)
[2020-09-30 10:05] LABS: Partial Thromboplastin Time 27.8 sec (22.0-30.0)
--- NOTE | 2020-09-30 10:05 | ED ---
General Adult HPI - General Chief complaint: Chest Pain Stated complaint: chest pain Time Seen by Provider: 09/30/20 09:16 Source: patient, EMS, old records reviewed Mode of arrival: EMS - History of Present Illness Initial comments: 70 male presenting for evaluation of chest discomfort which occurred while at home. Patient called EMS for bilateral upper chest pain/discomfort. This has resolved. He did have some associated dyspnea with history of COPD. He denies any radiation to the pain. He denies diaphoresis. Denies abdominal pain nausea vomiting. History of atrial fibrillation. Denies lower extremity pain or swelling. - Related Data Home Medications Medication Instructions Recorded Confirmed Apixaban [Eliquis] 5 mg PO AC-BID 01/09/19 09/30/20 Cholecalciferol [Vitamin D3 (25 50 mcg PO DAILY 01/09/19 09/30/20 Mcg = 1000 Iu)] Pantoprazole [Protonix] 40 mg PO HS 04/29/19 09/30/20 Albuterol Sulfate [Proair Hfa] 2 puff INHALATION RT-QID PRN 02/12/20 09/30/20 Atorvastatin [Lipitor] 40 mg PO HS 09/30/20 09/30/20 Furosemide [Lasix] 20 mg PO BID 09/30/20 09/30/20 Multivitamins, Thera [Multivitamin 1 tab PO DAILY 09/30/20 09/30/20 (formulary)] Tiotropium [place] [Spiriva] 1 cap INHALATION RT-DAILY 09/30/20 09/30/20 Previous Rx's Medication Instructions Recorded Aspirin 81 mg PO DAILY chew 02/23/20 Potassium Chloride ER [K-Dur 20] 20 meq PO BID tab.er.prt 02/23/20 Allergies Allergy/AdvReac Type Severity Reaction Status Date / Time No Known Allergies Allergy Verified 09/30/20 10:33 Review of Systems ROS Statement: Those systems with pertinent positive or pertinent negative responses have been documented in the HPI. ROS Other: All systems not noted in ROS Statement are negative. Past Medical History Past Medical History: Atrial Fibrillation, Heart Failure, COPD, Hypertension Additional Past Medical History / Comment(s): obesity, chronic Le wounds chronic lymphedema of the lower extremity , obstructive sleep apnea, does not use CPAP at home History of Any Multi-Drug Resistant Organisms: None Reported Past Surgical History: No Surgical Hx Reported Past Anesthesia/Blood Transfusion Reactions: No Reported Reaction Past Psychological History: No Psychological Hx Reported Smoking Status: Former smoker Past Alcohol Use History: None Reported Past Drug Use History: None Reported - Past Family History Father Family Medical History: CVA/TIA Additional Family Medical History / Comment(s): Father from CVA Mother Additional Family Medical History / Comment(s): Mother from a "broken he art" shortly after father General Exam General appearance: alert, in no apparent distress Head exam: Present: atraumatic, normocephalic Eye exam: Present: normal appearance, PERRL ENT exam: Present: normal exam Neck exam: Present: normal inspection. Absent: tenderness, meningismus Respiratory exam: Present: decreased breath sounds. Absent: respiratory distress Cardiovascular Exam: Present: regular rate, irregular rhythm GI/Abdominal exam: Present: soft. Absent: distended, tenderness, guarding Extremities exam: Present: normal capillary refill Neurological exam: Present: alert, oriented X3, CN II-XII intact. Absent: motor sensory deficit Psychiatric exam: Present: normal affect, normal mood Skin exam: Present: warm, dry, intact. Absent: cyanosis, diaphoretic Course Vital Signs 09/30/20 09/30/20 09:18 10:47 Temperature 98 F Pulse Rate 93 105 H Respiratory 18 18 Rate Blood Pressure 133/86 105/71 O2 Sat by Pulse 90 L 97 Oximetry EKG Findings - EKG Comments: EKG Findings:: EKG: To fibrillation, no ST segment elevation, rate of 98, QRS duration 80, QTC 449 Medical Decision Making - Medical Decision Making 70-year-old male with vague chest discomfort which began this morning. EKG is atrial fibrillation without ST segment elevation. Chest x-ray showing a opacity in the right upper lobe, likely mass. There is no associated fever or leukocytosis. Patient is diminished bilaterally with a history of COPD he does have an oxygen requirement while in the emergency department is not normally on home O2. I suspect a component of COPD as well. He started on albuterol, Atrovent, steroids in the emergency department. Patient has a white blood cell count 6.3, hemoglobin 12, negative troponin, negative BNP. Case discussed with Dr. Stephens who will admit. Pulmonology on consult. - Lab Data Result diagrams: 09/30/20 09:42 09/30/20 09:42 Lab Results 09/30/20 09/30/20 09/30/20 Range/Units 09:42 09:42 09:42 WBC 6.3 (3.8-10.6) k/uL RBC 4.32 (4.30-5.90) m/uL Hgb 12.0 L (13.0-17.5) gm/dL Hct 37.4 L (39.0-53.0) % MCV 86.6 (80.0-100.0) fL MCH 27.9 (25.0-35.0) pg MCHC 32.2 (31.0-37.0) g/dL RDW 16.3 H (11.5-15.5) % Plt Count 253 (150-450) k/uL MPV 7.5 Neutrophils % 71 % Lymphocytes % 16 % Monocytes % 8 % Eosinophils % 4 % Basophils % 1 % Neutrophils # 4.4 (1.3-7.7) k/uL Lymphocytes # 1.0 (1.0-4.8) k/uL Monocytes # 0.5 (0-1.0) k/uL Eosinophils # 0.2 (0-0.7) k/uL Basophils # 0.0 (0-0.2) k/uL Hypochromasia Moderate Anisocytosis Slight PT 11.0 (9.0-12.0) sec INR 1.0 (<1.2) APTT 27.8 (22.0-30.0) sec Sodium 140 (137-145) mmol/L Potassium 4.1 (3.5-5.1) mmol/L Chloride 101 (98-107) mmol/L Carbon Dioxide 33 H (22-30) mmol/L Anion Gap 6 mmol/L BUN 18 (9-20) mg/dL Creatinine 0.65 L (0.66-1.25) mg/dL Est GFR (CKD-EPI)AfAm >90 (>60 ml/min/1.73 sqM) Est GFR (CKD-EPI)NonAf >90 (>60 ml/min/1.73 sqM) Glucose 176 H (74-99) mg/dL Calcium 9.0 (8.4-10.2) mg/dL Magnesium 1.9 (1.6-2.3) mg/dL Total Bilirubin 0.7 (0.2-1.3) mg/dL AST 22 (17-59) U/L ALT 15 (4-49) U/L Alkaline Phosphatase 106 (38-126) U/L Troponin I (0.000-0.034) ng/mL NT-Pro-B Natriuret Pep pg/mL Total Protein 8.0 (6.3-8.2) g/dL Albumin 3.7 (3.5-5.0) g/dL Blood Type Blood Type Recheck Bld Type Recheck Status Antibody Screen Spec Expiration Date 09/30/20 09/30/20 09/30/20 Range/Units 09:42 09:42 09:42 WBC (3.8-10.6) k/uL RBC (4.30-5.90) m/uL Hgb (13.0-17.5) gm/dL Hct (39.0-53.0) % MCV (80.0-100.0) fL MCH (25.0-35.0) pg MCHC (31.0-37.0) g/dL RDW (11.5-15.5) % Plt Count (150-450) k/uL MPV Neutrophils % % Lymphocytes % % Monocytes % % Eosinophils % % Basophils % % Neutrophils # (1.3-7.7) k/uL Lymphocytes # (1.0-4.8) k/uL Monocytes # (0-1.0) k/uL Eosinophils # (0-0.7) k/uL Basophils # (0-0.2) k/uL Hypochromasia Anisocytosis PT (9.0-12.0) sec INR (<1.2) APTT (22.0-30.0) sec Sodium (137-145) mmol/L Potassium (3.5-5.1) mmol/L Chloride (98-107) mmol/L Carbon Dioxide (22-30) mmol/L Anion Gap mmol/L BUN (9-20) mg/dL Creatinine (0.66-1.25) mg/dL Est GFR (CKD-EPI)AfAm (>60 ml/min/1.73 sqM) Est GFR (CKD-EPI)NonAf (>60 ml/min/1.73 sqM) Glucose (74-99) mg/dL Calcium (8.4-10.2) mg/dL Magnesium (1.6-2.3) mg/dL Total Bilirubin (0.2-1.3) mg/dL AST (17-59) U/L ALT (4-49) U/L Alkaline Phosphatase (38-126) U/L Troponin I 0.033 (0.000-0.034) ng/mL NT-Pro-B Natriuret Pep 207 pg/mL Total Protein (6.3-8.2) g/dL Albumin (3.5-5.0) g/dL Blood Type A Positive Blood Type Recheck No Previous Record Bld Type Recheck Status CABO Indicated Antibody Screen NEGATIVE Spec Expiration Date 10/03/2020 - 2341 Disposition Clinical Impression: Chest pain, COPD (chronic obstructive pulmonary disease), Lung mass Disposition: ADMITTED IP TO THIS HOSP Condition: Stable Is patient prescribed a controlled substance at d/c from ED?: No Referrals: Nikko Galicia DO [Primary Care Provider] - 1-2 days Decision to Admit Reason: Admit from EC Decision Date: 09/30/20 Decision Time: 10:58
--- NOTE | 2020-09-30 10:06 | XR ---
EXAMINATION TYPE: XR chest 2V DATE OF EXAM: 09/30/2020 COMPARISON: 02/17/2020 TECHNIQUE: PA and lateral views submitted. HISTORY: Chest pain FINDINGS: There is a large area of mass or consolidation measuring 4.3 cm right upper lobe. Heart enlarged. No pleural effusion or pneumothorax. No interstitial edema. IMPRESSION: 1. 4.3 cm mass right upper lobe. Neoplasm favored over pneumonia correlate clinically.
[2020-09-30 10:13] LABS: ALT 15 U/L (4-49); AST 22 U/L (17-59); African American GFR (CKD) >90 (>60 ml/min/1.73 sqM); Albumin 3.7 g/dL (3.5-5.0); Alkaline Phosphatase 106 U/L (38-126); Anion Gap 6 mmol/L; Blood Urea Nitrogen 18 mg/dL (9-20); Carbon Dioxide 33 mmol/L (22-30); Chloride 101 mmol/L (98-107); Glucose 176 mg/dL (74-99); Magnesium 1.9 mg/dL (1.6-2.3); Non-African American GFR(CKD) >90 (>60 ml/min/1.73 sqM); Potassium 4.1 mmol/L (3.5-5.1); Sodium 140 mmol/L (137-145); Total Bilirubin 0.7 mg/dL (0.2-1.3)
[2020-09-30] MEDS ORDERED: IPRATROPIUM-ALBUTEROL 3 ML NEB INHALATION PRN (10:54)
[2020-09-30] MEDS ORDERED: methylPREDNISolone SOD SUCCI 125 MG/2 ML VIAL IV STA (10:54)
[2020-09-30] MEDS ORDERED: IPRATROPIUM-ALBUTEROL 3 ML NEB INHALATION STA (10:54)
[2020-09-30] MEDS ORDERED: ALBUTEROL NEBULIZED 2.5 MG/3 ML INHALATION STA (10:54)
[2020-09-30] MEDS ORDERED: RX INFO: IV CONTRAST WAS GIVEN 1 EACH MISC MISCELLANE PRN ×2 (11:43→14:48)
[2020-09-30] MEDS ORDERED: ALBUTEROL HFA INHALER INHALATION PRN (13:44)
[2020-09-30] MEDS ORDERED: ALPRAZolam 0.5 MG TAB PO STA (14:48)
[2020-09-30] MEDS ORDERED: HYDROcodone/APAP 5-325MG 1 EACH TAB PO PRN (15:22)
--- NOTE | 2020-09-30 15:28 | P.CNPUL ---
History of Present Illness Consult date: 09/30/20 Requesting physician: Samina Lewis Reason for consult: abnormal CXR/CT Chief complaint: Chest pain History of present illness: This is a 70-year-old gentleman who follows with Dr. Galicia as his primary care provider. He has a history of chronic obstructive pulmonary disease, chronic atrial fibrillation anticoagulated with Eliquis, morbid obesity, obstructive sleep apnea, chronic venous stasis of the lower extremities with chronic lymphedema and ulceration, hyperlipidemia, extreme medical debility with poor mobility and poor overall functional performance. He was seen here back in February 2020 was found to have a right upper lobe mass suspicious for malignancy. Navigation bronchoscopy with biopsy results were nondiagnostic. He was to have a outpatient PET scan and follow up with Dr. Joe. He never did have a PET scan. He states that was scheduled at [place] but they canceled that and he didn't get it rescheduled. He did not follow-up in our office. He presented here to the hospital this morning after developing chest pain. The pain had actually resolved before he got to the emergency room. He was found to be hypoxemic with O2 saturation at 90% and was admitted for the same. He is being treated for COPD exacerbation. Chest x-ray does show enlarging right upper lobe mass. We're consulted for the same. He is seen in consultation on the regular medical floor. He is currently resting in bed. O2 saturation 97% on 3 L nasal cannula. He is afebrile. Hemodynamically stable. He is somewhat slow to respond. He is somewhat of a poor historian. He does remain in atrial fibrillation. White count 6.3. Hemoglobin 12.0. Platelets 253. INR 1.0. D-dimer 0.58. Sodium 140. Potassium 4.1. Creatinine 0.65. Troponin 0.0332. ProBNP 207. He was initiated and DuoNeb inhalations, IV Solu-Medrol. Review of Systems REVIEW OF SYSTEMS: CONSTITUTIONAL: Denies any recent significant weight loss or weight gain. EYES: Denies change in vision. EARS, NOSE, MOUTH, THROAT: Denies headaches, denies sore throat. CARDIOVASCULAR: Positive for chest pain, no palpitations or syncopal episodes. RESPIRATORY: Denies shortness of breath, cough, congestion or hemoptysis. GASTROINTESTINAL: Denies change in appetite, denies abdominal pain GENITOURINARY: Denies hematuria, denies infections. MUSKULOSKELETAL: Denies pain, denies swelling. INTEGUMENTARY: Denies rash, denies eczema. NEUROLOGICAL: Denies recent memory loss, no recent seizure activity. PSYCHIATRIC: Denies anxiety, denies depression. HEMATOLOGIC/LYMPHATIC: Denies anemia, denies enlarged lymph nodes. Past Medical History Past Medical History: Atrial Fibrillation, Heart Failure, COPD, Hypertension Additional Past Medical History / Comment(s): obesity, chronic Le wounds chronic lymphedema of the lower extremity , obstructive sleep apnea, does not use CPAP at home History of Any Multi-Drug Resistant Organisms: None Reported Past Surgical History: No Surgical Hx Reported Past Anesthesia/Blood Transfusion Reactions: No Reported Reaction Past Psychological History: No Psychological Hx Reported Additional Psychological History / Comment(s): Quit smoking in November 2018 Smoking Status: Former smoker Past Alcohol Use History: None Reported Past Drug Use History: None Reported - Past Family History Father Family Medical History: CVA/TIA Additional Family Medical History / Comment(s): Father from CVA Mother Family Medical History: No Reported History Additional Family Medical History / Comment(s): Mother from a "broken heart" shortly after father Medications and Allergies Home Medications Medication Instructions Recorded Confirmed Type Apixaban [Eliquis] 5 mg PO AC-BID 01/09/19 09/30/20 History Cholecalciferol [Vitamin D3 (25 50 mcg PO DAILY 01/09/19 09/30/20 History Mcg = 1000 Iu)] Pantoprazole [Protonix] 40 mg PO HS 04/29/19 09/30/20 History Albuterol Sulfate [Proair Hfa] 2 puff INHALATION RT-QID PRN 02/12/20 09/30/20 History Aspirin 81 mg PO DAILY chew 02/23/20 09/30/20 Rx Potassium Chloride ER [K-Dur 20] 20 meq PO BID tab.er.prt 02/23/20 09/30/20 Rx Atorvastatin [Lipitor] 40 mg PO HS 09/30/20 09/30/20 History Furosemide [Lasix] 20 mg PO BID 09/30/20 09/30/20 History Multivitamins, Thera [Multivitamin 1 tab PO DAILY 09/30/20 09/30/20 History (formulary)] Tiotropium [place] [Spiriva] 1 cap INHALATION RT-DAILY 09/30/20 09/30/20 History Allergies Allergy/AdvReac Type Severity Reaction Status Date / Time No Known Allergies Allergy Verified 09/30/20 10:33 Physical Exam Vitals: Vital Signs Temp Pulse Pulse Resp BP BP Pulse Ox 09/30/20 13:42 97.9 F 106 H 20 117/82 97 09/30/20 12:36 98.2 F 95 18 102/78 99 09/30/20 11:30 98.5 F 101 H 16 119/90 97 09/30/20 11:27 106 H 09/30/20 11:12 102 H 09/30/20 10:47 105 H 18 105/71 97 09/30/20 09:18 98 F 93 18 133/86 90 L Intake and Output 09/30/20 09/30/20 09/30/20 06:59 14:59 22:59 Other: Voiding Method Urinal Weight 149.685 kg 152.5 kg GENERAL EXAM: Alert, 70-year-old gentleman, on 2 L nasal cannula, slow to respond, fairly comfortable in no apparent distress. HEAD: Normocephalic. EYES: Normal reaction of pupils, equal size. NOSE: Clear with pink turbinates. THROAT: No erythema or exudates. NECK: No masses, no JVD. CHEST: No chest wall deformity. LUNGS: Equal air entry with no crackles, wheeze, rhonchi or dullness. Diminished. CVS: S1 and S2 normal with no audible murmur, regular rhythm. ABDOMEN: No hepatosplenomegaly, normal bowel sounds, no guarding or rigidity. SPINE: No scoliosis or deformity SKIN: No rashes CENTRAL NERVOUS SYSTEM: No focal deficits, tone is normal in all 4 extremities. EXTREMITIES: Changes of chronic venous stasis of the lower extremities. There is trace peripheral edema. No clubbing, no cyanosis. Peripheral pulses are intact. Results - Laboratory Findings CBC and BMP: 09/30/20 09:42 09/30/20 09:42 PT/INR, D-dimer PT 11.0 sec (9.0-12.0) 09/30/20 09:42 INR 1.0 (<1.2) 09/30/20 09:42 D-Dimer 0.58 mg/L FEU (<0.60) 09/30/20 12:46 Abnormal lab findings: Abnormal Labs 09/30/20 09/30/20 09:42 09:42 Hgb 12.0 L Hct 37.4 L RDW 16.3 H Carbon Dioxide 33 H Creatinine 0.65 L Glucose 176 H - Diagnostic Findings Chest x-ray: image reviewed Assessment and Plan Assessment: 1 Atypical chest pain 2 Right upper lobe mass measuring 4.3 cm, previous biopsy in February 2020 was nondiagnostic. PET scan initially scheduled in [place], canceled and then not rescheduled. No follow-up in our office 3 Acute hypoxemic respiratory failure secondary to a mild acute exacerbation of chronic obstructive pulmonary disease 4 Chronic atrial fibrillation, anticoagulated with Eliquis 5 Obesity 6 Obstructive sleep apnea 7 Chronic venous stasis of the lower extremities 8 Hyperlipidemia 9 Poor overall functional performance based on the above-mentioned multiple comorbidities Plan: The patient was seen and evaluated by Dr. Mcdonald Chest x-ray and labs reviewed Computed tomography scan of the chest with contrast ordered Xanax prior due to his anxiety and willingness to have the test done Outpatient PET scan was never performed Suspicion is high for malignancy of the enlarging right upper lobe mass If mass near the chest wall may request IR to perform a CT-guided FNA this admission We'll need to hold Eliquis if any further intervention is possible We will continue to follow and make further recommendations based on his clinical status I, the cosigning physician, performed a history & physical examination of the patient. Lungs sounds are clear but diminished. Maintaining good O2 saturations in the 90s on 2 L/m per nasal cannula. I discussed the assessment and plan of care with my nurse practitioner, Krystin Velázquez. I attest to the above note as dictated by her. Time with Patient: Greater than 30
[2020-09-30] MEDS: IPRATROPIUM-ALBUTEROL 3 ML NEB INHALATION SCH ×2 (15:38→19:36)
--- NOTE | 2020-09-30 15:55 | HP ---
HISTORY AND PHYSICAL DATE OF SERVICE: 09/30/2020. CHIEF COMPLAINT: Chest pain and shortness of breath. HISTORY OF PRESENT ILLNESS: This 70-year-old gentleman with a past medical history of multiple medical problems also had right upper lobe malignancy, bronchoscopy and biopsied. The patient also complaining of some shortness of breath today. EMS brought the patient to [facility] and admitted for further evaluation and treatment. Chest x-ray showed opacity in the right upper lobe. There is no history of fever, rigors, chills at this time. PAST MEDICAL HISTORY: History of atrial ablation, CHF, COPD, hypertension, history of obesity and lung mass. MEDICATIONS: K-Dur 20 mEq p.o. b.i.d., Protonix. Lasix, vitamin D3, Lipitor, ProAir, Spiriva, multivitamins, Asmanex. Doses reviewed. ALLERGIES: None. FAMILY HISTORY: History of CVA/TIA. SOCIAL HISTORY: Previous history of smoking. No alcohol intake. REVIEW OF SYSTEMS: ENT: No diminished vision. No diminished hearing. CARDIOVASCULAR: No angina or palpitations. RESPIRATORY SYSTEM: As mentioned earlier. GI no nausea. no dysuria. NERVOUS SYSTEM: No numbness or weakness. ALLERGY/IMMUNOLOGY: No asthma or hayfever. MUSCULOSKELETAL as mentioned earlier. HEMATOLOGY/ONCOLOGY: As mentioned earlier. ENDOCRINE: As mentioned earlier. CONSTITUTIONAL: As mentioned earlier. DERMATOLOGY negative. RHEUMATOLOGY: Negative. PSYCHIATRIC: As mentioned earlier. EXAMINATION: The patient is alert and oriented times three. Pulse is 106, blood pressure 117/82, respirations 20, temperature 97.9, pulse ox 97% on 3 L. HEENT: Conjunctivae normal. NECK: No JVD. CARDIOVASCULAR: S1, S2 muffled. RESPIRATION: Breath sounds diminished in the bases. A few scattered rhonchi and crackles. Expiratory wheezing also present. ABDOMEN: Soft. Nontender. NERVOUS SYSTEM: Higher functions as mentioned earlier. Moves all 4 limbs. No focal deficits. LYMPHATICS: No lymph nodes palpable in the neck or axilla or groin. SKIN: No ulcer, no rash and no bleeding. JOINTS: No active deforming arthropathy. LABS: WBC 6.3, hemoglobin is 12, sodium 140, potassium 4.1. Creatinine is 0.65. ASSESSMENT: 1. Shortness of breath, possible chronic obstructive pulmonary disease acute exacerbation. 2. Chest pain, rule out unstable angina. 3. Right upper lobe mass lesion. 4. Atrial fibrillation chronic. 5. Congestive heart failure, ejection fraction unknown. 6. History of chronic obstructive pulmonary disease. 7. Hypertension. 8. History of chronic lymphedema. 9. Obstructive sleep apnea, does not use CPAP. 10.History of nicotine dependence. 11.Obesity with body mass index of 40.9. 12.History of transient ischemic attacks. 13.History of noncompliance. 14.Poor social support. 15.History of congestive heart failure, ejection fraction 55-60 percent with chronic diastolic dysfunction. 16.FULL CODE. RECOMMENDATIONS AND DISCUSSION: This 70-year-old gentleman who presented with multiple medical problems, at this time I recommend to continue the current management and treatment. Patient is followed by [facility]. Recommend Cardiology, pulmonology, Oncology, Hematology, Oncology evaluation. Resume the home medications. Prognosis guarded because of multiple complex medical issues. Further recommendations to follow. A copy of dictation being forwarded to Dr. Espinal who is following the patient closely. ARTEM / KESHAVN: [id number] /
[2020-09-30] MEDS: FUROSEMIDE 20 MG TAB PO SCH (16:24)
[2020-09-30 18:05] LABS: Appearance,Urine Clear (Clear); Bilirubin,Urine Negative (Negative); Blood,Urine Negative (Negative); Color,Urine Light Yellow; Glucose,Urine (UA) Negative (Negative); Ketones,Urine Negative (Negative); Leukocyte Esterase,Urine Negative (Negative); Nitrite,Urine Negative (Negative); PH, Urine 5.5 (5.0-8.0); Protein,Urine Negative (Negative); Specific Gravity,Urine 1.007 (1.001-1.035); Urobilinogen,Urine <2.0 mg/dL (<2.0)
[2020-09-30] MEDS: APIXABAN 5 MG TAB PO SCH (18:28)
[2020-09-30] MEDS: methylPREDNISolone SOD SUCCI 125 MG/2 ML VIAL IV SCH (18:29)
--- NOTE | 2020-09-30 19:48 | CT ---
EXAMINATION TYPE: CT chest w con DATE OF EXAM: 09/30/2020 COMPARISON: HISTORY: Shortness of breath. CT DLP: 1042 mGycm, Automated exposure control for dose reduction was used. CONTRAST: Performed injected with 100 mL of Isovue 300. TECHNIQUE: Axial images were obtained at 5 mm thick sections. Reconstructed images are reviewed on [employer] computer in the coronal plane. FINDINGS: Portion of the thyroid visualized is normal. There is a 3.9 cm peripheral right upper lobe posterior lung nodule. Series 204 image 22. This has en larged from comparison There is a 1.3 cm right hilar lymph node. The ascending aorta diameter at the level of the main pulm onary artery is 4.4 cm. The main pulmonary artery diameter at the bifurcation is 3.[address] sections are obtained through the upper abdomen. Multiple small gallstones within the gall bladder. There is fatty infiltration through the pancreas. A 0.9 cm hypodensity anterior right lobe l iver. Series 201 image 48. IMPRESSIONS: 1. Enlarging 3.9 cm right upper lobe mass. 2. New 1.3 cm suspected right hilar lymph node. 3. Ascending thoracic aortic aneurysm measuring 4.4 cm.
[2020-09-30] MEDS: ATORVASTATIN 40 MG TAB PO SCH (20:16)
[2020-09-30] MEDS: POTASSIUM CHLORIDE ER 20 MEQ TAB.ER PO SCH (20:16)
[2020-09-30] MEDS: PANTOPRAZOLE 40 MG TABLET PO SCH (20:16)
--- NOTE | 2020-09-30 20:21 | P.CONS ---
History of Present Illness - Reason for Consult Consult date: 09/30/20 Right Lung Mass - History of Present Illness the patient is a 70-year-old white male with multiple medical problems. These include morbid obesity, sleep apnea, advanced COPD, chronic venous insufficiency, A. fib with history of stroke/TIA. The patient was admitted this time with mid to right-sided chest pain and increased shortness of breath or baseline. By the time of presentation pain and actually resolved. Patient's chest x-ray showed right upper lung mass about 4.[address] scan of the chest confirmed a 3.9 cm mass, with mildly enlarged right hilar node 1.3 cm.consult was placed for further evaluation and recommendations the above is actually a known finding. The patient was first noted to have a masslike infiltrate 3.4 cm on chest x-ray and CT scan in 11/04. He was supposed to follow-up with pulmonary medicine, with PET scan post discharge. However it appears that he did not do so. He was admitted again in 03/06 with possible TIA. Chest x-ray and CT scan showed persistent density, now 3.7 cm and more suggestive of a mass. The patient underwent navigational bronchoscopy with biopsy. However the pathology was nondiagnostic. The patient was sent to rehabilitation and discharge would plan for PET scan and follow-up with pulmonary medicine. Again it appears that he did not do so. According to history available from the EMR, the study was set up in [place] by his primary care physician, apparently in 05/08, with the patient did not keep that appointment either. He denied any prior history of malignancy. He reports smoking more than a pack a day for many years up until about 3 years ago. The patient has very limited performance status. He states that normally he can walk about 15-20 feet without having to rest. He lives alone. He does not drive. He states that a friend is able to drive him to appointments occasionally while other times he [facility]. Review of Systems Constitutional: Reports fatigue, Reports weakness Eyes: denies blurred vision, denies pain Ears: deny: decreased hearing, ear discharge, earache, tinnitus Ears, nose, mouth and throat: Denies headache, Denies sore throat Cardiovascular: Reports chest pain, Reports palpitations, Reports shortness of breath Respiratory: Reports dyspnea, Reports pain Gastrointestinal: Denies abdominal pain, Denies diarrhea, Denies nausea, Denies vomiting Genitourinary: Reports incontinence Musculoskeletal: Reports muscle weakness Integumentary: Reports color changes ( venous insufficiency changes both lower extremities) Neurological: Reports weakness Psychiatric: Reports as per HPI Endocrine: Reports fatigue Hematologic/Lymphatic: Reports as per HPI Past Medical History Past Medical History: Atrial Fibrillation, Heart Failure, COPD, Hypertension Additional Past Medical History / Comment(s): obesity, chronic Le wounds chronic lymphedema of the lower extremity , obstructive sleep apnea, does not use CPAP at home History of Any Multi-Drug Resistant Organisms: None Reported Past Surgical History: No Surgical Hx Reported Past Anesthesia/Blood Transfusion Reactions: No Reported Reaction Past Psychological History: No Psychological Hx Reported Additional Psychological History / Comment(s): Quit smoking in November 2018 Smoking Status: Former smoker Past Alcohol Use History: None Reported Past Drug Use History: None Reported - Past Family History Father Family Medical History: CVA/TIA Additional Family Medical History / Comment(s): Father from CVA Mother Family Medical History: No Reported History Additional Family Medical History / Comment(s): Mother from a "broken heart" shortly after father Medications and Allergies Home Medications Medication Instructions Recorded Confirmed Type Apixaban [Eliquis] 5 mg PO AC-BID 01/09/19 09/30/20 History Cholecalciferol [Vitamin D3 (25 50 mcg PO DAILY 01/09/19 09/30/20 History Mcg = 1000 Iu)] Pantoprazole [Protonix] 40 mg PO HS 04/29/19 09/30/20 History Albuterol Sulfate [Proair Hfa] 2 puff INHALATION RT-QID PRN 02/12/20 09/30/20 History Aspirin 81 mg PO DAILY chew 02/23/20 09/30/20 Rx Potassium Chloride ER [K-Dur 20] 20 meq PO BID tab.er.prt 02/23/20 09/30/20 Rx Atorvastatin [Lipitor] 40 mg PO HS 09/30/20 09/30/20 History Furosemide [Lasix] 20 mg PO BID 09/30/20 09/30/20 History Multivitamins, Thera [Multivitamin 1 tab PO DAILY 09/30/20 09/30/20 History (formulary)] Tiotropium [place] [Spiriva] 1 cap INHALATION RT-DAILY 09/30/20 09/30/20 History Allergies Allergy/AdvReac Type Severity Reaction Status Date / Time No Known Allergies Allergy Verified 09/30/20 10:33 Physical Exam Vitals: Vital Signs Temp Pulse Pulse Resp BP BP Pulse Ox 09/30/20 19:45 108 H 09/30/20 19:38 106 H 09/30/20 19:27 106 H 18 09/30/20 19:08 97.3 F L 104 H 15 103/65 93 L 09/30/20 15:47 95 18 09/30/20 15:38 95 18 95 09/30/20 13:42 97.9 F 106 H 20 117/82 97 09/30/20 12:36 98.2 F 95 18 102/78 99 09/30/20 11:30 98.5 F 101 H 16 119/90 97 09/30/20 11:27 106 H 09/30/20 11:12 102 H 09/30/20 10:47 105 H 18 105/71 97 09/30/20 09:18 98 F 93 18 133/86 90 L Intake and Output 09/30/20 09/30/20 09/30/20 06:59 14:59 22:59 Intake Total 236 Output Total 400 Balance -164 Intake: Oral 236 Output: Urine 400 Other: Voiding Method Urinal Urinal Weight 149.685 kg 152.5 kg - Constitutional General appearance: mild distress - EENT Eyes: EOMI, PERRLA ENT: hearing grossly normal, normal oropharynx - Neck Neck: no lymphadenopathy Thyroid: bilateral: normal size - Respiratory Respiratory: bilateral: diminished, prolonged expiration - Cardiovascular Rhythm: irregularly irregular Heart sounds: normal: S1, S2 - Gastrointestinal General gastrointestinal: normal bowel sounds, soft - Integumentary changes of chronic venous insufficiency bilateral distal lower extremities - Neurologic Neurologic: CNII-XII intact - Musculoskeletal Musculoskeletal: generalized weakness, strength equal bilaterally - Psychiatric Psychiatric: A&O x's 3, appropriate affect Results CBC & Chem 7: 09/30/20 09:42 09/30/20 09:42 Labs: Abnormal Lab Results - Last 24 Hours (Table) 09/30/20 09/30/20 Range/Units 09:42 09:42 Hgb 12.0 L (13.0-17.5) gm/dL Hct 37.4 L (39.0-53.0) % RDW 16.3 H (11.5-15.5) % Carbon Dioxide 33 H (22-30) mmol/L Creatinine 0.65 L (0.66-1.25) mg/dL Glucose 176 H (74-99) mg/dL Comments: echocardiogram and carotid Doppler reports reviewed from 03/06 Chest x-ray: report reviewed CT scan - chest: report reviewed CT Scan - head: report reviewed Assessment and Plan (1) Lung mass Narrative/Plan: this is a known medical issue for this patient since 11/04. However workup and establishment of diagnosis has been delayed because of noncompliance. It appear s that the patient did not follow-up with PET scan at his discharged on 11/04. During his admission in 03/06 did have a bronchoscopy which was unfortunately nondiagnostic. He then again did not follow up post discharge. -Current imaging appears to show some growth and possibly involvement of right hilar node. Patient has been seen by primary medicine. He will need another attempt at tissue diagnosis. Consult has been placed to IR for possible CT- guided biopsy. We will await their evaluation. - The patient will also need a PET scan as an outpatient. If attempts to get a tissue diagnosis are unsuccessful, and PET scan confirms uptake in this mass with no evidence of renetta or distant uptake, then definitive radiation with SBRT to this mass can be a treatment option. - the above was discussed with the patient. At this time it appears that outpatient testing and follow-up could be quite challenging given his poor performance status, and lack of support especially difficulty with hoskins sportation which is likely a major factor in his noncompliance so far. Patient will need social work evaluation to hopefully help with the same. Current Visit: Yes Status: Acute Code(s): R91.8 - OTHER NONSPECIFIC ABNORMAL FINDING OF LUNG FIELD SNOMED Code(s): 054991544 (2) Anemia Narrative/Plan: patient has mild anemia with hemoglobin of 12 which is normochromic normocytic. Renal function is normal. Check labs workup especially iron levels given ongoing anticoagulation. Current Visit: Yes Status: Acute Code(s): D64.9 - ANEMIA, UNSPECIFIED SNOMED Code(s): 930632840 Plan: 4 to the admitting service and other consultants for management of his multiple other medical problems
[2020-10-01] MEDS: methylPREDNISolone SOD SUCCI 125 MG/2 ML VIAL IV SCH ×5 (00:53→22:50)
[2020-10-01 06:48] LABS: Glucose,Whole Blood 290 mg/dL (75-99)
[2020-10-01] MEDS: IPRATROPIUM-ALBUTEROL 3 ML NEB INHALATION SCH ×4 (07:36→19:51)
[2020-10-01] MEDS: FUROSEMIDE 20 MG TAB PO SCH ×2 (07:56→13:03)
[2020-10-01] MEDS: APIXABAN 5 MG TAB PO SCH ×2 (07:56→17:08)
[2020-10-01] MEDS: ASPIRIN 81 MG PO SCH (07:56)
[2020-10-01] MEDS: CHOLECALCIFEROL 25 MCG (1000 IU) TABLET PO SCH (07:56)
[2020-10-01] MEDS: MULTIVITAMINS, THERA 1 EACH TAB PO SCH (07:56)
[2020-10-01] MEDS: POTASSIUM CHLORIDE ER 20 MEQ TAB.ER PO SCH ×2 (07:56→22:49)
[2020-10-01] MEDS ORDERED: IPRATROPIUM 0.5 MG/2.5 ML NEBU INHALATION SCH (08:00)
[2020-10-01 08:56] LABS: African American GFR (CKD) 104.2 (60.0-200.0); Anion Gap 7.2 mmol/L (4.00-12.00); BUN/Creat Ratio 18.75 Ratio (12.00-20.00); Calcium 8.6 mg/dL (8.7-10.3); Carbon Dioxide 29.8 mmol/L (21.6-31.8); Non-African American GFR(CKD) 89.9 (60.0-200.0); Potassium 4.4 mmol/L (3.5-5.5)
--- NOTE | 2020-10-01 09:18 | P.CRDCN ---
History of Present Illness Consult date: 10/01/20 Chief complaint: Chest pain History of present illness: This is a very pleasant 70-year-old gentleman who requested to see for further evaluation of chest discomfort. The patient follow-up at our office regularly. He has history of permanent atrial fibrillation currently on oral anticoagulation and also history of chronic obstructive pulmonary disease as well as obstructive sleep apnea and chronic lower extremities edema and morbid obesity. He also was diagnosed recently with a right upper lobe mass suspicious for malignancy. This time he presented to the hospital complaining of chest discomfort. He describes discomfort as a squeezing sensation in the middle of the chest without any radiation to the arms or neck or shoulders and without any associated symptoms. He underwent a workup including troponin and that came in to be unremarkable. The chest x-ray showed enlarging right upper mass. Currently the patient is on oxygen. He denies any dizziness or lightheadedness or any feeling of heart racing or fluttering or syncope. The EKG showed atrial fibrillation without any significant ST or T-wave abnormalities. No history of coronary artery disease or revascularization no history of present stress test. He also underwent a computed tomography scan during this admission and that showed an enlarging 3.9 cm right upper lobe mass along with a 1.3 cm suspected the right heel her lymph node and also ascending thoracic aortic aneurysm at 4.4 cm. Currently the patient is chest pain-free. An echocardiogram from February 2014 revealed normal LV function Past Medical History Past Medical History: Atrial Fibrillation, Heart Failure, COPD, Hypertension Additional Past Medical History / Comment(s): obesity, chronic Le wounds chronic lymphedema of the lower extremity , obstructive sleep apnea, does not use CPAP at home History of Any Multi-Drug Resistant Organisms: None Reported Past Surgical History: No Surgical Hx Reported Past Anesthesia/Blood Transfusion Reactions: No Reported Reaction Past Psychological History: No Psychological Hx Reported Additional Psychological History / Comment(s): Quit smoking in November 2018 Smoking Status: Former smoker Past Alcohol Use History: None Reported Past Drug Use History: None Reported - Past Family History Father Family Medical History: CVA/TIA Additional Family Medical History / Comment(s): Father from CVA Mother Family Medical History: No Reported History Additional Family Medical History / Comment(s): Mother from a "broken heart" shortly after father Medications and Allergies Home Medications Medication Instructions Recorded Confirmed Type Apixaban [Eliquis] 5 mg PO AC-BID 01/09/19 09/30/20 History Cholecalciferol [Vitamin D3 (25 50 mcg PO DAILY 01/09/19 09/30/20 History Mcg = 1000 Iu)] Pantoprazole [Protonix] 40 mg PO HS 04/29/19 09/30/20 History Albuterol Sulfate [Proair Hfa] 2 puff INHALATION RT-QID PRN 02/12/20 09/30/20 History Aspirin 81 mg PO DAILY chew 02/23/20 09/30/20 Rx Potassium Chloride ER [K-Dur 20] 20 meq PO BID tab.er.prt 02/23/20 09/30/20 Rx Atorvastatin [Lipitor] 40 mg PO HS 09/30/20 09/30/20 History Furosemide [Lasix] 20 mg PO BID 09/30/20 09/30/20 History Multivitamins, Thera [Multivitamin 1 tab PO DAILY 09/30/20 09/30/20 History (formulary)] Tiotropium [place] [Spiriva] 1 cap INHALATION RT-DAILY 09/30/20 09/30/20 History Allergies Allergy/AdvReac Type Severity Reaction Status Date / Time No Known Allergies Allergy Verified 09/30/20 10:33 Physical Exam Vitals: Vital Signs Temp Pulse Pulse Resp BP BP Pulse Ox 10/01/20 07:43 100 10/01/20 07:36 100 10/01/20 07:31 98 F 91 16 120/82 95 10/01/20 00:58 97.3 F L 89 15 105/71 95 09/30/20 19:45 108 H 09/30/20 19:38 106 H 09/30/20 19:27 106 H 18 09/30/20 19:08 97.3 F L 104 H 15 103/65 93 L 09/30/20 15:47 95 18 09/30/20 15:38 95 18 95 09/30/20 13:42 97.9 F 106 H 20 117/82 97 09/30/20 12:36 98.2 F 95 18 102/78 99 09/30/20 11:30 98.5 F 101 H 16 119/90 97 09/30/20 11:27 106 H 09/30/20 11:12 102 H 09/30/20 10:47 105 H 18 105/71 97 09/30/20 09:18 98 F 93 18 133/86 90 L Intake and Output 09/30/20 10/01/20 10/01/20 22:59 06:59 14:59 Intake Total 236 236 Output Total 400 300 Balance -164 -300 236 Intake: Oral 236 236 Output: Urine 400 300 Other: Voiding Method Urinal Weight 152.5 kg 153.5 kg - Constitutional General appearance: no acute distress - Respiratory Respiratory: bilateral: CTA - Cardiovascular Rhythm: irregularly irregular Heart sounds: normal: S1, S2 Results 09/30/20 09:42 10/01/20 05:02 Cardiac Enzymes 09/30/20 09/30/20 09/30/20 Range/Units 09:42 09:42 12:35 AST 22 (17-59) U/L Troponin I 0.033 0.033 (0.000-0.034) ng/mL 09/30/20 Range/Units 15:48 AST (17-59) U/L Troponin I 0.032 (0.000-0.034) ng/mL Coagulation 09/30/20 Range/Units 09:42 PT 11.0 (9.0-12.0) sec APTT 27.8 (22.0-30.0) sec CBC 09/30/20 Range/Units 09:42 WBC 6.3 (3.8-10.6) k/uL RBC 4.32 (4.30-5.90) m/uL Hgb 12.0 L (13.0-17.5) gm/dL Hct 37.4 L (39.0-53.0) % Plt Count 253 (150-450) k/uL Comprehensive Metabolic Panel 09/30/20 10/01/20 Range/Units 09:42 05:02 Sodium 140 136 (137-145) mmol/L Potassium 4.1 4.4 (3.5-5.1) mmol/L Chloride 101 99 (98-107) mmol/L Carbon Dioxide 33 H 29.8 (22-30) mmol/L BUN 18 15.0 (9-20) mg/dL Creatinine 0.65 L 0.8 (0.66-1.25) mg/dL Glucose 176 H 261 H (74-99) mg/dL Calcium 9.0 8.6 L (8.4-10.2) mg/dL AST 22 (17-59) U/L ALT 15 (4-49) U/L Alkaline Phosphatase 106 (38-126) U/L Total Protein 8.0 (6.3-8.2) g/dL Albumin 3.7 (3.5-5.0) g/dL Current Medications Generic Name Dose Route Start Last Admin Trade Name Freq PRN Reason Stop Dose Admin Hydrocodone Bitart/Acetaminophen 1 each 09/30/20 15:22 Hydrocodone/Apap 5-325mg 1 Each Tab PO Q6HR PRN Pain Albuterol/Ipratropium 3 ml 09/30/20 10:54 Ipratropium-Albuterol 3 Ml Neb INHALATION RT-Q4H PRN Shortness Of Breath Or Wheezing Albuterol/Ipratropium 3 ml 09/30/20 16:00 10/01/20 07:36 Ipratropium-Albuterol 3 Ml Neb INHALATION 3 ml RT-QID AKHIL Administration Alprazolam 0.25 mg 09/30/20 15:22 Alprazolam 0.25 Mg Tab PO TID PRN Anxiety Apixaban 5 mg 09/30/20 17:30 10/01/20 07:56 Apixaban 5 Mg Tab PO 5 mg AC-BID AKHIL Administration Protocol Aspirin 81 mg 10/01/20 09:00 10/01/20 07:56 Aspirin 81 Mg PO 81 mg DAILY AKHIL Administration Atorvastatin Calcium 40 mg 09/30/20 21:00 09/30/20 20:16 Atorvastatin 40 Mg Tab PO 40 mg HS AKHIL Administration Cholecalciferol 50 mcg 10/01/20 09:00 10/01/20 07:56 Cholecalciferol 25 Mcg (1000 Iu) Tablet PO 50 mcg DAILY AKHIL Administration Furosemide 20 mg 09/30/20 16:00 10/01/20 07:56 Furosemide 20 Mg Tab PO 20 mg BID@0900,1600 AKHIL Administration Methylprednisolone Sodium Succinate 60 mg 09/30/20 18:00 10/01/20 05:57 Methylprednisolone Sod Succi 125 Mg/2 Ml Vial IV 60 mg Q6HR AKHIL Administration Miscellaneous Information 1 each 09/30/20 11:43 Rx Info: Iv Contrast Was Given 1 Each Misc MISCELLANE 10/02/20 11:43 DAILY PRN Per Protocol Miscellaneous Information 1 each 09/30/20 14:48 Rx Info: Iv Contrast Was Given 1 Each Misc MISCELLANE 10/02/20 14:49 DAILY PRN Per Protocol Multivitamins 1 each 10/01/20 09:00 10/01/20 07:56 Multivitamins, Thera 1 Each Tab PO 1 each DAILY AKHIL Administration Pantoprazole Sodium 40 mg 09/30/20 21:00 09/30/20 20:16 Pantoprazole 40 Mg Tablet PO 40 mg HS AKHIL Administration Potassium Chloride 20 meq 09/30/20 21:00 10/01/20 07:56 Potassium Chloride Er 20 Meq Tab.Er PO 20 meq BID AKHIL Administration Temazepam 15 mg 09/30/20 15:22 Temazepam 15 Mg Cap PO HS PRN Insomnia Intake and Output 09/30/20 10/01/20 10/01/20 22:59 06:59 14:59 Intake Total 236 236 Output Total 400 300 Balance -164 -300 236 Intake: Oral 236 236 Output: Urine 400 300 Other: Voiding Method Urinal Weight 152.5 kg 153.5 kg 09/30/20 09:42 10/01/20 05:02 Assessment and Plan Assessment: Assessment #1 chest discomfort. Currently the patient is chest pain-free #2 possible lung malignancy #3 thoracic aortic aneurysm #4 permanent atrial fibrillation #5 chronic obstructive pulmonary disease next #6 sleep apnea Plan #1 acute coronary event was ruled out #2 the patient definitely need to be ruled out for severe CAD. #3 further recommendation to follow the prognosis from the lung masses standpoint of view #4 recent echo showed normal LV function #5 follow-up with the patient
[2020-10-01 09:19] LABS: Basophils # (A) 0.01 X 10*3/uL (0.00-0.10); Basophils % (A) 0.1 %; Eosinophils # (A) 0 X 10*3/uL (0.04-0.35); Eosinophils % (A) 0 %; HCT 38.8 % (39.6-50.0); HGB 11.2 g/dL (13.0-17.0); Lymphocytes # (A) 0.63 X 10*3/uL (0.90-5.00); Lymphocytes % (A) 5.4 %; MCH 26.4 pg (27.0-32.0); MCHC 28.9 g/dL (32.0-37.0); MCV 91.3 fL (80.0-97.0); Mean Platelet Volume 11.3 fL (9.5-12.2); Monocytes # (A) 0.14 X 10*3/uL (0.20-1.00); Monocytes % (A) 1.2 %; Neutrophils # (A) 10.91 X 10*3/uL (1.80-7.70); Neutrophils % (A) 92.8 %; Platelet Count 277 X 10*3/uL (140-440); RBC 4.25 X 10*6/uL (4.40-5.60); RDW 16.1 % (11.5-14.5); WBC 11.75 X 10*3/uL (4.50-10.00)
[2020-10-01 11:36] LABS: Glucose,Whole Blood 334 mg/dL (75-99)
--- NOTE | 2020-10-01 11:55 | P.PN ---
Subjective Progress Note Date: 10/01/20 This is a 70-year-old gentleman who follows with Dr. Galicia as his primary care provider. He has a history of chronic obstructive pulmonary disease, chronic atrial fibrillation anticoagulated with Eliquis, morbid obesity, obstructive sleep apnea, chronic venous stasis of the lower extremities with chr onic lymphedema and ulceration, hyperlipidemia, extreme medical debility with poor mobility and poor overall functional performance. He was seen here back in February 2020 was found to have a right upper lobe mass suspicious for malignancy. Navigation bronchoscopy with biopsy results were nondiagnostic. He was to have a outpatient PET scan and follow up with Dr. Joe. He never did have a PET scan. He states that was scheduled at [place] but they canceled that and he didn't get it rescheduled. He did not follow-up in our office. He presented here to the hospital this morning after developing chest pain. The pain had actually resolved before he got to the emergency room. He was found to be hypoxemic with O2 saturation at 90% and was admitted for the same. He is being treated for COPD exacerbation. Chest x-ray does show enlarging right upper lobe mass. We're consulted for the same. He is seen in consultation on the regular medical floor. He is currently resting in bed. O2 saturation 97% on 3 L nasal cannula. He is afebrile. Hemodynamically stable. He is somewhat slow to respond. He is somewhat of a poor historian. He does remain in atrial fibrillation. White count 6.3. Hemoglobin 12.0. Platelets 253. INR 1.0. D- dimer 0.58. Sodium 140. Potassium 4.1. Creatinine 0.65. Troponin 0.0332. ProBNP 207. He was initiated and DuoNeb inhalations, IV Solu-Medrol. The patient is seen today 10/01/2020 in follow-up on the regular medical floor. He is currently sitting up in a chair at the bedside. Awake and alert in no acute distress. Maintaining O2 saturation in the 90s on 3 L/m per nasal cannula. CAT scan of the chest does reveal enlarging right upper lobe mass now measuring 3.9 cm. There is a new 1.3 cm right hilar lymph node noted as well. Ascending thoracic aortic aneurysm measuring 4.4 cm. White count 11.7. Hemoglobin 11.2. Platelets 277. Sodium 136. Potassium 4.4. Creatinine 0.8. Glucose is 261. He remains on bronchodilators, IV Solu-Medrol. Oral diuretics. Anticoagulated with Eliquis. Objective - Vital Signs Vital signs: Vital Signs Temp 98 F 10/01/20 07:31 Pulse 99 10/01/20 11:44 Resp 16 10/01/20 07:31 BP 120/82 10/01/20 07:31 Pulse Ox 95 10/01/20 07:31 Intake & Output 09/30/20 10/01/20 10/01/20 18:59 06:59 18:59 Intake Total 236 236 Output Total 200 500 Balance 36 -500 236 Weight 152.5 kg 153.5 kg Intake: Oral 236 236 Output: Urine 200 500 Other: Voiding Method Urinal Urinal Urinal - Exam GENERAL EXAM: Alert, 70-year-old gentleman, on 3 L nasal cannula, fairly comfortable in no apparent distress. HEAD: Normocephalic. EYES: Normal reaction of pupils, equal size. NOSE: Clear with pink turbinates. THROAT: No erythema or exudates. NECK: No masses, no JVD. CHEST: No chest wall deformity. LUNGS: Equal air entry with no crackles, wheeze, rhonchi or dullness. Diminished. CVS: S1 and S2 normal with no audible murmur, regular rhythm. ABDOMEN: No hepatosplenomegaly, normal bowel sounds, no guarding or rigidity. SPINE: No scoliosis or deformity SKIN: No rashes CENTRAL NERVOUS SYSTEM: No focal deficits, tone is normal in all 4 extremities. EXTREMITIES: Changes of chronic venous stasis of the lower extremities. There is trace peripheral edema. No clubbing, no cyanosis. Peripheral pulses are intact. - Labs CBC & Chem 7: 10/01/20 05:02 10/01/20 05:02 Labs: Abnormal Lab Results - Last 24 Hours (Table) 10/01/20 10/01/20 10/01/20 Range/Units 05:02 05:02 06:46 WBC 11.75 H (4.50-10.00) X 10*3/uL RBC 4.25 L (4.40-5.60) X 10*6/uL Hgb 11.2 L (13.0-17.0) g/dL Hct 38.8 L (39.6-50.0) % MCH 26.4 L (27.0-32.0) pg MCHC 28.9 L (32.0-37.0) g/dL RDW 16.1 H (11.5-14.5) % Immature Gran # 0.06 H (0.00-0.04) X 10*3/uL Neutrophils # 10.91 H (1.80-7.70) X 10*3/uL Lymphocytes # 0.63 L (0.90-5.00) X 10*3/uL Monocytes # 0.14 L (0.20-1.00) X 10*3/uL Eosinophils # 0 L (0.04-0.35) X 10*3/uL Glucose 261 H (70-110) mg/dL POC Glucose (mg/dL) 290 H (75-99) mg/dL Calcium 8.6 L (8.7-10.3) mg/dL 10/01/20 Range/Units 11:35 WBC (4.50-10.00) X 10*3/uL RBC (4.40-5.60) X 10*6/uL Hgb (13.0-17.0) g/dL Hct (39.6-50.0) % MCH (27.0-32.0) pg MCHC (32.0-37.0) g/dL RDW (11.5-14.5) % Immature Gran # (0.00-0.04) X 10*3/uL Neutrophils # (1.80-7.70) X 10*3/uL Lymphocytes # (0.90-5.00) X 10*3/uL Monocytes # (0.20-1.00) X 10*3/uL Eosinophils # (0.04-0.35) X 10*3/uL Glucose (70-110) mg/dL POC Glucose (mg/dL) 334 H (75-99) mg/dL Calcium (8.7-10.3) mg/dL Assessment and Plan Assessment: 1 Atypical chest pain 2 Right upper lobe mass measuring 3.9 cm, previous biopsy in February 2020 was nondiagnostic. New 1.3 cm right hilar node noted. PET scan initially scheduled in [place], canceled and then not rescheduled. No follow-up in our office 3 Acute hypoxemic respiratory failure secondary to a mild acute exacerbation of chronic obstructive pulmonary disease 4 Chronic atrial fibrillation, anticoagulated with Eliquis 5 Obesity 6 Obstructive sleep apnea 7 Chronic venous stasis of the lower extremities 8 Hyperlipidemia 9 Poor overall functional performance based on the above-mentioned multiple comorbidities Plan: The patient was seen and evaluated by Dr. Mcdonald Computed tomography scan of the chest reviewed Suspicion is high for malignancy of the right upper lobe mass Mass is near the chest wall, may request IR to perform a CT-guided FNA this admission We'll need to hold Eliquis if any further intervention is possible If not, outpatient PET scan needs to be scheduled again Informed the patient how important this follow-up is We will continue to follow and make further recommendations based on his clinical status I, the cosigning physician, performed a history & physical examination of the patient. Lungs sounds are clear but diminished. Maintaining good O2 saturations in the 90s on 3 L/m per nasal cannula. I discussed the assessment and plan of care with my nurse practitioner, Krystin Velázquez. I attest to the above note as dictated by her.
[2020-10-01] MEDS: INSULIN ASPART (NovoLOG) 100 UNIT/ML VIAL SQ SCH ×3 (13:04→22:50)
[2020-10-01 16:29] LABS: Glucose,Whole Blood 318 mg/dL (75-99)
[2020-10-01 20:42] LABS: Glucose,Whole Blood 356 mg/dL (75-99)
--- NOTE | 2020-10-01 21:07 | PN ---
PROGRESS NOTE DATE OF SERVICE: 10/01/2020 This 70-year-old gentleman who was admitted with shortness of breath and COPD exacerbation also had a lung lesion also. A CT scan of the chest, which was done yesterday, showed a large segment of 3.9 cm right upper lobe lesion with suspected right hilar lymph node. Multiple consultants are following the patient including Cardiology, Pulmonology and Hematology/Oncology. Dr. Muhammad has seen the patient. The previous bronchoscopy was nondiagnostic. The patient was noncompliant on followup. Inpatient followup is recommended with Dr. Muhammad. Dr. Mcdonald also saw the patient, recommended Interventional Radiology to perform a CT- guided fine-needle aspiration. The patient to get a PET scan as an outpatient. PAST MEDICAL HISTORY: Reviewed. REVIEW OF SYSTEMS: ENT No history of diminished hearing or vision. CARDIOVASCULAR No angina or palpitations. RESPIRATORY No cough, no hemoptysis. GI No nausea, vomiting, or diarrhea. No symptoms. CURRENT MEDICATIONS: Reviewed include [place], DuoNeb, Xanax, Eliquis, aspirin, Lipitor. Doses are reviewed. PHYSICAL EXAMINATION: Patient is alert oriented x4. Pulse 94, blood pressure 120/74, respiration 18, temperature 97.2, pulse ox 98% on 3 L. HEENT: Conjunctivae normal. Oral mucosa moist. NECK: No jugular venous distention. No lymph node enlargement. CARDIOVASCULAR: S1, S2, muffled. No S3, no S4, RESPIRATORY: Diminished breath sounds at the bases. A few scattered rhonchi. ABDOMEN: Soft, nontender. LEGS: No edema, no swelling. NERVOUS SYSTEM: Nonfocal. LAB STUDIES: Hemoglobin 11.2, glucose noted 318. ASSESSMENT: 1. Shortness of breath, possible chronic obstructive pulmonary disease acute exacerbation. 2. Possible right upper lobe malignancy, expanding. 3. Chest pain, possible unstable angina, possibly musculoskeletal. 4. Atrial fibrillation, chronic. 5. CHF, ejection fraction unknown. 6. History of chronic obstructive pulmonary disease. 7. Hypertension. 8. History of chronic lymphedema. 9. History of obstructive sleep apnea, does not use CPAP. 10.History of nicotine dependence. 11.History of noncompliance. 12.Obesity with body mass index of 40.9. 13.History of transient ischemic attack. 14.History of congestive heart failure, ejection fraction 50-60% with chronic diastolic dysfunction. 15.Poor social support. 16.FULL CODE. RECOMMENDATIONS AND DISCUSSION: To continue current management and treatment otherwise hold anticoagulants. Interventional Radiology biopsy. Otherwise, prognosis guarded because of multiple complex medical issues. MMODL / IJN: [id number] /
[2020-10-01] MEDS ORDERED: INSULIN DETEMIR (LEVEMIR) 100 UNIT/ML SYR SQ SCH (21:45)
[2020-10-01] MEDS: ATORVASTATIN 40 MG TAB PO SCH (22:49)
[2020-10-01] MEDS: PANTOPRAZOLE 40 MG TABLET PO SCH (22:49)
[2020-10-02] MEDS: methylPREDNISolone SOD SUCCI 125 MG/2 ML VIAL IV SCH ×4 (05:29→23:03)
[2020-10-02 07:04] LABS: Glucose,Whole Blood 285 mg/dL (75-99)
[2020-10-02] MEDS: ASPIRIN 81 MG PO SCH (07:22)
[2020-10-02] MEDS: INSULIN ASPART (NovoLOG) 100 UNIT/ML VIAL SQ SCH ×4 (07:22→21:11)
[2020-10-02] MEDS: APIXABAN 5 MG TAB PO SCH (07:23)
[2020-10-02] MEDS: FUROSEMIDE 20 MG TAB PO SCH ×2 (07:23→12:03)
[2020-10-02] MEDS: IPRATROPIUM-ALBUTEROL 3 ML NEB INHALATION SCH ×4 (07:23→20:32)
[2020-10-02] MEDS: POTASSIUM CHLORIDE ER 20 MEQ TAB.ER PO SCH ×2 (07:23→21:11)
[2020-10-02] MEDS: MULTIVITAMINS, THERA 1 EACH TAB PO SCH (07:23)
[2020-10-02] MEDS: CHOLECALCIFEROL 25 MCG (1000 IU) TABLET PO SCH (07:23)
--- NOTE | 2020-10-02 09:43 | P.PN ---
Subjective Progress Note Date: 10/02/20 Principal diagnosis: Chest discomfort This is a very pleasant 70-year-old gentleman who requested to see as a consult yesterday for chest discomfort. The patient does have permanent atrial fibrillation and also does have chronic obstructive pulmonary disease and sleep apnea. The chest discomfort was atypical and he was ruled out for acute coronary event. More importantly he was diagnosed with lung mass and currently he is having a workup on that. Hematology oncology is on the case. The patient was seen today. He is asymptomatic at this point. I advised the patient to undergo a stress test after the workup on the lung mass is done and the prognosis is norm. He underwent an echo which revealed normal LV function Objective - Vital Signs Vital signs: Vital Signs Temp 97.7 F 10/02/20 07:51 Pulse 98 10/02/20 07:51 Resp 18 10/02/20 07:51 BP 103/63 10/02/20 07:51 Pulse Ox 97 10/02/20 07:51 Intake & Output 10/01/20 10/02/20 10/02/20 18:59 06:59 18:59 Intake Total 472 Output Total 600 1175 Balance -128 -1175 Weight 154 kg Intake: Oral 472 Output: Urine 600 1175 Other: Voiding Method Urinal Urinal Urinal # Bowel Movements 1 - Constitutional General appearance: Present: no acute distress - Respiratory Respiratory: bilateral: diminished - Cardiovascular Rhythm: irregularly irregular Heart sounds: normal: S1, S2 Abnormal Heart Sounds: Present: systolic murmur - Labs CBC & Chem 7: 10/01/20 05:02 10/01/20 05:02 Labs: Abnormal Lab Results - Last 24 Hours (Table) 10/01/20 10/01/20 10/01/20 Range/Units 11:35 16:28 20:40 POC Glucose (mg/dL) 334 H 318 H 356 H (75-99) mg/dL 10/02/20 Range/Units 07:02 POC Glucose (mg/dL) 285 H (75-99) mg/dL Assessment and Plan Assessment: Assessment #1 chest discomfort. Currently the patient is chest pain-free #2 possible lung malignancy #3 thoracic aortic aneurysm #4 permanent atrial fibrillation #5 chronic obstructive pulmonary disease next #6 sleep apnea Plan #1 acute coronary event was ruled out #2 continue the workup for the lung mass #3 Deffer the stress test till we noted diagnosis and prognosis on the lung mass
--- NOTE | 2020-10-02 10:32 | P.PN ---
Subjective Progress Note Date: 10/02/20 Principal diagnosis: Atypical chest pain, right upper lobe mass This is a 70-year-old gentleman who follows with Dr. Galicia as his primary care provider. He has a history of chronic obstructive pulmonary disease, chronic atrial fibrillation anticoagulated with Eliquis, morbid obesity, obstructive sleep apnea, chronic venous stasis of the lower extremities with chronic lymphedema and ulceration, hyperlipidemia, extreme medical debility with poor mobility and poor overall functional performance. He was seen here back in February 2020 was found to have a right upper lobe mass suspicious for malignancy. Navigation bronchoscopy with biopsy results were nondiagnostic. He was to have a outpatient PET scan and follow up with Dr. Joe. He never did have a PET scan. He states that was scheduled at [facility] but they canceled that and he didn't get it rescheduled. He did not follow-up in our office. He presented here to the hospital this morning after developing chest pain. The pain had actually resolved before he got to the emergency room. He was found to be hypoxemic with O2 saturation at 90% and was admitted for the same. He is being treated for COPD exacerbation. Chest x-ray does show enlarging right upper lobe mass. We're consulted for the same. He is seen in consultation on the regular medical floor. He is currently resting in bed. O2 saturation 97% on 3 L nasal cannula. He is afebrile. Hemodynamically stable. He is somewhat slow to respond. He is somewhat of a poor historian. He does remain in atrial fibrillation. White count 6.3. Hemoglobin 12.0. Platelets 253. INR 1.0. D- dimer 0.58. Sodium 140. Potassium 4.1. Creatinine 0.65. Troponin 0.0332. ProBNP 207. He was initiated and DuoNeb inhalations, IV Solu-Medrol. The patient is seen today 10/01/2020 in follow-up on the regular medical floor. He is currently sitting up in a chair at the bedside. Awake and alert in no acute distress. Maintaining O2 saturation in the 90s on 3 L/m per nasal cannula. CAT scan of the chest does reveal enlarging right upper lobe mass now measuring 3.9 cm. There is a new 1.3 cm right hilar lymph node noted as well. Ascending thoracic aortic aneurysm measuring 4.4 cm. White count 11.7. Hemoglobin 11.2. Platelets 277. Sodium 136. Potassium 4.4. Creatinine 0.8. Glucose is 261. He remains on bronchodilators, IV Solu-Medrol. Oral diuretics. Anticoagulated with Eliquis. On 10/02/2020 patient seen in follow-up on medical surgical floor, he sitting up in the recliner, does not appear to be in any acute distress, breathing comfortably, he is on 3 L of oxygen pulse ox is 97%, afebrile, vital signs are stable. No complaints of chest pain or shortness of breath. No hemoptysis. Continues on nebulized bronchodilators, IV steroids. He remains on Eliquis for history of atrial fibrillation. he had no acute events overnight. Objective - Vital Signs Vital signs: Vital Signs Temp 97.7 F 10/02/20 07:51 Pulse 98 10/02/20 07:51 Resp 18 10/02/20 07:51 BP 103/63 10/02/20 07:51 Pulse Ox 97 10/02/20 07:51 Intake & Output 10/01/20 10/02/20 10/02/20 18:59 06:59 18:59 Intake Total 472 Output Total 600 1175 Balance -128 -1175 Weight 154 kg Intake: Oral 472 Output: Urine 600 1175 Other: Voiding Method Urinal Urinal Urinal # Bowel Movements 1 - Exam GENERAL EXAM: Alert, pleasant, 70-year-old obese white male, sitting up in the recliner, on 3 L of oxygen with pulse ox of 98%, comfortable in no apparent distress. HEAD: Normocephalic/atraumatic. EYES: Normal reaction of pupils, equal size. Conjunctiva pink, sclera white. NOSE: Clear with pink turbinates. THROAT: No erythema or exudates. NECK: No masses, no JVD, no thyroid enlargement, no adenopathy. CHEST: No chest wall deformity. Symmetrical expansion. LUNGS: Equal air entry with no crackles, wheeze, rhonchi or dullness. CVS: Regular rate and rhythm, normal S1 and S2, no gallops, no murmurs, no rubs ABDOMEN: Soft, nontender. No hepatosplenomegaly, normal bowel sounds, no gu arding or rigidity. EXTREMITIES: No clubbing, no edema, no cyanosis, 2+ pulses and upper and lower e xtremities. MUSCULOSKELETAL: Muscle strength and tone normal. SPINE: No scoliosis or deformity SKIN: No rashes CENTRAL NERVOUS SYSTEM: Alert and oriented -3. No focal deficits, tone is normal in all 4 extremities. PSYCHIATRIC: Alert and oriented -3. Appropriate affect. Intact judgment and insight. - Labs CBC & Chem 7: 10/01/20 05:02 10/01/20 05:02 Labs: Abnormal Lab Results - Last 24 Hours (Table) 10/01/20 10/01/20 10/01/20 Range/Units 11:35 16:28 20:40 POC Glucose (mg/dL) 334 H 318 H 356 H (75-99) mg/dL 10/02/20 Range/Units 07:02 POC Glucose (mg/dL) 285 H (75-99) mg/dL Assessment and Plan Plan: Assessment: #1. Atypical chest pain, ACS has been ruled out by cardiology #2. Right upper lobe mass measuring 3.9 cm with previous navigational bronchoscopy and biopsy in February 2020 being nondiagnostic. There is a new 1.3 cm right hilar node noted. PET scan was initially scheduled in [facility], canceled and then not rescheduled, no follow-up in the office #3. Acute hypoxic respiratory failure secondary to mild exacerbation of COPD #4. Chronic A. fib on Eliquis #5. Morbid obesity #6. Obstructive sleep apnea #7. Chronic venous stasis of the lower extremities #8. Hyperlipidemia #9. Poor overall functional performance, and medical debility Plan: Continue current medical treatment, consult interventional radiology for a possibility of a fine-needle aspiration biopsy of the right upper lobe mass Hold Eliquis for possibility of procedure tomorrow Continue nebulized bronchodilators and steroids Awaiting a call back from Dr. Judge to see if the right upper lobe mass FNA biopsy is possible Overall prognosis is guarded We'll continue to follow I performed a history & physical examination of the patient and discussed their management with my nurse practitioner, Veronique Roberson. I reviewed the nurse practitioner's note and agree with the documented findings and plan of care. Lung sounds are positive for diffuse wheezes throughout the lung escamilla. The findings and the impression was discussed with the patient. I attest to the documentation by the nurse practitioner. Time with Patient: Less than 30
[2020-10-02 11:52] LABS: Glucose,Whole Blood 330 mg/dL (75-99)
[2020-10-02 16:50] LABS: Glucose,Whole Blood 358 mg/dL (75-99)
[2020-10-02 20:37] LABS: Glucose,Whole Blood 352 mg/dL (75-99)
--- NOTE | 2020-10-02 20:57 | PN ---
PROGRESS NOTE DATE OF SERVICE: 10/02/2020 This 70-year-old gentleman, who was admitted with shortness of breath, also had significantly enlarging mass lesion in the right upper lobe. Also intramedullary biopsies recommended by Dr. Mcdonald. No chest pain. No palpitations. No fever. PHYSICAL EXAMINATION: Pulse 96, blood pressure 102/60, respiration 16, temperature 97.4, pulse ox 97% on 2 L. HEENT: Normal conjunctivae. NECK: No JVD. CARDIAC: Murmur, muffled. RESPIRATION: Breath sounds diminished in the bases. A few scattered rhonchi and crackles. ABDOMEN: Soft, nontender. LEGS: Are no edema. No swelling. LABS: Accu-Cheks are 285, 330 and 358. Other labs are noted. ASSESSMENT: 1. Shortness of breath, possible chronic obstructive pulmonary disease acute exacerbation. 2. Possible right upper lobe malignancy, expanding. 3. Chest pain, possible unstable angina, possibly musculoskeletal. 4. History atrial fibrillation, chronic. 5. CHF, ejection fraction unknown. 6. History of COPD. 7. Hypertension. 8. History of chronic lymphedema. 9. History of obstructive sleep apnea, status post CPAP. 10.History of nicotine dependence. 11.History of noncompliance. 12.Obesity with body mass index of 40.9. 13.History of TIA. 14.History of CHF, ejection fraction 50-60 percent with chronic diastolic dysfunction. 15.Poor social support. 16.FULL CODE. RECOMMENDATIONS AND DISCUSSION: Consequent to continue current medications, monitor symptomatic treatment. Otherwise, the blood patient's blood sugar is also elevated at this time. I would recommend to stop the steroids and monitor blood sugars closely. Continue with the rest of medications. The patient is on Levemir 10 units subcu q.h.s. I will recommend increase to 20, otherwise prognosis guarded because of multiple complex medical issues. Possible biopsy per Interventional Radiology. Further recommendations to follow. MMODL / IJN: [id number] /
[2020-10-02] MEDS: PANTOPRAZOLE 40 MG TABLET PO SCH (21:11)
[2020-10-02] MEDS: ATORVASTATIN 40 MG TAB PO SCH (21:11)
[2020-10-02] MEDS: INSULIN DETEMIR (LEVEMIR) 100 UNIT/ML SYR SQ SCH (21:11)
[2020-10-03] MEDS: methylPREDNISolone SOD SUCCI 125 MG/2 ML VIAL IV SCH (04:51)
[2020-10-03 07:10] LABS: Glucose,Whole Blood 329 mg/dL (75-99)
[2020-10-03] MEDS: CHOLECALCIFEROL 25 MCG (1000 IU) TABLET PO SCH (07:42)
[2020-10-03] MEDS: INSULIN ASPART (NovoLOG) 100 UNIT/ML VIAL SQ SCH ×4 (07:42→20:58)
[2020-10-03] MEDS: FUROSEMIDE 20 MG TAB PO SCH ×2 (07:42→15:04)
[2020-10-03] MEDS: MULTIVITAMINS, THERA 1 EACH TAB PO SCH (07:42)
[2020-10-03] MEDS: POTASSIUM CHLORIDE ER 20 MEQ TAB.ER PO SCH ×2 (07:43→20:58)
[2020-10-03] MEDS: IPRATROPIUM-ALBUTEROL 3 ML NEB INHALATION SCH ×4 (08:53→19:15)
--- NOTE | 2020-10-03 10:46 | P.PN ---
Subjective Progress Note Date: 10/03/20 Principal diagnosis: Lung Mass Await biopsy for further recs. Patient has many barriers to care; including but not limited to performance status, family/friend support, transportation, financial. SOcial work consult has been placed to help and assist with this Objective - Vital Signs Vital signs: Vital Signs Temp 97.8 F 10/03/20 07:45 Pulse 92 10/03/20 09:06 Resp 18 10/03/20 07:45 BP 109/71 10/03/20 07:45 Pulse Ox 96 10/03/20 07:45 Intake & Output 10/02/20 10/03/20 10/03/20 18:59 06:59 18:59 Intake Total 236 Output Total 750 900 Balance -750 -664 Intake: Oral 236 Output: Urine 750 900 Other: Voiding Method Urinal Urinal Urinal # Bowel Movements 1 - Labs CBC & Chem 7: 10/01/20 05:02 10/01/20 05:02 Labs: Abnormal Lab Results - Last 24 Hours (Table) 10/02/20 10/02/20 10/02/20 Range/Units 11:51 16:48 20:35 POC Glucose (mg/dL) 330 H 358 H 352 H (75-99) mg/dL 10/03/20 Range/Units 07:08 POC Glucose (mg/dL) 329 H (75-99) mg/dL Assessment and Plan Plan: Comments: echocardiogram and carotid Doppler reports reviewed from 03/06 Chest x-ray: report reviewed CT scan - chest: report reviewed CT Scan - head: report reviewed Assessment and Plan Lung mass - Antoinette is on hold for possible biopsy today per pulmonary note - Lung Mass has been a known medical issue for this patient since 11/04. However workup and establishment of diagnosis has been delayed because of noncompliance. Patient continues to express many social barriers that can be forseen as problems receiving appropriate care following hospitalization, for this social work has been consulted to assist with options. It appears that the patient did not follow-up with PET scan at his discharged on 11/04. During his admission in 03/06 did have a bronchoscopy which was unfortunately nondiagnostic. He then again did not follow up post discharge. -Current imaging appears to show some growth and possibly involvement of right hilar node. Patient has been seen by primary medicine. He will need another attempt at tissue diagnosis. Consult has been placed to IR for possible CT- guided biopsy. We will await their evaluation. - The patient will also need a PET scan as an outpatient. If attempts to get a tissue diagnosis are unsuccessful, and PET scan confirms uptake in this mass with no evidence of renetta or distant uptake, then definitive radiation with SBRT to this mass can be a treatment option. - the above was discussed with the patient. At this time it appears that outpatient testing and follow-up could be quite challenging given his poor performance status, and lack of support especially difficulty with transportation which is likely a major factor in his noncompliance so far. Patient will need social work evaluation to hopefully help with the same. Current Visit: Yes Status: Acute Code(s): R91.8 - OTHER NONSPECIFIC ABNORMAL FINDING OF LUNG FIELD SNOMED Code(s): 114727469 Anemia patient has mild anemia with hemoglobin of 11- 12 range, which is normochromic normocytic. Renal function is normal. - Check labs workup especially iron levels given ongoing anticoagulation. Current Visit: Yes Status: Acute Code(s): D64.9 - ANEMIA, UNSPECIFIED SNOMED Code(s): 200632464 Physician Attest: I have completed the full history and physical and developed the above improve and plan: Agree with dictation, dictated as a scribe
--- NOTE | 2020-10-03 11:46 | P.PN ---
Subjective Progress Note Date: 10/03/20 Principal diagnosis: COPD, lung mass. This is a 70-year-old gentleman who follows with Dr. Galicia as his primary care provider. He has a history of chronic obstructive pulmonary disease, chronic atrial fibrillation anticoagulated with Eliquis, morbid obesity, obstructive sleep apnea, chronic venous stasis of the lower extremities with chronic lymphedema and ulceration, hyperlipidemia, extreme medical debility with poor mobility and poor overall functional performance. 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 Navigation bronchoscopy with biopsy results were nondiagnostic. He was to have a outpatient PET scan and follow up with Dr. Joe. He never did have a PET scan. He states that was scheduled at [facility] but they canceled that and he didn't get it rescheduled. He did not follow-up in our office. He presented here to the hospital this morning after developing chest pain. The pain had act ually resolved before he got to the emergency room. He was found to be hypoxemic with O2 saturation at 90% and was admitted for the same. He is being treated for COPD exacerbation. Chest x-ray does show enlarging right upper lobe mass. We're consulted for the same. He is seen in consultation on the regular medical floor. He is currently resting in bed. O2 saturation 97% on 3 L nasal cannula. He is afebrile. Hemodynamically stable. He is somewhat slow to respond. He is somewhat of a poor historian. He does remain in atrial fibrillation. White count 6.3. Hemoglobin 12.0. Platelets 253. INR 1.0. D- dimer 0.58. Sodium 140. Potassium 4.1. Creatinine 0.65. Troponin 0.0332. ProBNP 207. He was initiated and DuoNeb inhalations, IV Solu-Medrol. The patient is seen today 10/01/2020 in follow-up on the regular medical floor. He is currently sitting up in a chair at the bedside. Awake and alert in no acute distress. Maintaining O2 saturation in the 90s on 3 L/m per nasal cannula. CAT scan of the chest does reveal enlarging right upper lobe mass now measuring 3.9 cm. There is a new 1.3 cm right hilar lymph node noted as well. Ascending thoracic aortic aneurysm measuring 4.4 cm. White count 11.7. Hemoglobin 11.2. Platelets 277. Sodium 136. Potassium 4.4. Creatinine 0.8. Glucose is 261. He remains on bronchodilators, IV Solu-Medrol. Oral diuretics. Anticoagulated with Eliquis. On 10/02/2020 patient seen in follow-up on medical surgical floor, he sitting up in the recliner, does not appear to be in any acute distress, breathing comfortably, he is on 3 L of oxygen pulse ox is 97%, afebrile, vital signs are stable. No complaints of chest pain or shortness of breath. No hemoptysis. Continues on nebulized bronchodilators, IV steroids. He remains on Eliquis for history of atrial fibrillation. he had no acute events overnight. Progress note dated 10/03/2020. Currently, the patient is again seen on the general medical floor, in room 456. We anticipate a fine-needle aspiration by interventional radiology tomorrow. Currently, the patient is on oxygen by nasal cannula. He is on 2 L and saturations are 96%. He is not manifesting any signs or symptoms of respiratory distress including audible wheezing, use of accessory muscles, or conversational dyspnea. Because of his high blood sugars, the steroids will be discontinued. The patient was discovered initially to have a right upper lobe mass. Navigational bronchoscopy was done, but biopsies were all negative. The patient was to see me in the office, and to have a PET scan. Neither occurred. The patient apparently was going to have a PET scan done and [facility] but it never was either scheduled or he never showed up for the appointment. Anyway, the patient will have a fine-needle aspiration by interventional radiology of a mass, right upper lobe, at 3.9 cm, and is enlarging. Objective - Vital Signs Vital signs: Vital Signs Temp 97.8 F 10/03/20 07:45 Pulse 92 10/03/20 09:06 Resp 18 10/03/20 07:45 BP 109/71 10/03/20 07:45 Pulse Ox 96 10/03/20 07:45 Intake & Output 10/02/20 10/03/20 10/03/20 18:59 06:59 18:59 Intake Total 236 Output Total 750 900 Balance -750 -664 Intake: Oral 236 Output: Urine 750 900 Other: Voiding Method Urinal Urinal Urinal # Bowel Movements 1 - Exam No acute distress, oriented 3. Currently on nasal O2 at 2 L. HEENT examination is grossly unremarkable. Neck supple. Full range of motion. No adenopathy thyromegaly or neck vein distention. Cardiovascular examination reveals regular rhythm rate. S1-S2 normal. No S3 or S4. No discernible murmur noted. Heart rate 92 bpm. Lungs reveal minimal scattered rhonchi. No wheezes or crackles. Breath sounds equal bilaterally. Abdomen soft bowel sounds are heard. No masses or tenderness. Extremities are intact. No cyanosis clubbing or edema. Skin is without rash or lesion. Neurologic examination is brief but nonfocal. - Labs CBC & Chem 7: 10/01/20 05:02 10/01/20 05:02 Labs: Abnormal Lab Results - Last 24 Hours (Table) 10/02/20 10/02/20 10/02/20 Range/Units 11:51 16:48 20:35 POC Glucose (mg/dL) 330 H 358 H 352 H (75-99) mg/dL 10/03/20 Range/Units 07:08 POC Glucose (mg/dL) 329 H (75-99) mg/dL Assessment and Plan Assessment: #1. Atypical chest pain, ACS has been ruled out by cardiology. #2. Right upper lobe mass measuring 3.9 cm with previous navigational bronchoscopy and biopsy in February 2020 being nondiagnostic. There is a new 1.3 cm right hilar node noted. PET scan was initially scheduled in [facility], canceled and then not rescheduled, no follow-up in the office. #3. Acute hypoxic respiratory failure secondary to mild exacerbation of COPD. #4. Chronic A. fib on Eliquis. #5. Morbid obesity. #6. Obstructive sleep apnea. #7. Chronic venous stasis of the lower extremities. #8. Hyperlipidemia. #9. Poor overall functional performance, and medical debility. Plan: Plan dated 10/03/2020. The patient will have a fine-needle aspiration CT guided, by interventional ra diology tomorrow. The patient's blood thinners currently on hold. From the pulmonary standpoint, he stable. Because of elevated blood sugars, the patient's corticosteroids will be discontinued. No additional recommendations are made. We stressed the importance to the patient of follow-up. The patient did not go for his previous PET scan when ordered, and did not show up in the office for follow-up. Additional recommendations and suggestions are forthcoming. Time with Patient: Less than 30
[2020-10-03 11:52] LABS: Glucose,Whole Blood 340 mg/dL (75-99)
[2020-10-03] MEDS: ENOXAPARIN 40 MG/0.4 ML SYRINGE SQ SCH (12:08)
[2020-10-03] MEDS ORDERED: LORazepam 1 MG TAB PO STA (12:39)
[2020-10-03] MEDS ORDERED: LORazepam 2 MG/ML INJ IV STA (16:22)
[2020-10-03 16:48] LABS: Glucose,Whole Blood 334 mg/dL (75-99)
--- NOTE | 2020-10-03 19:32 | CT ---
EXAMINATION TYPE: CT brain wo/w con DATE OF EXAM: 10/03/2020 COMPARISON: 02/18/2020 HISTORY: Weakness. CT DLP: 2679.4 mGycm Automated exposure control for dose reduction was used. CONTRAST: Performed with IV Contrast, patient injected with 100 mL of Isovue 300. Images obtained of the brain without and with IV contrast. There is cerebral cortical atrophy. There is no mass effect nor midline shift. There is no sign of in tracranial hemorrhage. Calvarium is intact. The skull base is intact. There is normal aeration of the temporal bones. The contrast images show no pathologic enhancement. IMPRESSION: There is some cerebral atrophy. No acute intracranial abnormality. No adverse change. No evidence of intracranial metastatic disease.
[2020-10-03 20:45] LABS: Glucose,Whole Blood 376 mg/dL (75-99)
[2020-10-03] MEDS: TEMAZEPAM 15 MG CAP PO PRN (20:58)
[2020-10-03] MEDS: INSULIN DETEMIR (LEVEMIR) 100 UNIT/ML SYR SQ SCH (20:58)
[2020-10-03] MEDS: ATORVASTATIN 40 MG TAB PO SCH (20:58)
[2020-10-03] MEDS: PANTOPRAZOLE 40 MG TABLET PO SCH (20:58)
--- NOTE | 2020-10-04 00:05 | P.PN ---
Subjective Progress Note Date: 10/03/20 This is a 70-year-old male who was recently admitted with shortness of breath and is being closely monitored. Patient continues on 2 L of oxygen along with breathing inhalational treatments and will continue. Pulmonary along with oncology following closely. Plans are for interventional radiology consult with possible biopsy of the enlarging mass noted in the right upper lobe. Continues to have shortness of breath and is weak and will have PT/OT evaluate the patient. Patient currently denies any chest pain or palpitations. Patient is afebrile. Patient is tolerating diet with no reports of nausea or vomiting noted. Patient also scheduled for CT of the brain to assess for possible metastasis which is pending. Review of systems: Constitutional: No reports of fatigue, fever, or chills Cardiovascular: No reports of chest pain or palpitations Respiratory: Reports continued shortness of breath with cough GI: No reports of nausea, vomiting, or diarrhea : No reports of dysuria or retention Neurovascular: Reports generalized weakness All medications have been reviewed Objective - Vital Signs Vital signs: Vital Signs Temp 97.8 F 10/03/20 07:45 Pulse 92 10/03/20 09:06 Resp 18 10/03/20 07:45 BP 109/71 10/03/20 07:45 Pulse Ox 96 10/03/20 07:45 Intake & Output 10/02/20 10/03/20 10/03/20 18:59 06:59 18:59 Intake Total 236 Output Total 750 900 Balance -449 -347 Intake: Oral 236 Output: Urine 750 900 Other: Voiding Method Urinal Urinal Urinal # Bowel Movements 1 - Exam Gen: This is a 70-year-old male awake, alert and oriented 3, well-developed, well-nourished, obese. Temp is 97.8F, pulse is 97, respirations are 18, blood pressure is 109/71, oxygen saturation is 96% on 2 L via nasal cannula. HEENT: Head is atraumatic, normocephalic. Pupils equal, round. Sclerae is anicteric. NECK: Supple. No JVD. No lymphadenopathy. No thyromegaly. LUNGS: Diminished breath sounds bilaterally with some scattered rhonchi and crackles noted. No intercostal retractions. HEART: S1, S2 are muffled ABDOMEN: Soft. Bowel sounds are present. No masses. No tenderness. EXTREMITIES: No pedal edema. No calf tenderness. Bilateral lower extremity edema noted NEUROLOGICAL: Patient is awake, alert and oriented x3. Diffuse weakness. - Labs CBC & Chem 7: 10/01/20 05:02 10/01/20 05:02 Labs: Abnormal Lab Results - Last 24 Hours (Table) 10/02/20 10/02/20 10/02/20 Range/Units 11:51 16:48 20:35 POC Glucose (mg/dL) 330 H 358 H 352 H (75-99) mg/dL 10/03/20 Range/Units 07:08 POC Glucose (mg/dL) 329 H (75-99) mg/dL Assessment and Plan Assessment: Shortness of breath, possible chronic obstructive pulmonary disease acute exacerbation Possible right upper lobe malignancy, expanding Chest pain, possible unstable angina, possibly musculoskeletal History of atrial fibrillation, chronic Congestive heart failure, ejection fraction 50-60% with chronic diastolic dysfunction History of COPD Hypertension history of chronic lymphedema History of obstructive sleep apnea, status post CPAP History of nicotine dependence History of noncompliance Obesity with a body mass index of 42.0 History of TIA Poor social support Full code Recommendations and discussion: Recommend continue with current medications and current treatment plans. Multiple medical consultations including pulmonary and oncology following closely. Plans are for lung biopsy with interventional radiology tomorrow. Recommend continuing to monitor blood sugars before meals and at bedtime and will continue with long-acting along with sliding scale. Blood sugars continue to be elevated and will monitor closely. Steroids have been discontinued. Patient to continue with breathing inhalational treatments. Brain CT done and negative for metastatic disease. PT/OT to evaluate the patient as patient continues to be weak. Due to multiple complex medical issues prognosis is guarded.
[2020-10-04 07:02] LABS: Glucose,Whole Blood 186 mg/dL (75-99)
[2020-10-04] MEDS: IPRATROPIUM-ALBUTEROL 3 ML NEB INHALATION SCH ×4 (07:32→19:19)
[2020-10-04] MEDS: CHOLECALCIFEROL 25 MCG (1000 IU) TABLET PO SCH (07:38)
[2020-10-04] MEDS: POTASSIUM CHLORIDE ER 20 MEQ TAB.ER PO SCH ×2 (07:38→21:04)
[2020-10-04] MEDS: INSULIN ASPART (NovoLOG) 100 UNIT/ML VIAL SQ SCH ×4 (07:38→21:04)
[2020-10-04] MEDS: MULTIVITAMINS, THERA 1 EACH TAB PO SCH (07:38)
[2020-10-04] MEDS: ENOXAPARIN 40 MG/0.4 ML SYRINGE SQ SCH (07:38)
[2020-10-04] MEDS: FUROSEMIDE 20 MG TAB PO SCH ×2 (07:38→14:14)
[2020-10-04 08:00] LABS: African American GFR (CKD) >90 (>60 ml/min/1.73 sqM); Anion Gap 4 mmol/L; Blood Urea Nitrogen 28 mg/dL (9-20); Calcium 8.3 mg/dL (8.4-10.2); Carbon Dioxide 36 mmol/L (22-30); Chloride 99 mmol/L (98-107); Glucose 195 mg/dL (74-99); Non-African American GFR(CKD) >90 (>60 ml/min/1.73 sqM); Potassium 4.5 mmol/L (3.5-5.1); Sodium 139 mmol/L (137-145)
[2020-10-04 08:31] LABS: Anisocytosis Slight; Basophils % (A) 0 %; Eosinophils % (A) 0 %; HCT 39.8 % (39.0-53.0); Hypochromasia Marked; Lymphocytes # (A) 1.6 k/uL (1.0-4.8); Lymphocytes % (A) 15 %; MCH 27.2 pg (25.0-35.0); MCHC 30.1 g/dL (31.0-37.0); MCV 90.3 fL (80.0-100.0); Mean Platelet Volume 8.2; Monocytes # (A) 0.8 k/uL (0-1.0); Monocytes % (A) 8 %; Neutrophils % (A) 75 %; Platelet Count 265 k/uL (150-450); RBC 4.41 m/uL (4.30-5.90); RDW 16.3 % (11.5-15.5); WBC 10.7 k/uL (3.8-10.6)
--- NOTE | 2020-10-04 10:13 | P.PN ---
Subjective Progress Note Date: 10/04/20 Principal diagnosis: COPD, lung mass. This is a 70-year-old gentleman who follows with Dr. Galicia as his primary care provider. He has a history of chronic obstructive pulmonary disease, chronic atrial fibrillation anticoagulated with Eliquis, morbid obesity, obstructive sleep apnea, chronic venous stasis of the lower extremities with chronic lymphedema and ulceration, hyperlipidemia, extreme medical debility with poor mobility and poor overall functional performance. 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 Navigation bronchoscopy with biopsy results were nondiagnostic. He was to have a outpatient PET scan and follow up with Dr. Joe. He never did have a PET scan. He states that was scheduled at [place] but they canceled that and he didn't get it rescheduled. He did not follow-up in our office. He presented here to the hospital this morning after developing chest pain. The pain had act ually resolved before he got to the emergency room. He was found to be hypoxemic with O2 saturation at 90% and was admitted for the same. He is being treated for COPD exacerbation. Chest x-ray does show enlarging right upper lobe mass. We're consulted for the same. He is seen in consultation on the regular medical floor. He is currently resting in bed. O2 saturation 97% on 3 L nasal cannula. He is afebrile. Hemodynamically stable. He is somewhat slow to respond. He is somewhat of a poor historian. He does remain in atrial fibrillation. White count 6.3. Hemoglobin 12.0. Platelets 253. INR 1.0. D- dimer 0.58. Sodium 140. Potassium 4.1. Creatinine 0.65. Troponin 0.0332. ProBNP 207. He was initiated and DuoNeb inhalations, IV Solu-Medrol. The patient is seen today 10/01/2020 in follow-up on the regular medical floor. He is currently sitting up in a chair at the bedside. Awake and alert in no acute distress. Maintaining O2 saturation in the 90s on 3 L/m per nasal cannula. CAT scan of the chest does reveal enlarging right upper lobe mass now measuring 3.9 cm. There is a new 1.3 cm right hilar lymph node noted as well. Ascending thoracic aortic aneurysm measuring 4.4 cm. White count 11.7. Hemoglobin 11.2. Platelets 277. Sodium 136. Potassium 4.4. Creatinine 0.8. Glucose is 261. He remains on bronchodilators, IV Solu-Medrol. Oral diuretics. Anticoagulated with Eliquis. On 10/02/2020 patient seen in follow-up on medical surgical floor, he sitting up in the recliner, does not appear to be in any acute distress, breathing comfortably, he is on 3 L of oxygen pulse ox is 97%, afebrile, vital signs are stable. No complaints of chest pain or shortness of breath. No hemoptysis. Continues on nebulized bronchodilators, IV steroids. He remains on Eliquis for history of atrial fibrillation. he had no acute events overnight. Progress note dated 10/03/2020. Currently, the patient is again seen on the general medical floor, in room 456. We anticipate a fine-needle aspiration by interventional radiology tomorrow. Currently, the patient is on oxygen by nasal cannula. He is on 2 L and saturations are 96%. He is not manifesting any signs or symptoms of respiratory distress including audible wheezing, use of accessory muscles, or conversational dyspnea. Because of his high blood sugars, the steroids will be discontinued. The patient was discovered initially to have a right upper lobe mass. Navigational bronchoscopy was done, but biopsies were all negative. The patient was to see me in the office, and to have a PET scan. Neither occurred. The patient apparently was going to have a PET scan done and [place] but it never was either scheduled or he never showed up for the appointment. Anyway, the patient will have a fine-needle aspiration by interventional radiology of a mass, right upper lobe, at 3.9 cm, and is enlarging. Progress note dated 10/04/2020. This is a 70-year-old male again seen on the general medical floor, room 456 initially, we thought the patient was can have CT-guided fine-needle aspiration of this lung lesion today. Apparently, interventional radiology feels like he needs to wait until Saturday given the fact that he was on Eliquis and aspirin. Currently, the patient is doing about the same today as he was yesterday. We did discontinue the steroids because of hypoglycemia. The patient will benefit from an outpatient PET scan. Previous navigational bronchoscopy was nondiagnostic. The lesion in the right upper lobe is 3.9 cm in size and is enlarging. Even if we get a diagnosis on him, he is really not in good shape for treatment, and he might be better off with stereotactic body radiotherapy (SBRT). White count 10.7, hemoglobin 12, hematocrit 39.8, and platelet count 265,000. Sodium 139, potassium 0.5, chlorides 99, CO2 36, anion gap 4, BUN 28, and creatinine 0.74. Brain CT was negative save for cerebral atrophy. Objective - Vital Signs Vital signs: Vital Signs Temp 98.4 F 10/04/20 07:28 Pulse 100 10/04/20 07:41 Resp 18 10/04/20 07:28 BP 111/78 10/04/20 07:28 Pulse Ox 97 10/04/20 07:28 Intake & Output 10/03/20 10/04/20 10/04/20 18:59 06:59 18:59 Intake Total 636 Output Total 650 650 Balance -650 -14 Weight 155 kg Intake: Oral 636 Output: Urine 650 650 Other: Voiding Method Urinal Urinal Urinal - Exam No acute distress, oriented 3. Currently on nasal O2 at 2 L. HEENT examination is grossly unremarkable. Neck supple. Full range of motion. No adenopathy thyromegaly or neck vein distention. Cardiovascular examination reveals regular rhythm rate. S1-S2 normal. No S3 or S4. No discernible murmur noted. Heart rate 100 bpm. Lungs reveal minimal scattered rhonchi. No wheezes or crackles. Breath sounds equal bilaterally. Abdomen soft bowel sounds are heard. No masses or tenderness. Extremities are intact. No cyanosis clubbing or edema. Skin is without rash or lesion. Neurologic examination is brief but nonfocal. - Labs CBC & Chem 7: 10/04/20 07:25 10/04/20 07:25 Labs: Abnormal Lab Results - Last 24 Hours (Table) 10/03/20 10/03/20 10/03/20 Range/Units 11:50 16:46 20:43 WBC (3.8-10.6) k/uL Hgb (13.0-17.5) gm/dL MCHC (31.0-37.0) g/dL RDW (11.5-15.5) % Neutrophils # (1.3-7.7) k/uL Carbon Dioxide (22-30) mmol/L BUN (9-20) mg/dL Glucose (74-99) mg/dL POC Glucose (mg/dL) 340 H 334 H 376 H (75-99) mg/dL Calcium (8.4-10.2) mg/dL 10/04/20 10/04/20 10/04/20 Range/Units 07:01 07:25 07:25 WBC 10.7 H (3.8-10.6) k/uL Hgb 12.0 L (13.0-17.5) gm/dL MCHC 30.1 L (31.0-37.0) g/dL RDW 16.3 H (11.5-15.5) % Neutrophils # 8.0 H (1.3-7.7) k/uL Carbon Dioxide 36 H (22-30) mmol/L BUN 28 H (9-20) mg/dL Glucose 195 H (74-99) mg/dL POC Glucose (mg/dL) 186 H (75-99) mg/dL Calcium 8.3 L (8.4-10.2) mg/dL Assessment and Plan Assessment: #1. Atypical chest pain, ACS has been ruled out by cardiology. #2. Right upper lobe mass measuring 3.9 cm with previous navigational bronchoscopy and biopsy in February 2020 being nondiagnostic. There is a new 1.3 cm right hilar node noted. PET scan was initially scheduled in [place], canceled and then not rescheduled, no follow-up in the office. #3. Acute hypoxic respiratory failure secondary to mild exacerbation of COPD. #4. Chronic A. fib on Eliquis. #5. Morbid obesity. #6. Obstructive sleep apnea. #7. Chronic venous stasis of the lower extremities. #8. Hyperlipidemia. #9. Poor overall functional performance, and medical debility. Plan: Plan dated 10/03/2020. The patient will have a fine-needle aspiration CT guided, by interventional radiology tomorrow. The patient's blood thinners currently on hold. From the pulmonary standpoint, he stable. Because of elevated blood sugars, the patient's corticosteroids will be discontinued. No additional recommendations are made. We stressed the importance to the patient of follow-up. The patient did not go for his previous PET scan when ordered, and did not show up in the office for follow-up. Additional recommendations and suggestions are forthcoming. Plan dated 10/04/2020. The patient's a biopsy apparently was delayed until Saturday. After the biopsy, the patient could be discharged home. He is really not a great candidate for treatment including chemotherapy and/or radiation therapy. We'll await for the diagnosis before we make a decision about treatment options. In my way of thinking, he may be better off with stereotactic body radiotherapy (SBRT). Additional recommendations and suggestions are forthcoming. Time with Patient: Less than 30
[2020-10-04 11:41] LABS: Glucose,Whole Blood 152 mg/dL (75-99)
--- NOTE | 2020-10-04 14:41 | P.PN ---
Subjective Progress Note Date: 10/04/20 Principal diagnosis: Lung Mass CT of Brain Negative for metastatic disease, patient refused MRI Objective - Vital Signs Vital signs: Vital Signs Temp 98.4 F 10/04/20 07:28 Pulse 92 10/04/20 11:42 Resp 18 10/04/20 07:28 BP 111/78 10/04/20 07:28 Pulse Ox 97 10/04/20 07:28 Intake & Output 10/03/20 10/04/20 10/04/20 18:59 06:59 18:59 Intake Total 636 400 Output Total 650 650 Balance -650 -14 400 Weight 155 kg Intake: Oral 636 400 Output: Urine 650 650 Other: Voiding Method Urinal Urinal Urinal - Exam - Constitutional General appearance: mild distress - EENT Eyes: EOMI, PERRLA ENT: hearing grossly normal, normal oropharynx - Neck Neck: no lymphadenopathy Thyroid: bilateral: normal size - Respiratory Respiratory: bilateral: diminished, prolonged expiration - Cardiovascular Rhythm: irregularly irregular Heart sounds: normal: S1, S2 - Gastrointestinal General gastrointestinal: normal bowel sounds, soft - Integumentary changes of chronic venous insufficiency bilateral distal lower extremities - Neurologic Neurologic: CNII-XII intact - Musculoskeletal Musculoskeletal: generalized weakness, strength equal bilaterally - Psychiatric Psychiatric: A&O x's 3, appropriate affect - Labs CBC & Chem 7: 10/04/20 07:25 10/04/20 07:25 Labs: Abnormal Lab Results - Last 24 Hours (Table) 10/03/20 10/03/20 10/04/20 Range/Units 16:46 20:43 07:01 WBC (3.8-10.6) k/uL Hgb (13.0-17.5) gm/dL MCHC (31.0-37.0) g/dL RDW (11.5-15.5) % Neutrophils # (1.3-7.7) k/uL Carbon Dioxide (22-30) mmol/L BUN (9-20) mg/dL Glucose (74-99) mg/dL POC Glucose (mg/dL) 334 H 376 H 186 H (75-99) mg/dL Calcium (8.4-10.2) mg/dL 10/04/20 10/04/20 10/04/20 Range/Units 07:25 07:25 11:40 WBC 10.7 H (3.8-10.6) k/uL Hgb 12.0 L (13.0-17.5) gm/dL MCHC 30.1 L (31.0-37.0) g/dL RDW 16.3 H (11.5-15.5) % Neutrophils # 8.0 H (1.3-7.7) k/uL Carbon Dioxide 36 H (22-30) mmol/L BUN 28 H (9-20) mg/dL Glucose 195 H (74-99) mg/dL POC Glucose (mg/dL) 152 H (75-99) mg/dL Calcium 8.3 L (8.4-10.2) mg/dL Assessment and Plan Plan: Comments: echocardiogram and carotid Doppler reports reviewed from 03/06 Chest x-ray: report reviewed CT scan - chest: report reviewed CT Scan - head: report reviewed Assessment and Plan Lung mass - [facility] for possible biopsy today per pulmonary note - Lung Mass has been a known medical issue for this patient since 11/04. H owever workup and establishment of diagnosis has been delayed because of noncompliance. Patient continues to express many social barriers that can be forseen as problems receiving appropriate care following hospitalization, for this social work has been consulted to assist with options. It appears that the patient did not follow-up with PET scan at his discharged on 11/04. During his admission in 03/06 did have a bronchoscopy which was unfortunately nondiagnostic. He then again did not follow up post discharge. -Current imaging appears to show some growth and possibly involvement of right h ilar node. Patient has been seen by primary medicine. He will need another attempt at tissue diagnosis. Consult has been placed to IR for possible CT- guided biopsy. We will await their evaluation. - The patient will also need a PET scan as an outpatient. If attempts to get a tissue diagnosis are unsuccessful, and PET scan confirms uptake in this mass with no evidence of renetta or distant uptake, then definitive radiation with SBRT to this mass can be a treatment option. - the above was discussed with the patient. At this time it appears that outpatient testing and follow-up could be quite challenging given his poor performance status, and lack of support especially difficulty with tra nsportation which is likely a major factor in his noncompliance so far. Patient will need social work evaluation to hopefully help with the same. Current Visit: Yes Status: Acute Code(s): R91.8 - OTHER NONSPECIFIC ABNORMAL FINDING OF LUNG FIELD SNOMED Code(s): 502337500 Anemia patient has mild anemia with hemoglobin of 11- 12 range, which is normochromic normocytic. Renal function is normal. - Check labs workup especially iron levels given ongoing anticoagulation. Current Visit: Yes Status: Acute Code(s): D64.9 - ANEMIA, UNSPECIFIED SNOMED Code(s): 845212626 CT Head was negative for metastatic disease Await for LUNG Biopsy through IR and Path to result for further recs
[2020-10-04 16:50] LABS: Glucose,Whole Blood 185 mg/dL (75-99)
[2020-10-04 20:21] LABS: Glucose,Whole Blood 207 mg/dL (75-99)
[2020-10-04] MEDS: INSULIN DETEMIR (LEVEMIR) 100 UNIT/ML SYR SQ SCH (21:04)
[2020-10-04] MEDS: PANTOPRAZOLE 40 MG TABLET PO SCH (21:04)
[2020-10-04] MEDS: ATORVASTATIN 40 MG TAB PO SCH (21:09)
--- NOTE | 2020-10-04 21:55 | P.PN ---
Subjective This is a 70-year-old male who was recently admitted with shortness of breath and is being closely monitored. Patient continues on 2 L of oxygen along with breathing inhalational treatments and will continue. Pulmonary along with oncology following closely. Plans are for interventional radiology consult with possible biopsy of the enlarging mass noted in the right upper lobe. Continues to have shortness of breath and is weak and will have PT/OT evaluate the patient. Patient currently denies any chest pain or palpitations. Patient is afebrile. Patient is tolerating diet with no reports of nausea or vomiting noted. Patient also scheduled for CT of the brain to assess for possible metastasis which is pending. 10/04/20 pt is awake and alert , was able to move arond with little help from physical therapy team todya he is mildly dyspneic, no significant chest pain afebrile, mildly tachycardic wbc is mildly up at 10.7K, rest of labs unremarkable ,glucose is contorled pt is with poor compliance and f/u as outpt as he has difficulty with transportation , he has a known RUL lung mass , now it is 3.9 cm with new 1.3 cm hilar LAP plan for IR doing fine needle biopsy aspirate his eliquis is on hold and currently on lovenox for dvt prophylaxis Objective - Vital Signs Vital signs: Vital Signs Temp 97.5 F L 10/04/20 20:00 Pulse 104 H 10/04/20 20:00 Resp 18 10/04/20 20:00 BP 103/68 10/04/20 20:00 Pulse Ox 100 10/04/20 20:00 Intake & Output 10/04/20 10/04/20 10/05/20 06:59 18:59 06:59 Intake Total 636 400 Output Total 650 775 Balance -14 Weight 155 kg Intake: Oral 636 400 Output: Urine 650 775 Other: Voiding Method Urinal Urinal - Exam Gen: This is a 70-year-old male awake, alert and oriented 3, well-developed, well-nourished, obese. Temp is 97.8F, pulse is 97, respirations are 18, blood pressure is 109/71, oxygen saturation is 96% on 2 L via nasal cannula. HEENT: Head is atraumatic, normocephalic. Pupils equal, round. Sclerae is anict yusuf. NECK: Supple. No JVD. No lymphadenopathy. No thyromegaly. LUNGS: Diminished breath sounds bilaterally with some scattered rhonchi and crackles noted. No intercostal retractions. HEART: S1, S2 are muffled ABDOMEN: Soft. Bowel sounds are present. No masses. No tenderness. EXTREMITIES: No pedal edema. No calf tenderness. Bilateral lower extremity edema noted NEUROLOGICAL: Patient is awake, alert and oriented x3. Diffuse weakness. - Labs CBC & Chem 7: 10/04/20 07:25 10/04/20 07:25 Labs: Abnormal Lab Results - Last 24 Hours (Table) 10/04/20 10/04/20 10/04/20 Range/Units 07:01 07:25 07:25 WBC 10.7 H (3.8-10.6) k/uL Hgb 12.0 L (13.0-17.5) gm/dL MCHC 30.1 L (31.0-37.0) g/dL RDW 16.3 H (11.5-15.5) % Neutrophils # 8.0 H (1.3-7.7) k/uL Carbon Dioxide 36 H (22-30) mmol/L BUN 28 H (9-20) mg/dL Glucose 195 H (74-99) mg/dL POC Glucose (mg/dL) 186 H (75-99) mg/dL Calcium 8.3 L (8.4-10.2) mg/dL 10/04/20 10/04/20 10/04/20 Range/Units 11:40 16:48 20:19 WBC (3.8-10.6) k/uL Hgb (13.0-17.5) gm/dL MCHC (31.0-37.0) g/dL RDW (11.5-15.5) % Neutrophils # (1.3-7.7) k/uL Carbon Dioxide (22-30) mmol/L BUN (9-20) mg/dL Glucose (74-99) mg/dL POC Glucose (mg/dL) 152 H 185 H 207 H (75-99) mg/dL Calcium (8.4-10.2) mg/dL Assessment and Plan Assessment: RUL lung mass , now it is 3.9 cm with new 1.3 cm hilar LAP Shortness of breath, possible chronic obstructive pulmonary disease acute exacerbation chronic atrial fibrillation Congestive heart failure, ejection fraction 50-60% with chronic diastolic dysfunction History of COPD Hypertension history of chronic lymphedema History of obstructive sleep apnea, status post CPAP History of nicotine dependence History of noncompliance Obesity with a body mass index of 42.0 History of TIA Poor social support Full code Plan: this is a pleasant 73 yo M wiht mild COPD and RUL lung mass c/w oxygen for mild hypoxia plan for IR doing fine needle biopsy aspirate Labs and medication were reviewed.. Continue same treatment. Continue with symptomatic treatment. Resume home medication. Monitor lytes and vitals. DVT and GI prophylaxis. Further recommendationsas per clinical course of the patient DVT prophylaxis: heparin GI Prophylaxis: Pepcid
[2020-10-05 06:47] LABS: Glucose,Whole Blood 176 mg/dL (75-99)
[2020-10-05] MEDS: IPRATROPIUM-ALBUTEROL 3 ML NEB INHALATION SCH ×4 (07:23→20:22)
[2020-10-05] MEDS: INSULIN ASPART (NovoLOG) 100 UNIT/ML VIAL SQ SCH ×4 (08:10→21:46)
[2020-10-05] MEDS: CHOLECALCIFEROL 25 MCG (1000 IU) TABLET PO SCH (08:11)
[2020-10-05] MEDS: ENOXAPARIN 40 MG/0.4 ML SYRINGE SQ SCH (08:11)
[2020-10-05] MEDS: FUROSEMIDE 20 MG TAB PO SCH ×2 (08:11→14:21)
[2020-10-05] MEDS: MULTIVITAMINS, THERA 1 EACH TAB PO SCH (08:11)
[2020-10-05] MEDS: POTASSIUM CHLORIDE ER 20 MEQ TAB.ER PO SCH ×2 (08:11→21:44)
--- NOTE | 2020-10-05 11:24 | P.PN ---
Subjective Progress Note Date: 10/05/20 Principal diagnosis: COPD, lung mass. This is a 70-year-old gentleman who follows with Dr. Galicia as his primary care provider. He has a history of chronic obstructive pulmonary disease, chronic atrial fibrillation anticoagulated with Eliquis, morbid obesity, obstructive sleep apnea, chronic venous stasis of the lower extremities with chronic lymphedema and ulceration, hyperlipidemia, extreme medical debility with poor mobility and poor overall functional performance. 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 Navigation bronchoscopy with biopsy results were nondiagnostic. He was to have a outpatient PET scan and follow up with Dr. Joe. He never did have a PET scan. He states that was scheduled at [place] but they canceled that and he didn't get it rescheduled. He did not follow-up in our office. He presented here to the hospital this morning after developing chest pain. The pain had act ually resolved before he got to the emergency room. He was found to be hypoxemic with O2 saturation at 90% and was admitted for the same. He is being treated for COPD exacerbation. Chest x-ray does show enlarging right upper lobe mass. We're consulted for the same. He is seen in consultation on the regular medical floor. He is currently resting in bed. O2 saturation 97% on 3 L nasal cannula. He is afebrile. Hemodynamically stable. He is somewhat slow to respond. He is somewhat of a poor historian. He does remain in atrial fibrillation. White count 6.3. Hemoglobin 12.0. Platelets 253. INR 1.0. D- dimer 0.58. Sodium 140. Potassium 4.1. Creatinine 0.65. Troponin 0.0332. ProBNP 207. He was initiated and DuoNeb inhalations, IV Solu-Medrol. The patient is seen today 10/01/2020 in follow-up on the regular medical floor. He is currently sitting up in a chair at the bedside. Awake and alert in no acute distress. Maintaining O2 saturation in the 90s on 3 L/m per nasal cannula. CAT scan of the chest does reveal enlarging right upper lobe mass now measuring 3.9 cm. There is a new 1.3 cm right hilar lymph node noted as well. Ascending thoracic aortic aneurysm measuring 4.4 cm. White count 11.7. Hemoglobin 11.2. Platelets 277. Sodium 136. Potassium 4.4. Creatinine 0.8. Glucose is 261. He remains on bronchodilators, IV Solu-Medrol. Oral diuretics. Anticoagulated with Eliquis. On 10/02/2020 patient seen in follow-up on medical surgical floor, he sitting up in the recliner, does not appear to be in any acute distress, breathing comfortably, he is on 3 L of oxygen pulse ox is 97%, afebrile, vital signs are stable. No complaints of chest pain or shortness of breath. No hemoptysis. Continues on nebulized bronchodilators, IV steroids. He remains on Eliquis for history of atrial fibrillation. he had no acute events overnight. Progress note dated 10/03/2020. Currently, the patient is again seen on the general medical floor, in room 456. We anticipate a fine-needle aspiration by interventional radiology tomorrow. Currently, the patient is on oxygen by nasal cannula. He is on 2 L and saturations are 96%. He is not manifesting any signs or symptoms of respiratory distress including audible wheezing, use of accessory muscles, or conversational dyspnea. Because of his high blood sugars, the steroids will be discontinued. The patient was discovered initially to have a right upper lobe mass. Navigational bronchoscopy was done, but biopsies were all negative. The patient was to see me in the office, and to have a PET scan. Neither occurred. The patient apparently was going to have a PET scan done and [place] but it never was either scheduled or he never showed up for the appointment. Anyway, the patient will have a fine-needle aspiration by interventional radiology of a mass, right upper lobe, at 3.9 cm, and is enlarging. Progress note dated 10/04/2020. This is a 70-year-old male again seen on the general medical floor, room 456 initially, we thought the patient was can have CT-guided fine-needle aspiration of this lung lesion today. Apparently, interventional radiology feels like he needs to wait until Saturday given the fact that he was on Eliquis and aspirin. Currently, the patient is doing about the same today as he was yesterday. We did discontinue the steroids because of hypoglycemia. The patient will benefit from an outpatient PET scan. Previous navigational bronchoscopy was nondiagnostic. The lesion in the right upper lobe is 3.9 cm in size and is enlarging. Even if we get a diagnosis on him, he is really not in good shape for treatment, and he might be better off with stereotactic body radiotherapy (SBRT). White count 10.7, hemoglobin 12, hematocrit 39.8, and platelet count 265,000. Sodium 139, potassium 0.5, chlorides 99, CO2 36, anion gap 4, BUN 28, and creatinine 0.74. Brain CT was negative save for cerebral atrophy. Progress note dated 10/05/2020. 70-year-old male, who is scheduled to have a CT-guided fine-needle aspiration of a right lung lesion on Saturday. The patient previously had a electromagnetic navigational bronchoscopy, which was nondiagnostic. Interventional radiology wanted to wait until Saturday because the patient was previously on aspirin and Eliquis. Currently, the patient's doing about the same. No new laboratory data today to report. Objective - Vital Signs Vital signs: Vital Signs Temp 98.3 F 10/05/20 07:02 Pulse 82 10/05/20 11:15 Resp 18 10/05/20 07:02 BP 104/71 10/05/20 07:02 Pulse Ox 95 10/05/20 07:02 Intake & Output 10/04/20 10/05/20 10/05/20 18:59 06:59 18:59 Intake Total 400 Output Total 775 1400 Balance -375 -1400 Weight 141.7 kg Intake: Oral 400 Output: Urine 775 1400 Other: Voiding Method Urinal Urinal Urinal # Voids 4 # Bowel Movements 1 - Exam No acute distress, oriented 3. Currently on nasal O2 at 2 L. HEENT examination is grossly unremarkable. Neck supple. Full range of motion. No adenopathy thyromegaly or neck vein distention. Cardiovascular examination reveals regular rhythm rate. S1-S2 normal. No S3 or S4. No discernible murmur noted. Heart rate 82 bpm. Lungs reveal minimal scattered rhonchi. No wheezes or crackles. Breath sounds equal bilaterally. Abdomen soft bowel sounds are heard. No masses or tenderness. Extremities are intact. No cyanosis clubbing or edema. Skin is without rash or lesion. Neurologic examination is brief but nonfocal. - Labs CBC & Chem 7: 10/04/20 07:25 10/04/20 07:25 Labs: Abnormal Lab Results - Last 24 Hours (Table) 10/04/20 10/04/20 10/04/20 Range/Units 11:40 16:48 20:19 POC Glucose (mg/dL) 152 H 185 H 207 H (75-99) mg/dL 10/05/20 Range/Units 06:44 POC Glucose (mg/dL) 176 H (75-99) mg/dL Assessment and Plan Assessment: #1. Atypical chest pain, ACS has been ruled out by cardiology. #2. Right upper lobe mass measuring 3.9 cm with previous navigational bronchoscopy and biopsy in February 2020 being nondiagnostic. There is a new 1.3 cm right hilar node noted. PET scan was initially scheduled in [place], canceled and then not rescheduled, no follow-up in the office. The patient is scheduled for a CT-guided fine-needle aspiration this October 07. #3. Acute hypoxic respiratory failure secondary to mild exacerbation of COPD. #4. Chronic A. fib on Eliquis. #5. Morbid obesity. #6. Obstructive sleep apnea. #7. Chronic venous stasis of the lower extremities. #8. Hyperlipidemia. #9. Poor overall functional performance, and medical debility. Plan: Plan dated 10/03/2020. The patient will have a fine-needle aspiration CT guided, by interventional radiology tomorrow. The patient's blood thinners currently on hold. From the pulmonary standpoint, he stable. Because of elevated blood sugars, the patient's corticosteroids will be discontinued. No additional recommendations are made. We stressed the importance to the patient of follow-up. The patient did not go for his previous PET scan when ordered, and did not show up in the office for follow-up. Additional recommendations and suggestions are forthcoming. Plan dated 10/04/2020. The patient's a biopsy apparently was delayed until Saturday. After the biopsy, the patient could be discharged home. He is really not a great candidate for treatment including chemotherapy and/or radiation therapy. We'll await for the diagnosis before we make a decision about treatment options. In my way of thinking, he may be better off with stereotactic body radiotherapy (SBRT). Additional recommendations and suggestions are forthcoming. Plan dated 10/05/2020. The patient awaits patiently for his CT guided fine-needle aspiration. The patient may not be a great candidate for chemotherapy or radiation therapy but would rather be a good candidate for stereotactic body radiotherapy (SBRT). Clinically, the patient's doing about the same. He does not appear to be particularly motivated. We will continue to see this patient until a biopsy is performed. Additional recommendations and suggestions are forthcoming. Time with Patient: Less than 30
[2020-10-05 11:35] LABS: Glucose,Whole Blood 177 mg/dL (75-99)
--- NOTE | 2020-10-05 14:53 | P.PN ---
Subjective This is a 70-year-old male who was recently admitted with shortness of breath and is being closely monitored. Patient continues on 2 L of oxygen along with breathing inhalational treatments and will continue. Pulmonary along with oncology following closely. Plans are for interventional radiology consult with possible biopsy of the enlarging mass noted in the right upper lobe. Continues to have shortness of breath and is weak and will have PT/OT evaluate the patient. Patient currently denies any chest pain or palpitations. Patient is afebrile. Patient is tolerating diet with no reports of nausea or vomiting noted. Patient also scheduled for CT of the brain to assess for possible metastasis which is pending. 10/04/20 pt is awake and alert , was able to move arond with little help from physical therapy team todya he is mildly dyspneic, no significant chest pain afebrile, mildly tachycardic wbc is mildly up at 10.7K, rest of labs unremarkable ,glucose is contorled pt is with poor compliance and f/u as outpt as he has difficulty with transportation , he has a known RUL lung mass , now it is 3.9 cm with new 1.3 cm hilar LAP plan for IR doing fine needle biopsy aspirate his eliquis is on hold and currently on lovenox for dvt prophylaxis 10/05/2020 Patient clinically looks the same as yesterday. he is s a slightly tachycardic and 107. There is better controlled today. His Eliquis and aspirin remain on hold and currently is on Lovenox for DVT prophylaxis. Patient is going for fine-needle aspiration biopsy of the RUL lung mass on Saturday Objective - Vital Signs Vital signs: Vital Signs Temp 98.8 F 10/05/20 13:07 Pulse 107 H 10/05/20 14:20 Resp 18 10/05/20 13:07 BP 105/66 10/05/20 14:20 Pulse Ox 97 10/05/20 13:07 Intake & Output 10/04/20 10/05/20 10/05/20 18:59 06:59 18:59 Intake Total 400 Output Total 775 1400 240 Balance -375 -1400 -240 Weight 141.7 kg Intake: Oral 400 Output: Urine 775 1400 240 Other: Voiding Method Urinal Urinal Urinal # Voids 4 # Bowel Movements 1 - Exam Gen: This is a 70-year-old male awake, alert and oriented 3, well-developed, well-nourished, obese. Temp is 97.8F, pulse is 97, respirations are 18, blood pressure is 109/71, oxygen saturation is 96% on 2 L via nasal cannula. HEENT: Head is atraumatic, normocephalic. Pupils equal, round. Sclerae is anicteric. NECK: Supple. No JVD. No lymphadenopathy. No thyromegaly. LUNGS: Diminished breath sounds bilaterally with some scattered rhonchi and crackles noted. No intercostal retractions. HEART: S1, S2 are muffled ABDOMEN: Soft. Bowel sounds are present. No masses. No tenderness. EXTREMITIES: No pedal edema. No calf tenderness. Bilateral lower extremity edema noted NEUROLOGICAL: Patient is awake, alert and oriented x3. Diffuse weakness. - Labs CBC & Chem 7: 10/04/20 07:25 10/04/20 07:25 Labs: Abnormal Lab Results - Last 24 Hours (Table) 10/04/20 10/04/20 10/05/20 Range/Units 16:48 20:19 06:44 POC Glucose (mg/dL) 185 H 207 H 176 H (75-99) mg/dL 10/05/20 Range/Units 11:32 POC Glucose (mg/dL) 177 H (75-99) mg/dL Assessment and Plan Assessment: RUL lung mass , now it is 3.9 cm with new 1.3 cm hilar LAP Shortness of breath, possible chronic obstructive pulmonary disease acute exacerbation chronic atrial fibrillation Congestive heart failure, ejection fraction 50-60% with chronic diastolic dysfunction History of COPD Hypertension history of chronic lymphedema History of obstructive sleep apnea, status post CPAP History of nicotine dependence History of noncompliance Obesity with a body mass index of 42.0 History of TIA Poor social support Full code Plan: this is a pleasant 73 yo M wiht mild COPD and RUL lung mass c/w oxygen for mild hypoxia plan for IR doing fine needle biopsy aspirate Labs and medication were reviewed.. Continue same treatment. Continue with symptomatic treatment. Resume home medication. Monitor lytes and vitals. DVT and GI prophylaxis. Further recommendationsas per clinical course of the patient DVT prophylaxis: heparin GI Prophylaxis: Pepcid
[2020-10-05 16:33] LABS: Glucose,Whole Blood 186 mg/dL (75-99)
--- NOTE | 2020-10-05 17:06 | P.PN ---
Subjective Progress Note Date: 10/05/20 Principal diagnosis: Lung Mass Patient continues to induce self barriers. He knows how and has used transportation services in the past. Objective - Vital Signs Vital signs: Vital Signs Temp 98.3 F 10/05/20 07:02 Pulse 91 10/05/20 07:34 Resp 18 10/05/20 07:02 BP 104/71 10/05/20 07:02 Pulse Ox 95 10/05/20 07:02 Intake & Output 10/04/20 10/05/20 10/05/20 18:59 06:59 18:59 Intake Total 400 Output Total 775 1400 Balance -375 -1400 Weight 141.7 kg Intake: Oral 400 Output: Urine 775 1400 Other: Voiding Method Urinal Urinal Urinal # Voids 4 # Bowel Movements 1 - Exam - Constitutional General appearance: mild distress - EENT Eyes: EOMI, PERRLA ENT: hearing grossly normal, normal oropharynx - Neck Neck: no lymphadenopathy Thyroid: bilateral: normal size - Respiratory Respiratory: bilateral: diminished, prolonged expiration - Cardiovascular Rhythm: irregularly irregular Heart sounds: normal: S1, S2 - Gastrointestinal General gastrointestinal: normal bowel sounds, soft - Integumentary changes of chronic venous insufficiency bilateral distal lower extremities - Neurologic Neurologic: CNII-XII intact - Musculoskeletal Musculoskeletal: generalized weakness, strength equal bilaterally - Psychiatric Psychiatric: A&O x's 3, appropriate affect - Labs CBC & Chem 7: 10/04/20 07:25 10/04/20 07:25 Labs: Abnormal Lab Results - Last 24 Hours (Table) 10/04/20 10/04/20 10/04/20 Range/Units 11:40 16:48 20:19 POC Glucose (mg/dL) 152 H 185 H 207 H (75-99) mg/dL 10/05/20 Range/Units 06:44 POC Glucose (mg/dL) 176 H (75-99) mg/dL Assessment and Plan Plan: Comments: echocardiogram and carotid Doppler reports reviewed from 03/06 Chest x-ray: report reviewed CT scan - chest: report reviewed CT Scan - head: report reviewed Assessment and Plan Lung mass - Antoinette is on hold for biopsy this Saturday - He will still need a PET scan after discharge, will set this up through the office - PLan is for Biopsy per IR - the above was discussed with the patient. At this time it appears that outpatient testing and follow-up could be quite challenging given his poor performance status, and lack of support especially difficulty with transpo rtation which is likely a major factor in his noncompliance so far. Patient will need social work evaluation to hopefully help with the same. Current Visit: Yes Status: Acute Code(s): R91.8 - OTHER NONSPECIFIC ABNORMAL FINDING OF LUNG FIELD SNOMED Code(s): 625100029 Anemia patient has mild anemia with hemoglobin of 11- 12 range, which is normochromic normocytic. Renal function is normal. - Check labs workup especially iron levels given ongoing anticoagulation. Current Visit: Yes Status: Acute Code(s): D64.9 - ANEMIA, UNSPECIFIED SNOMED Code(s): 502912276 CT Head was negative for metastatic disease Await for LUNG Biopsy through IR planned for this Saturday and Path to result for further recs Recommend PT/OT while inpatient SW and Case Manageer following
[2020-10-05 20:16] LABS: Glucose,Whole Blood 226 mg/dL (75-99)
[2020-10-05] MEDS: ATORVASTATIN 40 MG TAB PO SCH (21:44)
[2020-10-05] MEDS: INSULIN DETEMIR (LEVEMIR) 100 UNIT/ML SYR SQ SCH (21:46)
[2020-10-06 07:05] LABS: Glucose,Whole Blood 211 mg/dL (75-99)
[2020-10-06 07:36] LABS: Prothrombin Time 10.6 sec (9.0-12.0)
[2020-10-06 07:45] LABS: Mean Platelet Volume 9.4; Platelet Count 204 k/uL (150-450)
[2020-10-06] MEDS: IPRATROPIUM-ALBUTEROL 3 ML NEB INHALATION SCH ×4 (07:50→19:36)
[2020-10-06] MEDS: INSULIN ASPART (NovoLOG) 100 UNIT/ML VIAL SQ SCH ×3 (08:21→22:00)
[2020-10-06] MEDS: MULTIVITAMINS, THERA 1 EACH TAB PO SCH (09:22)
[2020-10-06] MEDS: CHOLECALCIFEROL 25 MCG (1000 IU) TABLET PO SCH (09:23)
[2020-10-06] MEDS: FUROSEMIDE 20 MG TAB PO SCH ×2 (09:23→15:40)
[2020-10-06] MEDS: ENOXAPARIN 40 MG/0.4 ML SYRINGE SQ SCH (09:23)
[2020-10-06] MEDS: POTASSIUM CHLORIDE ER 20 MEQ TAB.ER PO SCH ×2 (09:24→21:59)
[2020-10-06 11:32] LABS: Glucose,Whole Blood 154 mg/dL (75-99)
[2020-10-06 12:00] VITALS: BMI 41.5
--- NOTE | 2020-10-06 12:03 | P.PN ---
Subjective Progress Note Date: 10/06/20 Principal diagnosis: Lung Mass no acute event overnight Awaiting Biopsy July restart anticoagulation after biopsy Objective - Vital Signs Vital signs: Vital Signs Temp 97.8 F 10/06/20 07:43 Pulse 95 10/06/20 07:43 Resp 16 10/06/20 08:00 BP 111/56 10/06/20 07:43 Pulse Ox 94 L 10/06/20 02:00 Intake & Output 10/05/20 10/06/20 10/06/20 18:59 06:59 18:59 Output Total 1490 1700 Balance -1490 -1700 Weight 154.7 kg Output: Urine 1490 1700 Other: Voiding Method Urinal Urinal # Voids 1 4 - Exam - Constitutional General appearance: mild distress - EENT Eyes: EOMI, PERRLA ENT: hearing grossly normal, normal oropharynx - Neck Neck: no lymphadenopathy Thyroid: bilateral: normal size - Respiratory Respiratory: bilateral: diminished, prolonged expiration - Cardiovascular Rhythm: irregularly irregular Heart sounds: normal: S1, S2 - Gastrointestinal General gastrointestinal: normal bowel sounds, soft - Integumentary changes of chronic venous insufficiency bilateral distal lower extremities - Neurologic Neurologic: CNII-XII intact - Musculoskeletal Musculoskeletal: generalized weakness, strength equal bilaterally - Psychiatric Psychiatric: A&O x's 3, appropriate affect - Labs CBC & Chem 7: 10/06/20 06:11 10/04/20 07:25 Labs: Abnormal Lab Results - Last 24 Hours (Table) 10/05/20 10/05/20 10/06/20 Range/Units 16:30 20:14 06:59 POC Glucose (mg/dL) 186 H 226 H 211 H (75-99) mg/dL 10/06/20 Range/Units 11:29 POC Glucose (mg/dL) 154 H (75-99) mg/dL Assessment and Plan Plan: Comments: echocardiogram and carotid Doppler reports reviewed from 03/06 Chest x-ray: report reviewed CT scan - chest: report reviewed CT Scan - head: report reviewed Assessment and Plan Lung mass - Antoinette is on hold for biopsy this Saturday - He will still need a PET scan after discharge, will set this up through the office - PLan is for Biopsy per IR - the above was discussed with the patient. At this time it appears that outpatient testing and follow-up could be quite challenging given his poor performance status, and lack of support especially difficulty with transportation which is likely a major factor in his noncompliance so far. Patient will need social work evaluation to hopefully help with the same. Current Visit: Yes Status: Acute Code(s): R91.8 - OTHER NONSPECIFIC ABNORMAL FINDING OF LUNG FIELD SNOMED Code(s): 088488514 Anemia patient has mild anemia with hemoglobin of 11- 12 range, which is normochromic normocytic. Renal function is normal. - Check labs workup especially iron levels given ongoing anticoagulation. Current Visit: Yes Status: Acute Code(s): D64.9 - ANEMIA, UNSPECIFIED SNOMED Code(s): 817683242 CT Head was negative for metastatic disease, refused MRI Await for LUNG Biopsy through IR planned for this Saturday and Path to result for further recs OT notes reviewed, rec continued therapy and encouragement to move safely while hospitalized to avoid weakness and declining performance SW and Case Manageer following
--- NOTE | 2020-10-06 12:50 | P.PN ---
Subjective This is a 70-year-old male who was recently admitted with shortness of breath and is being closely monitored. Patient continues on 2 L of oxygen along with breathing inhalational treatments and will continue. Pulmonary along with oncology following closely. Plans are for interventional radiology consult with possible biopsy of the enlarging mass noted in the right upper lobe. Continues to have shortness of breath and is weak and will have PT/OT evaluate the patient. Patient currently denies any chest pain or palpitations. Patient is afebrile. Patient is tolerating diet with no reports of nausea or vomiting noted. Patient also scheduled for CT of the brain to assess for possible metastasis which is pending. 10/04/20 pt is awake and alert , was able to move arond with little help from physical therapy team todya he is mildly dyspneic, no significant chest pain afebrile, mildly tachycardic wbc is mildly up at 10.7K, rest of labs unremarkable ,glucose is contorled pt is with poor compliance and f/u as outpt as he has difficulty with transportation , he has a known RUL lung mass , now it is 3.9 cm with new 1.3 cm hilar LAP plan for IR doing fine needle biopsy aspirate his eliquis is on hold and currently on lovenox for dvt prophylaxis 10/05/2020 Patient clinically looks the same as yesterday. he is s a slightly tachycardic and 107. There is better controlled today. His Eliquis and aspirin remain on hold and currently is on Lovenox for DVT prophylaxis. Patient is going for fine-needle aspiration biopsy of the RUL lung mass on Saturday10/06/2020 Patient is lying in bed comfortable, no new symptoms. Hemodynamically stable. His Eliquis and aspirin remain on hold and currently is on Lovenox for DVT prophylaxis. Patient is going for fine-needle aspiration biopsy of the RUL lung mass on Saturday also I called and talked to his PCP Dr. Costa metastatic number is [phone][place] [phone] and he kindly told me he will follow- up the lung biopsy results and he can do home visits if his needed if he has transportation problems, also he told me that his staff are going to to call the patient on Saturday to make an appointment Objective - Vital Signs Vital signs: Vital Signs Temp 97.8 F 10/06/20 07:43 Pulse 102 H 10/06/20 12:01 Resp 16 10/06/20 08:00 BP 111/56 10/06/20 07:43 Pulse Ox 94 L 10/06/20 02:00 Intake & Output 10/05/20 10/06/20 10/06/20 18:59 06:59 18:59 Output Total 1490 1700 Balance -1490 -1700 Weight 154.7 kg 154.7 kg Output: Urine 1490 1700 Other: Voiding Method Urinal Urinal # Voids 1 4 - Exam Gen: This is a 70-year-old male awake, alert and oriented 3, well-developed, well-nourished, obese. Temp is 97.8F, pulse is 97, respirations are 18, blood pressure is 109/71, oxygen saturation is 96% on 2 L via nasal cannula. HEENT: Head is atraumatic, normocephalic. Pupils equal, round. Sclerae is anicteric. NECK: Supple. No JVD. No lymphadenopathy. No thyromegaly. LUNGS: Diminished breath sounds bilaterally with some scattered rhonchi and crackles noted. No intercostal retractions. HEART: S1, S2 are muffled ABDOMEN: Soft. Bowel sounds are present. No masses. No tenderness. EXTREMITIES: No pedal edema. No calf tenderness. Bilateral lower extremity edema noted NEUROLOGICAL: Patient is awake, alert and oriented x3. Diffuse weakness. - Labs CBC & Chem 7: 10/06/20 06:11 10/04/20 07:25 Labs: Abnormal Lab Results - Last 24 Hours (Table) 10/05/20 10/05/20 10/06/20 Range/Units 16:30 20:14 06:59 POC Glucose (mg/dL) 186 H 226 H 211 H (75-99) mg/dL 10/06/20 Range/Units 11:29 POC Glucose (mg/dL) 154 H (75-99) mg/dL Assessment and Plan Assessment: RUL lung mass , now it is 3.9 cm with new 1.3 cm hilar LAP Shortness of breath, possible chronic obstructive pulmonary disease acute exacerbation chronic atrial fibrillation Congestive heart failure, ejection fraction 50-60% with chronic diastolic dysfunction History of COPD Hypertension history of chronic lymphedema History of obstructive sleep apnea, status post CPAP History of nicotine dependence History of noncompliance Obesity with a body mass index of 42.0 History of TIA Poor social support Full code Plan: this is a pleasant 73 yo M wiht mild COPD and RUL lung mass c/w oxygen for mild hypoxia plan for IR doing fine needle biopsy aspirate Labs and medication were reviewed.. Continue same treatment. Continue with symptomatic treatment. Resume home medication. Monitor lytes and vitals. DVT and GI prophylaxis. Further recommendationsas per clinical course of the patient DVT prophylaxis: heparin GI Prophylaxis: Pepcid
--- NOTE | 2020-10-06 13:49 | P.PN ---
Subjective Progress Note Date: 10/06/20 Principal diagnosis: COPD, lung mass. This is a 70-year-old gentleman who follows with Dr. Galicia as his primary care provider. He has a history of chronic obstructive pulmonary disease, chronic atrial fibrillation anticoagulated with Eliquis, morbid obesity, obstructive sleep apnea, chronic venous stasis of the lower extremities with chronic lymphedema and ulceration, hyperlipidemia, extreme medical debility with poor mobility and poor overall functional performance. 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 Navigation bronchoscopy with biopsy results were nondiagnostic. He was to have a outpatient PET scan and follow up with Dr. Joe. He never did have a PET scan. He states that was scheduled at [facility] but they canceled that and he didn't get it rescheduled. He did not follow-up in our office. He presented here to the hospital this morning after developing chest pain. The pain had act ually resolved before he got to the emergency room. He was found to be hypoxemic with O2 saturation at 90% and was admitted for the same. He is being treated for COPD exacerbation. Chest x-ray does show enlarging right upper lobe mass. We're consulted for the same. He is seen in consultation on the regular medical floor. He is currently resting in bed. O2 saturation 97% on 3 L nasal cannula. He is afebrile. Hemodynamically stable. He is somewhat slow to respond. He is somewhat of a poor historian. He does remain in atrial fibrillation. White count 6.3. Hemoglobin 12.0. Platelets 253. INR 1.0. D- dimer 0.58. Sodium 140. Potassium 4.1. Creatinine 0.65. Troponin 0.0332. ProBNP 207. He was initiated and DuoNeb inhalations, IV Solu-Medrol. The patient is seen today 10/01/2020 in follow-up on the regular medical floor. He is currently sitting up in a chair at the bedside. Awake and alert in no acute distress. Maintaining O2 saturation in the 90s on 3 L/m per nasal cannula. CAT scan of the chest does reveal enlarging right upper lobe mass now measuring 3.9 cm. There is a new 1.3 cm right hilar lymph node noted as well. Ascending thoracic aortic aneurysm measuring 4.4 cm. White count 11.7. Hemoglobin 11.2. Platelets 277. Sodium 136. Potassium 4.4. Creatinine 0.8. Glucose is 261. He remains on bronchodilators, IV Solu-Medrol. Oral diuretics. Anticoagulated with Eliquis. On 10/02/2020 patient seen in follow-up on medical surgical floor, he sitting up in the recliner, does not appear to be in any acute distress, breathing comfortably, he is on 3 L of oxygen pulse ox is 97%, afebrile, vital signs are stable. No complaints of chest pain or shortness of breath. No hemoptysis. Continues on nebulized bronchodilators, IV steroids. He remains on Eliquis for history of atrial fibrillation. he had no acute events overnight. Progress note dated 10/03/2020. Currently, the patient is again seen on the general medical floor, in room 456. We anticipate a fine-needle aspiration by interventional radiology tomorrow. Currently, the patient is on oxygen by nasal cannula. He is on 2 L and saturations are 96%. He is not manifesting any signs or symptoms of respiratory distress including audible wheezing, use of accessory muscles, or conversational dyspnea. Because of his high blood sugars, the steroids will be discontinued. The patient was discovered initially to have a right upper lobe mass. Navigational bronchoscopy was done, but biopsies were all negative. The patient was to see me in the office, and to have a PET scan. Neither occurred. The patient apparently was going to have a PET scan done and [facility] [place] but it never was either scheduled or he never showed up for the appointment. Anyway, the patient will have a fine-needle aspiration by interventional radiology of a mass, right upper lobe, at 3.9 cm, and is enlarging. Progress note dated 10/04/2020. This is a 70-year-old male again seen on the general medical floor, room 456 initially, we thought the patient was can have CT-guided fine-needle aspiration of this lung lesion today. Apparently, interventional radiology feels like he needs to wait until Saturday given the fact that he was on Eliquis and aspirin. Currently, the patient is doing about the same today as he was yesterday. We did discontinue the steroids because of hypoglycemia. The patient will benefit from an outpatient PET scan. Previous navigational bronchoscopy was nondiagnostic. The lesion in the right upper lobe is 3.9 cm in size and is enlarging. Even if we get a diagnosis on him, he is really not in good shape for treatment, and he might be better off with stereotactic body radiotherapy (SBRT). White count 10.7, hemoglobin 12, hematocrit 39.8, and platelet count 265,000. Sodium 139, potassium 0.5, chlorides 99, CO2 36, anion gap 4, BUN 28, and creatinine 0.74. Brain CT was negative save for cerebral atrophy. Progress note dated 10/05/2020. 70-year-old male, who is scheduled to have a CT-guided fine-needle aspiration of a right lung lesion on Saturday. The patient previously had a electromagnetic navigational bronchoscopy, which was nondiagnostic. Interventional radiology wanted to wait until Saturday because the patient was previously on aspirin and Eliquis. Currently, the patient's doing about the same. No new laboratory data today to report. Progress note dated 10/06/2020. 70-year-old male with an enlarging mass, and the right upper lobe. The patient previously underwent navigational bronchoscopy, but the sampling was nondiagnostic. The patient was to follow up with us in the office but never did. He was mostly also have an outpatient PET scan done and [place], which never was done either. The patient is being sent to interventional radiology for CT-guided fine-needle aspiration. This apparently will be done tomorrow. Clinically he is doing well. There are no new labs to report. There are no new x-rays to report. Objective - Vital Signs Vital signs: Vital Signs Temp 97.8 F 10/06/20 07:43 Pulse 102 H 10/06/20 12:01 Resp 16 10/06/20 08:00 BP 111/56 10/06/20 07:43 Pulse Ox 94 L 10/06/20 02:00 Intake & Output 10/05/20 10/06/20 10/06/20 18:59 06:59 18:59 Output Total 1490 1700 Balance -1490 -1700 Weight 154.7 kg 154.7 kg Output: Urine 1490 1700 Other: Voiding Method Urinal Urinal # Voids 1 4 - Exam No acute distress, oriented 3. Currently on nasal O2 at 2 L. HEENT examination is grossly unremarkable. Neck supple. Full range of motion. No adenopathy thyromegaly or neck vein distention. Cardiovascular examination reveals regular rhythm rate. S1-S2 normal. No S3 or S4. No discernible murmur noted. Heart rate 98 bpm. Lungs reveal minimal scattered rhonchi. No wheezes or crackles. Breath sounds equal bilaterally. Abdomen soft bowel sounds are heard. No masses or tenderness. Extremities are intact. No cyanosis clubbing or edema. Skin is without rash or lesion. Neurologic examination is brief but nonfocal. - Labs CBC & Chem 7: 10/06/20 06:11 10/04/20 07:25 Labs: Abnormal Lab Results - Last 24 Hours (Table) 10/05/20 10/05/20 10/06/20 Range/Units 16:30 20:14 06:59 POC Glucose (mg/dL) 186 H 226 H 211 H (75-99) mg/dL 10/06/20 Range/Units 11:29 POC Glucose (mg/dL) 154 H (75-99) mg/dL Assessment and Plan Assessment: #1. Atypical chest pain, ACS has been ruled out by cardiology. #2. Right upper lobe mass measuring 3.9 cm with previous navigational bronchoscopy and biopsy in February 2020 being nondiagnostic. There is a new 1.3 cm right hilar node noted. PET scan was initially scheduled in [place], canceled and then not rescheduled, no follow-up in the office. The patient is scheduled for a CT-guided fine-needle aspiration this October 07. #3. Acute hypoxic respiratory failure secondary to mild exacerbation of COPD. #4. Chronic A. fib on Eliquis. #5. Morbid obesity. #6. Obstructive sleep apnea. #7. Chronic venous stasis of the lower extremities. #8. Hyperlipidemia. #9. Poor overall functional performance, and medical debility. Plan: Plan dated 10/03/2020. The patient will have a fine-needle aspiration CT guided, by interventional radiology tomorrow. The patient's blood thinners currently on hold. From the pulmonary standpoint, he stable. Because of elevated blood sugars, the patient's corticosteroids will be discontinued. No additional recommendations are made. We stressed the importance to the patient of follow-up. The patient did not go for his previous PET scan when ordered, and did not show up in the office for follow-up. Additional recommendations and suggestions are forthcom ing. Plan dated 10/04/2020. The patient's a biopsy apparently was delayed until Saturday. After the biopsy, the patient could be discharged home. He is really not a great candidate for treatment including chemotherapy and/or radiation therapy. We'll await for the diagnosis before we make a decision about treatment options. In my way of thinking, he may be better off with stereotactic body radiotherapy (SBRT). Additional recommendations and suggestions are forthcoming. Plan dated 10/05/2020. The patient awaits patiently for his CT guided fine-needle aspiration. The patient may not be a great candidate for chemotherapy or radiation therapy but would rather be a good candidate for stereotactic body radiotherapy (SBRT). Clinically, the patient's doing about the same. He does not appear to be particularly motivated. We will continue to see this patient until a biopsy is performed. Additional recommendations and suggestions are forthcoming. Plan dated 10/06/2020. The patient will undergo fine-needle aspiration of a right upper lobe lesion tomorrow. Should be done by interventional radiology tomorrow. Hopefully we'll get a diagnosis we can start treatment. For this patient, given his chronic medical issues, stereotactic body radiotherapy would be a good option. Anyway, the patient is not a candidate my opinion for chemo or radiation given his chronic health issues. That will be discussed with him once the diagnosis is made. Once he has a biopsy tomorrow, and our opinion, the patient could be discharged. He'll be discharged home with home care. Time with Patient: Less than 30
[2020-10-06 16:24] LABS: Glucose,Whole Blood 216 mg/dL (75-99)
[2020-10-06 20:31] LABS: Glucose,Whole Blood 213 mg/dL (75-99)
[2020-10-06] MEDS: ATORVASTATIN 40 MG TAB PO SCH (21:59)
[2020-10-06] MEDS: INSULIN DETEMIR (LEVEMIR) 100 UNIT/ML SYR SQ SCH (21:59)
[2020-10-06] MEDS: PANTOPRAZOLE 40 MG TABLET PO SCH (21:59)
[2020-10-07 06:55] LABS: Glucose,Whole Blood 231 mg/dL (75-99)
[2020-10-07] MEDS: INSULIN ASPART (NovoLOG) 100 UNIT/ML VIAL SQ SCH ×3 (07:08→12:23)
[2020-10-07] MEDS: IPRATROPIUM-ALBUTEROL 3 ML NEB INHALATION SCH ×2 (07:30→11:35)
[2020-10-07] MEDS: ALPRAZolam 0.25 MG TAB PO PRN ×2 (08:26→21:13)
[2020-10-07 09:48] LABS: Basophils # (A) 0 X 10*3/uL (0.00-0.10); Basophils % (A) 0 %; Eosinophils # (A) 0.45 X 10*3/uL (0.04-0.35); HCT 38.1 % (39.6-50.0); HGB 11.3 g/dL (13.0-17.0); Lymphocytes # (A) 1.23 X 10*3/uL (0.90-5.00); Lymphocytes % (A) 13.6 %; MCH 26.7 pg (27.0-32.0); MCHC 29.7 g/dL (32.0-37.0); MCV 89.9 fL (80.0-97.0); Mean Platelet Volume 11.4 fL (9.5-12.2); Monocytes # (A) 0.77 X 10*3/uL (0.20-1.00); Monocytes % (A) 8.5 %; Neutrophils # (A) 6.56 X 10*3/uL (1.80-7.70); Neutrophils % (A) 72.3 %; Platelet Count 233 X 10*3/uL (140-440); RBC 4.24 X 10*6/uL (4.40-5.60); RDW 16.3 % (11.5-14.5); WBC 9.06 X 10*3/uL (4.50-10.00)
[2020-10-07] MEDS: MULTIVITAMINS, THERA 1 EACH TAB PO SCH (10:02)
[2020-10-07] MEDS: CHOLECALCIFEROL 25 MCG (1000 IU) TABLET PO SCH (10:04)
[2020-10-07] MEDS: FUROSEMIDE 20 MG TAB PO SCH ×2 (10:04→15:35)
[2020-10-07] MEDS: POTASSIUM CHLORIDE ER 20 MEQ TAB.ER PO SCH ×2 (10:05→21:13)
[2020-10-07] MEDS ORDERED: ENOXAPARIN 40 MG/0.4 ML SYRINGE SQ SCH (11:00)
[2020-10-07 11:26] LABS: Glucose,Whole Blood 201 mg/dL (75-99)
--- NOTE | 2020-10-07 14:15 | P.PN ---
Subjective Progress Note Date: 10/07/20 Principal diagnosis: COPD, lung mass. This is a 70-year-old gentleman who follows with Dr. Galicia as his primary care provider. He has a history of chronic obstructive pulmonary disease, chronic atrial fibrillation anticoagulated with Eliquis, morbid obesity, obstructive sleep apnea, chronic venous stasis of the lower extremities with chronic lymphedema and ulceration, hyperlipidemia, extreme medical debility with poor mobility and poor overall functional performance. 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 Navigation bronchoscopy with biopsy results were nondiagnostic. He was to have a outpatient PET scan and follow up with Dr. Joe. He never did have a PET scan. He states that was scheduled at [facility] but they canceled that and he didn't get it rescheduled. He did not follow-up in our office. He presented here to the hospital this morning after developing chest pain. The pain had act ually resolved before he got to the emergency room. He was found to be hypoxemic with O2 saturation at 90% and was admitted for the same. He is being treated for COPD exacerbation. Chest x-ray does show enlarging right upper lobe mass. We're consulted for the same. He is seen in consultation on the regular medical floor. He is currently resting in bed. O2 saturation 97% on 3 L nasal cannula. He is afebrile. Hemodynamically stable. He is somewhat slow to respond. He is somewhat of a poor historian. He does remain in atrial fibrillation. White count 6.3. Hemoglobin 12.0. Platelets 253. INR 1.0. D- dimer 0.58. Sodium 140. Potassium 4.1. Creatinine 0.65. Troponin 0.0332. ProBNP 207. He was initiated and DuoNeb inhalations, IV Solu-Medrol. The patient is seen today 10/01/2020 in follow-up on the regular medical floor. He is currently sitting up in a chair at the bedside. Awake and alert in no acute distress. Maintaining O2 saturation in the 90s on 3 L/m per nasal cannula. CAT scan of the chest does reveal enlarging right upper lobe mass now measuring 3.9 cm. There is a new 1.3 cm right hilar lymph node noted as well. Ascending thoracic aortic aneurysm measuring 4.4 cm. White count 11.7. Hemoglobin 11.2. Platelets 277. Sodium 136. Potassium 4.4. Creatinine 0.8. Glucose is 261. He remains on bronchodilators, IV Solu-Medrol. Oral diuretics. Anticoagulated with Eliquis. On 10/02/2020 patient seen in follow-up on medical surgical floor, he sitting up in the recliner, does not appear to be in any acute distress, breathing comfortably, he is on 3 L of oxygen pulse ox is 97%, afebrile, vital signs are stable. No complaints of chest pain or shortness of breath. No hemoptysis. Continues on nebulized bronchodilators, IV steroids. He remains on Eliquis for history of atrial fibrillation. he had no acute events overnight. Progress note dated 10/03/2020. Currently, the patient is again seen on the general medical floor, in room 456. We anticipate a fine-needle aspiration by interventional radiology tomorrow. Currently, the patient is on oxygen by nasal cannula. He is on 2 L and saturations are 96%. He is not manifesting any signs or symptoms of respiratory distress including audible wheezing, use of accessory muscles, or conversational dyspnea. Because of his high blood sugars, the steroids will be discontinued. The patient was discovered initially to have a right upper lobe mass. Navigational bronchoscopy was done, but biopsies were all negative. The patient was to see me in the office, and to have a PET scan. Neither occurred. The patient apparently was going to have a PET scan done and [facility] but it never was either scheduled or he never showed up for the appointment. Anyway, the patient will have a fine-needle aspiration by interventional radiology of a mass, right upper lobe, at 3.9 cm, and is enlarging. Progress note dated 10/04/2020. This is a 70-year-old male again seen on the general medical floor, room 456 initially, we thought the patient was can have CT-guided fine-needle aspiration of this lung lesion today. Apparently, interventional radiology feels like he needs to wait until Saturday given the fact that he was on Eliquis and aspirin. Currently, the patient is doing about the same today as he was yesterday. We did discontinue the steroids because of hypoglycemia. The patient will benefit from an outpatient PET scan. Previous navigational bronchoscopy was nondiagnostic. The lesion in the right upper lobe is 3.9 cm in size and is enlarging. Even if we get a diagnosis on him, he is really not in good shape for treatment, and he might be better off with stereotactic body radiotherapy (SBRT). White count 10.7, hemoglobin 12, hematocrit 39.8, and platelet count 265,000. Sodium 139, potassium 0.5, chlorides 99, CO2 36, anion gap 4, BUN 28, and creatinine 0.74. Brain CT was negative save for cerebral atrophy. Progress note dated 10/05/2020. 70-year-old male, who is scheduled to have a CT-guided fine-needle aspiration of a right lung lesion on Saturday. The patient previously had a electromagnetic navigational bronchoscopy, which was nondiagnostic. Interventional radiology wanted to wait until Saturday because the patient was previously on aspirin and Eliquis. Currently, the patient's doing about the same. No new laboratory data today to report. Progress note dated 10/06/2020. 70-year-old male with an enlarging mass, and the right upper lobe. The patient previously underwent navigational bronchoscopy, but the sampling was nondiagnostic. The patient was to follow up with us in the office but never did. He was mostly also have an outpatient PET scan done and [place], which never was done either. The patient is being sent to interventional radiology for CT-guided fine-needle aspiration. This apparently will be done tomorrow. Clinically he is doing well. There are no new labs to report. There are no new x-rays to report. Progress note dated 10/07/2020. 70-year-old male with a history of an enlarging mass, right upper lobe. The patient has been very noncompliant with instructions in relation to this mass. The patient was to have a follow-up in my office and never did. The patient was to have a PET scan and never scheduled. The patient was sitting in the hospital for the last 3-4 days, waiting for interventional radiology to do a CT-guided fine-needle aspiration. They had to wait because he was previously on blood thinner. Unfortunately, when the patient got down there, he refuses to procedure. In my opinion, the patient could be started back on his blood thinner, and discharged from the hospital. Lab data today includes a white count 9.06, hemoglobin 11.3, hematocrit 38.1, and a platelet count of 233,000. Objective - Vital Signs Vital signs: Vital Signs Temp 98.1 F 10/07/20 07:37 Pulse 129 H 10/07/20 08:00 Resp 15 10/07/20 07:37 BP 96/60 10/07/20 07:37 Pulse Ox 95 10/07/20 02:00 Intake & Output 10/06/20 10/07/20 10/07/20 18:59 06:59 18:59 Intake Total 800 Output Total 900 700 650 Balance -900 -700 150 Weight 154.7 kg 153.8 kg Intake: Oral 800 Output: Urine 900 700 650 Other: Voiding Method Urinal # Voids 4 2 - Exam No acute distress, oriented 3. Currently on nasal O2 at 2 L. HEENT examination is grossly unremarkable. Neck supple. Full range of motion. No adenopathy thyromegaly or neck vein distention. Cardiovascular examination reveals regular rhythm rate. S1-S2 normal. No S3 or S4. No discernible murmur noted. Heart rate 100 bpm. Lungs reveal minimal scattered rhonchi. No wheezes or crackles. Breath sounds equal bilaterally. Abdomen soft bowel sounds are heard. No masses or tenderness. Extremities are intact. No cyanosis clubbing or edema. Skin is without rash or lesion. Neurologic examination is brief but nonfocal. - Labs CBC & Chem 7: 10/07/20 06:20 10/04/20 07:25 Labs: Abnormal Lab Results - Last 24 Hours (Table) 10/06/20 10/06/20 10/07/20 Range/Units 16:20 20:28 06:20 RBC 4.24 L (4.40-5.60) X 10*6/uL Hgb 11.3 L (13.0-17.0) g/dL Hct 38.1 L (39.6-50.0) % MCH 26.7 L (27.0-32.0) pg MCHC 29.7 L (32.0-37.0) g/dL RDW 16.3 H (11.5-14.5) % Immature Gran # 0.05 H (0.00-0.04) X 10*3/uL Eosinophils # 0.45 H (0.04-0.35) X 10*3/uL POC Glucose (mg/dL) 216 H 213 H (75-99) mg/dL 10/07/20 10/07/20 Range/Units 06:44 11:24 RBC (4.40-5.60) X 10*6/uL Hgb (13.0-17.0) g/dL Hct (39.6-50.0) % MCH (27.0-32.0) pg MCHC (32.0-37.0) g/dL RDW (11.5-14.5) % Immature Gran # (0.00-0.04) X 10*3/uL Eosinophils # (0.04-0.35) X 10*3/uL POC Glucose (mg/dL) 231 H 201 H (75-99) mg/dL Assessment and Plan Assessment: #1. Atypical chest pain, ACS has been ruled out by cardiology. #2. Right upper lobe mass measuring 3.9 cm with previous navigational bronchoscopy and biopsy in February 2020 being nondiagnostic. There is a new 1.3 cm right hilar node noted. PET scan was initially scheduled in [place], canceled and then not rescheduled, no follow-up in the office. The patient is scheduled for a CT-guided fine-needle aspiration this October 07. #3. Acute hypoxic respiratory failure secondary to mild exacerbation of COPD. #4. Chronic A. fib on Eliquis. #5. Morbid obesity. #6. Obstructive sleep apnea. #7. Chronic venous stasis of the lower extremities. #8. Hyperlipidemia. #9. Poor overall functional performance, and medical debility. Plan: Plan dated 10/03/2020. The patient will have a fine-needle aspiration CT guided, by interventional radiology tomorrow. The patient's blood thinners currently on hold. From the pulmonary standpoint, he stable. Because of elevated blood sugars, the patient's corticosteroids will be discontinued. No additional recommendations are made. We stressed the importance to the patient of follow-up. The patient did not go for his previous PET scan when ordered, and did not show up in the office for follow-up. Additional recommendations and suggestions are forthcoming. Plan dated 10/04/2020. The patient's a biopsy apparently was delayed until Saturday. After the biopsy, the patient could be discharged home. He is really not a great candidate for treatment including chemotherapy and/or radiation therapy. We'll await for the diagnosis before we make a decision about treatment options. In my way of thinking, he may be better off with stereotactic body radiotherapy (SBRT). Additional recommendations and suggestions are forthcoming. Plan dated 10/05/2020. The patient awaits patiently for his CT guided fine-needle aspiration. The patient may not be a great candidate for chemotherapy or radiation therapy but would rather be a good candidate for stereotactic body radiotherapy (SBRT). Clinically, the patient's doing about the same. He does not appear to be particularly motivated. We will continue to see this patient until a biopsy is performed. Additional recommendations and suggestions are forthcoming. Plan dated 10/06/2020. The patient will undergo fine-needle aspiration of a right upper lobe lesion tomorrow. Should be done by interventional radiology tomorrow. Hopefully we'll get a diagnosis we can start treatment. For this patient, given his chronic medical issues, stereotactic body radiotherapy would be a good option. Anyway, the patient is not a candidate my opinion for chemo or radiation given his chronic health issues. That will be discussed with him once the diagnosis is made. Once he has a biopsy tomorrow, and our opinion, the patient could be discharged. He'll be discharged home with home care. Plan dated 10/07/2020. The patient apparently refused his biopsy today. The patient can be started back on his blood thinner and be discharged home. We will sign off the case for now. The patient should seek out another lung doctor, for his care. I will no longer be willing to see him, as he has been very noncompliant as it relates to this lesion in the right upper lobe. No additional recommendations are made. Time with Patient: Less than 30
[2020-10-07 16:41] LABS: Glucose,Whole Blood 154 mg/dL (75-99)
[2020-10-07] MEDS: metFORMIN 500 MG TAB PO SCH (17:27)
[2020-10-07] MEDS: APIXABAN 5 MG TAB PO SCH ×2 (17:27→21:14)
[2020-10-07] MEDS: ASPIRIN 81 MG PO SCH (17:27)
--- NOTE | 2020-10-07 18:02 | P.PN ---
Subjective Progress Note Date: 10/07/20 Principal diagnosis: Lung Mass Patient was scheduled to have biopsy today, although he has refused. Dr. Muhammad has re-discussed, re-educated and offered options. He has also discussed the risks of unfavorable outcomes with continued non-adherence Objective - Vital Signs Vital signs: Vital Signs Temp 98.2 F 10/07/20 14:00 Pulse 110 H 10/07/20 17:36 Resp 18 10/07/20 14:00 BP 94/58 10/07/20 14:00 Pulse Ox 95 10/07/20 14:00 Intake & Output 10/06/20 10/07/20 10/07/20 18:59 06:59 18:59 Intake Total 800 Output Total 651 008 8992 Balance -900 -700 -950 Weight 154.7 kg 153.8 kg Intake: Oral 800 Output: Urine 725 725 8581 Other: Voiding Method Urinal # Voids 4 2 - Exam - Constitutional General appearance: mild distress - EENT Eyes: EOMI, PERRLA ENT: hearing grossly normal, normal oropharynx - Neck Neck: no lymphadenopathy Thyroid: bilateral: normal size - Respiratory Respiratory: bilateral: diminished, prolonged expiration - Cardiovascular Rhythm: irregularly irregular Heart sounds: normal: S1, S2 - Gastrointestinal General gastrointestinal: normal bowel sounds, soft - Integumentary changes of chronic venous insufficiency bilateral distal lower extremities - Neurologic Neurologic: CNII-XII intact - Musculoskeletal Musculoskeletal: generalized weakness, strength equal bilaterally - Psychiatric Psychiatric: A&O x's 3, appropriate affect - Labs CBC & Chem 7: 10/07/20 06:20 10/04/20 07:25 Labs: Abnormal Lab Results - Last 24 Hours (Table) 10/06/20 10/07/20 10/07/20 Range/Units 20:28 06:20 06:44 RBC 4.24 L (4.40-5.60) X 10*6/uL Hgb 11.3 L (13.0-17.0) g/dL Hct 38.1 L (39.6-50.0) % MCH 26.7 L (27.0-32.0) pg MCHC 29.7 L (32.0-37.0) g/dL RDW 16.3 H (11.5-14.5) % Immature Gran # 0.05 H (0.00-0.04) X 10*3/uL Eosinophils # 0.45 H (0.04-0.35) X 10*3/uL POC Glucose (mg/dL) 213 H 231 H (75-99) mg/dL 10/07/20 10/07/20 Range/Units 11:24 16:38 RBC (4.40-5.60) X 10*6/uL Hgb (13.0-17.0) g/dL Hct (39.6-50.0) % MCH (27.0-32.0) pg MCHC (32.0-37.0) g/dL RDW (11.5-14.5) % Immature Gran # (0.00-0.04) X 10*3/uL Eosinophils # (0.04-0.35) X 10*3/uL POC Glucose (mg/dL) 201 H 154 H (75-99) mg/dL Assessment and Plan Plan: Comments: echocardiogram and carotid Doppler reports reviewed from 03/06 Chest x-ray: report reviewed CT scan - chest: report reviewed CT Scan - head: report reviewed Assessment and Plan Lung mass - Antoinette is on hold for biopsy this Saturday - He will still need a PET scan after discharge, will set this up through the office - PLan is for Biopsy per IR - ALthough he has refused - Risk and benfit of refusing and options of moving forward to find diagnosis versus potential comfort measures only discussed. Patient appears to be his own barrier to care, with reasons he can not do or go or move forward. -Recommend Psych consult as this is seen as a barrier to his care which is and potentially can result in unfavorable or detrimental outcomes - the above was discussed with the patient. At this time it appears that outpatient testing and follow-up could be quite challenging given his poor performance status, and lack of support especially difficulty with transportation which is likely a major factor in his noncompliance so far. Patient will need social work evaluation to hopefully help with the same. Current Visit: Yes Status: Acute Code(s): R91.8 - OTHER NONSPECIFIC ABNORMAL FINDING OF LUNG FIELD SNOMED Code(s): 385151768 Anemia patient has mild anemia with hemoglobin of 11- 12 range, which is normochromic normocytic. Renal function is normal. - Check labs workup especially iron levels given ongoing anticoagulation. Current Visit: Yes Status: Acute Code(s): D64.9 - ANEMIA, UNSPECIFIED SNOMED Code(s): 043307382 CT Head was negative for metastatic disease, refused MRI Await for LUNG Biopsy through IR planned for this Saturday and Path to result for further recs OT notes reviewed, rec continued therapy and encouragement to move safely while hospitalized to avoid weakness and declining performance SW and Case Manageer following Rec Psych consult Physician Attest: I have completed the full history and physical and agree with above dictation, dictated as a scribe
[2020-10-07 20:51] LABS: Glucose,Whole Blood 235 mg/dL (75-99)
[2020-10-07] MEDS ORDERED: APIXABAN 5 MG TAB PO SCH (21:00)
--- NOTE | 2020-10-07 21:09 | P.PN ---
Subjective This is a 70-year-old male who was recently admitted with shortness of breath and is being closely monitored. Patient continues on 2 L of oxygen along with breathing inhalational treatments and will continue. Pulmonary along with oncology following closely. Plans are for interventional radiology consult with possible biopsy of the enlarging mass noted in the right upper lobe. Continues to have shortness of breath and is weak and will have PT/OT evaluate the patient. Patient currently denies any chest pain or palpitations. Patient is afebrile. Patient is tolerating diet with no reports of nausea or vomiting noted. Patient also scheduled for CT of the brain to assess for possible metastasis which is pending. 10/04/20 pt is awake and alert , was able to move arond with little help from physical therapy team todya he is mildly dyspneic, no significant chest pain afebrile, mildly tachycardic wbc is mildly up at 10.7K, rest of labs unremarkable ,glucose is contorled pt is with poor compliance and f/u as outpt as he has difficulty with transportation , he has a known RUL lung mass , now it is 3.9 cm with new 1.3 cm hilar LAP plan for IR doing fine needle biopsy aspirate his eliquis is on hold and currently on lovenox for dvt prophylaxis 10/05/2020 Patient clinically looks the same as yesterday. he is s a slightly tachycardic and 107. There is better controlled today. His Eliquis and aspirin remain on hold and currently is on Lovenox for DVT prophylaxis. Patient is going for fine-needle aspiration biopsy of the RUL lung mass on Saturday10/06/2020 Patient is lying in bed comfortable, no new symptoms. Hemodynamically stable. His Eliquis and aspirin remain on hold and currently is on Lovenox for DVT prophylaxis. Patient is going for fine-needle aspiration biopsy of the RUL lung mass on Saturday also I called and talked to his PCP Dr. Costa metastatic number [place] [phone][place] [phone] and he kindly told me he will follow- up the lung biopsy results and he can do home visits if his needed if he has transportation problems, also he told me that his staff are going to to call the patient on Saturday to make an appointment 10/07/2020 Patient today went for lung biopsy however rejected to do the procedure last minute because he was on prone position which was uncomfortable for him, after he consulted he wanted to be back to his room. When I met the patient he told me he agrees for the procedure if they are going to sedate him down with anesthesia, however later on. Dr. Dr. Joe and rejected the procedure altogether, who cleared him for discharge. Attempt to the patient again and he was agreeable to go home however he was concerns or no transportation, hospital system would provide a patent taxi/cab For him, however he has an open his house and he needs a Van so they can move them up to his house using a wheelchair which is not on options with the taxi, rifle case repairer was gone for the day also oncology service recommended psych consult, although I don't think it will change the outcome as patient looks to have Assisted to make his own decisions Also I talked to his PCP Dr. Costa metastatic number is [phone], and updated him with the patient refusal of lung biopsy, total bili is going to follow up with his lung tumor. Patient is not in known diabetic however he was started on insulin 20 units at bedtime and the hospital plus he got 15 units total of insulin sliding scale with NovoLog. I discussed the case with Dr. Costa, and he recommended to give him temporally prescription for metformin and he will follow-up with him this coming week to provide him a longer prescription for metformin and glucometer other going to teach him as [facility] Also he will check his hemoglobin A1c in the office Objective - Vital Signs Vital signs: Vital Signs Temp 98.2 F 10/07/20 14:00 Pulse 110 H 10/07/20 17:36 Resp 18 10/07/20 14:00 BP 94/58 10/07/20 14:00 Pulse Ox 95 10/07/20 14:00 Intake & Output 10/07/20 10/07/20 10/08/20 06:59 18:59 06:59 Intake Total 800 Output Total 700 1750 Balance -700 -950 Weight 153.8 kg Intake: Oral 800 Output: Urine 700 1750 Other: Voiding Method Urinal # Voids 4 2 - Exam Gen: This is a 70-year-old male awake, alert and oriented 3, well-developed, well-nourished, obese. Temp is 97.8F, pulse is 97, respirations are 18, blood pressure is 109/71, oxygen saturation is 96% on 2 L via nasal cannula. HEENT: Head is atraumatic, normocephalic. Pupils equal, round. Sclerae is anicteric. NECK: Supple. No JVD. No lymphadenopathy. No thyromegaly. LUNGS: Diminished breath sounds bilaterally with some scattered rhonchi and crac kles noted. No intercostal retractions. HEART: S1, S2 are muffled ABDOMEN: Soft. Bowel sounds are present. No masses. No tenderness. EXTREMITIES: No pedal edema. No calf tenderness. Bilateral lower extremity edema noted NEUROLOGICAL: Patient is awake, alert and oriented x3. Diffuse weakness. - Labs CBC & Chem 7: 10/07/20 06:20 10/04/20 07:25 Labs: Abnormal Lab Results - Last 24 Hours (Table) 10/07/20 10/07/20 10/07/20 Range/Units 06:20 06:44 11:24 RBC 4.24 L (4.40-5.60) X 10*6/uL Hgb 11.3 L (13.0-17.0) g/dL Hct 38.1 L (39.6-50.0) % MCH 26.7 L (27.0-32.0) pg MCHC 29.7 L (32.0-37.0) g/dL RDW 16.3 H (11.5-14.5) % Immature Gran # 0.05 H (0.00-0.04) X 10*3/uL Eosinophils # 0.45 H (0.04-0.35) X 10*3/uL POC Glucose (mg/dL) 231 H 201 H (75-99) mg/dL 10/07/20 10/07/20 Range/Units 16:38 20:50 RBC (4.40-5.60) X 10*6/uL Hgb (13.0-17.0) g/dL Hct (39.6-50.0) % MCH (27.0-32.0) pg MCHC (32.0-37.0) g/dL RDW (11.5-14.5) % Immature Gran # (0.00-0.04) X 10*3/uL Eosinophils # (0.04-0.35) X 10*3/uL POC Glucose (mg/dL) 154 H 235 H (75-99) mg/dL Assessment and Plan Assessment: RUL lung mass , now it is 3.9 cm with new 1.3 cm hilar LAP, patient refused the procedure Noncompliance Possible new onset diabetes chronic atrial fibrillation Congestive heart failure, ejection fraction 50-60% with chronic diastolic dysfunction History of COPD Hypertension history of chronic lymphedema History of obstructive sleep apnea, status post CPAP History of nicotine dependence History of noncompliance Obesity with a body mass index of 42.0 History of TIA Poor social support Full code Plan: this is a pleasant 73 yo M wiht mild COPD and RUL lung mass Patient refused lung biopsy, I talked to his PCP who is going to follow-up with the patient and monitor his lung mass Start metformin and follow-up with his PCP to provide glucometer and and diabetes education public works manager consult for transportation on discharge Labs and medication were reviewed.. Continue same treatment. Continue with symptomatic treatment. Resume home medication. Monitor lytes and vitals. DVT and GI prophylaxis. Further recommendations as per clinical course of the patient DVT prophylaxis: heparin GI Prophylaxis: Pepcid
[2020-10-07] MEDS: TEMAZEPAM 15 MG CAP PO PRN (21:13)
[2020-10-07] MEDS: PANTOPRAZOLE 40 MG TABLET PO SCH (21:13)
[2020-10-07] MEDS: ATORVASTATIN 40 MG TAB PO SCH (21:13)
[2020-10-07] MEDS: ONDANSETRON 4 MG TAB PO PRN (23:14)
[2020-10-08 06:58] LABS: Glucose,Whole Blood 168 mg/dL (75-99)
[2020-10-08] MEDS: FUROSEMIDE 20 MG TAB PO SCH ×2 (08:01→17:11)
[2020-10-08] MEDS: metFORMIN 500 MG TAB PO SCH (08:01)
[2020-10-08] MEDS: ASPIRIN 81 MG PO SCH (08:01)
[2020-10-08] MEDS: MULTIVITAMINS, THERA 1 EACH TAB PO SCH (08:01)
[2020-10-08] MEDS: CHOLECALCIFEROL 25 MCG (1000 IU) TABLET PO SCH (08:01)
[2020-10-08] MEDS: APIXABAN 5 MG TAB PO SCH ×2 (08:01→22:31)
[2020-10-08] MEDS: POTASSIUM CHLORIDE ER 20 MEQ TAB.ER PO SCH ×2 (08:01→22:31)
[2020-10-08] MEDS ORDERED: ASPIRIN 81 MG PO SCH (09:00)
[2020-10-08 11:15] LABS: Glucose,Whole Blood 246 mg/dL (75-99)
[2020-10-08 16:45] LABS: Glucose,Whole Blood 181 mg/dL (75-99)
[2020-10-08 21:30] LABS: Glucose,Whole Blood 196 mg/dL (75-99)
--- NOTE | 2020-10-08 21:38 | P.PN ---
Subjective This is a 70-year-old male who was recently admitted with shortness of breath and is being closely monitored. Patient continues on 2 L of oxygen along with breathing inhalational treatments and will continue. Pulmonary along with oncology following closely. Plans are for interventional radiology consult with possible biopsy of the enlarging mass noted in the right upper lobe. Continues to have shortness of breath and is weak and will have PT/OT evaluate the patient. Patient currently denies any chest pain or palpitations. Patient is afebrile. Patient is tolerating diet with no reports of nausea or vomiting noted. Patient also scheduled for CT of the brain to assess for possible metastasis which is pending. 10/04/20 pt is awake and alert , was able to move arond with little help from physical therapy team todya he is mildly dyspneic, no significant chest pain afebrile, mildly tachycardic wbc is mildly up at 10.7K, rest of labs unremarkable ,glucose is contorled pt is with poor compliance and f/u as outpt as he has difficulty with transportation , he has a known RUL lung mass , now it is 3.9 cm with new 1.3 cm hilar LAP plan for IR doing fine needle biopsy aspirate his eliquis is on hold and currently on lovenox for dvt prophylaxis 10/05/2020 Patient clinically looks the same as yesterday. he is s a slightly tachycardic and 107. There is better controlled today. His Eliquis and aspirin remain on hold and currently is on Lovenox for DVT prophylaxis. Patient is going for fine-needle aspiration biopsy of the RUL lung mass on Saturday10/06/2020 Patient is lying in bed comfortable, no new symptoms. Hemodynamically stable. His Eliquis and aspirin remain on hold and currently is on Lovenox for DVT prophylaxis. Patient is going for fine-needle aspiration biopsy of the RUL lung mass on Saturday also I called and talked to his PCP Dr. Costa metastatic number is [phone], [place] [phone] and he kindly told me he will follow- up the lung biopsy results and he can do home visits if his needed if he has transportation problems, also he told me that his staff are going to to call the patient on Saturday to make an appointment 10/07/2020 Patient today went for lung biopsy however rejected to do the procedure last minute because he was on prone position which was uncomfortable for him, after he consulted he wanted to be back to his room. When I met the patient he told me he agrees for the procedure if they are going to sedate him down with anesthesia, however later on. Dr. Dr. Joe and rejected the procedure altogether, who cleared him for discharge. Attempt to the patient again and he was agreeable to go home however he was concerns or no transportation, hospital system would provide a patent taxi/cab For him, however he has an open his house and he needs a Van so they can move them up to his house using a wheelchair which is not on options with the taxi, medical case manager was gone for the day also oncology service recommended psych consult, although I don't think it will change the outcome as patient looks to have Assisted to make his own decisions Also I talked to his PCP Dr. Costa metastatic number is [phone], and updated him with the patient refusal of lung biopsy, total bili is going to follow up with his lung tumor. Patient is not in known diabetic however he was started on insulin 20 units at bedtime and the hospital plus he got 15 units total of insulin sliding scale with NovoLog. I discussed the case with Dr. Costa, and he recommended to give him temporally prescription for metformin and he will follow-up with him this coming week to provide him a longer prescription for metformin and glucometer other going to teach him as its all [facility]., Also he will check his hemoglobin A1c in the office 10/08/2020 Patient is clinically stable for discharge however his oxygen saturation is 89% at rest on room air, he was assessed for home oxygen and he qualified however because it is weak and then oxygen could not be delivered to Saturday As per oncology service requested psychiatric consult for patient refusal of blood biopsy, Dr. Muhammad states he doesn't think he needs a psychiatrist necessarily as inpatient Objective - Vital Signs Vital signs: Vital Signs Temp 98.5 F 10/08/20 20:00 Pulse 90 10/08/20 20:00 Resp 18 10/08/20 20:00 BP 110/75 10/08/20 20:00 Pulse Ox 97 10/08/20 20:00 Intake & Output 10/08/20 10/08/20 10/09/20 06:59 18:59 06:59 Intake Total 480 Output Total 500 Balance 480 -500 Weight 153.9 kg Intake: Oral 480 Output: Urine 500 Other: Voiding Method Urinal # Voids 3 - Exam Gen: This is a 70-year-old male awake, alert and oriented 3, well-developed, well-nourished, obese. Temp is 97.8F, pulse is 97, respirations are 18, blood pressure is 109/71, oxygen saturation is 96% on 2 L via nasal cannula. HEENT: Head is atraumatic, normocephalic. Pupils equal, round. Sclerae is anicteric. NECK: Supple. No JVD. No lymphadenopathy. No thyromegaly. LUNGS: Diminished breath sounds bilaterally with some scattered rhonchi and crackles noted. No intercostal retractions. HEART: S1, S2 are muffled ABDOMEN: Soft. Bowel sounds are present. No masses. No tenderness. EXTREMITIES: No pedal edema. No calf tenderness. Bilateral lower extremity edema noted NEUROLOGICAL: Patient is awake, alert and oriented x3. Diffuse weakness. - Labs CBC & Chem 7: 10/07/20 06:20 10/04/20 07:25 Labs: Abnormal Lab Results - Last 24 Hours (Table) 10/08/20 10/08/20 10/08/20 Range/Units 06:55 11:13 16:43 POC Glucose (mg/dL) 168 H 246 H 181 H (75-99) mg/dL 10/08/20 Range/Units 21:25 POC Glucose (mg/dL) 196 H (75-99) mg/dL Assessment and Plan Assessment: RUL lung mass , now it is 3.9 cm with new 1.3 cm hilar LAP, patient refused the procedure Acute hypoxemic respiratory failure secondary to lung mass, qualify for home oxygen Noncompliance Possible new onset diabetes chronic atrial fibrillation Congestive heart failure, ejection fraction 50-60% with chronic diastolic dysfunction History of COPD Hypertension history of chronic lymphedema History of obstructive sleep apnea, status post CPAP History of nicotine dependence History of noncompliance Obesity with a body mass index of 42.0 History of TIA Poor social support Full code Plan: this is a pleasant 73 yo M wiht mild COPD and RUL lung mass Patient qualify for home oxygen however, be delivered to Saturday. Transportation is set up for him by a medical case manager Patient refused lung biopsy, I talked to his PCP who is going to follow-up with the patient and monitor his lung mass Start metformin and follow-up with his PCP to provide glucometer and and diabetes education advertising agency manager consult for transportation on discharge Labs and medication were reviewed.. Continue same treatment. Continue with symptomatic treatment. Resume home medication. Monitor lytes and vitals. DVT and GI prophylaxis. Further recommendations as per clinical course of the patient DVT prophylaxis: heparin GI Prophylaxis: Pepcid possible discharge on Saturday
[2020-10-08] MEDS: ALPRAZolam 0.25 MG TAB PO PRN (22:31)
[2020-10-08] MEDS: ATORVASTATIN 40 MG TAB PO SCH (22:31)
[2020-10-08] MEDS: PANTOPRAZOLE 40 MG TABLET PO SCH (22:31)
[2020-10-08] MEDS: TEMAZEPAM 15 MG CAP PO PRN (22:31)
[2020-10-09] MEDS: ONDANSETRON 4 MG TAB PO PRN ×2 (03:55→22:13)
[2020-10-09 07:06] LABS: Glucose,Whole Blood 180 mg/dL (75-99)
[2020-10-09] MEDS: APIXABAN 5 MG TAB PO SCH ×2 (09:12→22:14)
[2020-10-09] MEDS: MULTIVITAMINS, THERA 1 EACH TAB PO SCH (09:12)
[2020-10-09] MEDS: metFORMIN 500 MG TAB PO SCH (09:12)
[2020-10-09] MEDS: CHOLECALCIFEROL 25 MCG (1000 IU) TABLET PO SCH (09:12)
[2020-10-09] MEDS: POTASSIUM CHLORIDE ER 20 MEQ TAB.ER PO SCH ×2 (09:12→22:14)
[2020-10-09] MEDS: FUROSEMIDE 20 MG TAB PO SCH ×2 (09:13→13:27)
[2020-10-09] MEDS: ASPIRIN 81 MG PO SCH (09:13)
[2020-10-09 11:32] LABS: Glucose,Whole Blood 222 mg/dL (75-99)
--- NOTE | 2020-10-09 11:38 | P.PN ---
Subjective This is a 70-year-old male who was recently admitted with shortness of breath and is being closely monitored. Patient continues on 2 L of oxygen along with breathing inhalational treatments and will continue. Pulmonary along with oncology following closely. Plans are for interventional radiology consult with possible biopsy of the enlarging mass noted in the right upper lobe. Continues to have shortness of breath and is weak and will have PT/OT evaluate the patient. Patient currently denies any chest pain or palpitations. Patient is afebrile. Patient is tolerating diet with no reports of nausea or vomiting noted. Patient also scheduled for CT of the brain to assess for possible metastasis which is pending. 10/04/20 pt is awake and alert , was able to move arond with little help from physical therapy team todya he is mildly dyspneic, no significant chest pain afebrile, mildly tachycardic wbc is mildly up at 10.7K, rest of labs unremarkable ,glucose is contorled pt is with poor compliance and f/u as outpt as he has difficulty with transportation , he has a known RUL lung mass , now it is 3.9 cm with new 1.3 cm hilar LAP plan for IR doing fine needle biopsy aspirate his eliquis is on hold and currently on lovenox for dvt prophylaxis 10/05/2020 Patient clinically looks the same as yesterday. he is s a slightly tachycardic and 107. There is better controlled today. His Eliquis and aspirin remain on hold and currently is on Lovenox for DVT prophylaxis. Patient is going for fine-needle aspiration biopsy of the RUL lung mass on Saturday10/06/2020 Patient is lying in bed comfortable, no new symptoms. Hemodynamically stable. His Eliquis and aspirin remain on hold and currently is on Lovenox for DVT prophylaxis. Patient is going for fine-needle aspiration biopsy of the RUL lung mass on Saturday also I called and talked to his PCP Dr. Costa metastatic number is [phone][place] [phone] and he kindly told me he will follow- up the lung biopsy results and he can do home visits if his needed if he has transportation problems, also he told me that his staff are going to to call the patient on Saturday to make an appointment 10/07/2020 Patient today went for lung biopsy however rejected to do the procedure last minute because he was on prone position which was uncomfortable for him, after he consulted he wanted to be back to his room. When I met the patient he told me he agrees for the procedure if they are going to sedate him down with anesthesia, however later on. Dr. Dr. Joe and rejected the procedure altogether, who cleared him for discharge. Attempt to the patient again and he was agreeable to go home however he was concerns or no transportation, hospital system would provide a patent taxi/cab For him, however he has an open his house and he needs a Van so they can move them up to his house using a wheelchair which is not on options with the taxi, correctional casework specialist was gone for the day also oncology service recommended psych consult, although I don't think it will change the outcome as patient looks to have Assisted to make his own decisions Also I talked to his PCP Dr. Costa metastatic number is [phone], and updated him with the patient refusal of lung biopsy, total bili is going to follow up with his lung tumor. Patient is not in known diabetic however he was started on insulin 20 units at bedtime and the hospital plus he got 15 units total of insulin sliding scale with NovoLog. I discussed the case with Dr. Costa, and he recommended to give him temporally prescription for metformin and he will follow-up with him this coming week to provide him a longer prescription for metformin and glucometer other going to teach him as its [facility] Also he will check his hemoglobin A1c in the office 10/08/2020 Patient is clinically stable for discharge however his oxygen saturation is 89% at rest on room air, he was assessed for home oxygen and he qualified however because it is weak and then oxygen could not be delivered to Saturday As per oncology service requested psychiatric consult for patient refusal of blood biopsy, Dr. Muhammad states he doesn't think he needs a psychiatrist necessarily as inpatient 10/09/2020 Patient is clinically stable, he dropped his oxygen on exertion secondary to his lung mass. Patient will need home oxygen and he qualifies for it however it cannot be delivered until tomorrow because of the weekend for he is [facility] Objective - Vital Signs Vital signs: Vital Signs Temp 97.7 F 10/09/20 07:33 Pulse 100 10/09/20 07:33 Resp 14 10/09/20 07:33 BP 108/74 10/09/20 07:33 Pulse Ox 96 10/09/20 07:33 Intake & Output 10/08/20 10/09/20 10/09/20 18:59 06:59 18:59 Intake Total 240 Output Total 500 200 Balance -500 240 -200 Weight 153.6 kg Intake: Oral 240 Output: Urine 500 200 Other: Voiding Method Urinal - Exam Gen: This is a 70-year-old male awake, alert and oriented 3, well-developed, well-nourished, obese. Temp is 97.8F, pulse is 97, respirations are 18, blood pressure is 109/71, oxygen saturation is 96% on 2 L via nasal cannula. HEENT: Head is atraumatic, normocephalic. Pupils equal, round. Sclerae is anicteric. NECK: Supple. No JVD. No lymphadenopathy. No thyromegaly. LUNGS: Diminished breath sounds bilaterally with some scattered rhonchi and crackles noted. No intercostal retractions. HEART: S1, S2 are muffled ABDOMEN: Soft. Bowel sounds are present. No masses. No tenderness. EXTREMITIES: No pedal edema. No calf tenderness. Bilateral lower extremity edema noted NEUROLOGICAL: Patient is awake, alert and oriented x3. Diffuse weakness. - Labs CBC & Chem 7: 10/07/20 06:20 10/04/20 07:25 Labs: Abnormal Lab Results - Last 24 Hours (Table) 10/08/20 10/08/20 10/09/20 Range/Units 16:43 21:25 07:05 POC Glucose (mg/dL) 181 H 196 H 180 H (75-99) mg/dL 10/09/20 Range/Units 11:31 POC Glucose (mg/dL) 222 H (75-99) mg/dL Assessment and Plan Assessment: RUL lung mass , now it is 3.9 cm with new 1.3 cm hilar LAP, patient refused the procedure Acute hypoxemic respiratory failure secondary to lung mass, qualify for home oxygen Noncompliance Possible new onset diabetes chronic atrial fibrillation Congestive heart failure, ejection fraction 50-60% with chronic diastolic dysfunction History of COPD Hypertension history of chronic lymphedema History of obstructive sleep apnea, status post CPAP History of nicotine dependence History of noncompliance Obesity with a body mass index of 42.0 History of TIA Poor social support Full code Plan: this is a pleasant 73 yo M wiht mild COPD and RUL lung mass Patient qualify for home oxygen however, be delivered to Saturday. Transportation is set up for him by a correctional casework specialist Patient refused lung biopsy, I talked to his PCP who is going to follow-up with the patient and monitor his lung mass Start metformin and follow-up with his PCP to provide glucometer and and diabetes education business improvement manager consult for transportation on discharge Labs and medication were reviewed.. Continue same treatment. Continue with symptomatic treatment. Resume home medication. Monitor lytes and vitals. DVT and GI prophylaxis. Further recommendations as per clinical course of the patient DVT prophylaxis: heparin GI Prophylaxis: Pepcid possible discharge on Saturday
[2020-10-09 16:48] LABS: Glucose,Whole Blood 185 mg/dL (75-99)
[2020-10-09 20:39] LABS: Glucose,Whole Blood 198 mg/dL (75-99)
[2020-10-09] MEDS: ALPRAZolam 0.25 MG TAB PO PRN (22:12)
[2020-10-09] MEDS: PANTOPRAZOLE 40 MG TABLET PO SCH (22:13)
[2020-10-09] MEDS: TEMAZEPAM 15 MG CAP PO PRN (22:13)
[2020-10-09] MEDS: ATORVASTATIN 40 MG TAB PO SCH (22:13)
[2020-10-10 06:40] LABS: Glucose,Whole Blood 203 mg/dL (75-99)
[2020-10-10] MEDS: ASPIRIN 81 MG PO SCH (07:33)
[2020-10-10] MEDS: POTASSIUM CHLORIDE ER 20 MEQ TAB.ER PO SCH ×2 (07:33→19:45)
[2020-10-10] MEDS: metFORMIN 500 MG TAB PO SCH (07:34)
[2020-10-10] MEDS: MULTIVITAMINS, THERA 1 EACH TAB PO SCH (07:34)
[2020-10-10] MEDS: APIXABAN 5 MG TAB PO SCH ×2 (07:34→19:44)
[2020-10-10] MEDS: CHOLECALCIFEROL 25 MCG (1000 IU) TABLET PO SCH (07:34)
[2020-10-10] MEDS: FUROSEMIDE 20 MG TAB PO SCH ×2 (07:34→15:37)
[2020-10-10 11:45] LABS: Glucose,Whole Blood 192 mg/dL (75-99)
--- NOTE | 2020-10-10 13:18 | P.PN ---
Subjective Progress Note Date: 10/10/20 Principal diagnosis: COPD, lung mass In follow-up today patient is sitting up in the chair. He has no acute physical complaints. Objective - Vital Signs Vital signs: Vital Signs Temp 97.5 F L 10/10/20 07:25 Pulse 109 H 10/10/20 07:34 Resp 18 10/10/20 07:34 BP 109/74 10/10/20 07:25 Pulse Ox 96 10/10/20 07:25 Intake & Output 10/09/20 10/10/20 10/10/20 18:59 06:59 18:59 Intake Total 240 Output Total 1050 500 Balance -1050 -260 Intake: Oral 240 Output: Urine 1050 500 Other: Voiding Method Urinal Urinal # Voids 200 - Constitutional General appearance: Present: cooperative, morbidly obese, no acute distress - EENT Eyes: Present: anicteric sclerae, EOMI ENT: Present: hearing grossly normal - Respiratory Respiratory: bilateral: diminished - Cardiovascular Heart sounds: normal: S1, S2 Abnormal Heart Sounds: Absent: systolic murmur, diastolic murmur, rub, S3 Gallop, S4 Gallop, click, other - Peripheral edema leg Peripheral Edema: bilateral: Trace - Gastrointestinal General gastrointestinal: Present: normal bowel sounds, soft - Integumentary Integumentary: Present: pale - Neurologic Neurologic: Present: CNII-XII intact - Musculoskeletal Musculoskeletal: Present: generalized weakness - Psychiatric Psychiatric: Present: A&O x's 3, appropriate affect - Allied health notes Allied health notes reviewed: nursing - Labs CBC & Chem 7: 10/07/20 06:20 10/04/20 07:25 Labs: Abnormal Lab Results - Last 24 Hours (Table) 10/09/20 10/09/20 10/10/20 Range/Units 16:47 20:37 06:39 POC Glucose (mg/dL) 185 H 198 H 203 H (75-99) mg/dL 10/10/20 Range/Units 11:44 POC Glucose (mg/dL) 192 H (75-99) mg/dL Assessment and Plan (1) Lung mass Narrative/Plan: On review of his hospitalization and plan of care with patient is apparent that he is manipulating each situation so that it appears he is not being given informed consent. It was recommended that he have a biopsy of the lung because there is a mass and it is highly suspicious for cancer but, this has to be confirmed biopsy and pathology. Patient stated that he was told he would be "asleep" for the biopsy-which appears to be ordered as a percutaneous biopsy with Interventional Radiology. He refused the procedure after he was taken down for it-consent was signed, multiple notes in chart about this. He stated that medications he was being given were not explained to him which is not true as Nurses do not give medications without knowing what and why it is being given. I explained to patient that if he does not understand the process or procedure that he needs to ask appropriate questions. If he doesn't understand the answers then he needs to ask that things be further explained but, he cannot cont to manipulate Staff and Providers by not providing factual accounts of situation or by not providing accurate info. I told him that no one is going to do anything to him without his approval and consent-and nothing has been. I also told him that no one would perform any procedure on him without explaining it first so, it is by his choice that he is not having a biopsy and that is ok. Reassured him that he would not be treated for cancer without pathology confirmed diagnosis. Reviewed PET scan-done for staging, how the scan provides information. He was not able to state if this is something he would or would not do so, will [facility] and that decision can be made through [facility]. Current Visit: Yes Status: Acute Priority: High Code(s): R91.8 - OTHER NONSPECIFIC ABNORMAL FINDING OF LUNG FIELD SNOMED Code(s): 503518989 Time with Patient: Greater than 30
[2020-10-10 16:45] LABS: Glucose,Whole Blood 202 mg/dL (75-99)
[2020-10-10] MEDS: PANTOPRAZOLE 40 MG TABLET PO SCH (19:45)
[2020-10-10] MEDS: ATORVASTATIN 40 MG TAB PO SCH (19:45)
[2020-10-10 20:32] LABS: Glucose,Whole Blood 244 mg/dL (75-99)
[2020-10-10] MEDS ORDERED: SODIUM CHLORIDE 0.9% 1,000 ML IV ONE (21:35)
[2020-10-10] MEDS ORDERED: metFORMIN 500 MG TAB PO STA (21:35)
--- NOTE | 2020-10-10 21:36 | P.PN ---
Subjective This is a 70-year-old male who was recently admitted with shortness of breath and is being closely monitored. Patient continues on 2 L of oxygen along with breathing inhalational treatments and will continue. Pulmonary along with oncology following closely. Plans are for interventional radiology consult with possible biopsy of the enlarging mass noted in the right upper lobe. Continues to have shortness of breath and is weak and will have PT/OT evaluate the patient. Patient currently denies any chest pain or palpitations. Patient is afebrile. Patient is tolerating diet with no reports of nausea or vomiting noted. Patient also scheduled for CT of the brain to assess for possible metastasis which is pending. 10/04/20 pt is awake and alert , was able to move arond with little help from physical therapy team todya he is mildly dyspneic, no significant chest pain afebrile, mildly tachycardic wbc is mildly up at 10.7K, rest of labs unremarkable ,glucose is contorled pt is with poor compliance and f/u as outpt as he has difficulty with transportation , he has a known RUL lung mass , now it is 3.9 cm with new 1.3 cm hilar LAP plan for IR doing fine needle biopsy aspirate his eliquis is on hold and currently on lovenox for dvt prophylaxis 10/05/2020 Patient clinically looks the same as yesterday. he is s a slightly tachycardic and 107. There is better controlled today. His Eliquis and aspirin remain on hold and currently is on Lovenox for DVT prophylaxis. Patient is going for fine-needle aspiration biopsy of the RUL lung mass on Saturday10/06/2020 Patient is lying in bed comfortable, no new symptoms. Hemodynamically stable. His Eliquis and aspirin remain on hold and currently is on Lovenox for DVT prophylaxis. Patient is going for fine-needle aspiration biopsy of the RUL lung mass on Saturday also I called and talked to his PCP Dr. Costa metastatic number is [phone][place] [phone] and he kindly told me he will follow- up the lung biopsy results and he can do home visits if his needed if he has transportation problems, also he told me that his staff are going to to call the patient on Saturday to make an appointment 10/07/2020 Patient today went for lung biopsy however rejected to do the procedure last minute because he was on prone position which was uncomfortable for him, after he consulted he wanted to be back to his room. When I met the patient he told me he agrees for the procedure if they are going to sedate him down with anesthesia, however later on. Dr. Dr. Joe and rejected the procedure altogether, who cleared him for discharge. Attempt to the patient again and he was agreeable to go home however he was concerns or no transportation, hospital system would provide a patent taxi/cab For him, however he has an open his house and he needs a Van so they can move them up to his house using a wheelchair which is not on options with the taxi, foster care case manager was gone for the day also oncology service recommended psych consult, although I don't think it will change the outcome as patient looks to have Assisted to make his own decisions Also I talked to his PCP Dr. Costa metastatic number is [phone], and updated him with the patient refusal of lung biopsy, total bili is going to follow up with his lung tumor. Patient is not in known diabetic however he was started on insulin 20 units at bedtime and the hospital plus he got 15 units total of insulin sliding scale with NovoLog. I discussed the case with Dr. Costa, and he recommended to give him temporally prescription for metformin and he will follow-up with him this coming week to provide him a longer prescription for metformin and glucometer other going to teach him as its all [facility]., Also he will check his hemoglobin A1c in the office 10/08/2020 Patient is clinically stable for discharge however his oxygen saturation is 89% at rest on room air, he was assessed for home oxygen and he qualified however because it is weak and then oxygen could not be delivered to Saturday As per oncology service requested psychiatric consult for patient refusal of blood biopsy, Dr. Muhammad states he doesn't think he needs a psychiatrist necessarily as inpatient 10/09/2020 Patient is clinically stable, he dropped his oxygen on exertion secondary to his lung mass. Patient will need home oxygen and he qualifies for it however it cannot be delivered until tomorrow because of the weekend for he is [facility] 10/10/2020 Patient is awake and alert, sitting in a chair most of the time in supine position, denies any specific complaints. No chest pain or dyspnea or coughing. Nausea vomiting or abdominal pain. No urinary complaints. He denies dizziness or lightheadedness. No headache or weakness or numbness His vitals looks stable, mildly tachycardic, blood pressure is low normal since admission, he is saturating high 90s on 2 L via nasal cannula, Patient will need home oxygen upon discharge because of exertional hypoxia Patient is to the change his mind and wants to go to subacute rehab. Discussed with social media coordinator, prior authorization still pending Other than that patient is medically stable for discharge Patient confirmed to me that he is aware of this possible diagnosis of lung cancer he is aware about his lung mass. He still refuses biopsy. Patient was instructed to follow up with his family doctor and he agrees Patient sugars uncontrolled, recently started on metformin 500 mg twice a day, we going to increase it to 1000 twice a day Also patient looks dehydrated with wound hypotension and tachycardia, we will give one-time bolus of 1 L of normal saline Objective - Vital Signs Vital signs: Vital Signs Temp 98.7 F 10/10/20 14:00 Pulse 110 H 10/10/20 14:00 Resp 17 10/10/20 14:00 BP 100/70 10/10/20 14:00 Pulse Ox 97 10/10/20 14:00 Intake & Output 10/10/20 10/10/20 10/11/20 06:59 18:59 06:59 Intake Total 240 Output Total 500 700 Balance -260 -700 Intake: Oral 240 Output: Urine 500 700 Other: Voiding Method Urinal - Exam Gen: This is a 70-year-old male awake, alert and oriented 3, well-developed, well-nourished, obese. Temp is 97.8F, pulse is 97, respirations are 18, blood pressure is 109/71, oxygen saturation is 96% on 2 L via nasal cannula. HEENT: Head is atraumatic, normocephalic. Pupils equal, round. Sclerae is anicteric. NECK: Supple. No JVD. No lymphadenopathy. No thyromegaly. LUNGS: Diminished breath sounds bilaterally with some scattered rhonchi and crackles noted. No intercostal retractions. HEART: S1, S2 are muffled ABDOMEN: Soft. Bowel sounds are present. No masses. No tenderness. EXTREMITIES: No pedal edema. No calf tenderness. Bilateral lower extremity edema noted NEUROLOGICAL: Patient is awake, alert and oriented x3. Diffuse weakness. - Labs CBC & Chem 7: 10/07/20 06:20 10/04/20 07:25 Labs: Abnormal Lab Results - Last 24 Hours (Table) 10/09/20 10/10/20 10/10/20 Range/Units 20:37 06:39 11:44 POC Glucose (mg/dL) 198 H 203 H 192 H (75-99) mg/dL 10/10/20 Range/Units 16:43 POC Glucose (mg/dL) 202 H (75-99) mg/dL Assessment and Plan Assessment: RUL lung mass , now it is 3.9 cm with new 1.3 cm hilar LAP, patient refused the procedure Acute hypoxemic respiratory failure secondary to lung mass, qualify for home oxygen Noncompliance Possible new onset diabetes chronic atrial fibrillation Congestive heart failure, ejection fraction 50-60% with chronic diastolic dysfunction History of COPD Hypertension history of chronic lymphedema History of obstructive sleep apnea, status post CPAP History of nicotine dependence History of noncompliance Obesity with a body mass index of 42.0 History of TIA Poor social support Full code Plan: this is a pleasant 73 yo M wiht mild COPD and RUL lung mass Patient qualify for home oxygen however, be delivered to Saturday. Transportation is set up for him by a foster care case manager. However has not patient's wants to go to rehab Patient refused lung biopsy, I talked to his PCP who is going to follow-up with the patient and monitor his lung mass Start metformin and follow-up with his PCP to provide glucometer and and diabetes education health spa manager consult for transportation on discharge Labs and medication were reviewed.. Continue same treatment. Continue with symptomatic treatment. Resume home medication. Monitor lytes and vitals. DVT and GI prophylaxis. Further recommendations as per clinical course of the patient DVT prophylaxis: heparin GI Prophylaxis: Pepcid Patient medically stable for discharge pending placement
[2020-10-11 07:05] LABS: Glucose,Whole Blood 199 mg/dL (75-99)
[2020-10-11] MEDS ORDERED: metFORMIN 500 MG TAB PO SCH (07:30)
[2020-10-11] MEDS: FUROSEMIDE 20 MG TAB PO SCH ×2 (08:18→17:24)
[2020-10-11] MEDS: MULTIVITAMINS, THERA 1 EACH TAB PO SCH (08:22)
[2020-10-11] MEDS: CHOLECALCIFEROL 25 MCG (1000 IU) TABLET PO SCH (08:23)
[2020-10-11] MEDS: POTASSIUM CHLORIDE ER 20 MEQ TAB.ER PO SCH (08:23)
[2020-10-11] MEDS: APIXABAN 5 MG TAB PO SCH (08:23)
[2020-10-11] MEDS: ASPIRIN 81 MG PO SCH (08:23)
--- NOTE | 2020-10-11 09:58 | P.DS ---
Providers Date of admission: 09/30/20 10:56 Attending physician: Samina Lewis Consults: 09/30/20 10:54 Consult Physician Routine Consulting Provider: Pamela Mcdonald Consult Reason/Comments: COPD, lung mass Do you want consulting provider notified?: Yes 09/30/20 13:46 Consult Physician Routine Consulting Provider: Driss Young Consult Reason/Comments: chest pain Do you want consulting provider notified?: Yes 09/30/20 15:22 Consult Physician Routine Consulting Provider: Jonny Muhammad Consult Reason/Comments: malignancy Do you want consulting provider notified?: Yes Primary care physician: [facility] Course: Diagnoses: RUL lung mass , now it is 3.9 cm with new 1.3 cm hilar LAP, patient refused the procedure Acute hypoxemic respiratory failure secondary to lung mass, qualify for home oxygen Noncompliance Possible new onset diabetes chronic atrial fibrillation Congestive heart failure, ejection fraction 50-60% with chronic diastolic dysfunction History of COPD Hypertension history of chronic lymphedema History of obstructive sleep apnea, status post CPAP History of nicotine dependence History of noncompliance Obesity with a body mass index of 42.0 History of TIA Poor social support Full code Hospital course: This is a 70-year-old male with multiple medical problems who was recently admitted with shortness of breath and is being closely monitored. CT of the chest: RUL lung mass , now it is 3.9 cm with new 1.3 cm hilar LAP Pulmonary along with oncology following closely. Plans are for interventional radiology consult with possible biopsy of the enlarging mass noted in the right upper lobe. Patient one on the table and then change his mind and reviewed the procedure, and he does not want to do it again, he knows this could be cancer as he told me several times. I discussed that his going to follow up with his PCP in one week after discharge Patient got hypoxia with exertion and he qualifies for home oxygen, however now he is going to rehab Also patient found to have hyperglycemia most likely secondary to diabetes mellitus, he was started on metformin 1000 mg twice a day, continue with monitoring glucose with insulin sliding scale on going to rehab. Patient informed about metformin and he agrees to it Patient was waiting for his oxygen to be delivered t o him when he changed his mind because of his weakness and now he agrees to go to subacute rehab recommended by the physical therapy The day of discharge January of chest pain or dyspnea. No coughing. No abdominal pain or nausea vomiting. No change in urine or bowel habits. No feve r. Patient agrees to be discharged today Yesterday we ordered IV fluid for him because blood pressure was borderline and slightly tachycardic but he refused stating that his blood pressure always on t he low side. Patient was cleared for discharge by all consults including oncology and pulmonary Problems and management plan were discussed with the patient and he verbalized understanding and acceptance Patient was found stable and can be discharged home however he needs follow-up as an outpatient. Patient was instructed to follow up with PCP Dr. Costa within one week and patient agrees I called and discussed the case with Dr. Costa Go discussed the case with him including the refusal of the biopsy for his right upper lobe lung mass that he developed close as an outpatient, new onset diabetes and starting him on metformin. Also I informed him patient has been discharged to [facility] Physical exam -Gen: patient is a AAOx3, no distress. Obese CVS: S1-S2, RRR, no murmur Lungs: B/L CTA, no wheezing Abdomen: soft, no distention, no tenderness, positive bowel sounds Extremity: no leg edema or induration Time spent more than 35 minutes Patient Condition at Discharge: Stable Plan - Discharge Summary New Discharge Prescriptions: New metFORMIN HCL [Glucophage] 500 mg PO BID 5 Days #10 tab Continue Cholecalciferol [Vitamin D3 (25 Mcg = 1000 Iu)] 50 mcg PO DAILY Apixaban [Eliquis] 5 mg PO AC-BID Pantoprazole [Protonix] 40 mg PO HS Albuterol Sulfate [Proair Hfa] 2 puff INHALATION RT-QID PRN PRN Reason: Shortness Of Breath Aspirin 81 mg PO DAILY chew Potassium Chloride ER [K-Dur 20] 20 meq PO BID tab.er.prt Atorvastatin [Lipitor] 40 mg PO HS Furosemide [Lasix] 20 mg PO BID Multivitamins, Thera [Multivitamin (formulary)] 1 tab PO DAILY Tiotropium [place] [Spiriva] 1 cap INHALATION RT-DAILY Discharge Medication List Apixaban [Eliquis] 5 mg PO AC-BID 01/09/19 [History] Cholecalciferol [Vitamin D3 (25 Mcg = 1000 Iu)] 50 mcg PO DAILY 01/09/19 [History] Pantoprazole [Protonix] 40 mg PO HS 04/29/19 [History] Albuterol Sulfate [Proair Hfa] 2 puff INHALATION RT-QID PRN 02/12/20 [History] Aspirin 81 mg PO DAILY chew 02/23/20 [Rx] Potassium Chloride ER [K-Dur 20] 20 meq PO BID tab.er.prt 02/23/20 [Rx] Atorvastatin [Lipitor] 40 mg PO HS 09/30/20 [History] Furosemide [Lasix] 20 mg PO BID 09/30/20 [History] Multivitamins, Thera [Multivitamin (formulary)] 1 tab PO DAILY 09/30/20 [History] Tiotropium [place] [Spiriva] 1 cap INHALATION RT-DAILY 09/30/20 [History] metFORMIN HCL [Glucophage] 500 mg PO BID 5 Days #10 tab 10/07/20 [Rx] Follow up Appointment(s)/Referral(s): Jonny Muhammad MD [STAFF PHYSICIAN] - 1 Week Gabriel Brown MD [STAFF PHYSICIAN] - 2 Weeks [facility] [NON-STAFF] - As Needed (oxygen) Nikko Galicia DO [Primary Care Provider] - 1-2 days [facility], [NON-STAFF] - Activity/Diet/Wound Care/Special Instructions: Discharging provider: If patient needs nebulizer treatments, please leave an rx for the nebulizer and dictate what drug they are going on for it with frequency and what the nebulizer is for
[2020-10-11 11:53] LABS: Glucose,Whole Blood 204 mg/dL (75-99)
[2020-10-11 13:49] VITALS: BP 97/65; PULSE 94; RESP 18; TEMP 97.7
[2020-10-11 16:47] LABS: Glucose,Whole Blood 167 mg/dL (75-99)
--- NOTE | 2020-10-12 14:02 | CDI ---
Documentation Clarification Form Date: 10/12/2020 01:53:00 PM From: Leticia Duque Admit Date: 09/30/2020 10:56:00 AM Patient Name: Nikko Russo Visit Number: [id number] Discharge Date: 10/11/2020 05:45:00 PM ATTENTION: The Clinical Documentation Specialists (CDI) and [facility] Coding Staff appreciate your assistance in clarifying documentation. Please respond to the clarification below the line at the bottom and electronically sign. The CDI & [facility] Coding staff will review the response and follow-up if needed. Please note: Queries are made part of the Legal Health Record. If you have any questions, please contact the author of this message via ITS. Dr. Delatorre E Sheet Per pulmonary and your PN 10/10 RUL mass is highly suspected to be malignant. This diagnosis is not carried to DCS at time of discharge. Please clarify if you feel the patients lung mass is suspected to be malignant. History/risk factors: Lung mass 3.9 cm with new 1.[address] Clinical Indicators: respiratory failure Radiology: Enlarging mass Treatment: Patient refused biopsy Please clarify if you suspect patients lung mass to be malignant. Acuity [ ] Suspect Current lung Malignancy [ ] Personal History of Malignancy [ ] Do not suspect malignancy [ ] Other, please specify ____ [ ] Unable to determine please refer to notes MTDD
== END 2020-10-11 17:45 | DRG 180 ==
LOC: EC 09:15 → 4SSUR 10:56
PROVIDERS: ADMIT Internal Medicine; ATTEND Internal Medicine
DX: C34.11 Malignant neoplasm of upper lobe, right bronchus or lung (principal); J96.01 Acute respiratory failure with hypoxia; I48.21 Permanent atrial fibrillation; I50.32 Chronic diastolic (congestive) heart failure; J44.1 Chronic obstructive pulmonary disease with (acute) exacerbation; Z68.41 Body mass index [BMI] 40.0-44.9, adult; R91.8 Other nonspecific abnormal finding of lung field; D64.9 Anemia, unspecified; E11.65 Type 2 diabetes mellitus with hyperglycemia; E66.01 Morbid (severe) obesity due to excess calories; E78.5 Hyperlipidemia, unspecified; E86.0 Dehydration; G47.33 Obstructive sleep apnea (adult) (pediatric); I11.0 Hypertensive heart disease with heart failure; I71.2 Thoracic aortic aneurysm, without rupture; I87.2 Venous insufficiency (chronic) (peripheral); I87.8 Other specified disorders of veins; Z53.20 Procedure and treatment not carried out because of patient's decision for unspecified reasons; Z63.8 Other specified problems related to primary support group; Z79.01 Long term (current) use of anticoagulants; Z79.4 Long term (current) use of insulin; Z79.82 Long term (current) use of aspirin; Z79.899 Other long term (current) drug therapy; Z82.3 Family history of stroke; Z86.73 Personal history of transient ischemic attack (TIA), and cerebral infarction without residual deficits; Z87.891 Personal history of nicotine dependence; Z91.19 Patient's noncompliance with other medical treatment and regimen
CPT/HCPCS: 36415; 70470; 71046; 71260; 80048; 80053; 81003; 83735; 83880; 84484; 85025; 85049; 85379; 85610; 85730; 86850; 86900; 86901; 93005; 94640; 94760; 99285